=== PATIENT | male | born 1945 | race Caucasian/White ===

== ENCOUNTER 2021-07-24 00:39 | Day surgery (SDC) | payer MEDICARE, SELFPAY ==
[2021-07-11 11:03] VITALS: BMI 26.5
--- NOTE | 2021-07-21 15:45 | PM.HPGS ---
History of Present Illness History of Present Illness Consent: Risks, benefits, and alternatives have been discussed and questions answered. Patient agrees to proceed with procedure. Chief complaint: hx of ulcerative colitis Narrative: Larry Bernabe is a 75 year old male with chronic ulcerative colitis undergoing surveillance colonoscopy Review of Systems Review of Systems: All systems reviewed & are unremarkable except as noted in HPI and below PMFSH Social History Social History Smoking packs per day: 1 Smoking cigarettes per day: 20.0 Years smoked: 14 Smoking pack-years: 14.00 Tobacco type: cigarettes Living arrangements: with family Spiritual care concerns: No Meds Home Medications and Allergies Home Medications Medication Instructions Recorded Confirmed Type balsalazide 750 mg capsule 2,250 mg PO BID #540 cap 05/09/21 07/24/21 Rx Allergies Allergy/AdvReac Type Severity Reaction Status Date / Time No Known Allergies Allergy Verified 07/24/21 06:46 Exam Resp: Auscultation: clear to auscultation bilaterally Cardio: Rate: regular rate Rhythm: regular rhythm GI: GI Palp: Yes Soft to palpation and No Tenderness to palpation present (GI) Assessment and Plan Assessment and plan (1) Ulcerative colitis: Code(s): K51.90 - Ulcerative colitis, unspecified, without complications Status: Acute Assessment and Plan: Colonoscopy with possible biopsy or polypectomy or cautery or injection of substances.
[2021-07-24 06:53] VITALS: BP 141/95; PULSE 65; RESP 16; TEMP 36.4; O2SAT 99; BMI 26.4
[2021-07-24] MEDS: LACTATED RINGERS 1,000 ML 150 ML IV CONT (06:56)
--- NOTE | 2021-07-24 07:31 | WPDANESEPPF ---
Anes - Initial Pre Proc Eval Procedure: Operation Date: 07/24/21 08:00 Proposed Procedures p Colonoscopy - Shukri Jernigan MD Date/Time: 07/24/21 07:31 Surgeon: Shukri Jernigan MD Pre Op Diagnosis: hx of ulcerative colitis Patient Data Age: 75 Gender: M Height: 1.8 m Weight: 85.9 kg Last Vital Signs Temp 36.4 C L 07/24/21 06:53 Pulse 65 07/24/21 06:53 Resp 16 07/24/21 06:53 BP 141/95 H 07/24/21 06:53 Pulse Ox 99 07/24/21 06:53 Allergies Allergy/AdvReac Type Severity Reaction Status Date / Time No Known Allergies Allergy Verified 07/24/21 06:46 Home Medications Medication Instructions Recorded Confirmed Type balsalazide 750 mg capsule 2,250 mg PO BID #540 cap 05/09/21 07/24/21 Rx Patient hx anesthesia problems: none Family hx anesthesia problems: none Results Review: All pre-operative results and documents have been reviewed as part of the pre-operative evaluation. [facility] Social History Social History Smoking packs per day: 1 Smoking cigarettes per day: 20.0 Years smoked: 14 Smoking pack-years: 14.00 Tobacco type: cigarettes Living arrangements: with family Spiritual care concerns: No Anes - Eval Final PreProcedure Day of Procedure 07/24/21 07:31 Patient weight: overweight Heart: regular rate and rhythm Lungs: clear to auscultation Airway: Mallampati scale class II Neurological: alert and oriented Last oral intake: >/= 8 hours ASA classification: II Emergent: no Anesthetic plan: proceed Anesthesia type and monitoring: general GIVS and standard monitoring Results Review: All pre-operative results and documents have been reviewed as part of the pre-operative evaluation. Informed Consent: The patient's anesthetic plan and its attendant risks and benefits were discussed with the patient/family/POA. Questions were solicited and answers provided to the satisfaction of the patient/family/POA.
[2021-07-24 08:28] VITALS: BP 143/100; PULSE 80; RESP 21; O2SAT 98
[2021-07-24 08:38] VITALS: BP 147/100; PULSE 77; RESP 20; O2SAT 100
[2021-07-24 08:48] VITALS: BP 145/101; PULSE 62; RESP 20; O2SAT 99
== END 2021-07-24 08:56 | disposition home or self-care (01) ==
PROVIDERS: PCP Family Medicine; Visit Provider Internal Medicine Gastroenterology
PROC: 0DJD8ZZ Inspection of Lower Intestinal Tract, Via Natural or Artificial Opening Endoscopic (ICD-10-PCS; CPT 45378; principal; 2021-07-24 08:00)
DX: K51.814 Other ulcerative colitis with abscess (principal); K63.5 Polyp of colon; F17.210 Nicotine dependence, cigarettes, uncomplicated
CPT/HCPCS: 45385; 45380; 88305; J2001; J2704; J7120

== ENCOUNTER 2022-09-13 00:51 | Day surgery (SDC) | payer MEDICARE, SELFPAY ==
[2022-08-29 11:30] VITALS: BMI 21.4
--- NOTE | 2022-09-11 15:31 | PM.HPGS ---
History of Present Illness History of Present Illness Consent: Risks, benefits, and alternatives have been discussed and questions answered. Patient agrees to proceed with procedure. Chief complaint: Hx of colon polyps Narrative: Larry Bernabe is a 76 year old male with chronic ulcerative colitis undergoing surveillance colonoscopy. At the time of his last colonoscopy biopsies in the ascending colon were said to be indefinite for dysplasia. He also had a sessile serrated adenoma removed from his sigmoid colon Review of Systems Review of Systems: All systems reviewed & are unremarkable except as noted in HPI and below PMFSH Past Medical History Medical History Arthritis Ulcerative colitis Social History Social History Smoking packs per day: 1 Smoking cigarettes per day: 20.0 Years smoked: 20 Smoking pack-years: 20.00 Smoking status: Former smoker Tobacco type: cigarettes Substance use type: does not use Living arrangements: with family Spiritual care concerns: No Meds Home Medications and Allergies Home Medications Medication Instructions Recorded Confirmed Type balsalazide 750 mg capsule 2,250 mg PO BID #540 caps 05/09/21 09/13/22 Rx Allergies Allergy/AdvReac Type Severity Reaction Status Date / Time No Known Allergies Allergy Verified 09/13/22 07:44 Exam Resp: Auscultation: clear to auscultation bilaterally Cardio: Rate: regular rate Rhythm: regular rhythm GI: GI Palp: Yes Soft to palpation and No Tenderness to palpation present (GI) Assessment and Plan Assessment and plan (1) Ulcerative colitis: Code(s): K51.90 - Ulcerative colitis, unspecified, without complications Status: Inactive Assessment and Plan: Colonoscopy with possible biopsy or polypectomy or cautery or injection of substances.
[2022-09-13 07:46] VITALS: BP 134/87; PULSE 85; RESP 18; TEMP 36.2; O2SAT 99; BMI 27.3
[2022-09-13] MEDS: LACTATED RINGERS 1,000 ML 150 ML IV CONT (07:51)
--- NOTE | 2022-09-13 07:55 | P.PNAN_ITS ---
Anes - Initial Pre Proc Eval Procedure: Operation Date: 09/13/22 08:30 Proposed Procedures p Screening Colonoscopy - Shukri Jernigan MD Date/Time: 09/13/22 07:55 Surgeon: Shukri Jernigan MD Pre Op Diagnosis: Hx of colon polyps Patient Data Age: 76 Gender: M Height: 1.73 m Weight: 81.4 kg Last Vital Signs Temp 36.2 C L 09/13/22 07:46 Pulse 85 09/13/22 07:46 Resp 18 09/13/22 07:46 BP 134/87 09/13/22 07:46 Pulse Ox 99 09/13/22 07:46 O2 Del Method Room Air 09/13/22 07:46 Allergies Allergy/AdvReac Type Severity Reaction Status Date / Time No Known Allergies Allergy Verified 09/13/22 07:44 Home Medications Medication Instructions Recorded Confirmed Type balsalazide 750 mg capsule 2,250 mg PO BID #540 caps 05/09/21 09/13/22 Rx Patient hx anesthesia problems: other (slow to awaken) Family hx anesthesia problems: none Results Review: All pre-operative results and documents have been reviewed as part of the pre- operative evaluation. [facility] Past Medical History Medical History Arthritis Ulcerative colitis Social History Social History Smoking packs per day: 1 Smoking cigarettes per day: 20.0 Years smoked: 20 Smoking pack-years: 20.00 Smoking status: Former smoker Tobacco type: cigarettes Substance use type: does not use Living arrangements: with family Spiritual care concerns: No Anes - Eval Final PreProcedure Day of Procedure 09/13/22 07:55 Patient weight: normal Heart: regular rate and rhythm Lungs: clear to auscultation Airway: Mallampati scale class III Neurological: alert and oriented Last oral intake: >/= 8 hours ASA classification: II Emergent: no Anesthetic plan: proceed Anesthesia type and monitoring: general GIVS and standard monitoring Results Review: All pre-operative results and documents have been reviewed as part of the pre- operative evaluation. Informed Consent: The patient's anesthetic plan and its attendant risks and benefits were discussed with the patient/family/POA. Questions were solicited and answers provided to the satisfaction of the patient/family/POA.
[2022-09-13 09:07] VITALS: BP 115/88; PULSE 77; RESP 21; O2SAT 99
[2022-09-13 09:17] VITALS: BP 135/88; PULSE 78; RESP 19; O2SAT 99
== END 2022-09-13 09:44 | disposition home or self-care (01) ==
PROVIDERS: PCP Family Medicine; Visit Provider Internal Medicine Gastroenterology
PROC: 0DJD8ZZ Inspection of Lower Intestinal Tract, Via Natural or Artificial Opening Endoscopic (ICD-10-PCS; CPT 45378; principal; 2022-09-13 08:30)
DX: K52.9 Noninfective gastroenteritis and colitis, unspecified (principal); K64.8 Other hemorrhoids; Z87.891 Personal history of nicotine dependence; Z86.010 Personal history of colon polyps
CPT/HCPCS: 45380; 88305; J2704; J7120

== ENCOUNTER 2023-08-14 09:27 | Outpatient (CLI) | payer MEDICARE, SELFPAY ==
--- NOTE | 2023-08-14 11:00 | NEURO_ITS ---
Impression: # Non-diabetic complains of numbness of hands. # Mild bilateral Carpal Tunnel Syndrome, sensory more than motor. # No ulnar neuropathy. # Normal needle/EMG. Nerve Conduction Studies Anti Sensory Summary Table Stim Site NR Peak (ms) P-T Amp (?V) Site1 Site2 Delta-P (ms) Dist (cm) Jovanni (m/s) Left Median Anti Sensory (2-3nd Digit) Wrist 4.0 24.5 Wrist 2-3nd Digit 4.0 14.0 35 Wrist 4.1 15.9 Wrist 2-3nd Digit 4.0 14.0 35 Right Median Anti Sensory (2-3nd Digit) Wrist 4.1 17.9 Wrist 2-3nd Digit 4.1 14.0 34 Wrist 4.9 33.6 Wrist 2-3nd Digit 4.1 14.0 34 Left Radial Anti Sensory (Base 1st Digit) Wrist 2.5 12.3 Wrist Base 1st Digit 2.5 0.0 Right Radial Anti Sensory (Base 1st Digit) Wrist 2.8 19.5 Wrist Base 1st Digit 2.8 0.0 Left Ulnar Anti Sensory (5th Digit) Wrist 2.5 40.9 Wrist 5th Digit 2.5 14.0 56 Right Ulnar Anti Sensory (5th Digit) Wrist 2.7 36.2 Wrist 5th Digit 2.7 14.0 52 Motor Summary Table Stim Site NR Onset (ms) O-P Amp (mV) Site1 Site2 Delta-0 (ms) Dist (cm) Jovanni (m/s) Left Median Motor (Abd Poll Brev) Wrist 4.0 3.8 Elbow Wrist 5.2 28.0 54 Elbow 9.2 3.1 Right Median Motor (Abd Poll Brev) Wrist 3.8 1.8 Elbow Wrist 5.9 31.0 53 Elbow 9.7 1.9 Left Ulnar Motor (Abd Dig Minimi) Wrist 2.3 5.7 A Elbow Wrist 5.3 30.0 57 A Elbow 7.6 4.8 Right Ulnar Motor (Abd Dig Minimi) Wrist 2.5 4.4 A Elbow Wrist 5.3 30.0 57 A Elbow 7.8 3.2 F Wave Studies NR F-Lat (ms) L-R F-Lat (ms) Left Median (Mrkrs) (Abd Poll Brev) 32.49 0.28 Right Median (Mrkrs) (Abd Poll Brev) 32.21 0.28 Left Ulnar (Mrkrs) (Abd Dig Min) 32.43 1.10 Right Ulnar (Mrkrs) (Abd Dig Min) 31.33 1.10 EMG Side Muscle Nerve Root Ins Act Fibs Amp Dur Recrt Comment Right 1stDorInt Ulnar C8-T1 Nml Nml Nml Nml Nml Right Ext Indicis Radial (Post Int) C7-8 Nml Nml Nml Nml Nml Right Ext Digitorum Radial (Post Int) C7-8 Nml Nml Nml Nml Nml Right BrachioRad Radial C5-6 Nml Nml Nml Nml Nml Right PronatorTeres Median C6-7 Nml Nml Nml Nml Nml Right Abd Poll Brev Median C8-T1 Nml Nml Nml Nml Nml Left 1stDorInt Ulnar C8-T1 Nml Nml Nml Nml Nml Left Ext Indicis Radial (Post Int) C7-8 Nml Nml Nml Nml Nml Left Ext Digitorum Radial (Post Int) C7-8 Nml Nml Nml Nml Nml Left BrachioRad Radial C5-6 Nml Nml Nml Nml Nml Left PronatorTeres Median C6-7 Nml Nml Nml Nml Nml Left Abd Poll Brev Median C8-T1 Nml Nml Nml Nml Nml MTDD
== END 2023-08-14 09:28 | disposition home or self-care (01) ==
LOC: ANHNEURO 09:30
PROVIDERS: PCP Family Medicine; Visit Provider Physician Assistant Surgical
DX: G56.03 Carpal tunnel syndrome, bilateral upper limbs (principal)
CPT/HCPCS: 95886; 95911

== ENCOUNTER 2023-10-09 00:19 | Day surgery (SDC) | payer MEDICARE, SELFPAY ==
[2023-09-18 10:02] VITALS: BMI 25.2
--- NOTE | 2023-10-08 11:27 | SUR.PREOP ---
Patient called regarding upcoming procedure. Reviewed preop instructions, appointment times, and procedure prep.
--- NOTE | 2023-10-08 13:36 | PM.HPGS ---
History of Present Illness History of Present Illness Consent: Risks, benefits, and alternatives have been discussed and questions answered. Patient agrees to proceed with procedure. Chief complaint: Ulcerative colitis Narrative: Larry Bernabe is a 78 year old male Undergoing surveillance colonoscopy due to a long history of ulcerative colitis. Two years ago biopsies showed some areas that were indefinite for dysplasia. He also had a sessile serrated polyp removed at that time. Last year biopsies taken at the time of colonoscopy did not reveal any dysplasia nor polyps. Review of Systems Review of Systems: All systems reviewed & are unremarkable except as noted in HPI and below PMFSH Past Medical History Medical History Arthritis Ulcerative colitis Social History Social History Smoking packs per day: 1 Smoking cigarettes per day: 20.0 Years smoked: 20 Smoking pack-years: 20.00 Smoking status: Former smoker Tobacco type: cigarettes Substance use type: does not use Living arrangements: with family Spiritual care concerns: No Meds Home Medications and Allergies Home Medications Medication Instructions Recorded Confirmed Type balsalazide 750 mg capsule 2,250 mg PO BID #540 caps 09/17/22 10/09/23 Rx Allergies Allergy/AdvReac Type Severity Reaction Status Date / Time No Known Allergies Allergy Verified 10/09/23 11:08 Exam Const: General: alert Orientation/consciousness: patient oriented x3 Resp: Auscultation: clear to auscultation bilaterally Cardio: Rhythm: regular rhythm GI: GI Palp: Yes Soft to palpation and No Tenderness to palpation present (GI) Neuro: General: patient oriented x3 Assessment and Plan Assessment and plan (1) Ulcerative colitis: Code(s): K51.90 - Ulcerative colitis, unspecified, without complications Status: Acute Assessment and Plan: Colonoscopy with possible biopsy or polypectomy or cautery or injection of substances.
[2023-10-09 11:09] VITALS: BMI 25.1
[2023-10-09 11:11] VITALS: BP 132/100; PULSE 90; RESP 18; TEMP 36.3; O2SAT 99
[2023-10-09] MEDS: LACTATED RINGERS 1,000 ML 150 ML IV CONT (11:21)
--- NOTE | 2023-10-09 11:56 | P.PNAN_ITS ---
Anes - Initial Pre Proc Eval Procedure: Operation Date: 10/09/23 12:30 Proposed Procedures p Colonoscopy - Shukri Jernigan MD Date/Time: 10/09/23 11:56 Surgeon: Shukri Jernigan MD Pre Op Diagnosis: Ulcerative colitis Patient Data Age: 78 Gender: M Height: 1.75 m Weight: 77.2 kg Last Vital Signs Temp 97.4 F L 10/09/23 11:11 Pulse 90 10/09/23 11:11 Resp 18 10/09/23 11:11 BP 132/100 H 10/09/23 11:11 Pulse Ox 99 10/09/23 11:11 O2 Del Method Room Air 10/09/23 11:11 Allergies Allergy/AdvReac Type Severity Reaction Status Date / Time No Known Allergies Allergy Verified 10/09/23 11:08 Home Medications Medication Instructions Recorded Confirmed Type balsalazide 750 mg capsule 2,250 mg PO BID #540 caps 09/17/22 10/09/23 Rx Patient hx anesthesia problems: none Family hx anesthesia problems: none Results Review: All pre-operative results and documents have been reviewed as part of the pre- operative evaluation. [facility] Past Medical History Medical History Arthritis Ulcerative colitis Social History Social History Smoking packs per day: 1 Smoking cigarettes per day: 20.0 Years smoked: 20 Smoking pack-years: 20.00 Smoking status: Former smoker Tobacco type: cigarettes Substance use type: does not use Living arrangements: with family Spiritual care concerns: No Anes - Eval Final PreProcedure Day of Procedure 10/09/23 11:56 Patient weight: normal Heart: regular rate and rhythm Lungs: clear to auscultation Airway: Mallampati scale class II Neurological: alert and oriented Last oral intake: >/= 8 hours ASA classification: II Emergent: no Anesthetic plan: proceed Anesthesia type and monitoring: general GIVS and standard monitoring Results Review: All pre-operative results and documents have been reviewed as part of the pre- operative evaluation. Informed Consent: The patient's anesthetic plan and its attendant risks and benefits were discussed with the patient/family/POA. Questions were solicited and answers provided to the satisfaction of the patient/family/POA.
[2023-10-09 12:29] VITALS: BP 108/73; PULSE 77; RESP 16; O2SAT 95
[2023-10-09 12:39] VITALS: BP 112/78; PULSE 74; RESP 24; O2SAT 98
[2023-10-09 12:49] VITALS: BP 117/86; PULSE 73; RESP 24; O2SAT 98
== END 2023-10-09 13:09 | disposition home or self-care (01) ==
PROVIDERS: PCP Family Medicine; Visit Provider Internal Medicine Gastroenterology
PROC: 0DJD8ZZ Inspection of Lower Intestinal Tract, Via Natural or Artificial Opening Endoscopic (ICD-10-PCS; CPT 45378; principal; 2023-10-09 12:30)
DX: K52.89 Other specified noninfective gastroenteritis and colitis (principal); K64.8 Other hemorrhoids; Z87.891 Personal history of nicotine dependence
CPT/HCPCS: 45380; 88305; J7120

== ENCOUNTER 2023-12-16 16:19 | Outpatient (CLI) | payer MEDICARE, SELFPAY ==
--- NOTE | ~2023-12-16 | MR_ITS ---
EXAMINATION: MR cervical spine wo con DATE: 12/16/2023 17:13 INDICATION: Spinal stenosis in cervical region. Numbness and tingling in the hands. TECHNIQUE: Magnetic resonance imaging (MRI) of the cervical spine was performed without intravenous c ontrast. Sequences included sagittal T2-weighted FSE, sagittal T2-weighted FS FSE, sagittal T1-weight ed FSE, axial MERGE, and axial T2-weighted FSE. COMPARISON: None FINDINGS: There is 4 degrees levocurvature of cervicothoracic spine. There is 2 mm anterolisthesis of C4 on C5, C7 on T1, and T1 on T2. There is kyphosis of lower cervical spine. Vertebral body heights are normal. There is severely decreased disc height at C5-C6. The spinal cord signal intensity is nor mal. The following disc levels are specifically discussed: C2-C3: The disc does not extend beyond the endplate margin. There is no uncovertebral joint osteoarth ritis. There is moderate left facet joint osteoarthritis. There is ankylosis of right facet joint wit h mild hypertrophy. There is mild right neural foraminal stenosis. There is no central canal stenosis . C3-C4: There is a central protrusion. There is mild bilateral uncovertebral joint osteoarthritis. The re is moderate right facet joint osteoarthritis. There is ankylosis of left facet joint with mild hyp ertrophy. There is mild left neural foraminal stenosis. There is no central canal stenosis. C4-C5: The disc is bulging. There is mild bilateral uncovertebral joint osteoarthritis. There is magnolia re bilateral facet joint osteoarthritis. There is mild bilateral neural foraminal stenosis. There is mild central canal stenosis. C5-C6: The disc is bulging. There is severe bilateral uncovertebral joint osteoarthritis. There is se nova bilateral facet joint osteoarthritis. There is mild bilateral neural foraminal stenosis. There i s mild central canal stenosis with ventral indentation of the spinal cord. C6-C7: There is mild bilateral uncovertebral joint hypertrophy. There is no facet joint osteoarthriti s. There is severe right and mild left neural foraminal stenosis. There is no central canal stenosis. C7-T1: There is a central extrusion. There is mild right uncovertebral joint osteoarthritis. There is severe bilateral facet joint osteoarthritis. There is mild bilateral neural foraminal stenosis. Ther e is mild central canal stenosis. IMPRESSION: 1. Severe cervical spondylosis. 2. Anterior fusion procedure at C6-C7. Reviewed, dictated and finalized at location [facility]
== END 2023-12-16 16:20 | disposition home or self-care (01) ==
LOC: ANHIMG 16:19
PROVIDERS: PCP Family Medicine; Visit Provider Orthopaedic Surgery
DX: M48.02 Spinal stenosis, cervical region (principal); M47.892 Other spondylosis, cervical region; Z98.1 Arthrodesis status
CPT/HCPCS: 72141

== ENCOUNTER 2024-02-18 00:33 | Day surgery (SDC) | payer MEDICARE, SELFPAY ==
[2024-02-14 09:08] VITALS: BMI 24.8
--- NOTE | 2024-02-14 09:15 | PC.NURSE ---
Report to the Outpatient Waiting Room, entrance under the green pavilion located off [facility], at time _1000_ on date ____02/18/24___. Planned Procedure Time: ___1200 . Time changes happen often and if your time is changed the preop area will call you the afternoon before. - You and your visitor will be asked to self-screen and do not enter if you have any COVID symptoms. - A mask is optional within the hospital at this time. Patients may have clear liquids (water, carbonated beverages, clear teas, apple juice) until 3 hours prior to surgery (0900 AM) with a maximum of 20 ounces. - No food from midnight until time of surgery - Infants may have breast milk until 4 hours before surgery, infant formula 6 hours prior to surgery. - Children will be allowed to drink immediately following surgery. If applicable, please bring a bottle or sippy cup to assist with drinking. Juice, water, soda, and popsicles are readily available. For infants on formula, please bring formula the day of surgery. Pacifiers are allowed. Take the following medications with a SIP of water the morning of surgery: __NONE__ DO NOT STOP ANY OF YOUR OTHER PRESCRIPTION MEDICATIONS PRIOR TO SURGERY ?EXCEPT THE FOLLOWING Medications to discontinue per DR. CABELLO - __PT STATES STOPPING BALSALAZIDE 02/12/24_ Date to take last dose Please no make-up, nail greek, hairspray, perfume, deodorant, or body powder the day of surgery. No jewelry (including any body piercings) or valuables the day of surgery, leave them at home. Please take a shower or bath the night before, or the morning of, surgery with an antibacterial soap. Wear comfortable, loose fitting clothing. Children are encouraged to wear pajamas. - Jewelry must be removed prior to entering the operating room. Rings and piercings that are not removed may be cut off. - The hospital will not accept responsibility for valuables. - Please leave all valuables, including medications, at home the day of surgery. If you are going home after surgery, a licensed hydraulic lift driver must drive you home. - NO public transportation without another adult if you receive anesthesia. - We recommend that an adult stay with you for 24 hours following discharge. - We also recommend that you do not drive, make important decision, drink alcoholic beverages, or take any drugs that were not prescribed by your health care provider for at least 24 hours after your discharge time. For Pediatric surgeries, we recommend two adults accompany the child home. Follow any additional instructions given to you from your surgeon. If you or anyone in your household have experienced Covid symptoms in the past week, please notify your surgeon or the nurse liaison at the phone number below for possible testing. Telephone instructions given to PT and asked if any additional questions and then verbalized understanding. Patient advised to call surgeon office or pre surgery nurse liaison [phone] if any additional questions.
--- NOTE | 2024-02-17 17:04 | PM.IMHP ---
H&P: HPI History of Present Illness Date/Time: 02/17/24 17:04 Chief Complaint: Numbness constant right thumb index and long fingers. Narrative: Patient is a 78 old gentleman was seen for carpal tunnel syndrome in the right hand. Her of this year he had nerve conduction velocity test EMG which showed mild bilateral carpal tunnel syndrome. MRI scan of the cervical spine showed mild central canal stenosis C4-5 C5-6 and C7-T1 with ventral indentation of spinal cord at C5-6 without signs of myelopathy. Patient had a anterior cervical decompression and fusion many years ago. He has tried splinting and the constant numbness persists and he presents for carpal tunnel release. We have discussed with him that there may be a contribution to his numbness by his cervical spinal stenosis but since the morbidity of carpal tunnel release is less than the morbidity of anterior cervical decompression and fusion, we are going to proceed with carpal tunnel release surgery to see if this is helpful. 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 REPLACED BY [facility] Past Medical History Medical History (Updated 01/23/24 @ 10:40 by Christiano Huber MD) Arthritis Ulcerative colitis Surgical History Surgical History (Updated 01/20/24 @ 14:58 by Melinda To CMA) History of cervical spinal surgery 45yr ago History of cholecystectomy Social History Social History (Updated 01/20/24 @ 14:59 by Melinda To CMA) Smoking packs per day: 1 Smoking cigarettes per day: 20.0 Years smoked: 20 Smoking pack-years: 20.00 Smoking status: Former smoker Tobacco type: cigarettes Second hand tobacco smoke exposure: No Additional smoking assessment comments: STATES QUIT SMOKING 1979 Alcohol intake: never Substance use: never Substance use type: does not use Do You Feel Safe in your Home?: Yes Lack of Transportation: No Lack of Food: Never True Current Housing: I Have Housing Concerned About Future Housing: No Difficulty Paying Gas/Electric Bills: No Difficulty Paying for Meds: No Currently Unemployed: No Education: High School Diploma/GED Living arrangements: with family Additional living arrangements comments: LIVES WITH SPOUSE AMILCAR Occupation/Education: retired Gender identity (if verbalized by the patient): Male Spiritual care concerns: No Meds Home Medications and Allergies Home Medications Medication Instructions Recorded Confirmed Type balsalazide 750 mg capsule 2,250 mg PO BID #540 caps 09/17/22 02/14/24 Rx Allergies Allergy/AdvReac Type Severity Reaction Status Date / Time No Known Allergies Allergy Verified 02/14/24 09:07 Exam Narrative: On exam he is alert oriented pleasant gentleman in no acute distress. Heart and lung auscultation will be documented on morning of surgery. He has full range of motion of his fingers moderate decreased range of motion of his wrist. Light touch testing shows a numbness scratchy feeling in the thumb index and long fingers. Positive Tinel's over the median nerve the risk causing dysesthesias into his hand. 2+ radial artery pulse palpable. Neck range of motion did not cause any dysesthesias negative Spurling's Maneuver Assessment and Plan Assessment and plan (1) Right carpal tunnel syndrome: Code(s): G56.01 - Carpal tunnel syndrome, right upper limb Status: Acute Assessment and Plan: patient has significant right carpal tunnel syndrome with constant numbness in the thumb index and long fingers and he presents for right carpal tunnel release surgery at this time. Risks of surgery were discussed with him in detail he understands and wishes to proceed.
[2024-02-18] VITALS (9 sets, daily range): BP systolic 135–153; BP diastolic 78–98; PULSE 44–78; RESP 10–16; TEMP 36.4–36.6; O2SAT 99–100
[2024-02-18] MEDS: LACTATED RINGERS 1,000 ML 30 ML IV CONT (11:00)
[2024-02-18] MEDS: ACETAMINOPHEN 500 MG TABLET 1000 MG PO (11:04)
[2024-02-18] MEDS: KETOROLAC 15 MG/ML VIAL (*BKC) IV PUSH (11:04)
--- NOTE | 2024-02-18 11:38 | WPDHPUPDATE1 ---
History and Physical Update Update Date/Time: 02/18/24 11:38 History and Physical has been reviewed, including an updated exam of the patient. There are NO changes in the patient's condition. Risks, benefits, and alternatives have been discussed and questions answered. Patient agrees to proceed with procedure.
--- NOTE | 2024-02-18 11:40 | P.PNAN_ITS ---
Anes - Initial Pre Proc Eval Procedure: Operation Date: 02/18/24 12:00 Proposed Procedures p Right Carpal Tunnel Release - Christiano Huber MD Date/Time: 02/18/24 11:40 Surgeon: Christiano Huber MD Pre Op Diagnosis: right carpal tunnel syndrome Patient Data Age: 78 Gender: M Height: 1.75 m Weight: 80.6 kg Last Vital Signs Temp 97.8 F 02/18/24 10:11 Pulse 60 02/18/24 10:11 Resp 16 02/18/24 10:11 BP 135/85 02/18/24 10:11 Pulse Ox 99 02/18/24 10:11 O2 Del Method Room Air 02/18/24 10:11 Allergies Allergy/AdvReac Type Severity Reaction Status Date / Time No Known Allergies Allergy Verified 02/14/24 09:07 Home Medications Medication Instructions Recorded Confirmed Type balsalazide 750 mg capsule 2,250 mg PO BID #540 caps 09/17/22 02/14/24 Rx Patient hx anesthesia problems: none Family hx anesthesia problems: none Results Review: All pre-operative results and documents have been reviewed as part of the pre- operative evaluation. [facility] Past Medical History Medical History (Updated 01/23/24 @ 10:40 by Christiano Huber MD) Arthritis Ulcerative colitis Surgical History Surgical History (Updated 01/20/24 @ 14:58 by Melinda To CMA) History of cervical spinal surgery 45yr ago History of cholecystectomy Social History Social History (Updated 01/20/24 @ 14:59 by Melinda To CMA) Smoking packs per day: 1 Smoking cigarettes per day: 20.0 Years smoked: 20 Smoking pack-years: 20.00 Smoking status: Former smoker Tobacco type: cigarettes Second hand tobacco smoke exposure: No Additional smoking assessment comments: STATES QUIT SMOKING 1979 Alcohol intake: never Substance use: never Substance use type: does not use Do You Feel Safe in your Home?: Yes Lack of Transportation: No Lack of Food: Never True Current Housing: I Have Housing Concerned About Future Housing: No Difficulty Paying Gas/Electric Bills: No Difficulty Paying for Meds: No Currently Unemployed: No Education: High School Diploma/GED Living arrangements: with family Additional living arrangements comments: LIVES WITH SPOUSE AMILCAR Occupation/Education: retired Gender identity (if verbalized by the patient): Male Spiritual care concerns: No Anes - Eval Final PreProcedure Day of Procedure 02/18/24 11:40 Patient weight: normal Heart: regular rate and rhythm Lungs: clear to auscultation Neurological: alert and oriented Last oral intake: >/= 8 hours Emergent: no Anesthetic plan: proceed Anesthesia type and monitoring: general LMA and standard monitoring Results Review: All pre-operative results and documents have been reviewed as part of the pre- operative evaluation. Informed Consent: The patient's anesthetic plan and its attendant risks and benefits were discussed with the patient/family/POA. Questions were solicited and answers provided to the satisfaction of the patient/family/POA.
[2024-02-18] MEDS: ceFAZolin 2 GM/D5W 50 ML 2 GM/50 ML BAG IVPB (12:35)
[2024-02-18] MEDS: LIDOCAINE HCL 1% LOCAL INJ 10 ML VIAL INFILTRATE (12:52)
--- NOTE | 2024-02-18 13:32 | W.PM.PROC2 ---
Procedure Note - Detailed Date of Procedure 02/18/24 Pre-op Diagnosis right carpal tunnel syndrome Post-op Diagnosis Same Procedure Performed Right carpal tunnel release Surgeon Christiano Huber MD Anesthesia General Description of Procedure Patient was brought to the operating room and LMA general anesthetic was administered received 2 g of Ancef preoperatively the right arm prepped draped usual fashion with ChloraPrep. Local anesthesia 1% plain lidocaine utilized. Limb was exsanguinated tourniquet elevated to 200 and 50 mmHg. A 1 in longitudinal incision was made the base of the palm in line with the radial border the 4th ray. Dissection was carried down through the superficial palmar fascia to the transverse carpal ligament which was longitudinally incised. Complete release was achieved distally. Proximally the subcutaneous fat was elevated off the distal volar forearm fascia and a [place] elevator passed underneath the fascia to from the underlying nerve and the fascia was split for a distance of 3 cm proximal to the flexor crease of the wrist completing the decompression. Transverse carpal tunnel ligament release was performed at the ulnar edge of the ligament. There was a little bit more than average bland appearing tenosynovium in the carpal tunnel and the nerve appeared unremarkable. Tourniquet was released hemostasis was achieved with a few minutes of pressure wound irrigated closed with 4-0 nylon suture horizontal mattress and bulky lightly compressive dressing applied the patient transferred postop recovery room in stable condition. [facility] Billing Surgery - Charge Forward: Surgery Billing (Right carpal tunnel release)
== END 2024-02-18 15:31 | disposition home or self-care (01) ==
PROVIDERS: PCP Family Medicine; Visit Provider Orthopaedic Surgery
PROC: (CPT 64721; principal; 2024-02-18 12:00)
DX: G56.01 Carpal tunnel syndrome, right upper limb (principal); Z87.891 Personal history of nicotine dependence
CPT/HCPCS: 64721; A9270; J0690; J1100; J1885; J2405; J2704; J3010; J7120

== ENCOUNTER 2024-06-23 09:47 | Outpatient (CLI) | payer MEDICARE, SELFPAY ==
[2024-06-23 11:07] LABS: Basophils Absolute Auto 0.1 K/mm3 (0.0-0.1); Basophils Percent Auto 1.4 % (0.2-1.2); Eosinophils Absolute Auto 0.2 K/mm3 (0-0.3); Eosinophils Percent Auto 2.3 % (0-4.4); Hematocrit 45.1 % (42.0-52.0); Hemoglobin 15.5 g/dL (14.0-18.0); Immature Granulocyte Absolute 0.03 K/mm3 (0.00-0.031); Immature Granulocyte Percent A 0.5 % (0-0.5); Lymphocytes Percent Auto 24.8 % (18.3-44.2); Mean Corpuscular HGB Conc 34.4 g/dl (32-36); Mean Corpuscular Hemoglobin 31.4 pg (26-34); Mean Corpuscular Volume 91.3 fl (80-100); Mean Platelet Volume 10.2 fl (7.4-10.4); Monocytes Absolute Auto 0.7 K/mm3 (0.1-0.6); Monocytes Percent Auto 11.5 % (2.6-8.5); Neutrophils Absolute Auto 3.8 K/mm3 (1.3-6.7); Neutrophils Percent Auto 59.5 % (45.5-73.1); Platelet Count Result 190 k/mm3 (150-375); Red Blood Count 4.94 M/mm3 (4.6-6.20); Red Cell Distribution Width 13.2 % (11.5-14.5); White Blood Count 6.4 K/mm3 (4.5-10.0)
[2024-06-23 11:19] LABS: Anion Gap 8 mmol/L (4-12); Blood Urea Nitrogen 20 mg/dL (9-20); Carbon Dioxide 27 mmol/L (22-30); Chloride 101 mmol/L (98-107); Estimated Glomerular Filt Rate > 60; Glucose 111 mg/dL (65-110); Potassium 3.9 mmol/L (3.4-5.0); Sodium 136 mmol/L (137-145)
[2024-06-23 11:45] LABS: Urine Cotinine NEGATIVE
[2024-06-23 15:07] LABS: Hemoglobin A1C 5.7 % (<5.7)
== END 2024-06-23 09:48 | disposition home or self-care (01) ==
PROVIDERS: PCP Internal Medicine; Visit Provider Orthopaedic Surgery
DX: Z01.818 Encounter for other preprocedural examination (principal); M16.11 Unilateral primary osteoarthritis, right hip
CPT/HCPCS: 80048; 80307; 82040; 83036; 85025; 87081

== ENCOUNTER 2024-07-13 00:18 | Day surgery (SDC) | payer MEDICARE, SELFPAY ==
--- NOTE | 2024-06-23 08:56 | PC.NURSE ---
Report to the Outpatient Waiting Room, entrance under the green pavilion located off [facility], at time __06:00am__on date 07/13/24 Planned Procedure Time: ___07:30am .? Time changes happen often and if your time is changed the preop area will call you the afternoon before. - You and your visitor will be asked to self-screen and do not enter if you have any COVID symptoms. Please call surgeon if you need to reschedule. - A mask is optional within the hospital at this time. Patients may have clear liquids (water, carbonated beverages, clear teas, apple juice) until 3 hours prior to surgery (4:30am) with a maximum of 20 ounces. - No food from midnight until time of surgery and no smoking- Take only the following medications with a SIP of water on the morning of surgery: ____Pain pill if needed DO NOT STOP ANY OF YOUR OTHER PRESCRIPTION MEDICATIONS PRIOR TO SURGERY EXCEPT THE FOLLOWING Medications to discontinue per physician __Hold all vitamins, supplements, probiotics and herbs 3 days prior to surgery per Anesthesia Date to take last dose 07/09/24 Hold the Balsalazide for 3 days prior to surgery per Dr Raymundo, Date to take last dose is 07/09/24. Please no make-up, nail cameroonian, hairspray, perfume, deodorant, or body powder the day of surgery.? No jewelry (including any body piercings) or valuables the day of surgery, leave them at home.? Please take a shower or bath the night before, or the morning of, surgery with an antibacterial soap.? Wear comfortable, loose fitting clothing.? - Jewelry must be removed prior to entering the operating room.? Rings and piercings that are not removed may be cut off. - The hospital will not accept responsibility for valuables.? - Please leave all valuables, including medications, at home the day of surgery. If you are going home after surgery, a licensed flatbed company driver must drive you home.? - NO public transportation without another adult if you receive anesthesia. - We recommend that an adult stay with you for 24 hours following discharge. - We also recommend that you do not drive, make important decision, drink alcoholic beverages, or take any drugs that were not prescribed by your health care provider for at least 24 hours after your discharge time. Follow any additional instructions given to you from your surgeon. Scrub instructions per Dr Raymundo Telephone instructions given to __patient and asked if any additional questions and then verbalized understanding. Patient advised to call surgeon office or pre surgery nurse liaison [phone] if any additional questions.
[2024-06-23 10:18] VITALS: BP 140/89; PULSE 77; RESP 16; TEMP 36.8; O2SAT 98; BMI 27.3
--- NOTE | 2024-07-10 09:29 | PM.IMHP ---
H&P: HPI History of Present Illness Date/Time: 07/10/24 09:29 Chief Complaint: Right hip DJD Narrative: 75-year-old male who presents today for a right anterior total hip arthroplasty. Patient has been having symptoms in his hip for several years. He is been living with it as much as possible. 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 He avoids anti-inflammatories due to history of ulcerative colitis. At this point patient is having symptoms on a daily basis and it is starting to affect his daily lifestyle. 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 He is at the point where he feels he is ready proceed with total hip arthroplasty. Review of Systems Review of Systems: All systems reviewed & are unremarkable except as noted in HPI and below PMFSH Past Medical History Medical History Arthritis Ulcerative colitis Surgical History Surgical History History of carpal tunnel surgery of right wrist 02/18/24 History of cervical spinal surgery 45yr ago History of cholecystectomy Social History Social History (Updated 06/08/24 @ 14:33 by BONIFACIO Flores) Smoking packs per day: 1 Smoking cigarettes per day: 20.0 Years smoked: 20 Smoking pack-years: 20.00 Smoking status: Former smoker Tobacco type: cigarettes Second hand tobacco smoke exposure: No Smoking end date: 03/14/80 Additional smoking assessment comments: STATES QUIT SMOKING 1979 Alcohol intake: never Substance use: never Substance use type: does not use Do You Feel Safe in your Home?: Yes Lack of Transportation: No Lack of Food: Never True Current Housing: I Have Housing Concerned About Future Housing: No Difficulty Paying Gas/Electric Bills: No Difficulty Paying for Meds: No Currently Unemployed: No Education: High School Diploma/GED Living arrangements: with family Additional living arrangements comments: [place] Occupation/Education: retired Additional occupation/education comments: [employer] Gender identity (if verbalized by the patient): Male Spiritual care concerns: No Meds Home Medications and Allergies Home Medications Medication Instructions Recorded Confirmed Type balsalazide 750 mg capsule See Rx Instructions .Route 05/30/24 09/10/24 Rx .COMPLEX #180 caps cholecalciferol (vitamin D3) 10 10 mcg PO DAILY 06/08/24 06/23/24 History mcg (400 unit) capsule hydrocodone 5 mg-acetaminophen 325 1 tablet PO PRN PRN Pain 06/23/24 06/23/24 History mg tablet Allergies Allergy/AdvReac Type Severity Reaction Status Date / Time No Known Allergies Allergy Verified 06/23/24 10:05 Exam Narrative: 78-year-old male alert pleasant. He is 5 ft 9 and 181 lb. BMI is 27.3. He walks with a minimal limp. His right hip flexes to 125, internal rotation to 15 and external rotation to 20. He has pain in the anterior lateral hip rotation. Stinchfield maneuver is negative. He has normal abduction strength in lateral position. Nontender the greater trochanter. Skin around the hip and groin crease are normal. 2+ dorsalis pedis and posterior artery pulse palpable. He has normal sensation right lower extremity. There is no edema in the right lower extremity. Resp: Auscultation: clear to auscultation bilaterally Cardio: Rate: regular rate Rhythm: regular rhythm Assessment and Plan Assessment and plan (1) Primary osteoarthritis of right hip: Code(s): M16.11 - Unilateral primary osteoarthritis, right hip Status: Acute Assessment and Plan: 78-year-old male who has severe osteoarthritis right hip with significant symptoms on a daily basis. Again at this point he feels he is ready proceed with total hip arthroplasty rather than continue nonsurgical treatment. Surgical procedures well as
[2024-07-13] VITALS (13 sets, daily range): BP systolic 119–164; BP diastolic 75–88; PULSE 60–86; RESP 11–17; TEMP 35.8–37.2; O2SAT 94–100
--- NOTE | ~2024-07-13 | XR_ITS ---
EXAMINATION: XR surgery orthopedic DATE: 07/13/2024 11:04 INDICATION: Right hip osteoarthritis. TECHNIQUE: 10 intraoperative fluoroscopic views of right hip were obtained. I was not present. Fluoro scopy exposure time was 50 seconds. COMPARISON: Right hip radiograph 03/25/2024 FINDINGS: Images demonstrate stepwise placement of a total right hip arthroplasty in near-anatomic al ignment. No fracture. There is a stone in the bladder. IMPRESSION: 1. Total right hip arthroplasty in near-anatomic alignment. 2. Bladder stone. Reviewed, dictated and finalized at location A.
--- NOTE | ~2024-07-13 | XR_ITS ---
XR hip RT 1V w AP pelvis Ordering provider: Christiano Huber MD History: . RIGHT ANTERIOR HIP POST OP . Comparison: None. FINDINGS: BONES: No acute fracture or dislocation. HIP JOINT SPACES: Right hip arthroplasty. Left hip osteoarthritic changes SACROILIAC JOINT SPACES/LUMBAR SPINE: The sacroiliac joint spaces are normal. Mild degenerative payne es of the visualized lower lumbar spine. PUBIC SYMPHYSIS: Normal. SOFT TISSUES: Calcifications seen in the area of the urinary bladder suggestive of a stone unchanged from previous examination. IMPRESSION: No acute osseous abnormality pelvis and right hip. Right hip arthroplasty. Urinary bladder stone. Further evaluation advised. Reviewed, dictated and finalized at location A.
[2024-07-13] MEDS: LACTATED RINGERS 1,000 ML 30 ML IV CONT ×2 (06:30→11:25)
[2024-07-13] MEDS: ACETAMINOPHEN 500 MG TABLET 1000 MG PO (06:45)
[2024-07-13] MEDS: VANCOMYCIN 1,250 MG/NS 250 ML BAG 166.67 MG IVPB (06:45)
[2024-07-13] MEDS: TRANEXAMIC ACID 1,000MG/ISO100 1,000 MG/100 ML BAG 200 MG IVPB (06:58)
--- NOTE | 2024-07-13 07:18 | WPDHPUPDATE1 ---
History and Physical Update Update Date/Time: 07/13/24 07:18 History and Physical has been reviewed, including an updated exam of the patient. There are NO changes in the patient's condition. Risks, benefits, and alternatives have been discussed and questions answered. Patient agrees to proceed with procedure.
--- NOTE | 2024-07-13 07:21 | WPDANESEPPF ---
Anes - Initial Pre Proc Eval Procedure: Operation Date: 07/13/24 07:30 Proposed Procedures p Right Total Hip Anterior Approach - Christiano Huber MD Date/Time: 07/13/24 07:21 Surgeon: Christiano Huber MD Pre Op Diagnosis: O A Rt Hip Patient Data Age: 78 Gender: M Height: 1.75 m Weight: 84.7 kg Last Vital Signs Temp 97.9 F 07/13/24 06:45 Pulse 60 07/13/24 06:45 Resp 16 07/13/24 06:45 BP 164/85 H 07/13/24 06:45 Pulse Ox 98 07/13/24 06:45 O2 Del Method Room Air 07/13/24 06:45 Allergies Allergy/AdvReac Type Severity Reaction Status Date / Time No Known Allergies Allergy Verified 07/13/24 06:59 Home Medications Medication Instructions Recorded Confirmed Type balsalazide 750 mg capsule See Rx Instructions .Route 03/12/24 06/23/24 Rx .COMPLEX #180 caps cholecalciferol (vitamin D3) 10 10 mcg PO DAILY 06/08/24 06/23/24 History mcg (400 unit) capsule hydrocodone 5 mg-acetaminophen 325 1 tablet PO PRN PRN Pain 06/23/24 06/23/24 History mg tablet Patient hx anesthesia problems: none Family hx anesthesia problems: none Results Review: All pre-operative results and documents have been reviewed as part of the pre-operative evaluation. PENDING SALE TO [facility] Past Medical History Medical History Arthritis Ulcerative colitis Surgical History Surgical History History of carpal tunnel surgery of right wrist 02/18/24 History of cervical spinal surgery 45yr ago History of cholecystectomy Social History Social History (Updated 06/08/24 @ 14:33 by BONIFACIO Flores) Smoking packs per day: 1 Smoking cigarettes per day: 20.0 Years smoked: 20 Smoking pack-years: 20.00 Smoking status: Former smoker Tobacco type: cigarettes Second hand tobacco smoke exposure: No Smoking end date: 03/14/80 Additional smoking assessment comments: STATES QUIT SMOKING 1979 Alcohol intake: never Substance use: never Substance use type: does not use Do You Feel Safe in your Home?: Yes Lack of Transportation: No Lack of Food: Never True Current Housing: I Have Housing Concerned About Future Housing: No Difficulty Paying Gas/Electric Bills: No Difficulty Paying for Meds: No Currently Unemployed: No Education: High School Diploma/GED Living arrangements: with family Additional living arrangements comments: [place] Occupation/Education: retired Additional occupation/education comments: [employer] Gender identity (if verbalized by the patient): Male Spiritual care concerns: No Anes - Eval Final PreProcedure Day of Procedure 07/13/24 07:21 Patient weight: normal Heart: regular rate and rhythm Lungs: clear to auscultation Airway: Mallampati scale class II Neurological: alert and oriented Last oral intake: >/= 8 hours ASA classification: III Emergent: no Anesthetic plan: proceed Anesthesia type and monitoring: general ETT and standard monitoring Results Review: All pre-operative results and documents have been reviewed as part of the pre-operative evaluation. Informed Consent: The patient's anesthetic plan and its attendant risks and benefits were discussed with the patient/family/POA. Questions were solicited and answers provided to the satisfaction of the patient/family/POA.
[2024-07-13] MEDS: ceFAZolin 2 GM/D5W 50 ML 2 GM/50 ML BAG IVPB ×3 (07:35→22:10)
[2024-07-13] MEDS: SODIUM CHLORIDE 0.9% IV 37.7 ML, MORPHINE SULFATE INJ (*CRX) 2 MG, ROPivacaine HCL 1% 2... INFILTRATE (08:11)
[2024-07-13] MEDS: ceFAZolin SODIUM 1 GM VIAL 3 GM (08:11)
[2024-07-13] MEDS: methylPREDNISolone ACETATE 80 MG/ML VIAL IM (08:18)
[2024-07-13] MEDS: ceFAZolin SODIUM 1 GM VIAL 2 GM IV PUSH (10:50)
[2024-07-13] MEDS: KETOROLAC 15 MG/ML VIAL (*BKC) IV PUSH (10:50)
[2024-07-13] MEDS: TRANEXAMIC ACID 1,000 MG/10 ML AMPUL 1000 MG IV PUSH (10:50)
--- NOTE | 2024-07-13 11:21 | W.PM.PROC2 ---
Procedure Note - Detailed Date of Procedure 07/13/24 Pre-op Diagnosis O A Rt Hip Osteoarthritis both knees Post-op Diagnosis Same Procedure Performed Right total hip arthroplasty Surgeon Christiano Huber MD Tow Car Driver Emily Anesthesia General Description of Procedure patient is ready and general anesthesia was administered. He received 2 g of Ancef weight based vancomycin 1 g of tranexamic acid preoperatively. Also each knee was prepped with ChloraPrep and injected with 80 mg of Kenalog and 4 cc 1% lidocaine. Additional padding was placed on the feet use placed in the boots transferred to the OSI [place] table the right hip prepped draped usual fashion. 10 cm longitudinal incision was made dissection carried down through the Kimmy subcutaneous fat exposing the fascia over the tensor fascia nishant. Interval between TFL and rectus femoris developed with crossing branches of ascending lateral some oral femoral circumflex vessels ligated with suture divided. The inverted T capsulotomy was performed. Femoral neck osteotomy was made according to preoperative templating. Femoral head was removed. The measured 53.5 mm in diameter. It was quite enlarged with circumferential osteophytes. We noted that his femoral neck cancellous bone tended to keep bleeding a fair amount. We ensured hemostasis in the soft tissues therefore we applied bone wax to the cancellous surface of the femoral neck cut which stopped the bleeding nicely. The acetabular labrum was excised. The leg was externally rotated extended and the lateral capsular insertion and the saddle of the femur was released. He had enough mobility that I did not have to incise interval between the conjoined tendon and piriformis so this was left intact. The leg back in the horizontal position traction external rotation acetabulum was prepared. We medialized with a 44 Reamer under fluoroscopic guidance and reamed up to 53 mm which gave us [id number] contact anterior posterior the the equator the acetabulum. A light reaming with the 54 was performed in the 54 trial gave a snug fit. The 54 pinnacle cup was impacted at 40? of abduction and appropriate anteversion and an excellent Press-Fit was achieved. A single screw placed in the ilium and the 36 inner diameter liner placed. He had very large osteophytes inferiorly below the acetabulum and anteriorly and these were conservatively debrided. Unfortunately during the acetabular reaming he had an unusually large amount of bleeding from the central aspect the acetabulum cancellous bone with each Reamer. There was no bleeding from the obturator vessels inferiorly. Once the acetabular shell was fully seated and the polyethylene liner impacted this bleeding stopped. The leg was externally rotated extended. The bone wax removed from the surface of the femoral neck cancellous bone and we reamed up to a size 5 which met resistance on seeding to the proper depth. We trialed with the +5 head on the high offset stem on the Actis broach size 5 and I felt we were about 3 or 4 mm longer than her preoperative plan. There was excellent stability perhaps a little bit tight. The 5 still had some torsion of play and I could not seated down further. We removed this and used the flexible canal reamers and the size 2 3 Reamer was passed and this was enough to allow the 5 to countersunk easily and we inserted the 6 which we countersunk approximately 3 mm. Gaining 2 mm in offset from the jump between a size 5 and 6 we trialed with a 1.5 head and this gave equal leg lengths under fluoro and appropriate soft tissue tension and stability. There is no torsional play with the 6 broach. The real size 6 high offset Actis stem was fully seated without difficulty. No cracks. We trialed with a 1.5 x 36 head was appropriate soft tissue tension and stability. The real ceramic 1.536 head was impacted on the clean and dried trunnion. The hip reduced stability reconfirmed. Complete hemostasis was
--- NOTE | 2024-07-13 11:33 | PM.OP ---
Procedure Note - Brief Procedure Note - Brief Date of procedure: 07/13/24 O A Rt Hip Procedure performed: Right anterior total hip arthroplasty Surgeon: YANG Borja Findings: 78-year-old male who underwent right anterior total hip arthroplasty on 07/13. I was involved in the procedure including positioning patient on the OR table in 1st assisting to the time surgery. Total time spent was 4 hours
[2024-07-13] MEDS: ONDANSETRON INJ 4 MG/2 ML VIAL IV PUSH ×2 (12:48→20:11)
--- NOTE | 2024-07-13 13:12 | ADMGEN ---
This patient, Larry Bernabe, was admitted to -. Patient/family oriented to hospital policies and general routines including ID bracelet, bed and alarms, visiting hours, pain management, procedures, bathroom and other care routines, personal items, smoking policy, room service/diet, and visiting hours. Information on how to activate the Rapid Response Team has been discussed. Patient/Family are encouraged to report perceived risks to care and to ask questions if they do not understand what they are told or what they should do.
[2024-07-13] MEDS: ACETAMINOPHEN 325 MG TABLET 650 MG PO ×3 (14:04→22:23)
[2024-07-13] MEDS: oxyCODONE HCL (*CRX) 5 MG TAB IR PO ×3 (14:04→22:31)
--- NOTE | 2024-07-13 15:21 | PCPTNOTE ---
Attempted PT evaluation. Per OT, pt not able to safely participate in therapy evaluation due to feeling ill/dizziness. RN aware. Will follow.
--- NOTE | 2024-07-13 15:25 | PM.IMCN ---
Assessment and Plan Assessment and plan (1) Primary osteoarthritis of right hip: Code(s): M16.11 - Unilateral primary osteoarthritis, right hip Status: Acute Assessment and Plan: Postoperative day 0 status post right total hip arthroplasty. Wound care, pain control, and DVT prophylaxis deferred to Dr. Huber. 1200 mL estimated blood loss; 700 mL given back as Cell Saver. Check labs in a.m. (2) Vertigo: Code(s): R42 - Dizziness and giddiness Status: Acute Assessment and Plan: Unfortunately this is not unusual for him to get vertigo and he typically takes Dramamine at home. Diphenhydramine x1 ordered. Antiemetics are available as needed. (3) Ulcerative colitis: Code(s): K51.90 - Ulcerative colitis, unspecified, without complications Status: Acute Assessment and Plan: On daily balsalazide. Considered to be in remission. Plan Thank you for allowing us to participate in this patient's care. Please do not hesitate to contact us with any questions. HPI Date of Consult Consult date: 07/13/24 Requesting Physician: Christiano Huber MD Primary Care Provider: Doug GarnettMD Consult Narrative Reason for consult: Medical management. Narrative: This is a pleasant 78-year-old male with osteoarthritis and ulcerative colitis whom the hospitalist service has been consulted for help managing his medical conditions postoperatively. The patient has had longstanding pain in his right hip which is not been amenable to conservative outpatient surgery and he elected for replacement today. His surgery was performed under general anesthesia with no immediate complications documented. Estimated blood loss was 1200 mL and 700 mL was given back as Cell Saver packed cells. Postoperatively his pain is very well controlled. When getting up to the bathroom he began to feel woozy and has had issues with vertigo since that time. It is not unusual for him to have vertigo and he would typically take Dramamine for that at home. Appetite is not great and he has perhaps a bit nauseated. He denies fever, chills, sweats, visual changes, focal weakness, paresthesias, chest pain, shortness of breath, and vomiting. Regarding his medical conditions, he is very healthy. Is also of colitis has been in remission for years on his current regimen. No history of venous thromboembolism. Review of Systems Review of Systems: 12 systems were reviewed and are negative except for as per HPI. PMFSH Past Medical History Medical History Arthritis Elevated coronary artery calcium score (04/2024) Mildly elevated per patient report. Ulcerative colitis Surgical History Surgical History History of arthroscopy of left knee History of carpal tunnel surgery of right wrist (02/18/24) History of cervical spinal surgery History of cholecystectomy (2020) History of laser assisted in situ keratomileusis History of nasal septoplasty History of total right hip arthroplasty (07/13/24) Social History Social History Social History: Surrogate medical decision maker: Melinda Galeana, daughter. Code status: Full code. Smoking packs per day: 1 Smoking cigarettes per day: 20.0 Years smoked: 20 Smoking pack-years: 20.00 Smoking status: Former smoker Second hand tobacco smoke exposure: No Alcohol intake: never Substance use: never Substance use type: does not use Do You Feel Safe in your Home?: Yes Lack of Transportation: No Lack of Food: Never True Current Housing: I Have Housing Concerned About Future Housing: No Difficulty Paying Gas/Electric Bills: No Difficulty Paying for Meds: No Currently Unemployed: No Education: High School Diploma/GED Living arrangements: with family Additional living arrang
[2024-07-13] MEDS: SENNA/DOCUSATE SODIUM TABLET 2 TAB PO (16:37)
[2024-07-13] MEDS: KETOROLAC 15 MG/ML VIAL (*BKC) 7.5 MG IV PUSH ×2 (16:37→23:29)
[2024-07-13 17:34] LABS: Hemoglobin 14.7 g/dL (14.0-18.0)
[2024-07-13] MEDS: VANCOMYCIN 1,000 MG/NS 250 ML 1,000 MG/250 ML BAG 250 MG IVPB (18:05)
[2024-07-13] MEDS: diphenhydrAMINE HCl INJ 50 MG/ML VIAL 25 MG IV PUSH (20:11)
[2024-07-13] MEDS: FAMOTIDINE 20 MG TABLET PO (20:11)
[2024-07-13 20:56] LABS: Hematocrit 42.5 % (42.0-52.0); Hemoglobin 14.4 g/dL (14.0-18.0)
--- NOTE | 2024-07-13 22:49 | PC.NURSE ---
patient choked while taking a tylenol and says that it got caught in his throat. Pt began coughing, gagging, and sticking his fingers down his throat to try to reach pill. Patient given water, applesauce, and pudding, but patient persists gagging himself and insisting that he is still choking on the pill. This nurse educated patient about being intubated during surgery, as well as what the throat can feel like if a pill gets momentarily stuck. Patient extremely anxious and asking for a different nurse to see what she thinks . cider press operator came into room and reiterated my teachings. Patient stated that he did not want to take anymore pills. This RN non-admin'd the meds in the DEC. Patient then decided he wanted to try again. Unable to [id number] dose, so I scanned the PRN roxicodone instead of the scheduled dose.
[2024-07-14 01:13] VITALS: BP 100/79; PULSE 78; RESP 13; TEMP 36.2; O2SAT 98
[2024-07-14 05:13] VITALS: BP 120/75; PULSE 67; RESP 14; TEMP 36.2; O2SAT 100
[2024-07-14] MEDS: ACETAMINOPHEN 325 MG TABLET 650 MG PO ×3 (06:10→13:39)
[2024-07-14] MEDS: oxyCODONE HCL (*CRX) 5 MG TAB IR PO ×3 (06:10→13:39)
[2024-07-14] MEDS: ceFAZolin 2 GM/D5W 50 ML 2 GM/50 ML BAG IVPB (06:10)
[2024-07-14] MEDS: VANCOMYCIN 1,000 MG/NS 250 ML 1,000 MG/250 ML BAG 250 MG IVPB (06:44)
[2024-07-14 07:29] LABS: Basophils Percent Auto 0.2 % (0.2-1.2); Hematocrit 41.2 % (42.0-52.0); Hemoglobin 13.6 g/dL (14.0-18.0); Immature Granulocyte Absolute 0.14 K/mm3 (0.00-0.031); Immature Granulocyte Percent A 0.7 % (0-0.5); Lymphocytes Absolute Auto 0.65 K/mm3 (0.9-3.2); Lymphocytes Percent Auto 3.3 % (18.3-44.2); Mean Corpuscular Volume 93.8 fl (80-100); Mean Platelet Volume 10.4 fl (7.4-10.4); Monocytes Absolute Auto 1.1 K/mm3 (0.1-0.6); Monocytes Percent Auto 5.4 % (2.6-8.5); Neutrophils Percent Auto 90.4 % (45.5-73.1); Platelet Count Result 185 k/mm3 (150-375); Red Blood Count 4.39 M/mm3 (4.6-6.20); Red Cell Distribution Width 13.2 % (11.5-14.5); White Blood Count 19.9 K/mm3 (4.5-10.0)
[2024-07-14 07:40] LABS: Anion Gap 10 mmol/L (4-12); Blood Urea Nitrogen 24 mg/dL (9-20); Calcium 7.8 mg/dL (8.4-10.2); Carbon Dioxide 23 mmol/L (22-30); Chloride 103 mmol/L (98-107); Estimated CRCL calculation 54 ml/min; Estimated Glomerular Filt Rate > 60; Glucose 158 mg/dL (65-110); Magnesium 1.9 mg/dL (1.6-2.3); Sodium 136 mmol/L (137-145)
[2024-07-14 08:00] VITALS: PULSE 78; RESP 18; O2SAT 100
--- NOTE | 2024-07-14 08:01 | PM.PNORT ---
Subjective Subjective Date/Time Seen: 07/14/24 08:01 Interval history: Postop day 1 patient is alert. He afebrile and vital signs stable. Drain has been removed. Dressing has been. Patient was using the restroom night. Therapy did not see him yesterday late to get up to the floor. Cbc is pending. Chem panel is normal. Overall pain is well controlled. neurovascularly he is intact. Patient will work with therapy this morning and once IV antibiotics have been and if he continues to be comfortable he will be discharged to home late this morning Objective Data Vital Signs Vital Signs: Vital Signs - 24 hr 07/13/24 11:24 07/13/24 11:39 07/13/24 11:54 Temperature 98.2 F 98.2 F Pulse Rate 86 86 79 Respiratory Rate 11 L 11 L 14 Blood Pressure 144/88 H 144/88 H 131/85 Pulse Oximetry 100 100 100 Oxygen Delivery Simple Face Mask Simple Face Mask Simple Face Mask Oxygen Flow Rate 8 10 10 07/13/24 11:09 07/13/24 12:09 07/13/24 12:25 Temperature Pulse Rate 79 75 71 Respiratory Rate 11 L 11 L 12 Blood Pressure 131/77 133/85 129/79 Pulse Oximetry 94 100 100 Oxygen Delivery Simple Face Mask Simple Face Mask Room Air Oxygen Flow Rate 10 10 07/13/24 12:40 07/13/24 12:55 07/13/24 13:04 Temperature Pulse Rate 70 77 74 Respiratory Rate 12 12 12 Blood Pressure 121/82 119/84 123/82 Pulse Oximetry 100 96 95 Oxygen Delivery Room Air Room Air Room Air Oxygen Flow Rate 07/13/24 13:13 07/13/24 13:13 07/13/24 14:46 Temperature 96.8 F L Pulse Rate 70 Respiratory Rate 12 Blood Pressure 132/82 Pulse Oximetry 99 Oxygen Delivery Room Air Room Air Oxygen Flow Rate 07/13/24 17:13 07/13/24 20:36 07/13/24 20:00 Temperature 96.5 F L 99.0 F Pulse Rate 72 65 Respiratory Rate 12 17 Blood Pressure 122/81 121/75 Pulse Oximetry 99 99 Oxygen Delivery Room Air Oxygen Flow Rate 07/14/24 01:13 07/14/24 05:13 Temperature 97.2 F L 97.1 F L Pulse Rate 78 67 Respiratory Rate 13 14 Blood Pressure 100/79 120/75 Pulse Oximetry 98 100 Oxygen Delivery Oxygen Flow Rate Intake/Output Intake/Output: Intake & Output 07/11/24 07/12/24 07/13/24 07/14/24 23:59 23:59 23:59 23:59 Intake Total 1000 100 Balance 1000 100 Meds/Results Medications: Active Medications Generic Name Dose Route Start Last Admin Trade Name Freq PRN Reason Stop Dose Admin Acetaminophen 650 mg 07/13/24 14:00 07/14/24 06:10 Acetaminophen 325 Mg Tablet PO 650 mg Q4H CLAIRE Administration Apixaban 2.5 mg 07/14/24 09:00 Apixaban 2.5 Mg Tablet PO Q12HR [facility] Cefdinir 300 mg 07/14/24 19:00 Cefdinir 300 Mg Capsule PO Q12H [facility] Celecoxib 200 mg 07/14/24 09:00 Celecoxib 200 Mg Capsule PO DAILY [facility] Famotidine 20 mg 07/13/24 21:00 07/13/24 20:11 Famotidine 20 Mg Tablet PO 20 mg Q12HR [facility] Administration Morphine Sulfate 2 mg 07/13/24 11:30 Morphine Sulfate (*Crx) 2 Mg/Ml Inj IV PUSH Q2H PRN Breakthrough Pain Rated 4-6 or NPO Naloxone HCl 0.1 mg 07/13/24 11:28 Naloxone Hcl 0.4 Mg/Ml Vial IV PUSH Q2M PRN Opiate Reversal Ondansetron HCl 4 mg 07/13/24 11:28 07/13/24 20:11 Ondansetron Inj 4 Mg/2 Ml Vial IV PUSH 4 mg Q4H PRN Administration Nausea And Vomiting Oxycodone HCl 5 mg 07/13/24 14:00 07/14/24 06:10 Oxycodone Hcl (*Crx) 5 Mg Tab Ir PO 5 mg Q4H CLAIRE Administration Oxycodone HCl 5 mg 07/13/24 11:30 07/13/24 22:31 Oxycodone Hcl (*Crx) 5 Mg Tab Ir PO 5 mg Q4H PRN Administration Pain Rated 7-10 Polyethylene Glycol 17 gm 07/14/24 09:00 Polyethylene Glycol 3350 17 Gm Powd.Pack PO QAM CLAIRE Senna/Docusate Sodium 2 tab 07/13/24 17:00 07/13/24 16:37 Senna/Docusate Sodium Tablet PO 2 tab BID [facility] Administration Vitamin D 400 units 07/14/24 09:00 Cholecalciferol 400 Units Tablet (Vit D) PO DAILY [facility] Radiology Results: ITS Impressions Intraoperativ
--- NOTE | 2024-07-14 08:13 | PM.DS ---
DS: Admitting Diagnosis Discharge Date 07/14 Admitting Diagnosis Right hip DJD DS: Discharge Diagnosis Discharge Diagnosis (1) Primary osteoarthritis of right hip: Code(s): M16.11 - Unilateral primary osteoarthritis, right hip Status: Acute DS: Summary Hospital Course Hospital Course: 78 year old male who under went right ant. total hip arthroplasty on 07/13. Under went the procedure with out complications. Post he has been avss. NVI, dressing is dry and intact, drain is out. Pt was walking to restroom the evening of POD 1. Pain is well controlled with tylenol and oxycodone 5 mg q4h. He is on eliquis for DVT proph. He will be D/C to home on 07/14. He will have 1 week of omnicef. As well as miralax and sennokat. Pt was advised to keep leg elevated at home to prevent swelling in right leg. He may start to use cane when he is comfortable. If he has any questions he should call office Time Spent with Patient Time attestation: Total time spent providing and/or coordinating discharge services: DS: Data Data Completed and Pending Labs on day of discharge: Labs from last 24 hours 07/14/24 07/13/24 07/13/24 06:54 20:48 17:27 WBC 19.9 H RBC 4.39 L Hgb 13.6 L 14.4 14.7 Hct 41.2 L 42.5 43.0 MCV 93.8 MCH 31.0 MCHC 33.0 RDW 13.2 Plt Count 185 MPV 10.4 Immature Gran % (Auto) 0.7 H Neut % (Auto) 90.4 H Lymph % (Auto) 3.3 L Rains % (Auto) 5.4 Eos % (Auto) 0.0 Baso % (Auto) 0.2 Lymph # (Auto) 0.65 L Rains # (Auto) 1.1 H Eos # (Auto) 0.0 Baso # (Auto) 0.0 Abs Immat Gran (auto) 0.14 H Absolute Neuts (auto) 18.0 H Absolute Nucleated RBC 0.000 Nucleated RBC % 0.0 Sodium 136 L Potassium 4.0 Chloride 103 Carbon Dioxide 23 Anion Gap 10 BUN 24 H Creatinine 1.00 Estim Creat Clear Calc 54 Estimated GFR > 60 Glucose 158 H Calcium 7.8 L Magnesium 1.9 Blood Type Antibody Screen 07/13/24 06:43 WBC RBC Hgb Hct MCV MCH MCHC RDW Plt Count MPV Immature Gran % (Auto) Neut % (Auto) Lymph % (Auto) Rains % (Auto) Eos % (Auto) Baso % (Auto) Lymph # (Auto) Rains # (Auto) Eos # (Auto) Baso # (Auto) Abs Immat Gran (auto) Absolute Neuts (auto) Absolute Nucleated RBC Nucleated RBC % Sodium Potassium Chloride Carbon Dioxide Anion Gap BUN Creatinine Estim Creat Clear Calc Estimated GFR Glucose Calcium Magnesium Blood Type O Positive Antibody Screen Negative Discharge Plan Discharge Patient Disposition: Home, Self-Care Discharge Instructions: RAMON CABELLO M.D [facility] [address] [address] [address] [place] [address] POST-OPERATIVE DISCHARGE INSTRUCTIONS ANTERIOR TOTAL HIP ARTHROPLASTY 1. Move toes/feet up and down every hour while awake. 2. Be up walking every hour while awake. 3. Use walker multimedia production assistant if instructed to use walker multimedia production assistant.When you are allowed to use the cane, use the cane in the opposite hand. 4. When resting, do not rest in the chair. Rather, lie on your back, with back flat, and the leg elevated above heart to minimize swelling. You may put a pillow under your knee. Do not rest in a chair. Resting in the chair results in swelling in the leg. Significant swelling could indicate a blood clot and if this occurs, call the office (or go to the ER) to have a venous ultrasound performed. Its ok to sit in the chair to eat and use the toilet and to receive a guest but sitting in a chair will cause your leg to swell. so try to minimize sitting in a chair. 5. Wound Care: Apply a folded 4x4 sponge to incision and hold with crossing strips of 1 inch Transpore tape. 6. May shower. Remove dressing before shower and reapply dressing after shower. Stand Alone Forms: General Discharge Instructions Discharge Medications: New acetaminophen 325 mg Tablet 650 mg PO Q4H Qty: 90 0RF
[2024-07-14] MEDS: CELECOXIB 200 MG CAPSULE PO (09:06)
[2024-07-14] MEDS: SENNA/DOCUSATE SODIUM TABLET 2 TAB PO (09:06)
[2024-07-14] MEDS: APIXABAN 2.5 MG TABLET PO (09:06)
[2024-07-14] MEDS: FAMOTIDINE 20 MG TABLET PO (09:06)
[2024-07-14] MEDS: CHOLECALCIFEROL 400 UNITS TABLET (VIT D) PO (09:06)
[2024-07-14 09:13] VITALS: BP 144/81; PULSE 78; RESP 18; TEMP 36.2; O2SAT 100
[2024-07-14] MEDS: TAMSULOSIN HCL 0.4 MG CAPSULE PO (13:39)
--- NOTE | 2024-07-14 14:06 | PM.IMPN ---
Progress Note: A&P Assessment and Plan (1) Urinary retention: Code(s): R33.9 - Retention of urine, unspecified Status: Acute Assessment and Plan: Patient had difficulty voiding after mitchell removal bladder scan with 500ML Patient did void 300ML Has history of retention follows with a urologist O/P will start Flomax can f/u O/P (2) Primary osteoarthritis of right hip: Code(s): M16.11 - Unilateral primary osteoarthritis, right hip Status: Acute Assessment and Plan: Postoperative day 2 status post right total hip arthroplasty. Wound care, pain control, and DVT prophylaxis deferred to Dr. Huber. 1200 mL estimated blood loss; 700 mL given back as Cell Saver. Check labs in a.m. (3) Vertigo: Code(s): R42 - Dizziness and giddiness Status: Acute Assessment and Plan: Unfortunately this is not unusual for him to get vertigo and he typically takes Dramamine at home. Diphenhydramine x1 ordered. Antiemetics are available as needed. (4) Ulcerative colitis: Code(s): K51.90 - Ulcerative colitis, unspecified, without complications Status: Acute Assessment and Plan: On daily balsalazide. Considered to be in remission. Plan Thank you for allowing us to participate in this patient's care. Please do not hesitate to contact us with any questions. Time Spent With Patient Time with patient: 15 - 25 minutes Subjective Date/time seen: 07/14/24 14:06 Interval history: 07/14/2024: Followed up with patient prior to discharge denied any further urinary retention and state he voided over 300. Reported pain was controlled and tolerating therapy. Will add Flomax daily to his discharge medications. Review of Systems Review of Systems: All systems reviewed & are unremarkable except as noted in HPI and below Exam Narrative: Physical Exam: General: Pleasant male in no acute distress HEENT: Moist mucous membranes. Neck: Supple. Respiratory: Lungs are clear to auscultation bilaterally. Cardiovascular: Regular rate and rhythm with S1-S2. Gastrointestinal: Abdomen is soft, nontender, and nondistended with positive bowel sounds. Skin: Warm and dry. No rash or lesions on limited exam. Extremities: No cyanosis, clubbing, or edema. Radial and pedal pulses intact. Musculoskeletal: Right hip dressing is clean, dry, and intact. Hemovac in place. Neurological: Alert. No drift. No facial asymmetry. Speech is clear. Psychiatric: Pleasant and cooperative with normal mood and affect. Judgment and insight intact. Objective Data Vital Signs Vital Signs: Vital Signs - 24 hr 07/13/24 14:46 07/13/24 17:13 07/13/24 20:36 Temperature 96.5 F L 99.0 F Pulse Rate 72 65 Respiratory Rate 12 17 Blood Pressure 122/81 121/75 Pulse Oximetry 99 99 Oxygen Delivery Room Air 07/13/24 20:00 07/14/24 01:13 07/14/24 05:13 Temperature 97.2 F L 97.1 F L Pulse Rate 78 67 Respiratory Rate 13 14 Blood Pressure 100/79 120/75 Pulse Oximetry 98 100 Oxygen Delivery Room Air 07/14/24 08:40 07/14/24 09:13 07/14/24 08:00 Temperature 97.1 F L Pulse Rate 78 78 Respiratory Rate 18 18 Blood Pressure 144/81 H Pulse Oximetry 100 100 Oxygen Delivery Room Air Room Air Intake/Output Intake/Output: Intake & Output 07/11/24 07/12/24 07/13/24 07/14/24 23:59 23:59 23:59 23:59 Intake Total 1000 100 Balance 1000 100 Meds/Results Medications: Active Medications Generic Name Dose Route Start Last Admin Trade Name Alena PRN Reason Stop Dose Admin Acetaminophen 650 mg 07/13/24 14:00 07/14/24 13:39 Acetaminophen 325 Mg Tablet PO 650 mg Q4H CLAIRE Administration Apixaban 2.5 mg 07/14/24 09:00 07/14/24 09:06 Apixaban 2.5 Mg Tablet PO 2.5 mg Q12HR CLAIRE Administration Cefdinir 300 mg 07/14/24 19:00 Cefdinir 300 Mg Capsule PO Q12H CLAIRE Celecoxib 200 mg 07/14/24 09:00
--- NOTE | 2024-07-14 14:40 | WPDANESPN ---
Anes - Prog Note Post-Op Date/Time: 07/14/24 14:40 Cardiovascular status: normal Respiratory status: normal Airway patency: baseline Mental status: baseline Post-Op hydration status: normal Vital Signs: Last Vital Signs Temp 97.1 F L 07/14/24 09:13 Pulse 78 07/14/24 09:13 Resp 18 07/14/24 09:13 BP 144/81 H 07/14/24 09:13 Pulse Ox 100 07/14/24 09:13 O2 Del Method Room Air 07/14/24 08:40 O2 Flow Rate 07/13/24 12:09 Pain Score (VAS): 0/10 I/O: Intake & Output 07/13/24 07/14/24 07/14/24 23:59 07:59 15:59 Intake Total 800 100 Balance 800 100 Laboratory Tests 07/14/24 06:54 07/14/24 06:54 07/13/24 07/13/24 07/14/24 17:27 20:48 06:54 WBC 19.9 H RBC 4.39 L Hgb 14.7 14.4 13.6 L Hct 43.0 42.5 41.2 L MCV 93.8 MCH 31.0 MCHC 33.0 RDW 13.2 Plt Count 185 MPV 10.4 Immature Gran % (Auto) 0.7 H Neut % (Auto) 90.4 H Lymph % (Auto) 3.3 L [place] % (Auto) 5.4 Eos % (Auto) 0.0 Baso % (Auto) 0.2 Lymph # (Auto) 0.65 L [place] # (Auto) 1.1 H Eos # (Auto) 0.0 Baso # (Auto) 0.0 Abs Immat Gran (auto) 0.14 H Absolute Neuts (auto) 18.0 H Absolute Nucleated RBC 0.000 Nucleated RBC % 0.0 Sodium 136 L Potassium 4.0 Chloride 103 Carbon Dioxide 23 Anion Gap 10 BUN 24 H Creatinine 1.00 Estim Creat Clear Calc 54 Estimated GFR > 60 Glucose 158 H Calcium 7.8 L Magnesium 1.9 Post-procedural complaints: none Patient Feedback: Patient satisfied with anesthetic care.
== END 2024-07-14 14:45 | disposition home or self-care (01) ==
LOC: ANHSURGERY 05:52 → ANH3MEDSUR 13:39
PROVIDERS: Physician Assistant; Physician Assistant Surgical; PCP Internal Medicine; Visit Provider Orthopaedic Surgery
PROC: (CPT 27130; principal; 2024-07-13 07:30)
DX: M16.11 Unilateral primary osteoarthritis, right hip (principal); M25.751 Osteophyte, right hip; N21.0 Calculus in bladder; R33.9 Retention of urine, unspecified; Z79.891 Long term (current) use of opiate analgesic; Z98.890 Other specified postprocedural states; Z90.49 Acquired absence of other specified parts of digestive tract; Z98.1 Arthrodesis status; Z87.891 Personal history of nicotine dependence; Z87.19 Personal history of other diseases of the digestive system
CPT/HCPCS: 27130; 36415; 73501; 80048; 83735; 85014; 85018; 85025; 86850; 86900; 86901; 97110; 97161; 97165; 97530; 97535; 99199; A9270; C1713; C1776; J0171; J0690; J1010; J1100; J1170; J1200; J1885; J2270; J2405; J2704; J2795; J3010; J3370; J7030; J7120

== ENCOUNTER 2024-09-01 09:54 | Outpatient (CLI) | payer MEDICARE, SELFPAY ==
--- NOTE | ~2024-09-01 | XR_ITS ---
XR shoulder LT min 2V Ordering provider: Doug Garnett, History: . fall 6 days ago, painful ROM . Comparison: None. FINDINGS: BONES: No acute fracture or dislocation. JOINT SPACES: The acromioclavicular joint is normal. The glenohumeral joint shows small bony fragment s with osteophytes suggestive of osteoarthritic changes. Small bony fragment seen near to the humeral head which may indicate ossific tendinosis. SOFT TISSUES: Normal. IMPRESSION: No acute osseous abnormality left shoulder. Highly suggestive ossific tendinosis. Reviewed, dictated and finalized at location A. ER MAKER
== END 2024-09-01 09:55 | disposition home or self-care (01) ==
PROVIDERS: PCP Internal Medicine; Visit Provider Internal Medicine
DX: M25.519 Pain in unspecified shoulder (principal); W19.XXXA Unspecified fall, initial encounter
CPT/HCPCS: 73030

== ENCOUNTER 2025-01-27 08:48 | Outpatient (CLI) | payer MEDICARE, SELFPAY ==
--- NOTE | ~2025-01-27 | CT_ITS ---
CT of the Abdomen and Pelvis: Indication: Microhematuria Technique: 2.5 mm axial scans were obtained through the abdomen and pelvis prior to and following in travenous administration of 130 cc of Omnipaque 350. Dose reduction technique was used on this scan b y utilizing automated exposure control and iterative reconstruction technique. The dose-length produc t (DLP) was 1573.20 mGy-cm. Findings: Scans through the lung bases is a probable 4 mm left basilar pulmonary nodule. 2 mm right middle lobe nodule present.. The liver, spleen, pancreas, and adrenal glands are within normal limits. Gallbladder absent. Probabl e punctate nonobstructing renal stones. Nonobstructing left renal stones are present, largest measuri ng 9 mm. No evidence of aortic aneurysm. No lymphadenopathy. No bowel obstruction or bowel wall thickening. There is no evidence to suggest acute appendicitis. Images through the pelvis were performed. 2.3 cm urinary bladder jackstone present. Anterior bladder diverticulum present. No pelvic mass evident otherwise. Prostate gland mildly enlarged. No ascites. Impression: Bilateral nonobstructing nephrolithiasis, as detailed above. 2.3 cm urinary bladder stone. Anterior bladder diverticulum. Enlarged prostate gland. Subcentimeter pulmonary nodules, most likely benign. Please see details above. Consider one-year foll ow-up for a high-risk patient as indicated. Reviewed, dictated and finalized at [facility]. Impression: Bilateral nonobstructing nephrolithiasis, as detailed above. 2.3 cm urinary bladder stone. Anterior bladder diverticulum. Enlarged prostate gland. Subcentimeter pulmonary nodules, most likely benign. Please see details above. Consider one-year follow-up for a high-risk patient as indicated.
--- NOTE | ~2025-01-27 | XR_ITS ---
Supine and upright views of the abdomen Clinical history: Microhematuria Findings: Bowel gas pattern is nonspecific. No evidence for obstruction or free air. Left renal stone s are present, largest measuring 8 mm. Questionable small right renal stones. 2.3 cm irregular bladde r stone present. Degenerative changes in the spine are noted. Impression: Left nephrolithiasis, largest measuring 8 mm. Questionable small right renal stones. 2.3 cm bladder stone. Reviewed, dictated and finalized at location [facility]. Impression: Left nephrolithiasis, largest measuring 8 mm. Questionable small right renal stones. 2.3 cm bladder stone.
--- OUTSIDE RECORDS SUMMARY | 2025-01-27 09:14 | XMS_ITS | Encounter Summary ---
Author Organization [facility] Address [address] [place] [address] [place] [address] Care Team Providers Care Systems Testing Laboratory Technician Name Role Phone Unavailable Primary Care Provider Unavailabl e Encounter Details Date Type Department Care Team (Late st Contact Info) Description 06/25/2019 Lab Requisition [facility] [address] 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 Gender Identity Not on file Sexual Orientation Not on file documented as of this encounter Plan of Treatment Not on file documented as of this encounter Procedures Procedure Name Priority Date/Time Associated Diagnosis Comments DERMATOPATHOLOGY Routine 06/24/2019 12:0 0 AM CDT documented in this encounter Results * DERMATOPATHOLOGY (06/24/2019 12:00 AM CDT) Case Report Dermatopathology Report Case: [id number] Authorizing Provider: Suzie Naranjo MD Collected: 06/24/2019 12:00 AM Ordering Location: [facility] Received: 06/25/2019 05:51 AM Pathologist: Yasmin Powell MD Specimen: Skin, left buttock 9 5:15 PM CDT DERMATOPATHOLOGY LABORATORY Final Diagnosis Specimen A. SKIN, left buttock: ACROCHORDON (SOFT FIBROMA, SKIN TAG) (L91.8) 9 5:15 PM CDT DERMATOPATHOLOGY LABORATORY Clinical History Acr R/O condy. 9 5:15 PM CDT DERMATOPATHOLOGY LABORATORY Gross Description Specimen A: Received is one formalin filled container labeled with the patient's name and designated left buttock. The specimen consists of a shave measuring 7d4d0hr, bisected. Jar 0. 9 5:15 PM CDT DERMATOPATHOLOGY LABORATORY Microscopic Description Specimen A. SKIN, left buttock: There is a gently folded epidermis surrounding a connective tissue core in which fat and collagen are intermingled. 9 5:15 PM CDT DERMATOPATHOLOGY LABORATORY Disclaimer An external and internal positive and negative controls are appropriate for the histochemical, immunohistochemical and immunofluorescence stain(s) in this case (if any), except where stated explicitly. The performance characteristics of the stain(s) cited in this report were developed and its performance characteristic determined by the Dermatopathology Laboratory at [facility], directed by Dr. Demetrio Powell. These tests need not be, and therefore are not, approved by the [place] Food and Drug Administration. The tests are used for clinical purposes. Billing Codes Specimen Charges Stain Charges 57784 1 9 5:15 PM CDT DERMATOPATHOLOGY LABORATORY Embedded Images 9 5:15 PM CDT DERMATOPATHOLOGY LABORATORY Pathology/Cytolog y TISSUE SPECIMEN FROM SKIN / Unknown 06/24/2019 06/25/2019 5:51 AM CDT Suzie Naranjo MD LAB - PATHOLOGY/CYTOLOGY OR DERABLES Final Result DERMATOPATHOLOGY LABORATORY [facility] - Department of Dermatology [address] [place] [address], [address] [place] [address], [facility] [phone] documented in this encounter Visit Diagnoses Not on filedocumented in this encounter
--- OUTSIDE RECORDS SUMMARY | 2025-01-27 09:14 | XMS_ITS | Data Portability ---
Author Organization [place] [employer], Main Office Address [address] [place] [address] Care Team Providers Care Structural Worker Name Role Phone LOUIE WILSON Primary Care Provider LOUIE WILSON Referring Provider Assessment Encounter Date Assessment Date Assessment LastModified by Organization Details LastModified Time 07/25/2023 07/25/2023 HPI: 77-year-old male came in today for evaluation of his right hand numbness. He has been having numbness in the 1st through 3rd finger that has progressively gotten worse over the last 4-5 months. At this point he has a constant sense of numbness in the thumb and to a lesser degree in the index and finger. Patient has been told in the past that he has severe arthritis of the wrist. Patient is having difficulty with normal daily activities due to the numbness he is feeling. It is difficult to hold onto things or grab things because of the numbness. He will occasionally get a shocking type sensation in the hand and in the fingers. He has not been having any increase symptoms while he is sleeping. He is also having some degree of symptoms in the left hand. Patient was seen by his primary care doctor who ordered an EMG study for him. Patient canceled the study because he wanted to have us evaluate him 1st to make sure that it was the right study to be done for what his symptoms were. Physical exam: 77-year-old male alert pleasant. He has a mild enlargement of the right wrist no redness or warmth. +radial pulse. He has a severely symptomatic Tinel's over the median nerve which caused him significant shocking sensation into the hand into the volar forearm. he has only about 20 of volar and dorsiflexion of the wrist. Supination is to about 60. his 2 point discrimination in his thumb is greater than 8 in the index it is 6/6 and in the long finger at 6/6. In the ring and small finger is 5/5. neck range of motion causes no discomfort. Negative Spurling's maneuver. thenar eminence has good bulk. Impression: 77-year-old male who appears to have Carpal tunnel syndrome in the right hand. He is having some minor symptoms in the left . He has an elevated 2 point discrimination and I have recommended that we set up the EMG study again. I asked him about nocturnal symptoms which he does not feel he has. I think most likely due to the fact he has such limited flexion and extension of the wrist at this prevents that. He did state that he had carpal tunnel surgery done in 1 of his hands in the past but was not sure. I cannot detect a scar in either wrist. He may have had this done endoscopicly. he was unsure. We will see him back after the test. 20 minutes was spent in treatment patient more than half of this in [id number] conversation Not available 07/25/2023 14:07:51 08/01/2023 08/01/2023 This note is dictated and transcribed by [employer]. P[employer] Gang Supervisor variances may occur. Despite proofreading, typographical errors may occur. [email or web address] Not available 08/01/2023 15:09:01 12/05/2023 12/05/2023 Impression: Nerv e conduction velocity in the EMG testing showed mild bilateral carpal tunnel syndrome . Clinically, the patient has severe loss of sensation in the digits of his right hand thumb through ring finger including both halves of the ring finger and 1 would expect to see moderately severe to severe evidence of carpal tunnel syndrome on nerve conduction velocity testing. 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 He has mildly hyperreflexic quadriceps reflexes bilaterally and he reports severe loss of coordination the right hand which may also be consistent with severe cervical spinal stenosis. I would recommend that we obtain MRI scan of his cervical spine. I have discussed the rationale for doing so with him in detail. If he does not have high-grade cervical spinal stenosis but rather low-grade cervical spinal stenosis I would recommend that we proceed with carpal tunnel release and see how his symptoms respond with the understanding that again some of his symptoms may be related to sensory cervical radiculopathy and/or cervical spinal stenosis. If his cervical spinal stenosis is higher grade 1 would recommend that he be evaluated by a neurosurgeon as the next step. I will see him back after the test. I have prescribed a Medrol Dosepak to see if this will give him some relief of his symptoms but decreasing any tendinitis swelling may have his flexor tendons which may also alleviate cervical nerve root compression little bit. I have given him single dose of alprazolam 0.5 mg to take 30-45 minutes before his MRI scan per his request as he does have claustrophobia. 40 minutes were spent in total care this patient more than half the time spent in [id number] care. Not available 12/08/2023 10:51:57 12/19/2023 12/19/2023 Impression: Patient has clinically severe carpal tunnel syndrome with increased 2 point discrimination in the right hand median nerve distribution. His EMG nerve conduction velocity test results add mild carpal tunnel syndrome bilaterally which is somewhat perplexing. I think he does have relative atrophy of abductor pollicis brevis also. He does have degenerative changes in his cervical spine but the spinal stenosis is only mild centrally and I do not believe he has a surgical lesion at this time in the cervical spine that would take preference over carpal tunnel release as the next step for this gentleman. Flexion extension lateral views of his cervical spine today showed 2.5 mm of anterior translation C4 on C5 in flexion no translation at C5 and C6 in flexion extension. I have offered him carpal tunnel release surgery. I have discussed risks of surgery with him in detail and I explained that there is a possibility he might not regain sensation. He has a severely positive Tinel's over the median nerve just proximal to the flexor crease of the wrist and I would expect that he would have initial relief of a significant portion of the constant sensation of dysesthesia . the rather severe numbness and increased 2 point discrimination will not resolve immediately but will require nerve fiber regeneration to improve and this process takes at least 6 months and in older individuals it is usually only a partial return of sensation and not full. I have discussed with him that the ventral indentation of the spinal cord at C5-6 may be a contributing factor to his symptoms through the double crush mechanism but based on the fact that there is only mild central canal stenosis, I do not feel that surgery would be the appropriate next step to take but rather carpal tunnel release would be the appropriate next step to take. However if he continued to have problems or new symptoms were suggestive of cervical radiculopathy he would be referred to neurosurgery for evaluation. I have explained that I will be leaving this practice and starting at another location by another employer January 12 and we could schedule this in 4 days but he is unable to do that. I have offered to have him see Dr. Crowley my partner but he does not wish to do that. He would rather wait until January. I have provided him with a cock-up splint to wear in bed at night may reduce some of the pressure on the nerve when he is sleeping. I will see him in the 1st 2 weeks of January to schedule the surgery. 30 minutes were spent total care this patient more than half the time spent in [id number] care. Not available 12/19/2023 11:32:29 Plan of Treatment Reminders Order Date Submit Date Provider Last Modified By Organization Details Last Modified Time Details Appointments None recorded. Lab None recorded. Referral orthopedic surgeon referral 2022 023 [email or web address] 3 Jimmy Stanford, [address] [facility] [address], [place], [address], 3 07:56:42 Procedures None recorded. Surgeries None recorded. Imaging XR, foot, 3 or more view 2022 023 [email or web address] [facility] ([facility] Scheduling), [address] [place], [address], 3 09:31:49 XR, hand 2022 023 [facility], [address] [facility], [place], [address], 3 14:50:11 electromyog cynthia + nerve conduction study - Please call pt to schedule [email or web address] (Cardiology [facility]), [address] [place] [address], [address], 08:46:52 Medication Orders amoxicillin 875 mg tablet [address] [facility], [address] [facility], [place], [address], 12:06:44 Patient TargetsNo targets recorded. Patient InstructionsNo instructions recorded. Reason for Referral Orthopedic Surgeon Referral for Carpal tunnel syndrome of right wrist Referring Physician: [facility], Encounter Date: 06/05/2023 Results Created Date Observation Date Name Description Value Unit Range Abnormal Flag Note LastModifiedBy Organization Detail LastModifiedTime 07/25/20 XR, hand No observ ation record ed. [facility] [address], [place], [address], 07/25/2023 14:02:38 08/14/20 23 08/14/2023 elect romyo gram + nerve condu ction study No observ ation record ed. [address], [address], 02/23/2024 13:49:22 08/14/20 23 08/14/2023 elect romyo gram + nerve condu ction study No observ ation record ed. [address], [address], 08/14/2023 16:38:29 12/17/19 24 12/16/2023 MRI, cervi lorri spine , w/o contr ast No observ ation record ed. [address], [address], 12/17/2023 12:37:58 12/17/19 24 12/16/2023 MRI, cervi lorri spine , w/o contr ast No observ ation record ed. [address], [place], [address], 02/23/2024 13:49:42 Result Notes None recorded. Problems Name Problem SNOMED Code Status Onset Date Resolution Date Notes Provider Name and Address Organization Details Recorded Time Backache 163895091 Active Not Available [facility] 3 09:17:42 Abdominal pain 70043706 Active 2020 Not Available [facility] 3 09:17:42 Benign prostatic hyperplasi a 931185093 Active Not Available [facility] 3 09:17:43 Neuropathy 680697181 Active 2018 Not Available [facility] 3 09:17:43 Osteoarthr itis 910226994 Active 2021 Not Available [facility] 3 09:17:43 Dizziness 618139374 Active Not Available [facility] 3 09:17:43 Carotid bruit 881085808 Active Not Available [facility] 3 09:17:43 Cough 29611053 Active Not Available [facility] 3 09:17:43 Upper respirator y infection 59581828 Active Not Available [facility] 3 09:17:43 Hyperlipid emia 73494249 Active Not Available [facility] 3 09:17:43 Colitis 97615702 Active Not Available [facility] 3 09:17:43 Ulcerative colitis 21425164 Active 2016 Not Available [facility] 3 09:17:43 Paresthesi a of upper limb 01206508 Active 2022 TORI Paul [address], [place], [address] , [employer] [facility] [employer] 3 09:58:55 Cellulitis of face 892914968 Active 2022 TORI Paul [address], [place], [address] , [place] [facility] [place] [employer] [facility] 3 10:06:24 Carpal tunnel syndrome of right wrist 8530091213230 08 Active 2022 TORI Paul [address], [place], [address] , [facility] 3 10:11:36 Tooth disorder 861375401 Active 2022 TORI Paul [address], [place], [address] , [facility] [place] [facility] 3 10:14:24 Pain in right hand 9036575100696 09 Active 2022 BONIFACIO Anaya, [facility] 3 12:07:37 Acquired hallux limitus of right great toe 5707879743045 100 Active 2022 Isaac Orourke DPM [address], [place], [address] , [facility] 3 15:08:47 Right Achilles tendinitis 2908161596988 02 Active 2022 Isaac Orourke DPM [address], [place], [address] , [facility] 3 15:08:53 COVID-19 609713036 Active 2022 Louie Wilson MD [address], [place], [address] , [facility] 3 15:45:06 Spinal stenosis in cervical region 18217556 Active 2023 Melinda To CMA null, [facility] 4 16:29:55 Carpal tunnel syndrome 48259060 Active 2023 BONIFACIO Anaya null, [place] [facility] [place] [facility] 4 10:19:10 Notes:c. diff colitis Problem Notes None recorded. Procedures Surgical History Date Name Laterality Status Provider Name and Address Organization Details Recorded Time 10/09/20 colonoscopy completed Louie Wilson MD [address], [place], [address], [facility] [place] [facility] 02/21/2024 18:03:50 07/24/20 21 colonoscopy completed Not Available [facility] 12/12/2022 09:15:05 Carpal tunnel surgery completed Not Available [facility] 12/12/2022 09:15:05 Cataract Surgery completed Not Available [facility] 12/12/2022 09:15:05 Knee arthroscopy/surger y completed Not Available [facility] 12/12/2022 09:15:05 Rotator cuff surgery completed Not Available [facility] 12/12/2022 09:15:05 laparoscopic cholecystectomy completed Not Available [facility] 12/12/2022 09:15:05 Cholecystectomy completed Nabila Percy [place] [facility] [place] [facility] 08/01/2023 13:51:05 Nasal sinus therapy completed Nabila Greer [place] [facility] [place] [facility] 08/01/2023 13:51:14 Imaging Results Imaging Date Name Status LastModified by Organization Details LastModified Time 07/25/2023 XR, hand completed [facility] [address], [place], [address], 07/25/2023 14:02:38 08/14/2023 electromyogram + nerve conduction study completed [address], [address], 02/23/2024 13:49:22 08/14/2023 electromyogram + nerve conduction study completed [address], [address], 08/14/2023 16:38:29 12/16/2023 MRI, cervical spine, w/o contrast completed [address], [address], 12/17/2023 12:37:58 12/16/2023 MRI, cervical spine, w/o contrast completed [address], [address], 02/23/2024 13:49:42 Procedure Notes None recorded. Medical Equipment None Reported. Allergies No known drug allergies Medications Name Sig Start Date Stop Date Status Note LastModified by Organization Details LastModified Time prednison e 10 mg tablet TAKE 4 TABLETS BY MOUTH IN THE MORNING STARTING DAY BEFORE PROCEDUR E 11/14 completed Not Available Not Available Not Available clindamyc in HCl 300 mg capsule 09/18 completed Not Available Not Available Not Available valacyclo vir 1 gram tablet Take 1 tablet every 8 hours by oral route for 7 days. 11/14 completed Not Available Not Available Not Available prednison e 20 mg tablet 3 po qday x 3 days then 2 po qday x 3 days then 1 po qday x 3 days then 1/2 tab po qday x 3 days then stop active Not Available Not Available No t Available simvastat in 10 mg tablet Take 1 tablet every day by oral route for 30 days. active Not Available Not Available No t Available Zithromax Z-Massimo 250 mg tablet Take 2 TABLEts the first day then 1/day active Not Available Not Available No t Available metronida zole 500 mg tablet 09/18 completed Not Available Not Available Not Available acetamino phen 300 mg-codein e 30 mg tablet 09/18 completed Not Available Not Available Not Available ciproflox acin 250 mg tablet TAKE 1 TABLET BY MOUTH EVERY 12 HOURS FOR 10 DAYS active Not Available Not Available No t Available sulfameth oxazole 800 mg-trimet hoprim 160 mg tablet TAKE 1 TABLET BY MOUTH TWICE DAILY STARTING DAY BEFORE PROCEDUR E 11/14 completed Not Available Not Available Not Available peg-elect rolyte solution 420 gram oral solution TAKE DIRECTED 08/10 completed Not Available Not Available Not Available tramadol 50 mg tablet TAKE ONE TABLET BY MOUTH THREE TIMES DAILY NEEDED active Not Available Not Available No t Available oxycodone -acetamin ophen 5 mg-325 mg tablet TAKE 1 TABLET BY MOUTH EVERY 4 TO 6 HOURS NEEDED 11/09 completed Not Available Not Available Not Available alprazola m 0.5 mg tablet TAKE 1 TABLET BY MOUTH 30 TO 45 MINS PRIOR TO EXAM active Not Available Not Available No t Available amoxicill in 875 mg tablet TAKE 1 TABLET BY MOUTH EVERY 12 HOURS FOR 10 DAYS 07/25 completed Not Available Not Available Not Available tamsulosi n 0.4 mg capsule Take 1 capsule every day by oral route at bedtime for 30 days. active Not Available Not Available No t Available gemfibroz il 600 mg tablet Take 1 tablet every day by oral route. 2013 active Not Available Not Available Not Avai lable hydrocodo ne 7.5 mg-acetam inophen 325 mg tablet TAKE 1 TABLET BY MOUTH 90 MINUTES BEFORE PROCEDUR E.FOLLOW ING PROCEDUR E TAKE 1 TABLET EVERY 6 HOURS NEEDED FOR PAIN. 11/14 completed Not Available Not Available Not Available pantopraz ole 40 mg tablet,de layed release Take 1 tablet every day by oral route. active Not Available Not Available No t Available niacin 500 mg tablet Take 1 tablet every day by oral route for 30 days. active ID# [id number] 51 called to get tier 2 @ [facility] they will fax form. Not Available Not Available Not Available triamcino lone acetonide 0.025 % topical ointment 07/25 completed Not Available Not Available Not Available gabapenti n 300 mg capsule Take 1 capsule every day by oral route at bedtime. 03/08 completed Not Available Not Available Not Available balsalazi de 750 mg capsule TAKE 3 CAPSULES BY MOUTH TWICE DAILY active Not Available Not Available No t Available diclofena c sodium 75 mg tablet,de layed release TAKE 1 TABLET BY MOUTH TWICE DAILY 08/09 completed Not Available Not Available Not Available amoxicill in 250 mg capsule 09/18 completed Not Available Not Available Not Available mupirocin 2 % topical ointment 07/25 completed Not Available Not Available Not Available diclofena c sodium 50 mg tablet,de layed release Take 1 tablet PO BID with food active Not Available Not Available No t Available azelastin e 137 mcg (0.1 %) nasal spray USE 2 SPRAY(S) IN EACH NOSTRIL EVERY DAY AT BEDTIME 07/25 completed Not Available Not Available Not Available diazepam 10 mg tablet TAKE 1 TABLET BY MOUTH 90 MINUTES BEFORE PROCEDUR E,FOLLOW ING PROCEDUR E TAKE 1 TABLET EVERY 8 HOURS NEEDED 11/14 completed Not Available Not Available Not Available methylpre dnisolone 4 mg tablets in a dose pack TAKE BY MOUTH DIRECTED ON INSIDE OF PACKAGE active Not Available Not Available No t Available fluticaso ne propionat e 50 mcg/actua tion nasal spray,tiffanie pension USE 2 SPRAY(S) IN EACH NOSTRIL EVERY DAY AT BEDTIME 07/25 completed Not Available Not Available Not Available naproxen 500 mg tablet 01/26 completed Not Available Not Available Not Available cyclobenz aprine 5 mg tablet TAKE ONE TABLET BY MOUTH THREE TIMES DAILY NEEDED active Not Available Not Available No t Available Shanna-D 24 Hour 180 mg-240 mg tablet,ex tended release Take 1 tablet(s ) every day by oral route. 10/30 completed Not Available Not Available Not Available fenofibra te 160 mg tablet Take 1 tablet every day by oral route. 11/27 completed Not Available Not Available Not Available Lialda 1.2 gram tablet,de layed release Take 4 tablets every day by oral route. 09/17 completed Not Available Not Available Not Available Golytely 236 gram-22.7 4 gram-6.74 gram-5.86 gram oral solution DIRECTED 08/10 completed Not Available Not Available Not Available Durezol 0.05 % eye drops 10/30 completed Not Available Not Available Not Available Besivance 0.6 % eye drops,tiffanie pension 10/30 completed Not Available Not Available Not Available Suprep Bowel Prep Kit 17.5 gram-3.13 gram-1.6 gram oral solution active Not Available Not Available Not Available Prolensa 0.07 % eye drops 10/30 completed Not Available Not Available Not Available Fluvirin 9400-5264 45 mcg (15 mcg x 3)/0.5 mL intramusc ular suspensio n ADM 0.5ML UTD active Not Available Not Available No t Available Fluzone 3156-8429 45 mcg (15 mcg x 3)/0.5 mL intramusc ular suspensio n active Not Available Not Available Not Available Allergy 1 PO QD 03/08 completed Not Available Not Available Not Available Fluzone High-Dose 0391-3155 (PF) 180 mcg/0.5 mL intramusc ular syringe ADM 0.5ML IM UTD 10/30 completed Not Available Not Available Not Available Fluad 2017- 65yr up(PF)45 mcg(15 mcgx3)/0. 5 mL intramusc ular syringe ADM 0.5ML IM UTD 03/02 completed Not Available Not Available Not Available Afluria Qd (36 mos up)(PF)60 mcg (15 mcg x4)/0.5 mL IM syringe ADM 0.5ML IM UTD 03/02 completed Not Available Not Available Not Available Fluzone High-Dose Quad (PF) 240 mcg/0.7 mL IM syringe ADM 0.7ML IM UTD 03/02 completed Not Available Not Available Not Available Paxlovid 300 mg (150 mg x 2)-100 mg tablets in a dose pack TAKE DIRECTED 12/05 completed Not Available Not Available Not Available Vitals Date Recorded Body height Body mass index (BMI) Body weight Body temperature Heart rate Oxygen saturation Oxygen saturation in Arterial blood by Pulse oximetry Systolic blood pressure Diastolic blood pressure Provider Name and Address Organization Details Last Updated DateTime 3 172.72 cm 28.7 kg/m2 93442.9 6 g 97.6 [degF] 88 /min 96 % 96 % 140 mm[Hg] 88 mm[Hg] Letty Castellon RN [facility] [employer] [facility] 3 09:47:42 Date Recorded Body height Body mass index (BMI) Body weight Provider Name and Address Organization Details Last Updated DateTime 07/25/2023 171.45 cm 27.8 kg/m2 28013.63 g Ana Hinson [place] [employer] [facility] [employer] [facility] 07/25/2023 13:06:21 Date Recorded Body height Body mass index (BMI) Body weight Heart rate Respiratory rate Oxygen saturation Oxygen saturation in Arterial blood by Pulse oximetry Systolic blood pressure Diastolic blood pressure Provider Name and Address Organization Details Last Updated DateTime 3 171.45 cm 27 kg/m2 85927.6 6 g 57 /min 14 /min 98 % 98 % 119 mm[Hg] 77 mm[Hg] Nabila Greer [employer] [facility] [employer] 3 14:01:43 Date Recorded Body height Provider Name an d Address Organization Details Last Updated DateTime 12/05/2023 171.45 cm BONIFACIO Anaya [place] [employer] [facility] [employer] [facility] 12/05/2023 14:40:24 Date Recorded Body height Provider Name an d Address Organization Details Last Updated DateTime 12/19/2023 171.45 cm Ana Hinson NICH[place]ASDev[place] [facility] [place] [employer] 12/19/2023 10:18:07 Social History Question Answer Notes LastModified by Organizat ion Details LastModified Time Tobacco Smoking Status Former Smoker quit 1975 Not Available [facility] 12/12/2022 09:14:51 Do You Have An Advance Directive? No [id number] Information not available 12/12/2022 What Is Your Level Of Alcohol Consumption? None [id number] Information not available 12/12/2022 Are You Blind Or Do You Have Difficulty Seeing? No [id number] Information not available 12/12/2022 What Is Your Level Of Caffeine Consumption? Occasional [id number] Information not available 12/12/2022 How Much Tobacco Do You Chew? None [id number] Information not available 12/12/2022 In The 14 Days Before Symptom Onset, Have You Had Close Contact With A Laboratory-confi rmed COVID-19 While That Case Was Ill? No [id number] Information not available 12/12/2022 In The 14 Days Before Symptom Onset, Have You Had Close Contact With A Person Who Is Under Investigation For COVID-19 While That Person Was Ill? No [id number] Information not available 12/12/2022 Are You Deaf Or Do You Have Serious Difficulty Hearing? No MIGRATION.33143 [id number] Information not available 12/12/2022 What Type Of Diet Are You Following? REGULAR MIGRATION.73149 29747 Information not available 12/12/2022 Which Illicit Or Recreational Drugs Have You Used? None MIGRATION.78623 16653 Information not available 12/12/2022 Do You Or Have You Ever Used E-cigarettes Or Vape? Never Used Electronic Cigarettes MIGRATION.26573 84959 Information not available 12/12/2022 What Is Your Occupation? Retired MIGRATION.62965 89411 Information not available 12/12/2022 Have There Been Any Changes To Your Family Or Social Situation? No MIGRATION.98627 96971 Information not available 12/12/2022 Are There Any Guns Present In Your Home? Yes MIGRATION.74523 48374 Information not available 12/12/2022 Do You Use Insect Repellent Routinely? No MIGRATION.10205 04405 Information not available 12/12/2022 Where Do You Live? [facility] MIGRATION.58952 32519 Information not available 12/12/2022 Do You Have A Medical Power Of Jig Builder Helper? No MIGRATION.24035 83512 Information not available 12/12/2022 What Was The Date Of Your Most Recent Tobacco Screening? 08/01/2023 [email or web address] Information not available 08/01/2023 What Is Your Relationship Status? MIGRATION.07833 27485 Information not available 12/12/2022 Do You Use Your Seat Belt Or Car Seat Routinely? Yes MIGRATION.89249 89102 Information not available 12/12/2022 Do You Have Smoke And Carbon Monoxide Detectors In Your Home? Yes MIGRATION.01760 79661 Information not available 12/12/2022 Are You Passively Exposed To Smoke? No MIGRATION.45827 65254 Information not available 12/12/2022 Do You Or Have You Ever Used Smokeless Tobacco? Never Used Smokeless Tobacco MIGRATION.94163 68682 Information not available 12/12/2022 Are There Any Smokers In Your House? No MIGRATION.76218 01764 Information not available 12/12/2022 How Much Tobacco Do You Smoke? No MIGRATION.79660 19982 Information not available 12/12/2022 Do You Feel Stressed (tense, Restless, Nervous, Or Anxious, Or Unable To Sleep At Night)? [id number] MIGRATION.14141 19668 Information not available 12/12/2022 Do You Use Any Illicit Or Recreational Drugs? No MIGRATION.26811 43332 Information not available 12/12/2022 Do You Use Sunscreen Routinely? No MIGRATION.89978 81637 Information not available 12/12/2022 Has Tobacco Cessation Counseling Been Provided? No N/A MIGRATION.46890 50714 Information not available 12/12/2022 Have You Recently Traveled Abroad? No MIGRATION.53969 35368 Information not available 12/12/2022 Do You Have Any Dietary Restrictions? No MIGRATION.98497 33588 Information not available 12/12/2022 Do You Or Have You Ever Used Any Other Forms Of Tobacco Or Nicotine? No MIGRATION.16864 15946 Information not available 12/12/2022 Sex: Unknown Functional Status Question Answer Note LastModified by Organizat ion Details LastModified Time Do you have difficulty walking or climbing stairs? No MIGRATION.5841685 026 Information not available 12/12/2022 Do you have transportation difficulties? No MIGRATION.8557749 026 Information not available 12/12/2022 Are you able to walk? YESWOREST MIGRATION.1540121 026 Information not available 12/12/2022 Do you have difficulty doing errands alone? No MIGRATION.0289350 026 Information not available 12/12/2022 Are you able to care for yourself? Yes MIGRATION.4692698 026 Information not available 12/12/2022 Do you have difficulty dressing or bathing? No MIGRATION.4972454 026 Information not available 12/12/2022 What is your exercise level? Moderate MIGRATION.6262573 026 Information not available 12/12/2022 Mental Status Question Answer Note LastModified by Organizat ion Details LastModified Time Do you have difficulty concentrating, remembering or making decisions? No MIGRATION.867089929 6 Information not available 12/12/2022 Family History Relationship Description Onset Age of this Age Resolved Age Notes LastModified by Organization Details LastModified Time Father History of blood disorder low platel ets MIGRATION.698 [id number] Not available 12/12/2022 09:15:06 Maternal Grandmother Malignant neoplasm of bone MIGRATION.240 [id number] Not available 12/12/2022 09:15:06 Medical History Condition Response URINARY/BLADDER/KIDNEY PROBLEMS Y NERVE DISEASE Y BOWEL PROBLEMS DIZZINESS Y HIGH CHOLESTEROL / HYPERLIPIDEMIA Y Immunizations Vaccine Type Date Status Note Provider Nam e and Address Organization Details Recorded Time Influenza, high-dose, quadrivalent, PF 3 completed Daphney De La Cruz LPN null, [place] [facility] 10/02/2023 11:25:50 Influenza, split virus, quadrivalent, preservative 7 completed Not Available [facility] 12/12/2022 09:21:06 Influenza, high-dose, trivalent, PF 6 completed Not Available [facility] 12/12/2022 09:21:06 Influenza, split virus, quadrivalent, preservative 0 completed Not Available [facility] 12/12/2022 09:21:06 Influenza, split virus, quadrivalent, preservative 9 completed Not Available [facility] 12/12/2022 09:21:06 zoster live 6 completed Not Available [facility] 12/12/2022 09:21:06 Influenza, split virus, quadrivalent, preservative 5 completed Not Available [facility] 12/12/2022 09:21:06 Influenza, split virus, trivalent, preservative 4 completed Not Available [facility] 12/12/2022 09:21:06 pneumococcal polysaccharide PPV23 3 completed Not Available [facility] 12/12/2022 09:21:06 Influenza, high-dose, quadrivalent, PF 2 completed Not Available [facility] 12/12/2022 09:21:07 Influenza, high-dose, quadrivalent, PF 1 completed Not Available [facility] 12/12/2022 09:21:07 Pneumococcal conjugate PCV 13 7 completed Not Available [facility] 12/12/2022 09:21:07 Past Encounters Encounter ID Performer Location Encounter Start Date Encounter Closed Date Diagnosis/Indication Diagnosis SNOMED-CT Code Diagnosis ICD10 Code Diagnosis Note [id number] _ATHENA_M IGRATION_ DEFAULT_1 _1 , 03/08/2021 00:00:00 03/16/2021 14:40:23 [id number] [facility] [address] [place] [address] 07/12/2021 00:00:00 07/12/2021 10:54:00 [id number] [facility] [address] [facility] [address] 08/10/2021 00:00:00 08/10/2021 13:19:03 [id number] [facility] [address] [address] 08/22/2021 00:00:00 08/23/2021 10:53:03 [id number] [facility] [address] [place] [address] 11/09/2021 00:00:00 11/13/2021 18:01:24 [id number] [facility] [place] [address] [place] [address] 01/04/2022 00:00:00 01/04/2022 14:16:13 [id number] [facility] [address] [address] [place] [address] 01/11/2022 00:00:00 01/11/2022 17:54:54 [id number] [facility] [address] [address] 03/29/2022 00:00:00 03/29/2022 12:48:43 [id number] [facility] [address] [address] 05/10/2022 00:00:00 05/10/2022 12:01:04 [id number] [facility] [address] [address] 08/09/2022 00:00:00 08/09/2022 14:54:14 [id number] [facility] Jeancarlos francis [address] [place] [address] [address] [place] [address] 08/27/2022 00:00:00 08/27/2022 15:17:55 [id number] [facility] Jeancarlos francis [address] [place] [address] [address] [place] [address] 2022 00:00:00 2022 17:45:18 [id number] [facility] Careyliberty francis [address] [place] [address] [place] [address] 11/14/2022 00:00:00 12/09/2022 14:48:19 [id number] TORI Paul [facility] [address] [place] [address] [address] [place] [address] 06/05/2023 09:41:49 06/05/2023 10:28:25 Caregiver role strain [id number] Z73.3 ChronicSec ondary to being primary care provider for , who has dementia. Encouraged pt to consider counseling . Pt declines medication or referral at this time. Advised ok to schedule office appt for conversati on as needed. Cellulitis of face 2001 L03.211 New problemcel lulitis, abscess, furuncle, folliculit is, acne vulgarisNe w rx for abx sent to pharm. May use PRID salve, warm compresses several times daily. Avoid shaving area until well healed. Be seen in office if not resolved in the next few days. Carpal tolu robbie syndrome of right wrist [id number] 49560 G56.01 New problemCar pal tunnel vs nerve compressio n.Pt previous right carpal tunnel release.Pt declines PT, will refer for EMG/NC study and refer to ortho for further evaluation /tx. 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 Advised warm, salt-water gargles several times daily, take otc pain relievers per package instructio manuela, f/u with dental provider patrice. Call or be seen for any fever or worsening of sx.Keep upcoming appt for tooth extraction s on 06/18/23. [id number] YANG Alvarez [facility] [place] [address] [place] [address] 07/25/2023 11:47:08 07/25/2023 14:16:23 Pain in right hand [id number] M79.710 [id number] Isaac Orourke DPM [facility] [place] [address] [facility] [place] [address] 08/01/2023 13:48:00 08/02/2023 11:36:06 Acquired hallux limitus of right great toe [id number] M20.5X1 Rice therapyedu cated on NSAIDs and topical NSAID userecomme nd orthoticsc onservativ e and surgical options reviewed, patient denies surgeryrec ommend stiff-sole d shoe or carbon plate for shoefollow -up x-rays Right Achi lles tendinitis [id number] 40465 M76.61 educated on conditionS tretching and icing instructio manuela reviewedAp ply Voltaren gel twice daily to area of painfollow -up in 2-3 weeks if not resolved will send to physical therapy [id number] Christiano Huber MD [facility] [address] [place] [address] 12/05/2023 14:36:26 12/09/2023 09:57:21 Pain in right hand [id number] 29365 M79.256 [id number] Christiano Huber MD [facility] [address] [address] 12/19/2023 10:13:59 12/19/2023 11:51:03 Carpal tunnel syndrome [id number] G56.03 Health Concerns Section Related Observation LastModified by Organization Detai ls LastModified Time None Recorded Concern Status LastModified by Organization Details LastModified Time None Recorded Advance Directives Directive N: Payers Encounter Date Sequence Insurance Name Policy Number Policy Alonzo Covered Member ID Alonzo Member ID Guarantor Name 06/05/2023 1 [place] Larry C Lenzi [id number] Larry C Lenzi 06/05/2023 2 [employer] - OPTIONS Larry C Lenzi [id number] Larry C Lenzi 07/25/2023 1 [place] Larry C Lenzi [id number] Larry C Lenzi 07/25/2023 2 [employer] - OPTIONS Larry C Lenzi [id number] Larry C Lenzi 08/01/2023 1 [place] Larry C Lenzi [id number] Larry C Lenzi 08/01/2023 2 [employer] - OPTIONS Larry C Lenzi [id number] Larry C Lenzi 12/05/2023 1 [place] Larry C Lenzi [id number] Larry C Lenzi 12/05/2023 2 [employer] - OPTIONS Larry C Lenzi [id number] Larry C Lenzi 12/19/2023 1 [place] Larry C Lenzi [id number] Larry C Lenzi 12/19/2023 2 [employer] - OPTIONS Larry Guan Florecita [id number] Larry Bernabe Notes Date Note Type Note Provider Name and Address Organization Details Recorded Time 3 text/html 1. Pt in office with report that he was supposed to have hip surgery last September, but surgery was delayed d/t pt having ongoing teeth issues. Pt states the plan is for all of his teeth to be removed.2. Tingling and weakness of right hand for the past month. States thumb, index, and middle finger are numb. Pt states he is having trouble picking things up and holding on to them. Pt reports previous hx of right upper extrem carpal tunnel release.3. Pt c/o having possible cyst on left cheek. Pt states dentist believes that this may be d/t the teeth being pulled or a sinus infection.4. Pt is caring for who has dementia. Pt states he is concerned that she may try to leave their house on her own at some point, but has not as of yet. States they aren't able to travel anymore b/c she gets upset easily in different surroundings. Pt reports he tries not to say anything to his sons, but he sometimes feels he needs someone to unload on . TORI Paul [address] [facility], [address] [place] [address], [place], [address], [place] [facility] [employer] 06/05/2023 11:35:52 3 text/html . Patient is a 77-year-old male who with multiple complaints. Patient states that he previously made the appointment for pain to his Achilles tendon area. Patient denies any injury or wounds but states he did have some inflammation and swelling therapy. Patient states that this has started to reduce and he is not having any pain at all to the area. Patient states this has happened twice in the last year. Patient states that he also is having pain in his 1st metatarsophalangeal joint which he thinks he may have some arthritis. Patient again denies any treatment for this condition. Patient states that when he is walking or hiking he does have more pain to this joint. Patient denies any wounds or infection to the area. Patient denies any other pedal complaints. Isaac Orourke, ESTEBAN [address], [facility] [address], [place], [address], [facility] [employer] [facility] 08/01/2023 15:10:42 4 text/html Patient is a 78-year-old gentleman who returns after EMG nerve conduction velocity testing of the upper extremities. The results showed mild bilateral carpal tunnel syndrome sensory more than motor no ulnar neuropathy and normal needle EMG exam. Patient states that he had carpal tunnel release done on 1 wrist approximately 20 years ago and remembers that it did not seem to change his symptoms at all. He saw the surgeon back in the surgeon told him that he did not know why the surgery did not help. His right hand is his chief complaint. he has a stinging hypersensitivity to the radial 3 fingers of his right hand and the same thing is starting to happen on the left intermittently. On the right he feels a constant tingling and frequent electric shocks worse in the morning. 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 He had teeth that were infected that were pulled 6 months ago and he is undergoing the final a denture fitting in 1 week. His symptoms the right hand have progressively worsened over the past 6 months. Initially he thought that it would wake him up he has not been noticing that lately. 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 Patient admits that he has been having severe difficulty with coordination the right hand. He states that buttoning buttons are now impossible and zippers are very difficult and writing is very difficult. Patient states he has a history of anterior cervical decompression and inter body fusion in the cervical spine approximately 30 years ago. Christiano Huber MD [address], [facility] [address], [place], [address], [facility] [employer] [facility] 12/08/2023 10:52:16 4 text/html Patient returns after MRI scan of cervical spine. He had signs and symptoms of rather severe carpal tunnel syndrome on the right hand with poor 2 point discrimination. He has history of cervical spine fusion at C6-7 approximately 30 years ago and MRI scan of the cervical spine was obtained. I reviewed the images and reviewed the radiologist's report. He has I have fully healed and remodeled anterior interbody fusion at C6-7. He has severe hypertrophic degenerative disc disease at C5-6 with anterior and posterior osteophyte disc bulge and this does indent the ventral surface of the spinal cord little bit. Associated with this there is only mild central canal stenosis mild neural foraminal stenosis. There is severe facet joint arthritis. There is no abnormal signal in the spinal cord. His chief complaint again is severe tingling numbness in the thumb index and long fingers of the right hand. When asked if he has numbness or tingling anywhere else, he feels like he has a little bit of tingling sometimes in the radial right forearm but his slight and rare. He denies numbness in the palm of his hand or over the dorsum of the 1st webspace for radial wrist. He does have severe degenerative arthritis changes in his wrist. He states he has had a carpal tunnel release on 1 side but he is not sure which. It was decades ago. I do not see a scar clinically on either palm. He is just finishing up with the Medrol Dosepak he was provided last week and it did help his wrist pain but did not help the numbness tingling sensation. Christiano Huber MD [address] [place] [address], [facility] [address], [place], [address], [place] [facility] 12/19/2023 11:32:43
--- OUTSIDE RECORDS SUMMARY | 2025-01-27 09:15 | XMS_ITS | Data Portability ---
Author Organization [facility] Address [address] [place] [address] Care Team Providers Care Materials Manager Name Role Phone EDUAR GARNETT Primary Care Provider ELLI RADFORD Urologist KATEY MISTRY Staff Midwife/Apprenticeship Director Assessment Encounter Date Assessment Date Assessment LastModified by Organization Details LastModified Time 05/05/2024 05/05/2024 we will obtain blood work that was done by his sugar refiner. Continue current therapy. He will follow up with me in 6 months. I believe he is slated for possible orthopedic surgery for joint replacement [email or web address] Not available 05/16/2024 17:38:36 08/28/2024 08/28/2024 x-ray of the shoulder. I have offered physical therapy but he wants to hold off apparently he has got an appointment with his orthopedic surgeon in 8 days [email or web address] Not available 08/28/2024 22:04:46 11/10/2024 11/10/2024 continue current therapy he will not get his shoulder operate on now because he has to take care of his who has severe dementia he will get a flu shot. Healthy lifestyle care instructions. Follow up in 4 months [email or web address] Not available 11/10/2024 22:46:01 Plan of Treatment Reminders Order Date Submit Date Provider Last Modified By Organization Details Last Modified Time Details Appointments ANY 15 2024 01:30P Yasmin Garnett MD Not available Not available Not available Lab vitamin D, 25-hydrox y, total, serum 2023 024 [place] [facility], [address], [place], [address], 05/06/2024 08:28:30 PSA, total, serum or plasma 2023 [place] [facility], [address], [place], [address], 05/06/2024 08:28:30 Referral None recorded. Procedures None recorded. Surgeries None recorded. Imaging XR, shoulder 2023 024 [facility], [address], [place], [address], 09/01/2024 12:19:43 Medication Orders None recorded. Patient TargetsNo targets recorded. Patient Instructions Encounter Date Encounter Id Patient Instructions Last Modified By Organization Details Last Modified Time 08/28/2024 [id number] A healthy lifestyle: care instructions [email or web address] Not available 08/28/2024 22:05:03 11/10/2024 [id number] A healthy lifestyle: care instructions [email or web address] Not available 11/10/2024 18:31:59 Reason for Referral None Reported. Results Created Date Observation Date Name Description Value Unit Range Abnormal Flag Note LastModifiedBy Organization Detail LastModifiedTime 05/05/2005/06/2024 PROST ATE-S PECIF IC AG prostate specific Ag 7.0 NG/mL 0.0-4. 0 above high normal Toney ECLIA metho dolog y. Accor ding to the Ameri can Urolo gical Assoc iatio n, Serum PSA shoul d decre ase and remai n at undet ectab le level s after radic al prost atect susan. The AUA defin es bioch emica l recur rence as an initi al PSA value 0.2 ng/mL or great er follo wed by a subse quent confi rmato ry PSA value 0.2 ng/mL or great er. Value s obtai maría with diffe rent assay metho ds or kits canno t be used inter payne eably . Resul ts canno t be inter prete d as absol sault ste. marie evide nce of the prese nce or absen ce of danna rosen disea se. Not Available [facility] ([facility]) [address] [facility] [address], [place], [address], 05/06/2024 08:28:29 05/05/20 24 05/06/2024 VITAM IN D, 25-HY DROXY vitamin D, 25-hydroxy 30.0 NG/mL 30.0-1 00.0 Vitam in D defic iency has been defin ed by the Insti tute of Medic ine and an Endoc rine Socie ty pract ice guide line as a level of serum 25-OH vitam in D less than 20 ng/mL (1,2) . The Endoc rine Socie ty went on to furth er defin e vitam in D insuf ficie ncy as a level betwe en 21 and 29 ng/mL (2). 1. IOM (Inst itute of Medic ine). 2010. Tra ry refer ence intak es for calci um and D. Jordin elias [place]: The [facility] . 2. Meredith holliday MF, Marcia fields [place], Rhina off-F errar i EVANS, et al. Evalu ation , treat ment, and preve ntion of vitam in D defic iency : an Endoc rine Socie ty clini lorri pract ice guide line. JCEM. 2010; 96(7) :1911 -30. Not Available [facility] ([facility]) [address], [place], [address], 05/06/2024 08:28:30 05/11/20 24 05/09/2024 CT, coron linda calci um score No observ ation record ed. [facility] [address], [place], [address], 05/12/2024 12:19:39 05/11/20 24 05/09/2024 CT, coron linda calci um score No observ ation record ed. [facility] [address], [place], [address], 05/12/2024 12:20:07 07/13/20 24 07/13/2024 XR, shoul rosi No observ ation record ed. [address], [place], [address], 07/13/2024 17:08:33 07/13/20 24 07/13/2024 XR, hip + pelvi s, unila teral , 1 view No observ ation record ed. [email or web address] [id number] [facility] [address], [place], [address], 07/13/2024 16:39:24 09/01/20 24 09/01/2024 XR, shoul rosi No observ ation record ed. [address], [place], [address], 09/04/2024 15:35:00 09/01/20 24 09/01/2024 XR, shoul rosi No observ ation record ed. [address], [place], [address], 09/04/2024 15:35:01 Result Notes None recorded. Problems Name Problem SNOMED Code Status Onset Date Resolution Date Notes Provider Name and Address Organization Details Recorded Time Screening for malignant neoplasm of prostate Active 024 MIGUEL Robles, [place] - [facility] 4 16:24:21 Ulcerative colitis 02541709 Active 024 MIGUEL [place], [place] - [facility] 4 16:24:22 Problem Notes None recorded. Procedures Surgical History Date Name Laterality Status Provider Name and Address Organization Details Recorded Time 03/24/20 24 Carpal tunnel surgery completed MIGUEL Toney - [facility] 05/05/2024 15:16:48 10/14/19 21 Cholecystectomy completed MIGUEL Toney - [facility] 05/05/2024 15:16:30 total replacement of hip completed MIGUEL Goldstein - [facility] 08/28/2024 15:58:32 Imaging Results Imaging Date Name Status LastModified by Organ [facility] Details LastModified Time 05/09/2024 CT, coronary calcium score completed [facility] [address], [place], [address], 05/12/2024 12:19:39 05/09/2024 CT, coronary calcium score completed [facility] [address], [place], [address], 05/12/2024 12:20:07 07/13/2024 XR, shoulder completed [address] [place] [address], [address], 07/13/2024 17:08:33 07/13/2024 XR, hip + pelvis, unilateral, 1 view completed [address] [place] [address], [address], 07/13/2024 16:39:24 09/01/2024 XR, shoulder completed [address] [place] [address], [address], 09/04/2024 15:35:00 09/01/2024 XR, shoulder completed [address] [place] [address], [address], 09/04/2024 15:35:01 Procedure Notes None recorded. Medical Equipment None Reported. Allergies No known drug allergies Medications Name Sig Start Date Stop Date Status Note LastModified by Organization Details LastModified Time celecoxib 200 mg capsule TAKE 1 CAPSULE BY MOUTH ONCE DAILY 08/28 completed Not Available Not Available Not Available hydrocodone 5 mg-acetamin ophen 325 mg tablet TAKE 1 TABLET BY MOUTH EVERY 4 HOURS NEEDED FOR PAIN 05/05 completed Not Available Not Available Not Available alprazolam 0.5 mg tablet TAKE 1 TABLET BY MOUTH 30 TO 45 MINS PRIOR TO EXAM 05/05 completed Not Available Not Available Not Available amoxicillin 875 mg tablet TAKE 1 TABLET BY MOUTH EVERY 12 HOURS FOR 10 DAYS 05/05 completed Not Available Not Available Not Available tamsulosin 0.4 mg capsule TAKE 1 CAPSULE BY MOUTH AT BEDTIME active Not Available Not Available No t Available cephalexin 500 mg capsule TAKE 1 CAPSULE BY MOUTH EVERY 6 HOURS 05/05 completed Not Available Not Available Not Available balsalazide 750 mg capsule TAKE 3 CAPSULES BY MOUTH TWICE DAILY active Not Available Not Available No t Available ergocalcife rol (vitamin D2) 1,250 mcg (50,000 unit) capsule TAKE 1 CAPSULE BY MOUTH ONCE A WEEK active Not Available Not Available No t Available methylpredn isolone 4 mg tablets in a dose pack TAKE BY MOUTH DIRECTED ON INSIDE OF PACKAGE 05/05 completed Not Available Not Available Not Available cefdinir 300 mg capsule TAKE 1 CAPSULE BY MOUTH EVERY 12 HOURS 08/28 completed Not Available Not Available Not Available oxycodone 5 mg tablet TAKE 1 TABLET BY MOUTH EVERY 4 HOURS NEEDED FOR PAIN RATED 7-10 08/28 completed Not Available Not Available Not Available Eliquis 2.5 mg tablet TAKE 1 TABLET BY MOUTH EVERY 12 HOURS active Not Available Not Available No t Available Paxlovid 300 mg (150 mg x 2)-100 mg tablets in a dose pack TAKE DIRECTED 05/05 completed Not Available Not Available Not Available Vitals Date Recorded Body height Body mass index (BMI) Body weight Oxygen saturation Oxygen saturation in Arterial blood by Pulse oximetry Heart rate Systolic blood pressure Diastolic blood pressure Provider Name and Address Organization Details Last Updated DateTime 4 175.26 cm 26.8 kg/m2 89598.0 2 g 97 % 97 % 64 /min 124 mm[Hg] 70 mm[Hg] Shannan Delgado [place] - [facility] 4 15:20:15 Date Recorded Body height Body mass index (BMI) Body weight Heart rate Oxygen saturation Oxygen saturation in Arterial blood by Pulse oximetry Systolic blood pressure Diastolic blood pressure Provider Name and Address Organization Details Last Updated DateTime 4 175.26 cm 27.5 kg/m2 70439.1 8 g 64 /min 96 % 96 % 140 mm[Hg] 84 mm[Hg] Pedrito Rojo [place] - [facility] 4 16:01:29 Date Recorded Body height Body mass index (BMI) Body weight Heart rate Oxygen saturation Oxygen saturation in Arterial blood by Pulse oximetry Systolic blood pressure Diastolic blood pressure Provider Name and Address Organization Details Last Updated DateTime 5 175.26 cm 27.7 kg/m2 26501.0 1 g 56 /min 97 % 97 % 124 mm[Hg] 68 mm[Hg] Eleanor Hudson [place] [facility] 15:33:01 Social History Question Answer Notes LastModified by Organizat ion Details LastModified Time Tobacco Smoking Status Former Smoker quit 40 years ago Shannanarianna Delgado [place] null, [place] [facility] 05/05/2024 15:14:06 What Is Your Level Of Alcohol Consumption? None Information not available 05/05/2024 Are You Blind Or Do You Have Difficulty Seeing? No Information not available 05/05/2024 What Is Your Level Of Caffeine Consumption? Moderate Information not available 05/05/2024 Are You Currently Employed? No Retired Information not available 05/05/2024 Are You Deaf Or Do You Have Serious Difficulty Hearing? No Information not available 05/05/2024 What Type Of Diet Are You Following? REGULAR Information not available 05/05/2024 What Was The Date Of Your Most Recent Tobacco Screening? 11/10/2024 [email or web address] Information not available 11/10/2024 What Is Your Relationship Status? Information not available 05/05/2024 Do You Use Your Seat Belt Or Car Seat Routinely? Yes Information not available 05/05/2024 Do You Have Smoke And Carbon Monoxide Detectors In Your Home? Yes Information not available 05/05/2024 Do You Feel Stressed (tense, Restless, Nervous, Or Anxious, Or Unable To Sleep At Night)? [id number] Information not available 05/05/2024 Do You Use Any Illicit Or Recreational Drugs? No Information not available 05/05/2024 Do You Or Have You Ever Used Any Other Forms Of Tobacco Or Nicotine? No Information not available 05/05/2024 Sex: Male Functional Status Question Answer Note LastModified by Organizat ion Details LastModified Time Are you able to care for yourself? Yes Information not available 05/05/2024 What is your exercise level? Occasional Information not available 05/05/2024 Mental Status None recorded. Family History Relationship Description Onset Age of this Age Resolved Age Notes LastModified by Organization Details LastModified Time Father History of blood disorder [email or web address] Not available 2024 16:40:06 Maternal Grandmother Malignant neoplasm of bone [email or web address] Not available 2024 16:40:20 Medical History Condition Response Coronary Artery Disease N Other N Atrial Fibrillation N High Blood Pressure N Depression N COPD N Blood Clots N Anxiety Disorder N Muscle, Joint, or Bone Problems N Acid Reflux (GERD) N Cancer N Stroke N High Cholesterol N Liver Disease N Headaches N Kidney or Bladder Problems Y Thyroid Problems N GI Problems Y Have you had a mammogram in the last yea r? N Skin Problems N Anemia N Heart Attack ([place]) N Diabetes N Seizures/Epilepsy N Have you had a colonoscopy in the last 1 0 years? Y Asthma N Allergies N Have you had a PSA blood test in the las t year? Y Hepatitis N Heart Failure N Osteoporosis N Immunizations Vaccine Type Date Status Note Provider Nam e and Address Organization Details Recorded Time Influenza, split virus, quadrivalent, preservative 0 completed Shannan Delgado [place], [place] [facility] 05/05/2024 15:03:19 Influenza, split virus, quadrivalent, preservative 5 completed Shannanarianna Del[place] [facility] 05/05/2024 15:03:19 Influenza, split virus, quadrivalent, preservative 9 completed Shann[place]arianna Del[place] [facility] 05/05/2024 15:03:19 Influenza, adjuvanted, trivalent, PF 8 completed Shannanarianna Del[place] [facility] 05/05/2024 15:03:19 Influenza, high-dose, quadrivalent, PF 0 completed Shann[place]arianna Del[place] [facility] 05/05/2024 15:03:19 Influenza, high-dose, quadrivalent, PF 1 completed Shannan Del[place] [facility] 05/05/2024 15:03:19 Influenza, high-dose, quadrivalent, PF 2 completed Shannan Delgado[place] [facility] 05/05/2024 15:03:19 Influenza, high-dose, quadrivalent, PF 3 completed Shannan Delgado, [place] [facility] 05/05/2024 15:03:19 COVID-19, mRNA, LNP-S, PF, 100 mcg/0.5mL dose or 50 mcg/0.25mL dose 1 completed Shannan Delgado, [place] [facility] 05/05/2024 15:03:19 COVID-19, mRNA, LNP-S, PF, 100 mcg/0.5mL dose or 50 mcg/0.25mL dose 1 completed Shannanarianna Delgado, [place] [facility] 05/05/2024 15:03:19 COVID-19, mRNA, LNP-S, PF, 100 mcg/0.5mL dose or 50 mcg/0.25mL dose 2 completed Shannanarianna Delgado, [place] [facility] 05/05/2024 15:03:19 COVID-19, mRNA, LNP-S, PF, 100 mcg/0.5mL dose or 50 mcg/0.25mL dose 1 completed Shannan Delgado, [place] [facility] 05/05/2024 15:03:19 pneumococcal polysaccharide PPV23 3 completed Shannanarianna Delgado[place] [facility] 05/05/2024 15:03:19 Pneumococcal conjugate PCV 13 7 completed Shannan Del[place] [facility] 05/05/2024 15:03:19 zoster live 6 completed Shann[place]arianna Del[place] [facility] 05/05/2024 15:03:19 Influenza, high-dose, trivalent, PF 6 completed Shann[place]arianna Del[place] [facility] 05/05/2024 15:03:19 Influenza, split virus, trivalent, preservative 7 completed Shannan Delgado[place] [facility] 05/05/2024 15:03:19 Influenza, split virus, trivalent, preservative 5 completed Shannan Delgado[place] [facility] 05/05/2024 15:03:19 Influenza, split virus, trivalent, preservative 4 completed Shannan Delgado[place] [facility] 05/05/2024 15:03:19 Influenza, split virus, trivalent, preservative 4 completed Shannan Delgado[place] [facility] 05/05/2024 15:03:19 Influenza, high-dose, trivalent, PF 5 completed Eduar Garnett MD Attn: Accounting[address] [place], [address], [place] [facility] 11/10/2024 22:45:12 Past Encounters Encounter ID Performer Location Encounter Start Date Encounter Closed Date Diagnosis/Indication Diagnosis SNOMED-CT Code Diagnosis ICD10 Code Diagnosis Note [id number] [facility] [address] [place] [phone] 05/05/2024 14:59:05 05/05/2024 16:29:51 Screening for malignant neoplasm of prostate 607155469 Z12.5 Ulcerative colitis 95339 004 K51.90 [id number] [facility] [address] [place] [phone] 08/28/2024 15:13:42 08/28/2024 16:46:57 Overweight 489360104 E66.3 Shoulder pain 60040481 M 25.501 [id number] MD [facility] [address] [place] [phone] 11/10/2024 14:29:55 11/10/2024 16:37:22 Body mass index 25-29 - overweight 401060170 Z68.27 Overweight 311853877 E66 .3 Administra tion of influenza vaccine 89179073 Z23 Vitamin D below reference range 837696410 E55.9 Health Concerns Section Related Observation LastModified by Organization Detai ls LastModified Time None Recorded Concern Status LastModified by Organization Details LastModified Time None Recorded Advance Directives Directive None Recorded Payers Encounter Date Sequence Insurance Name Policy Number Policy Alonzo Covered Member ID Alonzo Member ID Guarantor Name 05/05/2024 1 [place] Larry Lenzi [id number] Larry Florecita 08/28/2024 1 [place] Lenzi [id number] Larry Lenzi 11/10/2024 1 [place] Lenzi [id number] Larry Srikanthlalita Notes Date Note Type Note Provider Name and Address Organization Details Recorded Time 05/05/2024 text/html 78-year-old switching docs history of ulcerative colitis he sees Dr. De Santiago . Sees Dr. 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, [place], [address], [place] [facility] 08/28/2024 22:05:07 11/10/2024 text/html he is not going to get shoulder surgery currently ulcerative colitis is doing fine BPH symptoms stable Eduar Garnett MD Attn: Accounting[address] [facility], [place], [address], [facility] - [facility] 11/10/2024 22:46:35
--- OUTSIDE RECORDS SUMMARY | 2025-01-27 09:15 | XMS_ITS | Clinical Summary ---
Author Organization [facility] Address [address] [place] [address] Care Team Providers Care Meat Cooler Name Role Phone Unavailable Primary Care Provider Unavailabl e Source Comments [facility],non-owned Affiliates and Associated Physician Practices is amultiple site organization consisting of ambulatory clinics and hospital sitesin [place], [place], [place] and [place]. This disclosure is being madepursuant to the Care Everywhere program and may not contain all information available regarding this patient. 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 Gender Identity Not on file Sexual Orientation Not on file Plan of Treatment Health Maintenance Due Date Last Done Comments MEDICARE AWV 12 MONTHS 1945 DTAP/TDAP/TD VACCINES (1 - Tdap) 1964 PNEUMOCOCCAL VACCINE 50+ (1 of 1 - PCV) 1995 ZOSTER VACCINE (1 of 2) 1995 Respiratory Syncytial Virus (RSV) Vaccine Pt: or over 60 yrs (1 - 1-dose 75+ series) 2020 COVID-19 VACCINE ( - 2023-2 5 season) 2024 DEPRESSION SCREENING 10/14/2024 INFLUENZA VACCINE (Season Ended) 2025 HEPATITIS B VACCINE Aged Out No longe r eligible based on patient's age to complete this topic HIB VACCINE Aged Out No longer eligi ble based on patient's age to complete this topic HPV VACCINE Aged Out No longer eligi ble based on patient's age to complete this topic MENINGOCOCCAL (Group B) VACC INE SHARED DECISION-MAKING Aged Out No longer eligibl e based on patient's age to complete this topic MENINGOCOCCAL GROUPS A/C/Y/W VACCINE Aged Out No longer eligible b ased on patient's age to complete this topic [place] [address] [facility] MEDICARE [facility] MEDICARE [facility]
--- OUTSIDE RECORDS SUMMARY | 2025-01-27 09:15 | XMS_ITS | CONTINUITY OF CARE DOCUMENT ---
Author Name gisel, gisel Address Unknown Organization [facility] Address [address] [place] [address] Phone [phone] Care Team Providers Care Sales Agent Protective Service Name Role Phone Aye PATHAK, Favio Unavailable MARII HANSON MD Unavailable [phone] EDUAR FRASER MD Unavailable PROBLEMS Condition Status Date Provider Notes Aortic root dilatation active Favio Griffiths MD Hypertriglyceridemia active Favio Hoffman D Screening active Favio Griffiths MD Microalbuminuria active Favio Griffiths MD ne gegfr Hyperlipidemia;NEG CRP and lpa active Kourtney Griffiths MD Bradycardia - sinus;nml tsh;not due to rx active 04/08 Favio Griffiths MD Pre-op cardiovascular exam active Favio schroeder MD Colitis active Viraj Mcdermott MD CAD active Favio Griffiths MD ENCOUNTERS Date Type Provider Location Encounter Diag nosis - In-person encounter Office Visit Favio Griffiths MD [place] [facility] Pre-op cardiovascular examBradycardia - sinus;nml tsh;not due to rx - In-person encounter Office Visit Viraj Mcdermott MD [place] [facility] CADColitis VITAL SIGNS Date Observation Value Provider Body Mass Index (Ratio) 26.11 kg/m2 Chucky Griffiths MD blood pressure, diastolic -1 mm[Hg] Kassandra nkLogvalentin blood pressure, systolic 143 mm[Hg] Sussy Malaveogic blood pressure, diastolic 86 mm[Hg] Man rret blood pressure, systolic 143 mm[Hg] Hillary [facility] pulse rate 54 /min Earl y blood pressure, cuff size regular [facility] oxygen saturation, oximetry 98 % Earl respiratory rate E&M 14 /min Earl weight E&M 182 [lb_av] Earl y height E&M 70 [in_i] Earl y blood pressure, diastolic 70 mm[Hg] Anastasia Galloway blood pressure, systolic 104 mm[Hg] Niki Galloway pulse rate 60 /min Margie elizabeth oxygen saturation, oximetry 99 % Margie Alstonenson respiratory rate E&M 16 /min Joseline Galloway Body Mass Index (Ratio) 27.78 kg/m2 Heather Son Galloway weight E&M 193.6 [lb_av] Margie Gamaliel emerson height E&M 70 [in_i] Margie Alstone clara blood pressure, diastolic 86 mm[Hg] Be aleksandr Morris blood pressure, systolic 128 mm[Hg] Rosmery Morris ALLERGIES No Known Drug Allergies HISTORY OF MEDICATION USE Medication Status Instructions Dates Provider Indications Com ments balsalazide 750 mg capsule active 3 tablet by mouth twice a day Paige Ventimiglia [facility] SOCIAL HISTORY Date Observation Value Provider personal history of marijuana use no Paige 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 drug use no Paige Ventimig sarah 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 alcohol use no Paige Ventimig sarah [facility] cigarette use yes Paige Ventimi glia [facility] smoking status Former smoker Paigelesly cejaa [facility] social history E&M Marital Statu s: Freida hildren: O ccupation: Retired Viraj Mcdermott MD social history reviewed E&M revi ewed - no changes required Viraj Mcdermott MD cigarette use yes Margie norman smoking status Former smoker Margie Donnelly smoking status quit Venus Carrasquillonard FUNCTIONAL STATUS Date Observation Value Provider periodic limb movement index absent (0) Venus Carrasquillonard FAMILY HISTORY Family Member Condition Father Family History of Co ronary Artery Disease: INSURANCE PROVIDERS Payer name Policy type / Coverage type [employer] party ID AARP SYLOB [id number] [place] Medicare [id number] ADVANCE DIRECTIVES Name Date DISCUSSED - NO DECISION MADE TREATMENT PLAN Date Name Performer :4.5 Favio Griffiths MD :score 28 Favio Griffiths MD :nml iron Favio Griffiths MD :45 Favio Griffiths MD Cardiology:atypical chest pain not anginal in nature n o further invasive w/u c oronary calcium socre is recommended Paigelesly Joinermiglia [facility] Cardiology:follows with GI Benedicto Santoyo [facility] Cardiology:HR in 50s on EKG and exam H e is asymptomatic. No dizziness W ill plan tele to r/o arrhythmia in setting of fatigue and noted bradycardia on EKG today Paige Rhysmiglia [facility] Cardiology:Patient c onsidered an acceptable risk for planned surgical procedure. Has had previous LHC with normal coronaries. Had negative stress in 2016. EKG sinus phylicia with no acute ST/T wave changes. No anginal symptoms at this time. Have recommended coronary calcium score Paige Santoyo [facility] Cardiology Viraj Mcdermott MD Cardiology Viraj Mcdermott MD Date Name TSH, free T4, total T3 CT, Coronary Calcium Score BASIC METABOLIC PANE L W/EGFR Microalb/Creatinine Urine, Random IRON AND TOTAL IRON BINDING CAPACITY FERRITIN CBC (INCLUDES DIFF/P LT) CRP, high sensitivit y Lipoprotein (a) LIPID PANEL Holter Monitor 24 Hr HISTORY OF PROCEDURES Procedure Date Procedure Name Provider Procedure Notes S tatus CT- Coronary CA score Favio Griffiths MD completed EKG Favio Griffiths MD complete d Stress EKG Vadim Nieto MD completed Cardiolite, 2 units Amna mora MD completed SPECT Images Vadim Nieto MD complet ed EKG Viraj Mcdermott MD complete d SNOMED-CT: [id number] Current Medications Documented Viraj Mcdermott MD completed
--- OUTSIDE RECORDS SUMMARY | 2025-01-27 09:15 | XMS_ITS | Data Portability ---
Author Organization [place] [facility] Address [address] [place] [address] Care Team Providers Care Zoology Technical Officer Name Role Phone LOUIE BARAHONA Primary Care Provider [phone] LOUIE BARAHONA Referring Provider Assessment No assessment recorded. Plan of Treatment Reminders Order Date Submit Date Provider Last Modified By Organization Details Last Modified Time Details Appointments None record ed. Lab None record ed. Referral None record ed. Procedures None record ed. Surgeries None record ed. Imaging None record ed. Medication Orders None record ed. Patient TargetsNo targets recorded. Patient InstructionsNo instructions recorded. Reason for Referral None Reported. Problems Name Problem SNOMED Code Status Onset Date Resolution Date Notes Provider Name and Address Organization Details Recorded Time Backache 972615290 Active Not Available [facility] 3 21:47:12 Abdominal pain 66891265 Active 2020 Not Available [facility] 3 21:47:12 Benign prostatic hyperplasia 743343327 Active Not Available [facility] 3 21:47:12 Neuropathy 872876800 Active 2018 Not Available [facility] 3 21:47:12 Osteoarthriti s 959011079 Active 2021 Not Available [facility] 3 21:47:12 Dizziness 752567459 Active Not Available [facility] 3 21:47:12 Carotid bruit 842838366 Active Not Available [facility] 3 21:47:12 Cough 05299953 Active Not Available [facility] 3 21:47:12 Upper respiratory infection 56873511 Active Not Available [facility] 3 21:47:12 Hyperlipidemi a 28472408 Active Not Available [facility] 3 21:47:12 Colitis 36860657 Active Not Available [facility] 3 21:47:12 Ulcerative colitis 92271287 Active 2016 Not Available [facility] 3 21:47:12 Notes:c. diff colitis Problem Notes None recorded. Procedures Surgical History Date Name Laterality Status Provider Name and Address Organization Details Recorded Time 07/24/20 colonoscopy completed Not Available [facility] 10/20/2022 21:39:39 Carpal tunnel surgery completed Not Available [facility] 10/20/2022 21:39:39 Cataract Surgery completed Not Available [facility] 10/20/2022 21:39:39 Knee arthroscopy/surger y completed Not Available [facility] 10/20/2022 21:39:39 Rotator cuff surgery completed Not Available [facility] 10/20/2022 21:39:39 laparoscopic cholecystectomy completed Not Available [facility] 10/20/2022 21:39:39 Imaging Results None recorded. Procedure Notes None recorded. Medical Equipment None Reported. Medications Name Sig Start Date Stop Date Status Note LastModified by Organization Details LastModified Time prednison e 10 mg tablet TAKE 4 TABLETS BY MOUTH IN THE MORNING STARTING DAY BEFORE PROCEDUR E active Not Available Not Available No t Available clindamyc in HCl 300 mg capsule 09/18 completed Not Available Not Available Not Available valacyclo vir 1 gram tablet Take 1 tablet every 8 hours by oral route for 7 days. active Not Available Not Available No t Available prednison e 20 mg tablet active Not Available Not Available Not Available simvastat in 10 mg tablet Take [...] TWICE DAILY STARTING DAY BEFORE PROCEDUR E active Not Available Not Available No t Available peg-elect rolyte solution 420 gram oral [...] TABLET EVERY 6 HOURS NEEDED FOR PAIN. active Not Available Not Available No t Available pantopraz ole 40 mg tablet,de layed release Take 1 tablet every day by oral route. active Not Available Not Available No t Available niacin 500 mg tablet Take 1 tablet every day by oral route for 30 days. active ID# [id number] called to get tier 2 @ [facility] SO they will fax form. Not Available Not Available Not Available triamcino lone acetonide 0.025 % topical ointment active Not Available Not Available Not Available gabapenti [...] Not Available mupirocin 2 % topical ointment active Not Available Not Available Not Available diclofena c sodium 50 mg tablet,de layed release Take 1 tablet PO BID with food active Not Available Not Available No t Available azelastin e 137 mcg (0.1 %) nasal spray USE 2 SPRAY(S) IN EACH NOSTRIL EVERY DAY AT BEDTIME active Not Available Not Available No t Available diazepam 10 mg tablet TAKE 1 TABLET BY MOUTH 90 MINUTES BEFORE PROCEDUR E,FOLLOW ING PROCEDUR E TAKE 1 TABLET EVERY 8 HOURS NEEDED active Not Available Not Available No t Available methylpre dnisolone 4 mg tablets in a dose pack 10/30 completed Not Available Not Available Not Available fluticaso ne propionat e 50 mcg/actua tion nasal spray,tiffanie pension USE 2 SPRAY(S) IN EACH NOSTRIL EVERY DAY AT BEDTIME active Not Available Not Available No t Available naproxen 500 mg tablet 01/26 completed [...] Not Available Not Available Not Available Fluvirin 2358-7964 45 mcg (15 mcg x 3)/0.5 mL intramusc ular suspensio n ADM 0.5ML UTD active Not Available Not Available No t Available Fluzone 45 mcg (15 mcg x 3)/0.5 mL intramusc ular suspensio n active Not Available Not Available Not Available Allergy 1 PO QD 03/08 completed Not Available Not Available Not Available Fluzone High-Dose (PF) 180 mcg/0.5 mL intramusc ular syringe ADM 0.5ML IM UTD 10/30 completed Not Available Not Available Not Available Fluad 65yr up(PF)45 mcg(15 mcgx3)/0. 5 mL intramusc [...] Available Not Available Vitals Date Recorded Body mass index (BMI) Body height Body weight Provider Name and Address Organization Details Last Updated DateTime 03/29/2022 29.5 kg/m2 172.72 cm 51567.92 g Not Available [facility] 10/20/2022 21:43:59 Date Recorded Body mass index (BMI) Body height Oxygen saturation Oxygen saturation in Arterial blood by Pulse oximetry Heart rate Body temperature Body weight Systolic blood pressure Diastolic blood pressure Provider Name and Address Organization Details Last Updated DateTime 2 28 kg/m2 172.72 cm 97 % 97 % 84 /min 97.1 [degF] 97142 g 136 mm[Hg] 72 mm[Hg] Not Available [facility] 3 21:43:54 Date Recorded Body height Provider Name an d Address Organization Details Last Updated DateTime 05/10/2022 172.72 cm Not Available [facility] 3 21:43:55 Date Recorded Body height Provider Name an d Address Organization Details Last Updated DateTime 08/09/2022 172.72 cm Not Available [facility] 3 21:43:55 Date Recorded Body height Provider Name an d Address Organization Details Last Updated DateTime 2022 172.72 cm Not Available [facility] 3 21:43:55 Social History Question Answer Notes LastModified by Organizat ion Details LastModified Time Tobacco Smoking Status Former Smoker quit 1974 Not Available [facility] 10/20/2022 21:38:35 Do You Have An Advance Directive? No MIGRATION.20199 38596 Information not available 10/20/2022 What Is Your Level Of Alcohol Consumption? None MIGRATION.92388 53219 Information not available 10/20/2022 Are You Blind Or Do You Have Difficulty Seeing? No MIGRATION.52285 00752 Information not available 10/20/2022 What Is Your Level Of Caffeine Consumption? Occasional MIGRATION.58884 80911 Information not available 10/20/2022 How Much Tobacco Do You Chew? None MIGRATION.26841 12371 Information not available 10/20/2022 In The 14 Days Before Symptom Onset, Have You Had Close Contact With A Laboratory-confi rmed COVID-19 While That Case Was Ill? No MIGRATION.90317 98003 Information not available 10/20/2022 In The 14 Days Before Symptom Onset, Have You Had Close Contact With A Person Who Is Under Investigation For COVID-19 While That Person Was Ill? No MIGRATION.88903 20166 Information not available 10/20/2022 Are You Currently Employed? No MIGRATION.23403 42676 Information not available 10/20/2022 Are You Deaf Or Do You Have Serious Difficulty Hearing? No MIGRATION.05500 19559 Information not available 10/20/2022 What Type Of Diet Are You Following? REGULAR MIGRATION.71814 48324 Information not available 10/20/2022 Which Illicit Or Recreational Drugs Have You Used? None MIGRATION.25125 21826 Information not available 10/20/2022 Do You Or Have You Ever Used E-cigarettes Or Vape? Never Used Electronic Cigarettes MIGRATION.20781 49991 Information not available 10/20/2022 What Is Your Occupation? Retired MIGRATION.98243 62308 Information not available 10/20/2022 Have There Been Any Changes To Your Family Or Social Situation? No MIGRATION.03069 88326 Information not available 10/20/2022 Are There Any Guns Present In Your Home? Yes MIGRATION.06303 83344 Information not available 10/20/2022 Do You Use Insect Repellent Routinely? No MIGRATION.43209 00077 Information not available 10/20/2022 Where Do You Live? [place] MIGRATION.09234 34883 Information not available 10/20/2022 Are You In An Abusive/frighten ing Relationship? No MIGRATION.70887 73353 Information not available 10/20/2022 Do You Feel Safe At Home Yes MIGRATION.39694 45753 Information not available 10/20/2022 Do You Have A Medical Power Of Manager Metrology? No MIGRATION.25671 51036 Information not available 10/20/2022 What Was The Date Of Your Most Recent Tobacco Screening? 11/08/2021 MIGRATION.66454 51307 Information not available 10/20/2022 What Is Your Relationship Status? MIGRATION.24307 85446 Information not available 10/20/2022 Do You Use Your Seat Belt Or Car Seat Routinely? Yes MIGRATION.80602 35550 Information not available 10/20/2022 Do You Have Smoke And Carbon Monoxide Detectors In Your Home? Yes MIGRATION.47041 35706 Information not available 10/20/2022 Are You Passively Exposed To Smoke? No MIGRATION.21227 87183 Information not available 10/20/2022 Do You Or Have You Ever Used Smokeless Tobacco? Never Used Smokeless Tobacco MIGRATION.76241 01105 Information not available 10/20/2022 Are There Any Smokers In Your House? No MIGRATION.26794 26964 Information not available 10/20/2022 How Much Tobacco Do You Smoke? No MIGRATION.18562 47699 Information not available 10/20/2022 Do You Feel Stressed (tense, Restless, Nervous, Or Anxious, Or Unable To Sleep At Night)? [id number] MIGRATION.57965 11748 Information not available 10/20/2022 Do You Use Any Illicit Or Recreational Drugs? No MIGRATION.70426 41246 Information not available 10/20/2022 Do You Use Sunscreen Routinely? No MIGRATION.68332 31745 Information not available 10/20/2022 Has Tobacco Cessation Counseling Been Provided? No N/A MIGRATION.66681 51443 Information not available 10/20/2022 Have You Recently Traveled Abroad? No MIGRATION.21421 38476 Information not available 10/20/2022 Do You Have Any Dietary Restrictions? No MIGRATION.84113 42066 Information not available 10/20/2022 Do You Or Have You Ever Used Any Other Forms Of Tobacco Or Nicotine? No MIGRATION.44205 29515 Information not available 10/20/2022 Sex: Unknown Functional Status Question Answer Note LastModified by Organizat ion Details LastModified Time Do you have difficulty walking or climbing stairs? No MIGRATION.0237346 200 Information not available 10/20/2022 Do you have transportation difficulties? No MIGRATION.0200638 200 Information not available 10/20/2022 Are you able to walk? YESWOREST MIGRATION.5207996 200 Information not available 10/20/2022 Do you have difficulty doing errands alone? No MIGRATION.4300299 200 Information not available 10/20/2022 Do you have difficulty dressing or bathing? No MIGRATION.0363623 200 Information not available 10/20/2022 What is your exercise level? Moderate MIGRATION.2007806 200 Information not available 10/20/2022 Mental Status Question Answer Note LastModified by Organizat ion Details LastModified Time Do you have difficulty concentrating, remembering or making decisions? No MIGRATION.105839123 0 Information not available 10/20/2022 Family History Relationship Description Onset Age of this Age Resolved Age Notes LastModified by Organization Details LastModified Time Father History of blood disorder low platel ets MIGRATION.177 [id number] Not available 10/20/2022 21:39:43 Maternal Grandmother Malignant neoplasm of bone MIGRATION.293 [id number] Not available 10/20/2022 21:39:43 Medical History Condition Response NERVE DISEASE Y URINARY/BLADDER/KIDNEY PROBLEMS Y BOWEL PROBLEMS DIZZINESS Y HIGH CHOLESTEROL / HYPERLIPIDEMIA Y Immunizations Vaccine Type Date Status Note Provider Nam e and Address Organization Details Recorded Time Influenza, split virus, quadrivalent, preservative 7 completed Not Available [facility] 10/20/2022 21:53:50 Influenza, high-dose, trivalent, PF 6 completed Not Available [facility] 10/20/2022 21:53:50 Influenza, split virus, quadrivalent, preservative 0 completed Not Available [facility] 10/20/2022 21:53:50 Influenza, split virus, quadrivalent, preservative 9 completed Not Available [facility] 10/20/2022 21:53:50 zoster live 6 completed Not Available [facility] 10/20/2022 21:53:50 Influenza, split virus, quadrivalent, preservative 5 completed Not Available [facility] 10/20/2022 21:53:50 Influenza, split virus, trivalent, preservative 4 completed Not Available [facility] 10/20/2022 21:53:51 Influenza, high-dose, quadrivalent, PF 2 completed Not Available [facility] 10/20/2022 21:53:51 Influenza, high-dose, quadrivalent, PF 1 completed Not Available [facility] 10/20/2022 21:53:51 Pneumococcal conjugate PCV 13 7 completed Not Available [facility] 10/20/2022 21:53:51 Past Encounters Encounter ID Performer Location Encounter Start Date Encounter Closed Date Diagnosis/Indication Diagnosis SNOMED-CT Code Diagnosis ICD10 Code Diagnosis Note [id number] DISP_[facility] [address] [place] [address] 03/08/2021 00:00:00 03/16/2021 14:40:23 [id number] _ATHENA_M IGRATION_ DEFAULT_1 _5 , 07/12/2021 00:00:00 07/12/2021 10:54:00 [id number] _ATHENA_M IGRATION_ DEFAULT_1 _5 , 08/10/2021 00:00:00 08/10/2021 13:19:03 [id number] _ATHENA_M IGRATION_ DEFAULT_1 _5 , 08/22/2021 00:00:00 08/23/2021 10:53:03 [id number] _ATHENA_M IGRATION_ DEFAULT_1 _5 , 11/09/2021 00:00:00 11/13/2021 18:01:24 [id number] _ATHENA_M IGRATION_ DEFAULT_1 _5 , 01/04/2022 00:00:00 01/04/2022 14:16:13 [id number] _ATHENA_M IGRATION_ DEFAULT_1 _5 , 01/11/2022 00:00:00 01/11/2022 17:54:54 [id number] _ATHENA_M IGRATION_ DEFAULT_1 _5 , 03/29/2022 00:00:00 03/29/2022 12:48:43 [id number] _ATHENA_M IGRATION_ DEFAULT_1 _5 , 05/10/2022 00:00:00 05/10/2022 12:01:04 [id number] _LEX_M IGRATION_ DEFAULT_1 _5 , 08/09/2022 00:00:00 08/09/2022 14:54:14 [id number] _LEX_M IGRATION_ DEFAULT_1 _5 , 08/27/2022 00:00:00 08/27/2022 15:17:55 [id number] _LEX_Yasmin IGRATION_ DEFAULT_1 _5 , 2022 00:00:00 2022 17:45:18 Health Concerns Section Related Observation LastModified by Organization Detai ls LastModified Time None Recorded Concern Status LastModified by Organization Details LastModified Time None Recorded Advance Directives Directive N: Payers None recorded.
--- OUTSIDE RECORDS SUMMARY | 2025-01-27 09:16 | XMS_ITS | Continuity of Care Document ---
Author Name [facility] Organization [facility] Care Team Providers Care Roller Leveler Operator Name Role Phone [facility] Unavailable Unavailable Encounters [...] ADM Date DC Date Status Disposition Source [facility] Outpatient Encounter [id number] 11/24 [facility] [place]
[2025-01-27 09:22] LABS: Estimated Glomerular Filt Rate 53
== END 2025-01-27 08:49 | disposition home or self-care (01) ==
PROVIDERS: PCP Internal Medicine; Visit Provider Urology
DX: R31.29 Other microscopic hematuria (principal); N20.0 Calculus of kidney; N21.0 Calculus in bladder; N32.3 Diverticulum of bladder; N40.0 Benign prostatic hyperplasia without lower urinary tract symptoms; R91.8 Other nonspecific abnormal finding of lung field
CPT/HCPCS: 74018; 74178; Q9967

== ENCOUNTER 2025-02-23 11:20 | Outpatient (CLI) | payer MEDICARE, SELFPAY ==
--- OUTSIDE RECORDS SUMMARY | 2025-02-23 11:47 | XMS_ITS | Continuity of Care Document ---
Author Name [facility] Organization [facility] Care Team Providers Care Metal Door Assembler Name Role Phone [facility] Unavailable Unavailable Encounters [...] ADM Date DC Date Status Disposition Source [facility] Outpatient Encounter [id number] 11/24 [facility] [place]
--- OUTSIDE RECORDS SUMMARY | 2025-02-23 11:47 | XMS_ITS | Data Portability ---
Author Organization [facility] Address [address] [place] [address] Care Team Providers Care Aerial Installer Name Role Phone EDUAR GARNETT Primary Care Provider [phone] ELLI RADFORD Urologist [phone] KATEY MISTRY Turner Machine Assessment Encounter Date Assessment Date Assessment LastModified by Organization Details LastModified Time 05/05/2024 05/05/2024 we will obtain blood work that was done by his plate glass installer helper. Continue current therapy. He will follow up with me in 6 months. I believe he is slated for possible orthopedic surgery for joint replacement [email or web address] Not available 05/16/2024 17:38:36 08/28/2024 08/28/2024 x-ray of the shoulder. I have offered physical therapy but he wants to hold off apparently he has got an appointment with his orthopedic surgeon in 8 days [email or web address] Not available 08/28/2024 22:04:46 11/10/2024 11/10/2024 continue current therapy he will not get his shoulder operate on now because he has to take care of his who has severe dementia he will get a flu shot. Healthy lifestyle care instructions. Follow up in 4 months Not available 11/10/2024 22:46:01 Plan of Treatment Reminders Order Date Submit Date Provider Last Modified By Organization Details Last Modified Time Details Appointments ANY 15 2024 01:30P Yasmin Garnett MD Not available Not available Not available Lab vitamin D, 25-hydrox y, total, serum 2023 024 [place] [facility], [address], [address] [address], [place], [address], 05/06/2024 08:28:30 PSA, total, serum or plasma 2023 [place] [facility], [address], [address], [place], [address], 05/06/2024 08:28:30 Referral None recorded. Procedures None recorded. Surgeries None recorded. Imaging XR, shoulder 2023 024 [facility], [address], [place], [address], 09/01/2024 12:19:43 Medication Orders None recorded. Patient TargetsNo targets recorded. Patient Instructions Encounter Date Encounter Id Patient Instructions Last Modified By Organization Details Last Modified Time 08/28/2024 [id number] A healthy lifestyle: care instructions [email or web address] Not available 08/28/2024 22:05:03 11/10/2024 [id number] A healthy lifestyle: care instructions [email or web address] Not available 11/10/2024 18:31:59 Reason for Referral [...] t be inter prete d as absol kobuk evide nce of the prese nce or absen ce of danna rosen disea se. Not Available [facility] ([facility]) [address], [place], [address], 05/06/2024 08:28:29 05/05/20 24 05/06/2024 VITAM IN [...] um and D. Jordin elias [place]: [facility] . 2. Meredith holliday MF, Marcia fields [place], Rhina off-F errar i EVANS, et al. Evalu ation , treat ment, and preve ntion of vitam in D defic iency : an Endoc rine Socie ty clini lorri pract ice guide line. JCEM. 2010; 96(7) :1911 -30. Not Available [facility] ([facility]) [address], [place], [address], 05/06/2024 08:28:30 05/11/20 24 05/09/2024 CT, coron linda calci um score No observ ation record ed. [facility] [address], [place], [address], 05/12/2024 12:19:39 05/11/20 24 05/09/2024 CT, coron linda calci um score No observ ation record ed. [facility] [address], [place], [address], 05/12/2024 12:20:07 07/13/20 24 07/13/2024 XR, shoul rosi No observ ation record ed. [address], [place], [address], 07/13/2024 17:08:33 07/13/20 24 07/13/2024 XR, hip + pelvi s, unila teral , 1 view No observ ation record ed. [address], [place], [address], 07/13/2024 16:39:24 09/01/20 24 09/01/2024 XR, shoul rosi No observ ation record ed. [address], [place], [address], 09/04/2024 15:35:00 09/01/20 24 09/01/2024 XR, shoul rosi No observ ation record ed. [address] [address], [place], [address], 09/04/2024 15:35:01 01/28/20 25 01/27/2025 CT, abdom en + pelvi s, w/wo contr ast No observ ation record ed. [address], [place], [address], 02/02/2025 16:52:01 01/28/20 25 01/27/2025 XR, kidne y + urete r + bladd er No observ ation record ed. [address] [facility], [place], [address], 02/02/2025 16:52:01 Result Notes None recorded. Problems Name Problem SNOMED Code Status Onset Date Resolution Date Notes Provider Name and Address Organization Details Recorded Time Screening for malignant neoplasm of prostate Active 024 MIGUEL Robles, G[facility] 4 16:24:21 Ulcerative colitis 62607371 Active 024 MIGUEL Robles, GILLIAN [facility] 4 16:24:22 Problem Notes None recorded. Procedures Surgical History Date Name Laterality Status Provider Name and Address Organization Details Recorded Time 03/24/20 24 Carpal tunnel surgery completed Shannan Delgado MA [facility] 05/05/2024 15:16:48 10/14/19 21 Cholecystectomy completed Shannan Delgado MA [facility] 05/05/2024 15:16:30 total replacement of hip completed Perdito Rojo MA [facility] 08/28/2024 15:58:32 Imaging Results Imaging Date Name Status LastModified by Organiz ation Details LastModified Time 05/09/2024 CT, coronary calcium score completed [facility] [address], [place], [address], 05/12/2024 12:19:39 05/09/2024 CT, coronary calcium score completed [facility] [address], [place], [address], 05/12/2024 12:20:07 07/13/2024 XR, shoulder completed [address] [place] [address], [address], 07/13/2024 17:08:33 07/13/2024 XR, hip + pelvis, unilateral, 1 view completed [address] [place] [address], [address], 07/13/2024 16:39:24 09/01/2024 XR, shoulder completed [address] [place] [address], [address], 09/04/2024 15:35:00 09/01/2024 XR, shoulder completed [address] [place] [address], [address], 09/04/2024 15:35:01 01/27/2025 CT, abdomen + pelvis, w/wo contrast completed [address] [place] [address], [address], 02/02/2025 16:52:01 01/27/2025 XR, kidney + ureter + bladder completed [facility] [address] [facility] [address], [place], [address], 02/02/2025 16:52:01 Procedure Notes None recorded. Medical Equipment None [...] Updated DateTime 4 175.26 cm 26.8 kg/m2 60462.0 2 g 97 % 97 % 64 /min 124 mm[Hg] 70 mm[Hg] Shannan Delgado [place] [facility] 4 15:20:15 Date Recorded Body height Body mass index (BMI) Body weight Heart rate Oxygen saturation Oxygen saturation in Arterial blood by Pulse oximetry Systolic blood pressure Diastolic blood pressure Provider Name and Address Organization Details Last Updated DateTime 4 175.26 cm 27.5 kg/m2 05935.1 8 g 64 /min 96 % 96 % 140 mm[Hg] 84 mm[Hg] Pedrito Rojo MA [place] [facility] 4 16:01:29 Date Recorded Body height Body mass index (BMI) Body weight Heart rate Oxygen saturation Oxygen saturation in Arterial blood by Pulse oximetry Systolic blood pressure Diastolic blood pressure Provider Name and Address Organization Details Last Updated DateTime 5 175.26 cm 27.7 kg/m2 04205.0 1 g 56 /min 97 % 97 % 124 mm[Hg] 68 mm[Hg] Eleanor Hudson MA [facility] 5 15:33:01 Social History Question Answer Notes LastModified by Organizat ion Details LastModified Time Tobacco Smoking Status Former Smoker quit 40 years ago Shannan Delgado MA null, [facility] 05/05/2024 15:14:06 Are You Blind Or Do You Have Difficulty Seeing? No Information not available 05/05/2024 What Is Your Level Of Caffeine Consumption? Moderate Information not available 05/05/2024 Are You Deaf [...] Your Home? Yes Information not available 05/05/2024 Sex: Male Functional Status Question Answer Note LastModified by Organizat ion Details LastModified Time Do you use any illicit or recreational drugs? No Information not available 05/05/2024 Do you or have you ever used any other forms of tobacco or nicotine? No Information not available 05/05/2024 What is your level of alcohol consumption? None Information not available 05/05/2024 Are you currently employed? No retired Information not available 05/05/2024 Are you able to care for yourself? Yes Information not available 05/05/2024 What is your exercise level? Occasional Information not available 05/05/2024 Mental Status Question Answer Note LastModified by Organization D etails LastModified Time Do you feel stressed (tense, restless, nervous, or anxious, or unable to sleep at night)? [id number] Information not available 05/05/2024 Family History Relationship Description Onset Age of this Age Resolved Age Notes LastModified by Organization Details LastModified Time Father History of blood disorder [email or web address] Not available 2024 16:40:06 Maternal Grandmother Malignant neoplasm of bone [email or web address] Not available 2024 16:40:20 Medical History Condition Response Coronary Artery Disease N Other N High Blood Pressure N Atrial Fibrillation N Kidney or Bladder Problems Y Thyroid Problems N GI Problems Y Depression N COPD N Blood Clots N Have you had a mammogram in the last yea r? N Skin Problems N Anemia N Heart Attack ([place]) N Anxiety Disorder N Diabetes N Muscle, Joint, or Bone Problems N Seizures/Epilepsy N Have you had a colonoscopy in the last 1 0 years? Y Acid Reflux (GERD) N Cancer N Stroke N Asthma N Allergies N Have you had a PSA blood test in the las t year? Y High Cholesterol N Hepatitis N Liver Disease N Headaches N Heart Failure N Osteoporosis N Immunizations Vaccine Type Date Status Note Provider Nam e and Address Organization Details Recorded Time Influenza, split virus, quadrivalent, preservative 0 completed Shannan Delgado, [place], [place] [facility] 05/05/2024 15:03:19 Influenza, split virus, quadrivalent, preservative 5 completed Shannan Delgado, [place] [facility] 05/05/2024 15:03:19 Influenza, split virus, quadrivalent, preservative 9 completed Shannan Delgado, [place] [facility] 05/05/2024 15:03:19 Influenza, adjuvanted, trivalent, PF 8 completed Shannan Delgado, [place] [facility] 05/05/2024 15:03:19 Influenza, high-dose, quadrivalent, PF 0 completed Shannan Delgado, [place] [facility] 05/05/2024 15:03:19 Influenza, high-dose, quadrivalent, PF 1 completed Shannan Delgado, [place], [place] [...] dose or 50 mcg/0.25mL dose 2 completed Shannan Delgado, [place] [facility] 05/05/2024 15:03:19 COVID-19, mRNA, LNP-S, PF, 100 mcg/0.5mL dose or 50 mcg/0.25mL dose 1 completed Shannan Delgado, [place] [facility] 05/05/2024 15:03:19 pneumococcal polysaccharide PPV23 3 completed Shannan Delgado[place] [facility] 05/05/2024 15:03:19 Pneumococcal conjugate PCV 13 7 completed Shannan Delgado[place] [facility] 05/05/2024 15:03:19 zoster live 6 completed Shannanarianna Delgado, [place] [facility] 05/05/2024 15:03:19 Influenza, high-dose, trivalent, PF 6 completed Shannan Delgado, [place], [place] - [...] completed Eduar Garnett MD Attn: Accounting,[address] [place], [address], [place] [facility] 11/10/2024 22:45:12 Past Encounters Encounter ID Performer Location Encounter Start Date Encounter Closed Date Diagnosis/Indication Diagnosis SNOMED-CT Code Diagnosis ICD10 Code Diagnosis Note [id number] Eduar Garnett MD [facility] (Adult Med) [address] [place] [phone] 05/05/2024 14:59:05 05/05/2024 16:29:51 Screening for malignant neoplasm of prostate 842760823 Z12.5 Ulcerative colitis 60728 004 K51.90 [id number] Eduar Garnett MD [facility] (Adult Med) [address] [place] [phone] 08/28/2024 15:13:42 08/28/2024 16:46:57 Overweight 900449993 E66.3 Pain of [facility] 49063725 M25.638 [id number] Eduar Garnett MD [facility] (Adult Med) [address] [place] [phone] 11/10/2024 14:29:55 11/10/2024 16:37:22 Body mass index 25-29 - overweight 565877555 Z68.27 Overweight 364186079 E66 .3 Administra tion of influenza vaccine 36253059 Z23 Vitamin D below reference range 418375797 E55.9 Health Concerns Section Related Observation LastModified by Organization Detai ls LastModified Time None Recorded Concern Status LastModified by Organization Details LastModified Time None Recorded Advance Directives Directive None Recorded Payers Encounter Date Sequence Insurance Name Policy Number Policy Alonzo Covered Member ID Alonzo Member ID Guarantor Name 05/05/2024 1 [place] Larry Bernabe [id number] Larry Bernabe 08/28/2024 1 [place] Larry Bernabe [id number] Larry Bernabe 11/10/2024 1 [place] Larry Bernabe [id number] Larry Bernabe Notes Date Note Type Note [...] 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, [place], [address], [facility] 08/28/2024 22:05:07 11/10/2024 text/html he is not going to get shoulder surgery currently ulcerative colitis is doing fine BPH symptoms stable Eduar Garnett MD Attn: Accounting, [address] [facility], [place], [address], [facility] 11/10/2024 22:46:35
--- OUTSIDE RECORDS SUMMARY | 2025-02-23 11:47 | XMS_ITS | Data Portability ---
Author Organization [place] [employer], Main Office Address [address] [place] [address] Care Team Providers Care Pet Care Assistant Name Role Phone LOUIE WILSON Primary Care Provider [phone] LOUIE WILSON Referring Provider Assessment Encounter Date [...] patient more than half of this in ofup-ft-oafs conversation Not available 07/25/2023 14:07:51 08/01/2023 08/01/2023 This note is dictated and transcribed by [employer]. Upsetter Helper variances may occur. Despite proofreading, typographical errors [...] more than half the time spent in rbrz-np-nbhj care. Not available 12/08/2023 10:51:57 12/19/2023 12/19/2023 [...] more than half the time spent in djzh-jh-fzjx care. Not available 12/19/2023 11:32:29 Plan of Treatment Reminders Order Date Submit Date Provider Last Modified By Organization Details Last Modified Time Details Appointments None recorded. Lab None recorded. Referral orthopedic surgeon referral 2022 023 [email or web address] 3 Jimmy Stanford, [address] [facility] [address], [place], [address], 3 07:56:42 Procedures None recorded. Surgeries None recorded. Imaging XR, foot, 3 or more view 2022 023 [email or web address] [facility] (One Call Scheduling), [address] [place], [address], 3 09:31:49 XR, hand 2022 023 [facility], [address] [facility], [place], [address], 3 14:50:11 electromyog cynthia + nerve conduction study - Please call pt to schedule [email or web address] (Cardiology & Emg), [address] [place] [address], [address], 08:46:52 Medication Orders amoxicillin 875 mg tablet [address] [facility], [address] [facility], [place], [address], 12:06:44 Patient TargetsNo targets recorded. Patient InstructionsNo instructions recorded. Reason for Referral Orthopedic Surgeon Referral for Carpal tunnel syndrome of right wrist Referring Physician: Arpita Nina [facility], Encounter Date: 06/05/2023 Results Created Date Observation Date Name Description Value Unit Range Abnormal Flag Note LastModifiedBy Organization Detail LastModifiedTime 07/25/20 XR, hand No observ ation record ed. [facility] [address], [place], [address], 07/25/2023 14:02:38 08/14/20 23 08/14/2023 elect romyo gram + nerve condu ction study No observ ation record ed. [address], [address], 02/23/2024 13:49:22 08/14/20 23 08/14/2023 elect romyo gram + nerve condu ction study No observ ation record ed. [address], [address], 08/14/2023 16:38:29 12/17/19 24 12/16/2023 MRI, cervi lorri spine , w/o contr ast No observ ation record ed. [address], [address], 12/17/2023 12:37:58 12/17/19 24 12/16/2023 MRI, cervi lorri spine , w/o contr ast No observ ation record ed. [address], [place], [address], 02/23/2024 13:49:42 Result Notes None recorded. Problems Name Problem SNOMED Code Status Onset Date Resolution Date Notes Provider Name and Address Organization Details Recorded Time Backache 892799868 Active Not Available [facility] 3 09:17:42 Abdominal pain 99855726 Active 2020 Not Available [facility] 3 09:17:42 Benign prostatic hyperplasi a 097970347 Active Not Available [facility] 3 09:17:43 Neuropathy 691148174 Active 2018 Not Available [facility] 3 09:17:43 Osteoarthr itis 442522477 Active 2021 Not Available [facility] 3 09:17:43 Dizziness 885595614 Active Not Available [facility] 3 09:17:43 Carotid bruit 880346227 Active Not Available [facility] 3 09:17:43 Cough 42441958 Active Not Available [facility] 3 09:17:43 Upper respirator y infection 11730970 Active Not Available [facility] 3 09:17:43 Hyperlipid emia 34014175 Active Not Available [facility] 3 09:17:43 Colitis 86124272 Active Not Available [facility] 3 09:17:43 Ulcerative colitis 23802245 Active 2016 Not Available [facility] 3 09:17:43 Paresthesi a of upper limb 16067935 Active 2022 TORI Paul [address], [place], [address] , [employer] [facility] [employer] 3 09:58:55 Cellulitis of face 958641215 Active 2022 TORI Paul [address], [place], [address] , [place] [facility] [place] [employer] [facility] 3 10:06:24 Carpal tunnel syndrome of right wrist 2162523117570 08 Active 2022 TORI Paul [address], [place], [address] , [facility] 3 10:11:36 Tooth disorder 896261572 Active 2022 TORI Paul [address], [place], [address] , [facility] 3 10:14:24 Pain in right hand 3590500347194 09 Active 2022 BONIFACIO Anaya, [facility] 3 12:07:37 Acquired hallux limitus of right great toe 5626301804823 100 Active 2022 Isaac Orourke DPM [address], [place], [address] , [facility] 3 15:08:47 Right Achilles tendinitis 2891735683983 02 Active 2022 Isaac Orourke DPM [address], [place], [address] , [facility] 3 15:08:53 COVID-19 909096538 Active 2022 Louie Wilson MD [address], [place], [address] , [facility] 3 15:45:06 Spinal stenosis in cervical region 11780649 Active 2023 Melinda To CMA null, [facility] 4 16:29:55 Carpal tunnel syndrome 05347610 Active 2023 BONIFACIO Anaya null, [place] [facility] 4 10:19:10 Notes:c. diff colitis Problem Notes None recorded. Procedures Surgical History Date Name Laterality Status Provider Name and Address Organization Details Recorded Time 10/09/20 colonoscopy completed Louie Wilson MD [address], [place], [address], [facility] 02/21/2024 18:03:50 07/24/20 21 colonoscopy completed Not Available [facility] 12/12/2022 09:15:05 Carpal tunnel surgery completed Not Available [facility] 12/12/2022 09:15:05 Cataract Surgery completed Not Available [facility] 12/12/2022 09:15:05 Knee arthroscopy/surger y completed Not Available [facility] 12/12/2022 09:15:05 Rotator cuff surgery completed Not Available [facility] 12/12/2022 09:15:05 laparoscopic cholecystectomy completed Not Available [facility] 12/12/2022 09:15:05 Cholecystectomy completed Nabila Percy [facility] 08/01/2023 13:51:05 Nasal sinus therapy completed Nabila Greer [facility] 08/01/2023 13:51:14 Imaging Results Imaging Date Name Status LastModified by Organization Details LastModified Time 07/25/2023 XR, hand completed [facility] [address], [place], [address], 07/25/2023 14:02:38 08/14/2023 electromyogram + nerve conduction study completed [address], [address], 02/23/2024 13:49:22 08/14/2023 electromyogram + nerve conduction study completed [address], [address], 08/14/2023 16:38:29 12/16/2023 MRI, cervical spine, w/o contrast completed [address], [address], 12/17/2023 12:37:58 12/16/2023 MRI, cervical spine, w/o contrast completed [address], [address], 02/23/2024 13:49:42 Procedure Notes None recorded. Medical [...] oral route for 30 days. active ID# [id number] called to get tier 2 @ [...] Not Available Not Available Not Available Fluvirin 6462-4521 45 mcg (15 mcg x 3)/0.5 mL intramusc ular suspensio n ADM 0.5ML UTD active Not Available Not Available No t Available Fluzone 7418-8800 45 mcg (15 mcg x 3)/0.5 mL intramusc ular suspensio n active Not Available Not Available Not Available Allergy 1 PO QD 03/08 completed Not Available Not Available Not Available Fluzone High-Dose 9646-7002 (PF) 180 mcg/0.5 mL intramusc ular syringe [...] Updated DateTime 3 172.72 cm 28.7 kg/m2 25915.9 6 g 97.6 [degF] 88 /min 96 % 96 % 140 mm[Hg] 88 mm[Hg] Letty Castellon RN [facility] [employer] [facility] 3 09:47:42 Date Recorded Body height Body mass index (BMI) Body weight Provider Name and Address Organization Details Last Updated DateTime 07/25/2023 171.45 cm 27.8 kg/m2 37101.63 g Ana Hinson Devorah MA [employer] [facility] [employer] [facility] 07/25/2023 13:06:21 Date Recorded Body height Body mass index (BMI) Body weight Heart rate Respiratory rate Oxygen saturation Oxygen saturation in Arterial blood by Pulse oximetry Systolic blood pressure Diastolic blood pressure Provider Name and Address Organization Details Last Updated DateTime 3 171.45 cm 27 kg/m2 35285.6 6 g 57 /min 14 /min 98 % 98 % 119 mm[Hg] 77 mm[Hg] Nabila Greer [employer] [facility] [employer] 3 14:01:43 Date Recorded Body height Provider Name an d Address Organization Details Last Updated DateTime 12/05/2023 171.45 cm BONIFACIO Anaya MA [employer] [facility] [employer] [facility] 12/05/2023 14:40:24 Date Recorded Body height Provider Name an d Address Organization Details Last Updated DateTime 12/19/2023 171.45 cm BONIFACIO Anaya [place] [facility] [place] [email or web address] 12/19/2023 10:18:07 Social History Question Answer Notes LastModified by Organizat ion Details LastModified Time Tobacco Smoking Status Former Smoker quit 1975 Not Available [facility] 12/12/2022 09:14:51 Do You Have An Advance Directive? No MIGRATION.40888 35817 Information not available 12/12/2022 Are You Blind Or Do You Have Difficulty Seeing? No MIGRATION.60816 28017 Information not available 12/12/2022 What Is Your Level Of Caffeine Consumption? Occasional MIGRATION.84781 17864 Information not available 12/12/2022 How Much Tobacco Do You Chew? None MIGRATION.16574 00627 Information not available 12/12/2022 In The 14 Days Before Symptom Onset, Have You Had Close Contact With A Laboratory-confi rmed COVID-19 While That Case Was Ill? No MIGRATION.12201 29462 Information not available 12/12/2022 In The 14 Days Before Symptom Onset, Have You Had Close Contact With A Person Who Is Under Investigation For COVID-19 While That Person Was Ill? No MIGRATION.08989 31882 Information not available 12/12/2022 Are You Deaf Or Do You Have Serious Difficulty Hearing? No MIGRATION.88660 24761 Information not available 12/12/2022 What Type Of Diet Are You Following? REGULAR MIGRATION.18757 23986 Information not available 12/12/2022 Which Illicit Or Recreational Drugs Have You Used? None MIGRATION.14860 47013 Information not available 12/12/2022 Have There Been Any Changes To Your Family Or Social Situation? No MIGRATION.56285 41111 Information not available 12/12/2022 Are There Any Guns Present In Your Home? Yes MIGRATION.74954 54633 Information not available 12/12/2022 Do You Use Insect Repellent Routinely? No MIGRATION.15897 85495 Information not available 12/12/2022 [facility] MIGR[facility].43121 [address] Information not available 12/12/2022 Do You Have A Medical Power Of Placer Miner? No MIGRATION.42522 11904 Information not available 12/12/2022 What Was The Date Of Your Most Recent Tobacco Screening? 08/01/2023 [email or web address] Information not available 08/01/2023 What Is Your Relationship Status? MIGRATION.48925 35047 Information not available 12/12/2022 Do You Use Your Seat Belt Or Car Seat Routinely? Yes MIGRATION.20022 88803 Information not available 12/12/2022 Do You Have Smoke And Carbon Monoxide Detectors In Your Home? Yes MIGRATION.78273 00655 Information not available 12/12/2022 Are You Passively Exposed To Smoke? No MIGRATION.97471 63034 Information not available 12/12/2022 Are There Any Smokers In Your House? No MIGRATION.60199 37314 Information not available 12/12/2022 How Much Tobacco Do You Smoke? No MIGRATION.55567 37072 Information not available 12/12/2022 Do You Use Sunscreen Routinely? No MIGRATION.15648 82327 Information not available 12/12/2022 Has Tobacco Cessation Counseling Been Provided? No N/A MIGRATION.57489 56233 Information not available 12/12/2022 Have You Recently Traveled Abroad? No MIGRATION.25173 46353 Information not available 12/12/2022 Do You Have Any Dietary Restrictions? No MIGRATION.02550 54347 Information not available 12/12/2022 Sex: Unknown Functional Status Question Answer Note LastModified by in2app[employer] ion Details LastModified Time Do you or have you ever used smokeless tobacco? Never used smokeless tobacco MIGRATION.062024 3252 Information not available 12/12/2022 Do you have difficulty walking or climbing stairs? No MIGRATION.490135 8883 Information not available 12/12/2022 Do you have transportation difficulties? No MIGRATION.472590 4012 Information not available 12/12/2022 Are you able to care for yourself? Yes MIGRATION.461954 5636 Information not available 12/12/2022 Do you have difficulty dressing or bathing? No MIGRATION.430279 4188 Information not available 12/12/2022 Do you or have you ever used e-cigarettes or vape? Never used electronic cigarettes MIGRATION.163841 2988 Information not available 12/12/2022 What is your exercise level? Moderate MIGRATION.727886 3968 Information not available 12/12/2022 Do you use any illicit or recreational drugs? No MIGRATION.540036 3810 Information not available 12/12/2022 Do you or have you ever used any other forms of tobacco or nicotine? No MIGRATION.908256 4143 Information not available 12/12/2022 What is your level of alcohol consumption? None MIGRATION.037232 0282 Information not available 12/12/2022 Are you able to walk? YESWOREST MIGRATION.957011 2809 Information not available 12/12/2022 Do you have difficulty doing errands alone? No MIGRATION.845722 0914 Information not available 12/12/2022 What is your occupation? retired MIGRATION.813426 9990 Information not available 12/12/2022 Mental Status Question Answer Note LastModified by Organizat ion Details LastModified Time Do you feel stressed (tense, restless, nervous, or anxious, or unable to sleep at night)? [id number] MIGRATION.38827378 26 Information not available 12/12/2022 Do you have difficulty concentrating, remembering or making decisions? No MIGRATION.32201503 26 Information not available 12/12/2022 Family History Relationship Description Onset Age of this Age Resolved Age Notes LastModified by Organization Details LastModified Time Father History of blood disorder low platel ets MIGRATION.827 5622124 Not available 12/12/2022 09:15:06 Maternal Grandmother Malignant neoplasm of bone MIGRATION.325 3743633 Not available 12/12/2022 09:15:06 Medical History Condition Response URINARY/BLADDER/KIDNEY PROBLEMS Y NERVE DISEASE Y BOWEL PROBLEMS DIZZINESS Y HIGH CHOLESTEROL / HYPERLIPIDEMIA Y Immunizations Vaccine Type Date Status Note Provider Nam e and Address Organization Details Recorded Time Influenza, high-dose, quadrivalent, PF 3 completed Daphney De La Cruz LPN null, [place] [facility] 10/02/2023 11:25:50 Influenza, split virus, quadrivalent, preservative 7 completed Not Available [facility] 12/12/2022 09:21:06 Influenza, high-dose, trivalent, PF 6 completed Not Available [facility] 12/12/2022 09:21:06 Influenza, split virus, quadrivalent, preservative 0 completed Not Available [facility] 12/12/2022 09:21:06 Influenza, split virus, quadrivalent, preservative 9 completed Not Available [facility] 12/12/2022 09:21:06 zoster live 6 completed Not Available [facility] 12/12/2022 09:21:06 Influenza, split virus, quadrivalent, preservative 5 completed Not Available [facility] 12/12/2022 09:21:06 Influenza, split virus, trivalent, preservative 4 completed Not Available [facility] 12/12/2022 09:21:06 pneumococcal polysaccharide PPV23 3 completed Not Available [facility] 12/12/2022 09:21:06 Influenza, high-dose, quadrivalent, PF 2 completed Not Available [facility] 12/12/2022 09:21:07 Influenza, high-dose, quadrivalent, PF 1 completed Not Available [facility] 12/12/2022 09:21:07 Pneumococcal conjugate PCV 13 7 completed Not Available [facility] 12/12/2022 09:21:07 Past Encounters Encounter ID Performer Location Encounter Start Date Encounter Closed Date Diagnosis/Indication Diagnosis SNOMED-CT Code Diagnosis ICD10 Code Diagnosis Note [id number] _ATHN_MIGR ATION_1 _ATHENA_M IGRATION_ DEFAULT_1 _1 , 03/08/2021 00:00:00 03/16/2021 14:40:23 [id number] Louie Wilson MD [facility] Primary Care [address] [place] [address] 07/12/2021 00:00:00 07/12/2021 10:54:00 [id number] Zoran patel MD [facility] General Surgery [address] [place], [place] [address] [address] 08/10/2021 00:00:00 08/10/2021 13:19:03 [id number] Zoran patel MD [facility] General Surgery [address] [place] [address] [address] 08/22/2021 00:00:00 08/23/2021 10:53:03 [id number] Louie Wilson MD [facility] Primary Care [address] [place] [address] 11/09/2021 00:00:00 11/13/2021 18:01:24 [id number] Tay Rojo MD [facility] [place] [address] [facility] [address] [place] [address] 01/04/2022 00:00:00 01/04/2022 14:16:13 [id number] Louie Wilson MD [facility] [place] [address] [place] [address] 01/11/2022 00:00:00 01/11/2022 17:54:54 [id number] Christiano Huber MD [facility] [address] [address] 03/29/2022 00:00:00 03/29/2022 12:48:43 [id number] Christiano Huber MD [facility] [address] [address] 05/10/2022 00:00:00 05/10/2022 12:01:04 [id number] Christiano Huber MD [facility] [address] [address] 08/09/2022 00:00:00 08/09/2022 14:54:14 [id number] YANG Mccarthy [facility] [place] [address] [place] [address] 08/27/2022 00:00:00 08/27/2022 15:17:55 [id number] Louie Wilson MD [facility] [place] [address] [place] [address] 2022 00:00:00 2022 17:45:18 [id number] Louie Wilson MD [facility] [place] [address] [place] [address] 11/14/2022 00:00:00 12/09/2022 14:48:19 [id number] Louie Wilson MD [facility] [place] [address] [facility] [place] [address] 06/05/2023 09:41:49 06/05/2023 10:28:25 Caregiver role strain 424506632 Z73.3 ChronicSec ondary to being primary care [...] Carpal tolu robbie syndrome of right wrist 6889045460 66589 G56.01 New problemCar pal tunnel vs nerve compressio n.Pt previous right carpal tunnel release.Pt declines PT, will refer for EMG/NC study and refer to ortho for further evaluation /tx. 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 Advised warm, salt-water gargles several times daily, take otc pain relievers per package instructio ns, f/u with dental provider patrice. Call or be seen for any fever or worsening of sx.Keep upcoming appt for tooth extraction s on 06/18/23. [id number] Christiano Huber MD [facility] [place] [address] [place] [address] 07/25/2023 11:47:08 07/25/2023 14:16:23 Pain in right hand 6623140713 45787 M79.827 [id number] Isaac Orourke DPM [facility] [place] [address] [facility] [address] [place] [address] 08/01/2023 13:48:00 08/02/2023 11:36:06 Acquired hallux limitus of right great toe 4241597252 820792 M20.5X1 Rice therapyedu cated on NSAIDs and topical NSAID userecomme nd orthoticsc onservativ e and surgical options reviewed, patient denies surgeryrec cary thayer-sole d shoe or carbon plate for shoefollow -up x-rays Right Achi lles tendinitis 8110270645 08959 M76.61 educated on conditionS tretching and icing instructio ns reviewedAp ply Voltaren gel twice daily to area of painfollow -up in 2-3 weeks if not resolved will send to physical therapy [id number] Christiano Huber MD [facility] [address] 12/05/2023 14:36:26 12/09/2023 09:57:21 Pain in right hand 9840543513 74908 M79.222 [id number] Christiano Huber MD [facility]_[address] [address] 12/19/2023 10:13:59 12/19/2023 11:51:03 Carpal tunnel syndrome 93147180 G56.03 Health Concerns Section Related Observation LastModified by Organization Detai ls LastModified Time None Recorded Concern Status LastModified by Organization Details LastModified Time None Recorded Advance Directives Directive N: Payers Encounter Date Sequence Insurance Name Policy Number Policy Alonzo Covered Member ID Alonzo Member ID Guarantor Name 06/05/2023 1 [place] Larry Bernabe [id number] Larry Bernabe 06/05/2023 2 [employer] - OPTIONS Larry Bernabe [id number] Larry Bernabe 07/25/2023 1 [place] Larry Dukezi [id number] Larry Dukezi 07/25/2023 2 [employer] - OPTIONS Larry Dukezi [id number] Larry Dukezi 08/01/2023 1 [place] Larry Guan Lenzi [id number] Larry Dukezi 08/01/2023 2 [employer] - OPTIONS Larry Freida Dukezi [id number] Larry Dukezi 12/05/2023 1 [place] Bernabe [id number] Larry Bernabe 12/05/2023 2 [facility] HE[facility] - OPTIONS Larry Bernabe [id number] Larry Bernabe 12/19/2023 1 [place] Bernabe [id number] Larry Bernabe 12/19/2023 2 [facility] HEALTHC[facility] - OPTIONS Larry Bernabe [id number] Larry Bernabe Notes Date Note Type Note [...] he needs someone to unload on . Arpita Nina, SENSOR TECHNICIAN [address] [facility], [facility] [address], [place], [address], [place] [employer] 06/05/2023 11:35:52 3 text/html . Patient is [...] Patient denies any other pedal complaints. Isaac Orourke DPM [address], [facility] [address], [place], [address], [employer] [facility] [employer] 08/01/2023 15:10:42 4 text/html Patient is a [...] years ago. Christiano Huber MD [address], [facility] [address], [place], [address], [employer] [facility] [employer] 12/08/2023 10:52:16 4 text/html Patient returns after [...] the numbness tingling sensation. Christiano Huber MD [address] [place] [address], [address] [address], [place], [address], [facility] - S [employer] 12/19/2023 11:32:43
--- OUTSIDE RECORDS SUMMARY | 2025-02-23 11:47 | XMS_ITS | Clinical Summary ---
Author Organization [facility] Address [address] [place] [address] Care Team Providers Care At Risk Specialist Name Role Phone Unavailable Primary Care Provider Unavailabl e Source Comments [facility],non-owned Affiliates and Associated Physician Practices is amultiple site organization consisting of ambulatory clinics and hospital sitesin [place] and [place]. This disclosure is being madepursuant to the Care Everywhere program and may not contain all information available regarding this patient. 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
--- OUTSIDE RECORDS SUMMARY | 2025-02-23 11:47 | XMS_ITS | Data Portability ---
Author Organization [place] [facility] Address [address] [place] [address] Care Team Providers Care Environmental Solutions Engineer Name Role Phone LOUIE BARAHONA Primary Care Provider [phone] LOUIE BARAHONA Referring Provider Assessment No assessment [...] and Address Organization Details Recorded Time Backache 017035376 Active Not Available [facility] 3 21:47:12 Abdominal pain 50371737 Active 2020 Not Available [facility] 3 21:47:12 Benign prostatic hyperplasia 649192265 Active Not Available [facility] 3 21:47:12 Neuropathy 773285403 Active 2018 Not Available [facility] 3 21:47:12 Osteoarthriti s 172283205 Active 2021 Not Available [facility] 3 21:47:12 Dizziness 184735306 Active Not Available [facility] 3 21:47:12 Carotid bruit 612476519 Active Not Available [facility] 3 21:47:12 Cough 11656352 Active Not Available [facility] 3 21:47:12 Upper respiratory infection 62602896 Active Not Available [facility] 3 21:47:12 Hyperlipidemi a 21392772 Active Not Available Replaced by [facility] 3 21:47:12 Colitis 31969669 Active Not Available Replaced by [facility] 3 21:47:12 Ulcerative colitis 23715323 Active 2016 Not Available Replaced by [facility] 3 21:47:12 Notes:c. diff colitis Problem Notes None recorded. Procedures Surgical History Date Name Laterality Status Provider Name and Address Organization Details Recorded Time 07/24/20 colonoscopy completed Not Available Replaced by [facility] 10/20/2022 21:39:39 Carpal tunnel surgery completed Not Available Replaced by [facility] 10/20/2022 21:39:39 Cataract Surgery completed Not Available Replaced by [facility] 10/20/2022 21:39:39 Knee arthroscopy/surger y completed Not Available Replaced by [facility] 10/20/2022 21:39:39 Rotator cuff surgery completed Not Available Replaced by [facility] 10/20/2022 21:39:39 laparoscopic cholecystectomy completed Not Available Replaced by [facility] 10/20/2022 21:39:39 Imaging Results None recorded. Procedure [...] oral route for 30 days. active ID# [id number] called to get tier 2 @ [phone] TT SO they will fax form. Not [...] Not Available Not Available Not Available Fluvirin 2074-6575 45 mcg (15 mcg x 3)/0.5 mL [...] Updated DateTime 03/29/2022 29.5 kg/m2 172.72 cm 40215.92 g Not Available [facility] 10/20/2022 21:43:59 Date Recorded Body mass index (BMI) Body height Oxygen saturation Oxygen saturation in Arterial blood by Pulse oximetry Heart rate Body temperature Body weight Systolic blood pressure Diastolic blood pressure Provider Name and Address Organization Details Last Updated DateTime 2 28 kg/m2 172.72 cm 97 % 97 % 84 /min 97.1 [degF] 98713 g 136 mm[Hg] 72 mm[Hg] Not Available Replaced by [facility] 3 21:43:54 Date Recorded Body height Provider Name an d Address Organization Details Last Updated DateTime 05/10/2022 172.72 cm Not Available Replaced by [facility] 3 21:43:55 Date Recorded Body height Provider Name an d Address Organization Details Last Updated DateTime 08/09/2022 172.72 cm Not Available Replaced by [facility] 3 21:43:55 Date Recorded Body height Provider Name an d Address Organization Details Last Updated DateTime 2022 172.72 cm Not Available Replaced by [facility] 3 21:43:55 Social History Question Answer Notes LastModified by Organizat ion Details LastModified Time Tobacco Smoking Status Former Smoker quit 1974 Not Available [facility] 10/20/2022 21:38:35 Do You Have An Advance Directive? No MIGRATION.72029 19690 Information not available 10/20/2022 Are You Blind Or Do You Have Difficulty Seeing? No MIGRATION.55843 90417 Information not available 10/20/2022 What Is Your Level Of Caffeine Consumption? Occasional MIGRATION.15425 14426 Information not available 10/20/2022 How Much Tobacco Do You Chew? None MIGRATION.21551 65694 Information not available 10/20/2022 In The 14 Days Before Symptom Onset, Have You Had Close Contact With A Laboratory-confi rmed COVID-19 While That Case Was Ill? No MIGRATION.72663 45075 Information not available 10/20/2022 In The 14 Days Before Symptom Onset, Have You Had Close Contact With A Person Who Is Under Investigation For COVID-19 While That Person Was Ill? No MIGRATION.01461 42017 Information not available 10/20/2022 Are You Deaf Or Do You Have Serious Difficulty Hearing? No MIGRATION.39405 03292 Information not available 10/20/2022 What Type Of Diet Are You Following? REGULAR MIGRATION.97552 20914 Information not available 10/20/2022 Which Illicit Or Recreational Drugs Have You Used? None MIGRATION.59322 17867 Information not available 10/20/2022 Have There Been Any Changes To Your Family Or Social Situation? No MIGRATION.52024 07442 Information not available 10/20/2022 Are There Any Guns Present In Your Home? Yes MIGRATION.04323 97301 Information not available 10/20/2022 Do You Use Insect Repellent Routinely? No MIGRATION.32815 15822 Information not available 10/20/2022 Where Do You Live? [facility] MIGRATION.23702 99662 Information not available 10/20/2022 Are You In An Abusive/frighten ing Relationship? No MIGRATION.75653 88920 Information not available 10/20/2022 Do You Feel Safe At Home Yes MIGRATION.95325 28900 Information not available 10/20/2022 Do You Have A Medical Power Of Burnishing Machine Operator? No MIGRATION.82718 47782 Information not available 10/20/2022 What Was The Date Of Your Most Recent Tobacco Screening? 11/08/2021 MIGRATION.07574 30437 Information not available 10/20/2022 What Is Your Relationship Status? MIGRATION.67681 16907 Information not available 10/20/2022 Do You Use Your Seat Belt Or Car Seat Routinely? Yes MIGRATION.18369 69461 Information not available 10/20/2022 Do You Have Smoke And Carbon Monoxide Detectors In Your Home? Yes MIGRATION.79636 07502 Information not available 10/20/2022 Are You Passively Exposed To Smoke? No MIGRATION.07100 18879 Information not available 10/20/2022 Are There Any Smokers In Your House? No MIGRATION.08972 23795 Information not available 10/20/2022 How Much Tobacco Do You Smoke? No MIGRATION.82896 06485 Information not available 10/20/2022 Do You Use Sunscreen Routinely? No MIGRATION.75715 53129 Information not available 10/20/2022 Has Tobacco Cessation Counseling Been Provided? No N/A MIGRATION.49890 12348 Information not available 10/20/2022 Have You Recently Traveled Abroad? No MIGRATION.46781 77182 Information not available 10/20/2022 Do You Have Any Dietary Restrictions? No MIGRATION.01627 13292 Information not available 10/20/2022 Sex: Unknown Functional Status Question Answer Note LastModified by [employer] ion Details LastModified Time Do you or have you ever used smokeless tobacco? Never used smokeless tobacco MIGRATION.503017 3133 Information not available 10/20/2022 Are you currently employed? No MIGRATION.726409 1124 Information not available 10/20/2022 Do you have difficulty walking or climbing stairs? No MIGRATION.237733 2585 Information not available 10/20/2022 Do you have transportation difficulties? No MIGRATION.951350 7051 Information not available 10/20/2022 Do you have difficulty dressing or bathing? No MIGRATION.767523 1912 Information not available 10/20/2022 Do you or have you ever used e-cigarettes or vape? Never used electronic cigarettes MIGRATION.153056 2038 Information not available 10/20/2022 What is your exercise level? Moderate MIGRATION.148552 7660 Information not available 10/20/2022 Do you use any illicit or recreational drugs? No MIGRATION.715703 5473 Information not available 10/20/2022 Do you or have you ever used any other forms of tobacco or nicotine? No MIGRATION.363328 0927 Information not available 10/20/2022 What is your level of alcohol consumption? None MIGRATION.788517 8979 Information not available 10/20/2022 Are you able to walk? YESWOREST MIGRATION.763537 5436 Information not available 10/20/2022 Do you have difficulty doing errands alone? No MIGRATION.363968 8620 Information not available 10/20/2022 What is your occupation? retired MIGRATION.890935 1587 Information not available 10/20/2022 Mental Status Question Answer Note LastModified by Organizat ion Details LastModified Time Do you feel stressed (tense, restless, nervous, or anxious, or unable to sleep at night)? [id number] MIGRATION.69484276 00 Information not available 10/20/2022 Do you have difficulty concentrating, remembering or making decisions? No MIGRATION.69599130 00 Information not available 10/20/2022 Family History Relationship Description Onset Age of this Age Resolved Age Notes LastModified by Organization Details LastModified Time Father History of blood disorder low platel ets MIGRATION.225 [id number] Not available 10/20/2022 21:39:43 Maternal Grandmother Malignant neoplasm of bone MIGRATION.234 1894257 Not available 10/20/2022 21:39:43 Medical History Condition Response NERVE DISEASE Y HIGH CHOLESTEROL / HYPERLIPIDEMIA Y BOWEL PROBLEMS URINARY/BLADDER/KIDNEY PROBLEMS Y DIZZINESS Y Immunizations Vaccine Type Date Status Note Provider Nam e and Address Organization Details Recorded Time Influenza, split virus, quadrivalent, preservative 7 completed Not Available [facility] 10/20/2022 21:53:50 Influenza, high-dose, trivalent, PF 6 completed Not Available [facility] 10/20/2022 21:53:50 Influenza, split virus, quadrivalent, preservative 0 completed Not Available [facility] 10/20/2022 21:53:50 Influenza, split virus, quadrivalent, preservative 9 completed Not Available [facility] 10/20/2022 21:53:50 zoster live 6 completed Not Available [facility] 10/20/2022 21:53:50 Influenza, split virus, quadrivalent, preservative 5 completed Not Available [facility] 10/20/2022 21:53:50 Influenza, split virus, trivalent, preservative 4 completed Not Available [facility] 10/20/2022 21:53:51 Influenza, high-dose, quadrivalent, PF 2 completed Not Available [facility] 10/20/2022 21:53:51 Influenza, high-dose, quadrivalent, PF 1 completed Not Available [facility] 10/20/2022 21:53:51 Pneumococcal conjugate PCV 13 7 completed Not Available [facility] 10/20/2022 21:53:51 Past Encounters Encounter ID Performer Location Encounter Start Date Encounter Closed Date Diagnosis/Indication Diagnosis SNOMED-CT Code Diagnosis ICD10 Code Diagnosis Note [id number] Nyla Hamilton MD [facility] [address] [place] [address] 03/08/2021 00:00:00 03/16/2021 14:40:23 [id number] _ATHN_MIGR ATION_5 _ATHENA_M IGRATION_ DEFAULT_1 _5 , 07/12/2021 00:00:00 07/12/2021 10:54:00 [id number] _ATHN_MIGR ATION_5 _ATHENA_M IGRATION_ DEFAULT_1 _5 , 08/10/2021 00:00:00 08/10/2021 13:19:03 [id number] _ATHN_MIGR ATION_5 _ATHENA_M IGRATION_ DEFAULT_1 _5 , 08/22/2021 00:00:00 08/23/2021 10:53:03 [id number] _ATHN_MIGR ATION_5 _ATHENA_M IGRATION_ DEFAULT_1 _5 , 11/09/2021 00:00:00 11/13/2021 18:01:24 [id number] _ATHN_MIGR ATION_5 _ATHENA_M IGRATION_ DEFAULT_1 _5 , 01/04/2022 00:00:00 01/04/2022 14:16:13 [id number] _ATHN_MIGR ATION_5 _ATHENA_M IGRATION_ DEFAULT_1 _5 , 01/11/2022 00:00:00 01/11/2022 17:54:54 [id number] _ATHN_MIGR ATION_5 _ATHENA_M IGRATION_ DEFAULT_1 _5 , 03/29/2022 00:00:00 03/29/2022 12:48:43 [id number] _ATHN_MIGR ATION_5 _ATHENA_M IGRATION_ DEFAULT_1 _5 , 05/10/2022 00:00:00 05/10/2022 12:01:04 [id number] _ATHN_MIGR ATION_5 _ATHENA_M IGRATION_ DEFAULT_1 _5 , 08/09/2022 00:00:00 08/09/2022 14:54:14 [id number] _ATHN_MIGR ATION_5 _ATHENA_M IGRATION_ DEFAULT_1 _5 , 08/27/2022 00:00:00 08/27/2022 15:17:55 [id number] _ATHN_MIGR ATION_5 _ATHENA_M IGRATION_ DEFAULT_1 _5 , 2022 00:00:00 2022 17:45:18 Health Concerns Section Related Observation LastModified by Organization Detai ls LastModified Time None Recorded Concern Status LastModified by Organization Details LastModified Time None Recorded Advance Directives Directive N: Payers Insurance Date Sequence Insurance Name Policy Number Policy Alonzo Covered Member ID Alonzo Member ID Guarantor Name 10/20/2022 1 [place] Larry Bernabe [id number] Larry Bernabe 10/20/2022 2 [employer] HE[employer]CARE - OPTIONS Larry Bernabe [id number] Larry Bernabe 10/20/2022 [employer] - DMEPOS ASSIGNED (MEDICARE DME REGION B) Larry Bernabe [id number] Larry Bernabe
--- OUTSIDE RECORDS SUMMARY | 2025-02-23 11:47 | XMS_ITS | Encounter Summary ---
Author Organization [facility] Address [address] [place] [address] Care Team Providers Care Radio Recorder Name Role Phone Unavailable Primary Care Provider Unavailabl e Encounter Details Date Type Department Care Team (Late st Contact Info) Description 06/25/2019 Lab Requisition [facility] DermPath Lab 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 Gender Identity Not on file Sexual Orientation Not on file documented as of this encounter Plan of Treatment Not on file documented as of this encounter Procedures Procedure Name Priority Date/Time Associated Diagnosis Comments DERMATOPATHOLOGY Routine 06/24/2019 12:0 0 AM CDT documented in this encounter Results * DERMATOPATHOLOGY (06/24/2019 12:00 AM CDT) Case Report Dermatopathology Report Case: [id number] Authorizing Provider: Suzie Naranjo MD Collected: 06/24/2019 12:00 AM Ordering Location: [facility] DermPath Lab Received: 06/25/2019 05:51 AM [...] The specimen consists of a shave measuring 1m6b7be, bisected. Jar 0. 9 5:15 PM CDT [...] characteristic determined by the Dermatopathology Laboratory at [facility], directed by Dr. Demetrio Powell. These tests need not be, and therefore are not, approved by the [place] Food and Drug Administration. The tests are used for clinical purposes. Billing Codes Specimen Charges Stain Charges 65935 1 9 5:15 PM CDT DERMATOPATHOLOGY LABORATORY Embedded Images 9 5:15 PM CDT DERMATOPATHOLOGY LABORATORY Pathology/Cytolog y TISSUE SPECIMEN FROM SKIN / Unknown 06/24/2019 06/25/2019 5:51 AM CDT Suzie Naranjo MD LAB - PATHOLOGY/CYTOLOGY OR DERABLES Final Result DERMATOPATHOLOGY LABORATORY [facility] - Department of Dermatology [address] [place] [address], [address] [place] [address], [facility] [phone] documented in this encounter Visit Diagnoses Not on filedocumented in this encounter
--- OUTSIDE RECORDS SUMMARY | 2025-02-23 11:47 | XMS_ITS | CONTINUITY OF CARE DOCUMENT ---
Author Name gisel, gisel Address Unknown Organization [facility] Address [address] [place] [address] Phone [phone] Care Team Providers Care Poker Prop Player Name Role Phone Aye PATHAK, Favio Unavailable [phone] MARII HANSON MD Unavailable EDUAR FRASER MD Unavailable [phone] PROBLEMS Condition Status Date Provider Notes Aortic [...] In-person encounter Office Visit Favio Griffiths MD [facility] Pre-op cardiovascular examBradycardia - sinus;nml tsh;not due to rx - In-person encounter Office Visit Viraj Mcdermott MD [facility] CADColitis VITAL SIGNS Date Observation Value Provider Body Mass Index (Ratio) 26.11 kg/m2 Chucky Griffiths MD blood pressure, diastolic -1 mm[Hg] Kassandra nkLogvalentin blood pressure, systolic 143 mm[Hg] Sussy Malaveogic blood pressure, diastolic 86 mm[Hg] Man rret blood pressure, systolic 143 mm[Hg] [facility] pulse rate 54 /min Earl y blood pressure, cuff size regular [facility] oxygen saturation, oximetry 98 % Earl respiratory rate E&M 14 /min Earl weight E&M 182 [lb_av] Earl y height E&M 70 [in_i] Earl y blood pressure, diastolic 70 mm[Hg] Anastasia Galloway blood pressure, systolic 104 mm[Hg] Nkii Galloway pulse rate 60 /min Margie elizabeth [...] by mouth twice a day Paige Ventimiglia [facility] SOCIAL HISTORY Date Observation Value Provider personal history of marijuana use no Paige Ventimiglia [employer] drug use no Paige Ventimig sarah [employer] alcohol use no Paige Ventimig sarah [facility] cigarette use yes Paige Ventimi glia [facility] smoking status Former smoker Paigelesly cejaa [facility] social history E&M Marital Statu s: Freida [...] Payer name Policy type / Coverage type [place] red green party ID AARP Yoomly [id number] [place] MED[place] Medicare [id number] ADVANCE DIRECTIVES Name Date DISCUSSED - NO DECISION MADE TREATMENT PLAN Date Name Performer :4.5 Favio Griffiths MD :score 28 Favio Griffiths MD :nml iron Favio Griffiths MD :45 Favio Griffiths MD Cardiology:atypical chest pain not anginal in nature n o further invasive w/u c oronary calcium socre is recommended Paigelesly Joinermiglia [facility] Cardiology:follows with GI Benedicto Santoyo [facility] Cardiology:HR in 50s on EKG and exam H e is asymptomatic. No dizziness W ill plan tele to r/o arrhythmia in setting of fatigue and noted bradycardia on EKG today Paige Rhysmiglia [facility] Cardiology:Patient c onsidered an acceptable risk for planned surgical procedure. Has had previous LHC with normal coronaries. Had negative stress in 2016. EKG sinus phylicia with no acute ST/T wave changes. No anginal symptoms at this time. Have recommended coronary calcium score Paige Santoyo [facility] Cardiology Viraj Mcdermott MD Cardiology Viraj Mcdermott [...] EKG Viraj Mcdermott MD complete d SNOMED-CT: [id number] Current Medications Documented Viraj Mcdermott MD completed
== END 2025-02-23 11:21 | disposition home or self-care (01) ==
LOC: ANHSURGERY 11:25
PROVIDERS: PCP Internal Medicine; Visit Provider Urology
DX: Z01.818 Encounter for other preprocedural examination (principal); N21.0 Calculus in bladder
CPT/HCPCS: 87086

== ENCOUNTER 2025-03-02 00:53 | Day surgery (SDC) | payer MEDICARE, SELFPAY ==
[2025-02-16 13:23] VITALS: BMI 29.5
[2025-03-02] VITALS (9 sets, daily range): BP systolic 137–169; BP diastolic 87–103; PULSE 55–86; RESP 12–20; TEMP 36.4–36.6; O2SAT 93–100
--- OUTSIDE RECORDS SUMMARY | 2025-03-02 00:56 | XMS_ITS | Clinical Summary ---
Author Organization [facility] Address [address] [place] [address] Care Team Providers Care Box Press Operator Name Role Phone Unavailable Primary Care Provider Unavailabl e Source Comments [facility],non-owned Affiliates and Associated Physician Practices is amultiple site organization consisting of ambulatory clinics and hospital sitesin [place], [place] and [place]. This disclosure is being madepursuant to the Care Everywhere program and may not contain all information available regarding this patient. 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 MEDICARE [facility] MEDICARE [facility]
--- OUTSIDE RECORDS SUMMARY | 2025-03-02 00:56 | XMS_ITS | Encounter Summary ---
Author Organization [facility] Address [address] [place] [address] [place] [address] Care Team Providers Care Irs Agent Name Role Phone Unavailable Primary Care Provider Unavailabl e Encounter Details Date Type Department Care Team (Late st Contact Info) Description 06/25/2019 Lab Requisition [facility] DermPath Lab [address] [facility] [place] [address] Suzie Naranjo MD [address] [facility] [address] [place] [address] Social History Tobacco Use Types Packs/Day Years Used Date Smoking Tobacco: Never Assessed Sex and Gender Information Value Date Recorded Sex Assigned at Not on file 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 Gender Identity Not on file Sexual Orientation Not on file documented as of this encounter Plan of Treatment Not on file documented as of this encounter Procedures Procedure Name Priority Date/Time Associated Diagnosis Comments DERMATOPATHOLOGY Routine 06/24/2019 12:0 0 AM CDT documented in this encounter Results * DERMATOPATHOLOGY (06/24/2019 12:00 AM CDT) Case Report Dermatopathology Report Case: [id number] Authorizing Provider: Suzie Naranjo MD Collected: 06/24/2019 12:00 AM Ordering Location: [facility] DermPath Lab Received: 06/25/2019 05:51 AM Pathologist: Yasmin Powell MD Specimen: Skin, left buttock 9 5:15 PM CDT DERMATOPATHOLOGY LABORATORY Final Diagnosis Specimen A. SKIN, left buttock: ACROCHORDON (SOFT FIBROMA, SKIN TAG) (L91.8) 9 5:15 PM CDT DERMATOPATHOLOGY LABORATORY at 1715 CDT Clinical History Acr R/O condy. 9 5:15 PM CDT DERMATOPATHOLOGY LABORATORY Gross Description Specimen A: Received is one formalin filled container labeled with the patient's name and designated left buttock. The specimen consists of a shave measuring 8k2b6wy, bisected. Jar 0. 9 5:15 PM CDT [...] characteristic determined by the Dermatopathology Laboratory at [facility], directed by Dr. Demetrio Powell. These tests need not be, and therefore are not, approved by the [place] Food and Drug Administration. The tests are used for clinical purposes. Billing Codes Specimen Charges Stain Charges 99527 1 9 5:15 PM CDT DERMATOPATHOLOGY LABORATORY Embedded Images 9 5:15 PM CDT DERMATOPATHOLOGY LABORATORY Pathology/Cytolog y TISSUE SPECIMEN FROM SKIN / Unknown 06/24/2019 06/25/2019 5:51 AM CDT us Suzie Naranjo MD LAB - PATHOLOGY/CYTOLOGY OR DERABLES Final Result DERMATOPATHOLOGY LABORATORY [facility] - Department of Dermatology [facility] [place] [address], [facility] [phone] documented in this encounter Visit Diagnoses Not on filedocumented in this encounter
--- OUTSIDE RECORDS SUMMARY | 2025-03-02 00:56 | XMS_ITS | Data Portability ---
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 Manager Client Support variances may occur. Despite proofreading, typographical errors [...] more than half the time spent in piib-jt-trol care. Not available 12/08/2023 10:51:57 12/19/2023 12/19/2023 [...] more than half the time spent in voah-xv-viep care. Not available 12/19/2023 11:32:29 Plan of Treatment Reminders Order Date Submit Date Provider Last Modified By Organization Details Last Modified Time Details Appointments None recorded. Lab None recorded. Referral orthopedic surgeon referral 2022 023 [email or web address] 3 Jimmy Stanford, [address] [facility] [address], [place], [address], 3 07:56:42 Procedures None recorded. Surgeries None recorded. Imaging XR, foot, 3 or more view 2022 023 [email or web address] [facility] ([facility]), [address] [facility] [place], [address], 3 09:31:49 XR, hand 2022 023 [facility], [address] [facility] [place], [place], [address], 3 14:50:11 electromyog cynthia + nerve conduction study - Please call pt to schedule [email or web address] (Cardiology [facility] Emg), [address] [place] [address], [address], 08:46:52 Medication Orders amoxicillin 875 mg tablet [address] [facility], [address] [facility], [place], [address], 12:06:44 Patient TargetsNo targets recorded. Patient InstructionsNo instructions recorded. Reason for Referral Orthopedic Surgeon Referral for Carpal tunnel syndrome of right wrist Referring Physician: [facility], Encounter Date: 06/05/2023 Results Created Date Observation Date Name Description Value Unit Range Abnormal Flag Note LastModifiedBy Organization Detail LastModifiedTime 07/25/20 XR, hand No observ ation record ed. [facility] [address], [place], [address], 07/25/2023 14:02:38 08/14/20 23 08/14/2023 elect romyo gram + nerve condu ction study No observ ation record ed. [address], [address], 02/23/2024 13:49:22 08/14/20 23 08/14/2023 elect romyo gram + nerve condu ction study No observ ation record ed. [address], [address], 08/14/2023 16:38:29 12/17/19 24 12/16/2023 MRI, cervi lorri spine , w/o contr ast No observ ation record ed. [address], [address], 12/17/2023 12:37:58 12/17/19 24 12/16/2023 MRI, cervi lorri spine , w/o contr ast No observ ation record ed. [place] [address] [facility] [address], [place], [address], 02/23/2024 13:49:42 Result Notes None recorded. Problems Name Problem SNOMED Code Status Onset Date Resolution Date Notes Provider Name and Address Organization Details Recorded Time Backache 123708012 Active Not Available [facility] 3 09:17:42 Abdominal pain 76352520 Active 2020 Not Available [facility] 3 09:17:42 Benign prostatic hyperplasi a 046370099 Active Not Available [facility] 3 09:17:43 Neuropathy 994566933 Active 2018 Not Available [facility] 3 09:17:43 Osteoarthr itis 848072509 Active 2021 Not Available [facility] 3 09:17:43 Dizziness 415907017 Active Not Available [facility] 3 09:17:43 Carotid bruit 782827998 Active Not Available [facility] 3 09:17:43 Cough 22623715 Active Not Available [facility] 3 09:17:43 Upper respirator y infection 09025162 Active Not Available [facility] 3 09:17:43 Hyperlipid emia 96270301 Active Not Available [facility] 3 09:17:43 Colitis 66132241 Active Not Available [facility] 3 09:17:43 Ulcerative colitis 33683503 Active 2016 Not Available [facility] 3 09:17:43 Paresthesi a of upper limb 49156860 Active 2022 TORI Paul [address], [place], [address] , [employer] [facility] [employer] 3 09:58:55 Cellulitis of face 447890870 Active 2022 TORI Paul [address], [place], [address] , [employer] [facility] 3 10:06:24 Carpal tunnel syndrome of right wrist 5204973546934 08 Active [address]P [address], [place], [address] , [facility] 3 10:11:36 Tooth disorder 536507133 Active 2022 TORI Paul [address], [place], [address] , [facility] 3 10:14:24 Pain in right hand 6776961065880 09 Active 2022 BONIFACIO Anaya null, [facility], [facility] 3 12:07:37 Acquired hallux limitus of right great toe 8212256490659 100 Active 2022 Isaac Orourke DPM [address], [place], [address] , [facility] 3 15:08:47 Right Achilles tendinitis 1145671581367 02 Active 2022 Isaac Orourke DPM [address], [place], [address] , [facility] 3 15:08:53 COVID-19 402909478 Active 2022 Louie Wilson MD [address], [place], [address] , [facility] 3 15:45:06 Spinal stenosis in cervical region 03006322 Active 2023 Melinda To CMA null, [facility] 4 16:29:55 Carpal tunnel syndrome 18648789 Active 2023 BONIFACIO Anaya null, [place] [facility] 4 10:19:10 Notes:c. diff colitis Problem Notes None recorded. Procedures Surgical History Date Name Laterality Status Provider Name and Address Organization Details Recorded Time 10/09/20 colonoscopy completed Louie Wilson MD [address], [place], [address], [facility] 02/21/2024 18:03:50 07/24/20 21 colonoscopy completed Not Available [facility] 12/12/2022 09:15:05 Carpal tunnel surgery completed Not Available [facility] 12/12/2022 09:15:05 Cataract Surgery completed Not Available [facility] 12/12/2022 09:15:05 Knee arthroscopy/surger y completed Not Available [facility] 12/12/2022 09:15:05 Rotator cuff surgery completed Not Available [facility] 12/12/2022 09:15:05 laparoscopic cholecystectomy completed Not Available [facility] 12/12/2022 09:15:05 Cholecystectomy completed Nabila Greer [place] [facility] 08/01/2023 13:51:05 Nasal sinus therapy completed Nabila Greer [place] [facility] 08/01/2023 13:51:14 Imaging Results Imaging Date Name Status LastModified by Organization Details LastModified Time 07/25/2023 XR, hand completed [facility] [address], [place], [address], 07/25/2023 14:02:38 08/14/2023 electromyogram + nerve conduction study completed [address], [address], 02/23/2024 13:49:22 08/14/2023 electromyogram + nerve conduction study completed [address], [address], 08/14/2023 16:38:29 12/16/2023 MRI, cervical spine, w/o contrast completed [address], [address], 12/17/2023 12:37:58 12/16/2023 MRI, cervical spine, w/o contrast completed [address], [address], 02/23/2024 13:49:42 Procedure Notes None recorded. Medical [...] oral route for 30 days. active ID# [id number] called to get tier 2 @ [facility] they will fax form. Not Available [...] Not Available Not Available Not Available Fluvirin 0946-0840 45 mcg (15 mcg x 3)/0.5 mL intramusc ular suspensio n ADM 0.5ML UTD active Not Available Not Available No t Available Fluzone 0791-2956 45 mcg (15 mcg x 3)/0.5 mL intramusc ular suspensio n active Not Available Not Available Not Available Allergy 1 PO QD 03/08 completed Not Available Not Available Not Available Fluzone High-Dose 2381-0723 (PF) 180 mcg/0.5 mL intramusc ular syringe [...] Updated DateTime 3 172.72 cm 28.7 kg/m2 94302.9 6 g 97.6 [degF] 88 /min 96 % 96 % 140 mm[Hg] 88 mm[Hg] Letty Castellon RN [facility] [employer] 3 09:47:42 Date Recorded Body height Body mass index (BMI) Body weight Provider Name and Address Organization Details Last Updated DateTime 07/25/2023 171.45 cm 27.8 kg/m2 90960.63 g Ana Hinson Devorah [employer] [facility] Tablo [facility] 07/25/2023 13:06:21 Date Recorded Body height Body mass index (BMI) Body weight Heart rate Respiratory rate Oxygen saturation Oxygen saturation in Arterial blood by Pulse oximetry Systolic blood pressure Diastolic blood pressure Provider Name and Address Organization Details Last Updated DateTime 3 171.45 cm 27 kg/m2 95778.6 6 g 57 /min 14 /min 98 % 98 % 119 mm[Hg] 77 mm[Hg] Nabila Greer [employer] [facility] [employer] [facility] 3 14:01:43 Date Recorded Body height Provider Name an d Address Organization Details Last Updated DateTime 12/05/2023 171.45 cm BONIFACIO Anaya [employer] [facility] [employer] [facility] 12/05/2023 14:40:24 Date Recorded Body height Provider Name an d Address Organization Details Last Updated DateTime 12/19/2023 171.45 cm BONIFACIO Anaya [place] [facility] 12/19/2023 10:18:07 Social History Question Answer Notes LastModified by Organizat ion Details LastModified Time Tobacco Smoking Status Former Smoker quit 1975 Not Available [facility] 12/12/2022 09:14:51 Do You Have An Advance Directive? No MIGRATION.14493 [id number] Information not available 12/12/2022 Are You Blind Or Do You Have Difficulty Seeing? No MIGRATION.14501 87304 Information not available 12/12/2022 What Is Your Level Of Caffeine Consumption? Occasional MIGRATION.57319 66245 Information not available 12/12/2022 How Much Tobacco Do You Chew? None MIGRATION.61441 46887 Information not available 12/12/2022 In The 14 Days Before Symptom Onset, Have You Had Close Contact With A Laboratory-confi rmed COVID-19 While That Case Was Ill? No MIGRATION.65001 92619 Information not available 12/12/2022 In The 14 Days Before Symptom Onset, Have You Had Close Contact With A Person Who Is Under Investigation For COVID-19 While That Person Was Ill? No MIGRATION.54838 76620 Information not available 12/12/2022 Are You Deaf Or Do You Have Serious Difficulty Hearing? No MIGRATION.59760 74269 Information not available 12/12/2022 What Type Of Diet Are You Following? REGULAR MIGRATION.23739 47955 Information not available 12/12/2022 Which Illicit Or Recreational Drugs Have You Used? None MIGRATION.81037 61738 Information not available 12/12/2022 Have There Been Any Changes To Your Family Or Social Situation? No MIGRATION.35226 05761 Information not available 12/12/2022 Are There Any Guns Present In Your Home? Yes MIGRATION.88439 21286 Information not available 12/12/2022 Do You Use Insect Repellent Routinely? No MIGRATION.62323 90581 Information not available 12/12/2022 [facility] MIGRATION.68029 46890 Information not available 12/12/2022 Do You Have A Medical Power Of Bullet Slugs Inspector? No MIGRATION.41803 60802 Information not available 12/12/2022 What Was The Date Of Your Most Recent Tobacco Screening? 08/01/2023 [email or web address] Information not available 08/01/2023 What Is Your Relationship Status? MIGRATION.26729 08014 Information not available 12/12/2022 Do You Use Your Seat Belt Or Car Seat Routinely? Yes MIGRATION.45773 01844 Information not available 12/12/2022 Do You Have Smoke And Carbon Monoxide Detectors In Your Home? Yes MIGRATION.55554 15351 Information not available 12/12/2022 Are You Passively Exposed To Smoke? No MIGRATION.46457 44761 Information not available 12/12/2022 Are There Any Smokers In Your House? No MIGRATION.75950 85576 Information not available 12/12/2022 How Much Tobacco Do You Smoke? No MIGRATION.90665 98954 Information not available 12/12/2022 Do You Use Sunscreen Routinely? No MIGRATION.83767 05496 Information not available 12/12/2022 Has Tobacco Cessation Counseling Been Provided? No N/A MIGRATION.20620 09585 Information not available 12/12/2022 Have You Recently Traveled Abroad? No MIGRATION.65994 51706 Information not available 12/12/2022 Do You Have Difficulty Walking Or Climbing Stairs? No MIGRATION.37001 27069 Information not available 12/12/2022 Do You Have Any Dietary Restrictions? No MIGRATION.42608 21757 Information not available 12/12/2022 Sex: Unknown Functional Status Question Answer Note LastModified by Organizat ion Details LastModified Time Do you use any illicit or recreational drugs? No MIGRATION.147598 3357 Information not available 12/12/2022 Do you or have you ever used any other forms of tobacco or nicotine? No MIGRATION.548146 2130 Information not available 12/12/2022 What is your level of alcohol consumption? None MIGRATION.578000 9028 Information not available 12/12/2022 Do you or have you ever used smokeless tobacco? Never used smokeless tobacco MIGRATION.538273 7600 Information not available 12/12/2022 Do you have transportation difficulties? No MIGRATION.687997 3005 Information not available 12/12/2022 Are you able to walk? YESWOREST MIGRATION.858301 4059 Information not available 12/12/2022 Do you have difficulty doing errands alone? No MIGRATION.607591 6021 Information not available 12/12/2022 Are you able to care for yourself? Yes MIGRATION.364319 3363 Information not available 12/12/2022 What is your occupation? retired MIGRATION.930994 4898 Information not available 12/12/2022 Do you have difficulty dressing or bathing? No MIGRATION.983840 5812 Information not available 12/12/2022 Do you or have you ever used e-cigarettes or vape? Never used electronic cigarettes MIGRATION.300187 6434 Information not available 12/12/2022 What is your exercise level? Moderate MIGRATION.957564 1469 Information not available 12/12/2022 Mental Status Question Answer Note LastModified by Organizat ion Details LastModified Time Do you feel stressed (tense, restless, nervous, or anxious, or unable to sleep at night)? [id number] MIGRATION.00163034 26 Information not available 12/12/2022 Do you have difficulty concentrating, remembering or making decisions? No MIGRATION.20961254 26 Information not available 12/12/2022 Family History Relationship Description Onset Age of this Age Resolved Age Notes LastModified by Organization Details LastModified Time Father History of blood disorder low platel ets MIGRATION.433 [id number] Not available 12/12/2022 09:15:06 Maternal Grandmother Malignant neoplasm of bone MIGRATION.506 [id number] Not available 12/12/2022 09:15:06 Medical History Condition Response NERVE DISEASE Y HIGH CHOLESTEROL / HYPERLIPIDEMIA Y BOWEL PROBLEMS URINARY/BLADDER/KIDNEY PROBLEMS Y DIZZINESS Y Immunizations Vaccine Type Date Status Note Provider Nam e and Address Organization Details Recorded Time Influenza, high-dose, quadrivalent, PF 3 completed Daphney De La Cruz LPN null, [place] [facility] [employer] 10/02/2023 11:25:50 Influenza, split virus, quadrivalent, preservative 7 completed Not Available [employer] 12/12/2022 09:21:06 [id number]|2025-02-16 13:31:33|2025-02-16 13:31:33|PC.NURSE||||" Report to the Outpatient Waiting Room, entrance under the green pavilion located off [facility], at time __0630am on date ___03/02/25____. Planned Procedure Time: ___0830am . Time changes happen often and if your time is changed the preop area will call you the afternoon before. - You and your visitor will be asked to self-screen and do not enter if you have any COVID symptoms. Please call surgeon if you need to reschedule. - A mask is optional within the hospital at this time. Patients may have clear liquids (water, carbonated beverages, clear teas, apple juice) until 3 hours prior to surgery with a maximum of 20 ounces. - No food from midnight until time of surgery and no smoking, or chewing tobacco (or any form of nicotine). No chewing gum, candy or mints. (0530am) Take only the following medications with a SIP of water on the morning of surgery: ___NONE DO NOT STOP ANY OF YOUR OTHER PRESCRIPTION MEDICATIONS PRIOR TO SURGERY EXCEPT THE FOLLOWING Hold all vitamins and supplements for 3 days per anesthesiologist. Medications to discontinue per physician HOLD all NSAIDS/Diclofenac for 7 days prior Date to take last dose 02/21/25 Please no make-up, nail kuwaiti, hairspray, perfume, deodorant, or body powder the day of surgery. No jewelry (including any body piercings) or valuables the day of surgery, leave them at home. Please take a shower or bath the night before, or the morning of, surgery with an antibacterial soap. Wear comfortable, loose fitting clothing. - Jewelry must be removed prior to entering the operating room. Rings and piercings that are not removed may be cut off. - The hospital will not accept responsibility for valuables. - Please leave all valuables, including medications, at home the day of surgery. If you are going home after surgery, a licensed hook up driver must drive you home. - NO public transportation without another adult if you receive anesthesia. - We recommend that an adult stay with you for 24 hours following discharge. - We also recommend that you do not drive, make important decision, drink alcoholic beverages, or take any drugs that were not prescribed by your health care provider for at least 24 hours after your discharge time. Follow any additional instructions given to you from your surgeon. Telephone instructions given to __Patient and asked if any additional questions and then verbalized understanding. Patient advised to call surgeon office or pre surgery nurse liaison [phone] if any additional questions."
--- OUTSIDE RECORDS SUMMARY | 2025-03-02 00:56 | XMS_ITS | Data Portability ---
Author Organization [place] [facility] Address [address] [place] [address] Care Team Providers Care Mental Telepathist Name Role Phone LOUIE BARAHONA Primary Care Provider LOUIE BARAHONA Referring Provider Assessment No assessment [...] and Address Organization Details Recorded Time Backache 208970330 Active Not Available [facility] 3 21:47:12 Abdominal pain 34943282 Active 2020 Not Available [facility] 3 21:47:12 Benign prostatic hyperplasia 829131500 Active Not Available [facility] 3 21:47:12 Neuropathy 274225722 Active 2018 Not Available [facility] 3 21:47:12 Osteoarthriti s 651312396 Active 2021 Not Available [facility] 3 21:47:12 Dizziness 183483729 Active Not Available [facility] 3 21:47:12 Carotid bruit 807957097 Active Not Available [facility] 3 21:47:12 Cough 40190168 Active Not Available [facility] 3 21:47:12 Upper respiratory infection 99316298 Active Not Available [facility] 3 21:47:12 Hyperlipidemi a 84002378 Active Not Available [facility] 3 21:47:12 Colitis 16879734 Active Not Available [facility] 3 21:47:12 Ulcerative colitis 95494701 Active 2016 Not Available [facility] 3 21:47:12 Notes:c. diff colitis Problem Notes None recorded. Procedures Surgical History Date Name Laterality Status Provider Name and Address Organization Details Recorded Time 07/24/20 colonoscopy completed Not Available [facility] 10/20/2022 21:39:39 Carpal tunnel surgery completed Not Available [facility] 10/20/2022 21:39:39 Cataract Surgery completed Not Available [facility] 10/20/2022 21:39:39 Knee arthroscopy/surger y completed Not Available [facility] 10/20/2022 21:39:39 Rotator cuff surgery completed Not Available [facility] 10/20/2022 21:39:39 laparoscopic cholecystectomy completed Not Available [facility] 10/20/2022 21:39:39 Imaging Results None recorded. Procedure [...] oral route for 30 days. active ID# [id number] 51 called to get tier 2 @ [...] Not Available Not Available Not Available Fluvirin 2153-1964 45 mcg (15 mcg x 3)/0.5 mL [...] Updated DateTime 03/29/2022 29.5 kg/m2 172.72 cm 17316.92 g Not Available [facility] 10/20/2022 21:43:59 Date Recorded Body mass index (BMI) Body height Oxygen saturation Oxygen saturation in Arterial blood by Pulse oximetry Heart rate Body temperature Body weight Systolic blood pressure Diastolic blood pressure Provider Name and Address Organization Details Last Updated DateTime 2 28 kg/m2 172.72 cm 97 % 97 % 84 /min 97.1 [degF] 91428 g 136 mm[Hg] 72 mm[Hg] Not Available [facility] 3 21:43:54 Date Recorded Body height Provider Name an d Address Organization Details Last Updated DateTime 05/10/2022 172.72 cm Not Available [facility] 3 21:43:55 Date Recorded Body height Provider Name an d Address Organization Details Last Updated DateTime 08/09/2022 172.72 cm Not Available [facility] 3 21:43:55 Date Recorded Body height Provider Name an d Address Organization Details Last Updated DateTime 2022 172.72 cm Not Available [facility] 3 21:43:55 Social History Question Answer Notes LastModified by Organizat ion Details LastModified Time Tobacco Smoking Status Former Smoker quit 1974 Not Available [facility] 10/20/2022 21:38:35 Do You Have An Advance Directive? No MIGRATION.62349 76944 Information not available 10/20/2022 Are You Blind Or Do You Have Difficulty Seeing? No MIGRATION.42894 25289 Information not available 10/20/2022 What Is Your Level Of Caffeine Consumption? Occasional MIGRATION.57170 85414 Information not available 10/20/2022 How Much Tobacco Do You Chew? None MIGRATION.93862 27034 Information not available 10/20/2022 In The 14 Days Before Symptom Onset, Have You Had Close Contact With A Laboratory-confi rmed COVID-19 While That Case Was Ill? No MIGRATION.42648 08092 Information not available 10/20/2022 In The 14 Days Before Symptom Onset, Have You Had Close Contact With A Person Who Is Under Investigation For COVID-19 While That Person Was Ill? No MIGRATION.50365 96067 Information not available 10/20/2022 Are You Deaf Or Do You Have Serious Difficulty Hearing? No MIGRATION.43981 21061 Information not available 10/20/2022 What Type Of Diet Are You Following? REGULAR MIGRATION.31337 67768 Information not available 10/20/2022 Which Illicit Or Recreational Drugs Have You Used? None MIGRATION.55400 75944 Information not available 10/20/2022 Have There Been Any Changes To Your Family Or Social Situation? No MIGRATION.80030 23082 Information not available 10/20/2022 Are There Any Guns Present In Your Home? Yes MIGRATION.20367 41391 Information not available 10/20/2022 Do You Use Insect Repellent Routinely? No MIGRATION.63338 83794 Information not available 10/20/2022 Where Do You Live? [facility] MIGRATION.09959 90704 Information not available 10/20/2022 Are You In An Abusive/frighten ing Relationship? No MIGRATION.95968 80280 Information not available 10/20/2022 Do You Feel Safe At Home Yes MIGRATION.52502 68522 Information not available 10/20/2022 Do You Have A Medical Power Of Program Director/Air Personality? No MIGRATION.50078 18592 Information not available 10/20/2022 What Was The Date Of Your Most Recent Tobacco Screening? 11/08/2021 MIGRATION.02575 99764 Information not available 10/20/2022 What Is Your Relationship Status? MIGRATION.53218 83947 Information not available 10/20/2022 Do You Use Your Seat Belt Or Car Seat Routinely? Yes MIGRATION.29518 14254 Information not available 10/20/2022 Do You Have Smoke And Carbon Monoxide Detectors In Your Home? Yes MIGRATION.28423 85028 Information not available 10/20/2022 Are You Passively Exposed To Smoke? No MIGRATION.27743 62756 Information not available 10/20/2022 Are There Any Smokers In Your House? No MIGRATION.11410 99877 Information not available 10/20/2022 How Much Tobacco Do You Smoke? No MIGRATION.62666 42710 Information not available 10/20/2022 Do You Use Sunscreen Routinely? No MIGRATION.77600 21661 Information not available 10/20/2022 Has Tobacco Cessation Counseling Been Provided? No N/A MIGRATION.80178 11975 Information not available 10/20/2022 Have You Recently Traveled Abroad? No MIGRATION.12430 36647 Information not available 10/20/2022 Do You Have Difficulty Walking Or Climbing Stairs? No MIGRATION.10720 57623 Information not available 10/20/2022 Do You Have Any Dietary Restrictions? No MIGRATION.17626 88249 Information not available 10/20/2022 Sex: Unknown Functional Status Question Answer Note LastModified by Organizat ion Details LastModified Time Do you use any illicit or recreational drugs? No MIGRATION.635042 9261 Information not available 10/20/2022 Do you or have you ever used any other forms of tobacco or nicotine? No MIGRATION.122922 0118 Information not available 10/20/2022 What is your level of alcohol consumption? None MIGRATION.292519 7210 Information not available 10/20/2022 Do you or have you ever used smokeless tobacco? Never used smokeless tobacco MIGRATION.431387 9058 Information not available 10/20/2022 Are you currently employed? No MIGRATION.745876 7612 Information not available 10/20/2022 Do you have transportation difficulties? No MIGRATION.004556 3674 Information not available 10/20/2022 Are you able to walk? YESWOREST MIGRATION.422033 8220 Information not available 10/20/2022 Do you have difficulty doing errands alone? No MIGRATION.802834 2499 Information not available 10/20/2022 What is your occupation? retired MIGRATION.436621 5887 Information not available 10/20/2022 Do you have difficulty dressing or bathing? No MIGRATION.766754 8583 Information not available 10/20/2022 Do you or have you ever used e-cigarettes or vape? Never used electronic cigarettes MIGRATION.773606 7155 Information not available 10/20/2022 What is your exercise level? Moderate MIGRATION.328033 5893 Information not available 10/20/2022 Mental Status Question Answer Note LastModified by Organizat ion Details LastModified Time Do you feel stressed (tense, restless, nervous, or anxious, or unable to sleep at night)? [id number] MIGRATION.94083816 00 Information not available 10/20/2022 Do you have difficulty concentrating, remembering or making decisions? No MIGRATION.06760988 00 Information not available 10/20/2022 Family History Relationship Description Onset Age of this Age Resolved Age Notes LastModified by Organization Details LastModified Time Father History of blood disorder low platel ets MIGRATION.611 [id number] Not available 10/20/2022 21:39:43 Maternal Grandmother Malignant neoplasm of bone MIGRATION.708 3470143 Not available 10/20/2022 21:39:43 Medical History Condition Response URINARY/BLADDER/KIDNEY PROBLEMS Y NERVE DISEASE Y BOWEL PROBLEMS DIZZINESS Y HIGH CHOLESTEROL / HYPERLIPIDEMIA Y Immunizations Vaccine Type Date Status Note Provider Nam e and Address Organization Details Recorded Time Influenza, split virus, quadrivalent, preservative 7 completed Not Available [facility] 10/20/2022 21:53:50 Influenza, high-dose, trivalent, PF 6 completed Not Available [facility] 10/20/2022 21:53:50 Influenza, split virus, quadrivalent, preservative 0 completed Not Available [facility] 10/20/2022 21:53:50 Influenza, split virus, quadrivalent, preservative 9 completed Not Available [facility] 10/20/2022 21:53:50 zoster live 6 completed Not Available [facility] 10/20/2022 21:53:50 Influenza, split virus, quadrivalent, preservative 5 completed Not Available [facility] 10/20/2022 21:53:50 Influenza, split virus, trivalent, preservative 4 completed Not Available [facility] 10/20/2022 21:53:51 Influenza, high-dose, quadrivalent, PF 2 completed Not Available [facility] 10/20/2022 21:53:51 Influenza, high-dose, quadrivalent, PF 1 completed Not Available [facility] 10/20/2022 21:53:51 Pneumococcal conjugate PCV 13 7 completed Not Available [facility] 10/20/2022 21:53:51 Past Encounters Encounter ID Performer Location Encounter Start Date Encounter Closed Date Diagnosis/Indication Diagnosis SNOMED-CT Code Diagnosis ICD10 Code Diagnosis Note [id number] Nyla Hamilton MD DISP_RB GASTROENT EROLOGY [address] [facility] [address] [place] [address] 03/08/2021 00:00:00 03/16/2021 14:40:23 [id number] _ATHN_MIGR ATION_5 _ATHENA_M IGRATION_ DEFAULT_1 _5 , 07/12/2021 00:00:00 07/12/2021 10:54:00 [id number] _ATHN_MIGR ATION_5 _ATHENA_M IGRATION_ DEFAULT_1 _5 , 08/10/2021 00:00:00 08/10/2021 13:19:03 [id number] _ATHN_MIGR ATION_5 _ATHENA_M IGRATION_ DEFAULT_1 _5 , 08/22/2021 00:00:00 08/23/2021 10:53:03 [id number] _ATHN_MIGR ATION_5 _ATHENA_M IGRATION_ DEFAULT_1 _5 , 11/09/2021 00:00:00 11/13/2021 18:01:24 [id number] _ATHN_MIGR ATION_5 _ATHENA_M IGRATION_ DEFAULT_1 _5 , 01/04/2022 00:00:00 01/04/2022 14:16:13 [id number] _ATHN_MIGR ATION_5 _ATHENA_M IGRATION_ DEFAULT_1 _5 , 01/11/2022 00:00:00 01/11/2022 17:54:54 [id number] _ATHN_MIGR ATION_5 _ATHENA_M IGRATION_ DEFAULT_1 _5 , 03/29/2022 00:00:00 03/29/2022 12:48:43 [id number] _ATHN_MIGR ATION_5 _ATHENA_M IGRATION_ DEFAULT_1 _5 , 05/10/2022 00:00:00 05/10/2022 12:01:04 [id number] _ATHN_MIGR ATION_5 _ATHENA_M IGRATION_ DEFAULT_1 _5 , 08/09/2022 00:00:00 08/09/2022 14:54:14 [id number] _ATHN_MIGR ATION_5 _ATHENA_M IGRATION_ DEFAULT_1 _5 , 08/27/2022 00:00:00 08/27/2022 15:17:55 [id number] _ATHN_MIGR ATION_5 _ATHENA_M IGRATION_ DEFAULT_1 _5 , 2022 00:00:00 2022 17:45:18 Health Concerns Section Related Observation LastModified by Organization Detai ls LastModified Time None Recorded Concern Status LastModified by Organization Details LastModified Time None Recorded Advance Directives Directive N: Payers Insurance Date Sequence Insurance Name Policy Number Policy Alonzo Covered Member ID Alonzo Member ID Guarantor Name 10/20/2022 1 [place] Larry Bernabe [id number] Larry Bernabe 10/20/2022 2 [employer] - OPTIONS Larry Bernabe [id number] Larry Bernabe 10/20/2022 [employer] - DMEPOS ASSIGNED (MEDICARE DME REGION B) Larry Bernabe [id number] Larry Bernabe
--- OUTSIDE RECORDS SUMMARY | 2025-03-02 00:56 | XMS_ITS | Data Portability ---
Author [facility] Address [address] [place] [address] Care Team Providers Care Tankroom Tender Name Role Phone EDUAR GARNETT Primary Care Provider ELLI RADFORD Urologist [phone] KATEY MISTRY Statistics Intern Assessment Encounter Date Assessment Date Assessment LastModified by Organization Details LastModified Time 05/05/2024 05/05/2024 we will obtain blood work that was done by his pack worker. Continue current therapy. He will follow up with me in 6 months. I believe he is slated for possible orthopedic surgery for joint replacement [email or web address] Not available 05/16/2024 17:38:36 08/28/2024 08/28/2024 x-ray of the shoulder. I have offered physical therapy but he wants to hold off apparently he has got an appointment with his orthopedic surgeon in 8 days Not available 08/28/2024 22:04:46 11/10/2024 11/10/2024 continue [...] 2023 024 [place] [facility], [address] [address], [place], [address], 05/06/2024 08:28:30 PSA, total, serum or plasma 2023 [place] [facility], [address], [place], [address], 05/06/2024 08:28:30 Referral None recorded. Procedures None recorded. Surgeries None recorded. Imaging XR, shoulder 2023 024 [facility], [address], [place], [address], 09/01/2024 12:19:43 Medication Orders None recorded. Patient TargetsNo targets recorded. Patient Instructions Encounter Date Encounter Id Patient Instructions Last Modified By Organization Details Last Modified Time 08/28/2024 [id number] A healthy lifestyle: care instructions [email or web address] Not available 08/28/2024 22:05:03 11/10/2024 [id number] A healthy lifestyle: care instructions Not available 11/10/2024 18:31:59 Reason for Referral [...] t be inter prete d as absol [place] evide nce of the prese nce or absen ce of danna rosen disea se. Not Available [facility] ([facility]) [address] [facility], [place], [address], 05/06/2024 08:28:29 05/05/20 24 05/06/2024 VITAM IN [...] um and D. Jordin elias [place]: [facility] . 2. Meredith holliday MF, Marcia fields [place], Rhina off-F errar i EVANS, et al. Evalu ation , treat ment, and preve ntion of vitam in D defic iency : an Endoc rine Socie ty clini lorri pract ice guide line. JCEM. 2010; 96(7) :1911 -30. Not Available [facility] ([facility]) [address] [facility], [place], [address], 05/06/2024 08:28:30 05/11/20 24 05/09/2024 CT, coron linda calci um score No observ ation record ed. [facility] [address], [place], [address], 05/12/2024 12:19:39 05/11/20 24 05/09/2024 CT, coron linda calci um score No observ ation record ed. [facility] [address], [place], [address], 05/12/2024 12:20:07 07/13/20 24 07/13/2024 XR, shoul rosi No observ ation record ed. [address], [place], [address], 07/13/2024 17:08:33 07/13/20 24 07/13/2024 XR, hip + pelvi s, unila teral , 1 view No observ ation record ed. [address], [place], [address], 07/13/2024 16:39:24 09/01/20 24 09/01/2024 XR, shoul rosi No observ ation record ed. [address], [place], [address], 09/04/2024 15:35:00 09/01/20 24 09/01/2024 XR, shoul rosi No observ ation record ed. [address] [address], [place], [address], 09/04/2024 15:35:01 01/28/20 25 01/27/2025 CT, abdom en + pelvi s, w/wo contr ast No observ ation record ed. [address], [place], [address], 02/02/2025 16:52:01 01/28/20 25 01/27/2025 XR, kidne y + urete r + bladd er No observ ation record ed. [address] [facility], [place], [address], 02/02/2025 16:52:01 Result Notes None recorded. Problems Name Problem SNOMED Code Status Onset Date Resolution Date Notes Provider Name and Address Organization Details Recorded Time Screening for malignant neoplasm of prostate Active 024 MIGUEL Robles, GILLIAN [facility] 4 16:24:21 Ulcerative colitis 65479024 Active 024 MIGUEL Robles, GILLIAN [facility] 4 16:24:22 Problem Notes None recorded. Procedures Surgical History Date Name Laterality Status Provider Name and Address Organization Details Recorded Time 03/24/20 24 Carpal tunnel surgery completed Shannan Delgado MA [facility] 05/05/2024 15:16:48 10/14/19 21 Cholecystectomy completed Shannan Delgado MA [facility] 05/05/2024 15:16:30 total replacement of hip completed Pedrito Rojo MA [facility] 08/28/2024 15:58:32 Imaging Results Imaging Date Name Status LastModified by Organiz ation Details LastModified Time 05/09/2024 CT, coronary calcium score completed [facility] [address], [place], [address], 05/12/2024 12:19:39 05/09/2024 CT, coronary calcium score completed [facility] [address], [place], [address], 05/12/2024 12:20:07 07/13/2024 XR, shoulder completed [address] [place] [address], [address], 07/13/2024 17:08:33 07/13/2024 XR, hip + pelvis, unilateral, 1 view completed [address] [place] [address], [address], 07/13/2024 16:39:24 09/01/2024 XR, shoulder completed [address] [place] [address], [address], 09/04/2024 15:35:00 09/01/2024 XR, shoulder completed [address] [place] [address], [address], 09/04/2024 15:35:01 01/27/2025 CT, abdomen + pelvis, w/wo contrast completed [address] [place] [address], [address], 02/02/2025 16:52:01 01/27/2025 XR, kidney + ureter + bladder completed [facility] [address] [facility] [address], [place], [address], 02/02/2025 16:52:01 Procedure Notes None recorded. Medical [...] Updated DateTime 4 175.26 cm 26.8 kg/m2 51668.0 2 g 97 % 97 % 64 /min 124 mm[Hg] 70 mm[Hg] Shannan Delgado [place] [facility] 4 15:20:15 Date Recorded Body height Body mass index (BMI) Body weight Heart rate Oxygen saturation Oxygen saturation in Arterial blood by Pulse oximetry Systolic blood pressure Diastolic blood pressure Provider Name and Address Organization Details Last Updated DateTime 4 175.26 cm 27.5 kg/m2 20514.1 8 g 64 /min 96 % 96 % 140 mm[Hg] 84 mm[Hg] Pedrito Rojo [place] [facility] 4 16:01:29 Date Recorded Body height Body mass index (BMI) Body weight Heart rate Oxygen saturation Oxygen saturation in Arterial blood by Pulse oximetry Systolic blood pressure Diastolic blood pressure Provider Name and Address Organization Details Last Updated DateTime 5 175.26 cm 27.7 kg/m2 67217.0 1 g 56 /min 97 % 97 % 124 mm[Hg] 68 mm[Hg] Eleanor Hudson MA [facility] 5 15:33:01 Social History Question Answer Notes LastModified by Organizat ion Details LastModified Time Tobacco Smoking Status Former Smoker quit 40 years ago Shannan Delgado MA null, [facility] 05/05/2024 15:14:06 Are You Blind Or [...] anxious, or unable to sleep at night)? [id number] Information not available 05/05/2024 Family History Relationship Description Onset Age of this Age Resolved Age Notes LastModified by Organization Details LastModified Time Father History of blood disorder [email or web address] Not available 2024 16:40:06 Maternal Grandmother Malignant neoplasm of bone [email or web address] Not available 2024 16:40:20 Medical History Condition Response Coronary Artery Disease N Other N High Blood Pressure N Atrial Fibrillation N Thyroid Problems N Kidney or Bladder Problems Y GI Problems Y Depression N COPD N Blood Clots N Have you had a mammogram in the last yea r? N Skin Problems N Anemia N Heart Attack ([place]) N Diabetes N Anxiety Disorder N Muscle, Joint, or Bone Problems N Seizures/Epilepsy N Have you had a colonoscopy in the last 1 0 years? Y Acid Reflux (GERD) N Cancer N Stroke N Asthma N Allergies N Have you had a PSA blood test in the las t year? Y High Cholesterol N Hepatitis N Liver Disease N Headaches N Osteoporosis N Heart Failure N Immunizations Vaccine Type Date Status Note [...] completed Eduar Garnett MD Attn: Accounting,[address] [place], [address], [place] [facility] 11/10/2024 22:45:12 Past Encounters Encounter ID Performer Location Encounter Start Date Encounter Closed Date Diagnosis/Indication Diagnosis SNOMED-CT Code Diagnosis ICD10 Code Diagnosis Note [id number] Eduar Garnett MD [facility] (Adult Med) [address] [place] [address] 05/05/2024 14:59:05 05/05/2024 16:29:51 Screening for malignant neoplasm of prostate 189473415 Z12.5 Ulcerative colitis 93240 004 K51.90 [id number] Eduar Garnett MD [facility] (Adult Med) [address] [place] [address] 0 08/28/2024 15:13:42 08/28/2024 16:46:57 Overweight 003150292 E66.3 Pain of [facility] 78774798 M25.917 [id number] Eduar Garnett MD [facility] (Adult Med) [address] [place] [address] 0 11/10/2024 14:29:55 11/10/2024 16:37:22 Body mass index 25-29 - overweight 045600383 Z68.27 Overweight 354592704 E66 .3 Administra tion of influenza vaccine 75508819 Z23 Vitamin D below reference range 703117007 E55.9 Health Concerns Section Related Observation LastModified by Organization Detai ls LastModified Time None Recorded Concern Status LastModified by Organization Details LastModified Time None Recorded Advance Directives Directive None Recorded Payers Encounter Date Sequence Insurance Name Policy Number Policy Alonzo Covered Member ID Alonzo Member ID Guarantor Name 05/05/2024 1 [place] Larry Bernabe [id number] Larry Bernabe 08/28/2024 1 [place] Larry Bernabe [id number] Larry Bernabe 11/10/2024 1 [place] Larry Bernabe [id number] Larry Bernabe Notes Date Note Type [...] 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 Eduar Garnett MD Attn: Accounting, [address] [place], [address], [facility] 05/16/2024 17:38:53 08/28/2024 text/html he fell a couple of days ago and he has got pain in his left shoulder no numbness tingling was a mechanical fall did not hit his head did not lose consciousness no neck pain lobar no lower back pain or other injury Eduar Garnett MD Attn: Accounting, [address] [facility], [place], [address], [facility] 08/28/2024 22:05:07 11/10/2024 text/html he is not going to get shoulder surgery currently ulcerative colitis is doing fine BPH symptoms stable Eduar Garnett MD Attn: Accounting, [address] [facility], [place], [address], [facility] 11/10/2024 22:46:35
--- OUTSIDE RECORDS SUMMARY | 2025-03-02 00:57 | XMS_ITS | Continuity of Care Document ---
Author Name [facility] Organization [facility] Care Team Providers Care New Car Sales Manager Name Role Phone [facility] Unavailable Unavailable Encounters [...] ADM Date DC Date Status Disposition Source [facility] Outpatient Encounter [id number] 11/24 [facility] [place]
--- OUTSIDE RECORDS SUMMARY | 2025-03-02 00:57 | XMS_ITS | CONTINUITY OF CARE DOCUMENT ---
Author Name gisel, gisel Address Unknown Organization [facility] Address [address] [place] [address] Phone [phone] Care Team Providers Care Sediment Remediation Consultant Name Role Phone Aye PATHAK, Favio Unavailable MARII HANSON MD Unavailable EDUAR FRASER MD Unavailable [phone] PROBLEMS Condition Status Date Provider Notes Aortic root dilatation active Favio Griffiths MD Hypertriglyceridemia active Favio Hoffman D Screening active Favio Griffiths MD Microalbuminuria active Favio Griffiths MD ne gegfr Hyperlipidemia;NEG CRP and lpa active Kourtney Griffiths MD CAD active Favio Griffiths MD Colitis active Viraj Mcdermott MD Pre-op cardiovascular exam active Favio schroeder MD Bradycardia - sinus;nml tsh;not due to rx active 04/08 Favio Griffiths MD ENCOUNTERS Date Type Provider Location Encounter Diag nosis - In-person encounter Office Visit Favio Griffiths MD [facility] Pre-op cardiovascular examBradycardia - sinus;nml tsh;not due to rx - In-person encounter Office Visit Viraj Mcdermott MD [facility] CADColitis VITAL SIGNS Date Observation Value Provider Body Mass Index (Ratio) 26.11 kg/m2 Chucky Griffiths MD blood pressure, diastolic -1 mm[Hg] Kassandra nkLogvalentin blood pressure, systolic 143 mm[Hg] Sussy Malaveogic blood pressure, diastolic 86 mm[Hg] Man rret blood pressure, systolic 143 mm[Hg] [facility] pulse rate 54 /min Earl y blood pressure, cuff size regular [facility] oxygen saturation, oximetry 98 % Earl respiratory [...] by mouth twice a day Paige Ventimiglia [facility] SOCIAL HISTORY Date Observation Value Provider personal history of marijuana use no Paige Ventimiglia [facility] drug use no Paige Ventimig sarah [facility] alcohol use no Paige Ventimig sarah [facility] cigarette use yes Paige Ventimi glia [facility] smoking status Former smoker Paigelesly cejaa [facility] social history E&M Marital Statu s: [...] Payer name Policy type / Coverage type [place] red republican ID AARP [id number] [place] [employer] Medicare [id number] ADVANCE DIRECTIVES Name Date DISCUSSED - NO DECISION MADE TREATMENT PLAN Date Name Performer :4.5 Favio Griffiths MD :score 28 Favio Griffiths MD :nml iron Favio Griffiths MD :45 Favio Griffiths MD Cardiology:atypical chest pain not anginal in nature n o further invasive w/u c oronary calcium socre is recommended Paigelesly Joinermiglia [facility] Cardiology:follows with GI Benedicto Santoyo [facility] Cardiology:HR in 50s on EKG and exam H e is asymptomatic. No dizziness W ill plan tele to r/o arrhythmia in setting of fatigue and noted bradycardia on EKG today Paige Rhysmiglia [facility] Cardiology:Patient c onsidered an acceptable risk for planned surgical procedure. Has had previous LHC with normal coronaries. Had negative stress in 2016. EKG sinus phylicia with no acute ST/T wave changes. No anginal symptoms at this time. Have recommended coronary calcium score Paige Santoyo [facility] Cardiology Viraj Mcdermott MD Cardiology Viraj [...] EKG Viraj Mcdermott MD complete d SNOMED-CT: [id number] Current Medications Documented Viraj Mcdermott MD completed
[2025-03-02] MEDS: LACTATED RINGERS 1,000 ML 30 ML IV CONT (07:20)
--- NOTE | 2025-03-02 07:22 | WPDHPUPDATE1 ---
History and Physical Update Update Date/Time: 03/02/25 07:22 History and Physical has been reviewed, including an updated exam of the patient. There are NO changes in the patient's condition. Risks, benefits, and alternatives have been discussed and questions answered. Patient agrees to proceed with procedure.
--- NOTE | 2025-03-02 07:27 | WPDHPUPDATE1 ---
History and Physical Update Update Date/Time: 03/02/25 07:27 History and Physical has been reviewed, including an updated exam of the patient. There are NO changes in the patient's condition. Risks, benefits, and alternatives have been discussed and questions answered. Patient agrees to proceed with procedure.
--- NOTE | 2025-03-02 07:36 | WPDANESEPPF ---
Anes - Initial Pre Proc Eval Procedure: Operation Date: 03/02/25 08:30 Proposed Procedures p Cystoscopy, Laser of Bladder Stones - Vazquez Wasserman MD Date/Time: 03/02/25 07:36 Surgeon: Vazquez Wasserman MD Pre Op Diagnosis: bladder stone Patient Data Age: 79 Gender: M Height: 1.73 m Weight: 81 kg Last Vital Signs Temp 36.4 C 03/02/25 06:35 Pulse 80 03/02/25 06:35 Resp 15 03/02/25 06:35 BP 137/89 03/02/25 06:35 Pulse Ox 97 03/02/25 06:35 O2 Del Method Room Air 03/02/25 06:35 Allergies Allergy/AdvReac Type Severity Reaction Status Date / Time No Known Allergies Allergy Verified 03/02/25 07:28 Home Medications Medication Instructions Recorded Confirmed Type tamsulosin 0.4 mg capsule (Flomax) 0.4 mg PO HS #30 caps 07/14/24 03/02/25 Rx balsalazide 750 mg capsule 2,250 mg PO TID 10/09/24 03/02/25 History diclofenac sodium 75 mg See Rx Instructions .Route 01/13/25 03/02/25 Rx tablet,delayed release .COMPLEX #60 tabs ergocalciferol (vitamin D2) 1,250 1,250 mcg PO WEEKLY 02/16/25 03/02/25 History mcg (50,000 unit) capsule Patient hx anesthesia problems: none Family hx anesthesia problems: none Results Review: All pre-operative results and documents have been reviewed as part of the pre-operative evaluation. [facility] Past Medical History Medical History Elevated coronary artery calcium score (04/2024) Mildly elevated per patient report. Arthritis Ulcerative colitis Surgical History Surgical History History of laser assisted in situ keratomileusis History of nasal septoplasty History of arthroscopy of left knee History of total right hip arthroplasty (07/13/24) History of carpal tunnel surgery of right wrist (02/18/24) History of cholecystectomy (2020) History of cervical spinal surgery Social History Social History (Updated 01/06/25 @ 09:47 by Melinda [facility] Social History: Surrogate medical decision maker: Melinda Galeana, daughter. Code status: Full code. Smoking packs per day: 1 Smoking cigarettes per day: 20.0 Years smoked: 20 Smoking pack-years: 20.00 Smoking status: Never smoker Second hand tobacco smoke exposure: No Alcohol intake: never Substance use: never Substance use type: does not use Current Housing: Decline to Answer Concerned About Future Housing: Decline to Answer Difficulty Paying Gas/Electric Bills: Decline to Answer Difficulty Paying for Meds: Decline to Answer Currently Unemployed: Decline to Answer Education: Decline to Answer Difficulty w/ Childcare or Family Care: Decline to Answer Living arrangements: with family Additional living arrangements comments: Lives with spouse share in in [place]. Occupation/Education: retired Additional occupation/education comments: [employer]. Gender identity (if verbalized by the patient): Male Spiritual care concerns: No Anes - Eval Final PreProcedure Day of Procedure 03/02/25 07:36 Patient weight: overweight Heart: regular rate and rhythm Lungs: clear to auscultation Airway: Mallampati scale class III Neurological: alert and oriented Last oral intake: >/= 8 hours ASA classification: III Emergent: no Anesthetic plan: proceed Anesthesia type and monitoring: general LMA and standard monitoring Results Review: All pre-operative results and documents have been reviewed as part of the pre-operative evaluation. Informed Consent: The patient's anesthetic plan and its attendant risks and benefits were discussed with the patient/family/POA. Questions were solicited and answers provided to the satisfaction of the patient/family/POA.
--- NOTE | 2025-03-02 07:39 | SUR.PREOP ---
Patient accidentally forgot to stop diclofenac and balsalazide 7 days prior. Last dose was taken on Monday 02/26. Dr. Wasserman notified, okay to proceed.
[2025-03-02] MEDS: ceFAZolin 2 GM/D5W 50 ML 2 GM/50 ML BAG IVPB (08:07)
[2025-03-02] MEDS: LIDOCAINE 2% GEL UROJET 10 ML PKG MUCOUS MEM (08:07)
--- NOTE | 2025-03-02 09:07 | P.OP_ITS ---
Procedure Note - Detailed Date of Procedure 03/02/25 Pre-op Diagnosis bladder stone greater than 2.5 cm Post-op Diagnosis Same Procedure Performed Cystoscopy, holmium laser of large bladder stone greater than 2.5 cm, complex Rivera catheter placement [address] Surgeon Vazquez Wasserman MD Anesthesia General Description of Procedure Patient was taken the operative suite correctly identified. Once anesthesia was obtained was placed in the dorsal lithotomy position and prepped and draped usual sterile fashion. Twenty-two [address] [place] scope was inserted the bladder in direct vision. He does have some lateral lobe hypertrophy. A large bladder stone was visualized. This measured greater than 2.5 cm. Using a 500 micron fiber we lasered the stone and retrieve the pieces. There was no significant stone burden at termination. There was a slight oozing from the bladder neck area. As such 2% viscous lidocaine was inserted into the urethra and a [address] was placed with 10 cc in the balloon. This was connected to continuous bladder irrigation patient is taken recovery stable condition. If his urine remains fairly clear will be discharged home with a Rivera to have it removed in the next day or 2. This completes dictation. Please send a copy of op note to my office. Estimated Blood Loss 0 Drains Yes Packing No Pathology Yes Complications No immediate complications Condition Stable Disposition PACU
[2025-03-02] MEDS: KETOROLAC 15 MG/ML VIAL (*BKC) IV PUSH (09:39)
[2025-03-02] MEDS: fentaNYL CITRATE INJ (*CRX) 100 MCG/2 ML VIAL 25 MCG IV PUSH ×2 (09:40→09:48)
--- NOTE | 2025-03-02 09:44 | ECG_ITS ---
Test Date: 2025-03-02 10:11:34 Measurements Intervals [place] Rate: 58 P: 26 WI: 164 QRS: 6 QRSD: 92 T: 9 QT: 412 QTc: 405 Interpretive Statements SINUS BRADYCARDIA WITH SINUS ARRHYTHMIA No previous ECG available for comparison Electronically Signed On 03-02-2025 13:41:46 CDT by Migdalia Sutart M.D.
--- NOTE | 2025-03-02 10:28 | SUR.PHASEI ---
0987 DR JORGE HERE TO SEE PT
--- NOTE | 2025-03-02 10:34 | SUR.PHASEI ---
1025 CBI DISCONTINUED, CATHETER PORT CAPPED
== END 2025-03-02 11:35 | disposition home or self-care (01) ==
PROVIDERS: PCP Internal Medicine; Visit Provider Urology
PROC: (CPT 52352; principal; 2025-03-02 08:30)
DX: N21.0 Calculus in bladder (principal); R31.29 Other microscopic hematuria; M19.90 Unspecified osteoarthritis, unspecified site; Z98.890 Other specified postprocedural states; Z98.1 Arthrodesis status; Z90.49 Acquired absence of other specified parts of digestive tract; Z87.891 Personal history of nicotine dependence; Z87.19 Personal history of other diseases of the digestive system; Z80.9 Family history of malignant neoplasm, unspecified; Z82.49 Family history of ischemic heart disease and other diseases of the circulatory system
CPT/HCPCS: 52318; 82365; 88300; 93005; C1758; C1769; J0690; J1885; J2003; J2405; J2704; J3010; J7120

== ENCOUNTER 2025-03-11 02:27 | Day surgery (SDC) | payer MEDICARE, SELFPAY ==
[2025-03-01 13:53] VITALS: BMI 26.9
--- OUTSIDE RECORDS SUMMARY | 2025-03-11 02:31 | XMS_ITS | Data Portability ---
Author Organization [place] [employer], Main Office Address [address] [place] [address] Care Team Providers Care Fiberglass Container Winding Operator Name Role Phone LOUIE WILSON Primary Care Provider LOUIE WILSON Referring Provider [phone] Assessment Encounter Date Assessment Date Assessment LastModified [...] patient more than half of this in vniu-dv-wunk conversation Not available 07/25/2023 14:07:51 08/01/2023 08/01/2023 This note is dictated and transcribed by [employer]. Rehabilitation Attendant variances may occur. Despite proofreading, typographical errors [...] more than half the time spent in [id number]-id-ghtm care. Not available 12/08/2023 10:51:57 12/19/2023 12/19/2023 [...] more than half the time spent in rxzm-ha-uqlk care. Not available 12/19/2023 11:32:29 Plan of Treatment Reminders Order Date Submit Date Provider Last Modified By Organization Details Last Modified Time Details Appointments None recorded. Lab None recorded. Referral orthopedic surgeon referral 2022 023 [email or web address] 3 Jimmy Stanford, [address] [facility] [address], [place], [address], 3 07:56:42 Procedures None recorded. Surgeries None recorded. Imaging XR, foot, 3 or more view 2022 023 [email or web address] [facility] ([facility] Scheduling), [address] [facility] [place], [address], 3 09:31:49 XR, hand 2022 023 [facility], [address] [facility], [place], [address], 3 14:50:11 electromyog cynthia + nerve conduction study - Please call pt to schedule [email or web address] (Cardiology & Emg), [address] [place] [address], [address], 08:46:52 Medication Orders amoxicillin 875 mg tablet [address] [facility], [address] [facility], [place], [address], 12:06:44 Patient TargetsNo targets recorded. Patient InstructionsNo instructions recorded. Reason for Referral Orthopedic Surgeon Referral for Carpal tunnel syndrome of right wrist Referring Physician: [facility], Encounter Date: 06/05/2023 Results Created Date Observation Date Name Description Value Unit Range Abnormal Flag Note LastModifiedBy Organization Detail LastModifiedTime 07/25/20 XR, hand No observ ation record ed. [facility] [address], [place], [address], 07/25/2023 14:02:38 08/14/20 23 08/14/2023 elect romyo gram + nerve condu ction study No observ ation record ed. [address], [address], 02/23/2024 13:49:22 08/14/20 23 08/14/2023 elect romyo gram + nerve condu ction study No observ ation record ed. [address], [address], 08/14/2023 16:38:29 12/17/19 24 12/16/2023 MRI, cervi lorri spine , w/o contr ast No observ ation record ed. [address], [address], 12/17/2023 12:37:58 12/17/19 24 12/16/2023 MRI, cervi lorri spine , w/o contr ast No observ ation record ed. [address], [place], [address], 02/23/2024 13:49:42 Result Notes None recorded. Problems Name Problem SNOMED Code Status Onset Date Resolution Date Notes Provider Name and Address Organization Details Recorded Time Backache 000722451 Active Not Available [facility] 3 09:17:42 Abdominal pain 91259919 Active 2020 Not Available [facility] 3 09:17:42 Benign prostatic hyperplasi a 678092324 Active Not Available [facility] 3 09:17:43 Neuropathy 938730319 Active 2018 Not Available [facility] 3 09:17:43 Osteoarthr itis 575531099 Active 2021 Not Available [facility] 3 09:17:43 Dizziness 037120340 Active Not Available [facility] 3 09:17:43 Carotid bruit 941215058 Active Not Available [facility] 3 09:17:43 Cough 57214841 Active Not Available [facility] 3 09:17:43 Upper respirator y infection 73275348 Active Not Available [facility] 3 09:17:43 Hyperlipid emia 70173521 Active Not Available [facility] 3 09:17:43 Colitis 50533732 Active Not Available [facility] 3 09:17:43 Ulcerative colitis 31222892 Active 2016 Not Available [facility] 3 09:17:43 Paresthesi a of upper limb 43010935 Active 2022 TORI Paul [address], [place], [address] , [employer] [facility] [employer] 3 09:58:55 Cellulitis of face 402769853 Active 2022 TORI Paul [address], [place], [address] , [place] [facility] [place] [employer] [facility] 3 10:06:24 Carpal tunnel syndrome of right wrist 2244787770723 08 Active 2022 TORI Paul [address], [place], [address] , [facility] 3 10:11:36 Tooth disorder 716680544 Active 2022 TORI Paul [address], [place], [address] , [facility] 3 10:14:24 Pain in right hand 8608667085278 09 Active 2022 BONIFACIO Anaya, [facility] 3 12:07:37 Acquired hallux limitus of right great toe 6284387721999 100 Active 2022 Isaac Orourke DPM [address], [place], [address] , [facility] 3 15:08:47 Right Achilles tendinitis 2452117990285 02 Active 2022 Isaac Orourke DPM [address], [place], [address] , [facility] 3 15:08:53 COVID-19 575206014 Active 2022 Louie Wilson MD [address], [place], [address] , [facility] 3 15:45:06 Spinal stenosis in cervical region 88547677 Active 2023 Melinda To CMA null, [facility] 4 16:29:55 Carpal tunnel syndrome 90997983 Active 2023 BONIFACIO Anaya null, [place] [facility] 4 10:19:10 Notes:c. diff colitis Problem Notes None recorded. Procedures Surgical History Date Name Laterality Status Provider Name and Address Organization Details Recorded Time 10/09/20 colonoscopy completed Louie Wilson MD [address], [place], [address], [facility] [employer] [facility] 02/21/2024 18:03:50 07/24/20 21 colonoscopy completed Not Available formerly [facility] 12/12/2022 09:15:05 Carpal tunnel surgery completed Not Available formerly [facility] 12/12/2022 09:15:05 Cataract Surgery completed Not Available formerly [facility] 12/12/2022 09:15:05 Knee arthroscopy/surger y completed Not Available formerly [facility] 12/12/2022 09:15:05 Rotator cuff surgery completed Not Available formerly [facility] 12/12/2022 09:15:05 laparoscopic cholecystectomy completed Not Available formerly [facility] 12/12/2022 09:15:05 Cholecystectomy completed Nabila Percy [facility] [employer] [facility] 08/01/2023 13:51:05 Nasal sinus therapy completed Nabila Greer [facility] 08/01/2023 13:51:14 Imaging Results None recorded. Procedure Notes None [...] oral route for 30 days. active ID# [id number] called to get tier 2 @ [...] Not Available Not Available Not Available Fluvirin 45 mcg (15 mcg x 3)/0.5 mL [...] Not Available Vitals Date Recorded Body height Provider Name an d Address Organization Details Last Updated DateTime 12/05/2023 171.45 cm Ana Hinson Devorah [facility] [employer] [facility] 12/05/2023 14:40:24 Date Recorded Body height Provider Name an d Address Organization Details Last Updated DateTime 12/19/2023 171.45 cm Ana Hinson Devorah [facility] [employer] [facility] 12/19/2023 10:18:07 Date Recorded Body height Body mass index (BMI) Body weight Body temperature Heart rate Oxygen saturation Oxygen saturation in Arterial blood by Pulse oximetry Systolic blood pressure Diastolic blood pressure Provider Name and Address Organization Details Last Updated DateTime 08/23/202 3 172.72 cm 28.7 kg/m2 77246.9 6 g 97.6 [degF] 88 /min 96 % 96 % 140 mm[Hg] 88 mm[Hg] Letty Castellon RN [facility] 09:47:42 Date Recorded Body height Body mass index (BMI) Body weight Provider Name and Address Organization Details Last Updated DateTime 07/25/2023 171.45 cm 27.8 kg/m2 08146.63 g BONIFACIO Anaya [facility] [employer] [facility] 07/25/2023 13:06:21 Date Recorded Body height Body mass index (BMI) Body weight Heart rate Respiratory rate Oxygen saturation Oxygen saturation in Arterial blood by Pulse oximetry Systolic blood pressure Diastolic blood pressure Provider Name and Address Organization Details Last Updated DateTime 171.45 cm 27 kg/m2 82710.6 6 g 57 /min 14 /min 98 % 98 % 119 mm[Hg] 77 mm[Hg] Nabila Greer [facility] 14:01:43 Social History Question Answer Notes LastModified by [employer] ion Details LastModified Time Tobacco Smoking Status Former Smoker quit 1974 [facility] Available [facility] 12/12/2022 09:14:51 Do You Have An Advance Directive? No MIGRATION.97354 48392 Information not available 12/12/2022 Are You Blind Or Do You Have Difficulty Seeing? No MIGRATION.58332 91617 Information not available 12/12/2022 What Is Your Level Of Caffeine Consumption? Occasional MIGRATION.74339 58043 Information not available 12/12/2022 How Much Tobacco Do You Chew? None MIGRATION.01951 98622 Information not available 12/12/2022 In The 14 Days Before Symptom Onset, Have You Had Close Contact With A Laboratory-confi rmed COVID-19 While That Case Was Ill? No MIGRATION.45732 83451 Information not available 12/12/2022 In The 14 Days Before Symptom Onset, Have You Had Close Contact With A Person Who Is Under Investigation For COVID-19 While That Person Was Ill? No MIGRATION.36328 77633 Information not available 12/12/2022 Are You Deaf Or Do You Have Serious Difficulty Hearing? No MIGRATION.40104 87716 Information not available 12/12/2022 What Type Of Diet Are You Following? REGULAR MIGRATION.18151 79735 Information not available 12/12/2022 Which Illicit Or Recreational Drugs Have You Used? None MIGRATION.00024 66853 Information not available 12/12/2022 Have There Been Any Changes To Your Family Or Social Situation? No MIGRATION.04010 54477 Information not available 12/12/2022 Are There Any Guns Present In Your Home? Yes MIGRATION.72491 69379 Information not available 12/12/2022 Do You Use Insect Repellent Routinely? No MIGRATION.55856 71894 Information not available 12/12/2022 Where Do You Live? [facility] MIGRATION.17575 34427 Information not available 12/12/2022 Do You Have A Medical Power Of Game Show Host? No MIGRATION.52108 45704 Information not available 12/12/2022 What Was The Date Of Your Most Recent Tobacco Screening? 08/01/2023 [email or web address] Information not available 08/01/2023 What Is Your Relationship Status? MIGRATION.67175 94033 Information not available 12/12/2022 Do You Use Your Seat Belt Or Car Seat Routinely? Yes MIGRATION.16019 83733 Information not available 12/12/2022 Do You Have Smoke And Carbon Monoxide Detectors In Your Home? Yes MIGRATION.50794 74037 Information not available 12/12/2022 Are You Passively Exposed To Smoke? No MIGRATION.94667 39924 Information not available 12/12/2022 Are There Any Smokers In Your House? No MIGRATION.01432 56381 Information not available 12/12/2022 How Much Tobacco Do You Smoke? No MIGRATION.41887 83123 Information not available 12/12/2022 Do You Use Sunscreen Routinely? No MIGRATION.52991 39716 Information not available 12/12/2022 Has Tobacco Cessation Counseling Been Provided? No N/A MIGRATION.70890 49848 Information not available 12/12/2022 Have You Recently Traveled Abroad? No MIGRATION.16903 46166 Information not available 12/12/2022 Do You Have Difficulty Walking Or Climbing Stairs? No MIGRATION.24267 67981 Information not available 12/12/2022 Do You Have Any Dietary Restrictions? No MIGRATION.46082 34189 Information not available 12/12/2022 Sex: Unknown Functional Status Question Answer Note LastModified by Organizat ion Details LastModified Time Do you use any illicit or recreational drugs? No MIGRATION.737497 9297 Information not available 12/12/2022 Do you or have you ever used any other forms of tobacco or nicotine? No MIGRATION.687382 7994 Information not available 12/12/2022 What is your level of alcohol consumption? None MIGRATION.079902 8833 Information not available 12/12/2022 Do you or have you ever used smokeless tobacco? Never used smokeless tobacco MIGRATION.891096 5080 Information not available 12/12/2022 Do you have transportation difficulties? No MIGRATION.040656 5824 Information not available 12/12/2022 Are you able to walk? YESWOREST MIGRATION.421945 8699 Information not available 12/12/2022 Do you have difficulty doing errands alone? No MIGRATION.244369 1106 Information not available 12/12/2022 Are you able to care for yourself? Yes MIGRATION.990501 2346 Information not available 12/12/2022 What is your occupation? retired MIGRATION.872530 6728 Information not available 12/12/2022 Do you have difficulty dressing or bathing? No MIGRATION.923785 1945 Information not available 12/12/2022 Do you or have you ever used e-cigarettes or vape? Never used electronic cigarettes MIGRATION.343069 3081 Information not available 12/12/2022 What is your exercise level? Moderate MIGRATION.305721 1294 Information not available 12/12/2022 Mental Status Question Answer Note LastModified by Organizat ion Details LastModified Time Do you feel stressed (tense, restless, nervous, or anxious, or unable to sleep at night)? [id number] MIGRATION.51635791 26 Information not available 12/12/2022 Do you have difficulty concentrating, remembering or making decisions? No MIGRATION.86504507 26 Information not available 12/12/2022 Family History Relationship Description Onset Age of this Age Resolved Age Notes LastModified by Organization Details LastModified Time Father History of blood disorder low platel ets MIGRATION.690 4885596 Not available 12/12/2022 09:15:06 Maternal Grandmother Malignant neoplasm of bone MIGRATION.101 2960682 Not available 12/12/2022 09:15:06 Medical History Condition Response URINARY/BLADDER/KIDNEY PROBLEMS Y NERVE DISEASE Y BOWEL PROBLEMS DIZZINESS Y HIGH CHOLESTEROL / HYPERLIPIDEMIA Y Immunizations Vaccine Type Date Status Note Provider Nam e and Address Organization Details Recorded Time Influenza, high-dose, quadrivalent, PF 3 completed [place] [facility] 10/02/2023 11:25:50 Influenza, split virus, quadrivalent, preservative 7 completed Not Available formerly [facility] 12/12/2022 09:21:06 Influenza, high-dose, trivalent, PF 6 completed Not Available formerly [facility] 12/12/2022 09:21:06 Influenza, split virus, quadrivalent, preservative 0 completed Not Available formerly [facility] 12/12/2022 09:21:06 Influenza, split virus, quadrivalent, preservative 9 completed Not Available formerly [facility] 12/12/2022 09:21:06 zoster live 6 completed Not Available formerly [facility] 12/12/2022 09:21:06 Influenza, split virus, quadrivalent, preservative 5 completed Not Available formerly [facility] 12/12/2022 09:21:06 Influenza, split virus, trivalent, preservative 4 completed Not Available formerly [facility] 12/12/2022 09:21:06 pneumococcal polysaccharide PPV23 3 completed Not Available formerly [facility] 12/12/2022 09:21:06 Influenza, high-dose, quadrivalent, PF 2 completed Not Available formerly [facility] 12/12/2022 09:21:07 Influenza, high-dose, quadrivalent, PF 1 completed Not Available formerly [facility] 12/12/2022 09:21:07 Pneumococcal conjugate PCV 13 7 completed Not Available formerly [facility] 12/12/2022 09:21:07 Past Encounters Encounter ID Performer Location Encounter Start Date Encounter Closed Date Diagnosis/Indication Diagnosis SNOMED-CT Code Diagnosis ICD10 Code Diagnosis Note [id number] _ATHN_MIGR ATION_1 _ATHENA_M IGRATION_ DEFAULT_1 _1 , 03/08/2021 00:00:00 03/16/2021 14:40:23 [id number] Louie Wilson MD [facility] [place] [address] [place] [address] 07/12/2021 00:00:00 07/12/2021 10:54:00 [id number] Zoran patel MD [facility] [address] [address] 08/10/2021 00:00:00 08/10/2021 13:19:03 [id number] Zoran patel MD [facility] [address] [address] 08/22/2021 00:00:00 08/23/2021 10:53:03 [id number] Louie Wilson MD [facility] [place] [address] [place] [address] 11/09/2021 00:00:00 11/13/2021 18:01:24 [id number] Tay Rojo MD [facility] [address] [place] [address] 01/04/2022 00:00:00 01/04/2022 14:16:13 [id number] Louie Wilson MD [facility] [place] [address] [place] [address] 01/11/2022 00:00:00 01/11/2022 17:54:54 [id number] MD SUSANA Beyer[facility] [address] [address] 03/29/2022 00:00:00 03/29/2022 12:48:43 [id number] MD WALI Beyer [address] [address] 05/10/2022 00:00:00 05/10/2022 12:01:04 [id number] MD SUSANA [facility] [address] [address] 08/09/2022 00:00:00 08/09/2022 14:54:14 [id number] YANG Mccarthy [facility] [place] [address] [place] [address] 08/27/2022 00:00:00 08/27/2022 15:17:55 [id number] Louie Wilson MD [facility] [place] [address] [place] [address] 2022 00:00:00 2022 17:45:18 [id number] Louie Wilson MD [facility] [place] [address] [place] [address] 11/14/2022 00:00:00 12/09/2022 14:48:19 [id number] Louie Wilson MD [facility] Primary [facility] [place] [address] [facility] [address] [place] [address] 06/05/2023 09:41:49 06/05/2023 10:28:25 Caregiver role strain 678169135 Z73.3 ChronicSec ondary to being primary care [...] Carpal tolu robbie syndrome of right wrist 7315766234 32892 G56.01 New problemCar pal tunnel vs nerve compressio n.Pt previous right carpal tunnel release.Pt declines PT, will refer for EMG/NC study and refer to ortho for further evaluation /tx. 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 Advised warm, salt-water gargles several times daily, take otc pain relievers per package instructio ns, f/u with dental provider patrice. Call or be seen for any fever or worsening of sx.Keep upcoming appt for tooth extraction s on 06/18/23. [id number] Christiano Huber MD [facility]_[address] [address] 07/25/2023 11:47:08 07/25/2023 14:16:23 Pain in right hand 3787303180 91126 M79.068 [id number] Isaac Orourke DPM [facility] [place] [address] [facility] [address] [place] [address] 08/01/2023 13:48:00 08/02/2023 11:36:06 Acquired hallux limitus of right great toe 8978770981 450352 M20.5X1 Rice therapyedu cated on NSAIDs and topical NSAID userecomme nd orthoticsc onservativ e and surgical options reviewed, patient denies surgeryrec ommend stiff-sole d shoe or carbon plate for shoefollow -up x-rays Right Achi lles tendinitis 4488987166 42545 M76.61 educated on conditionS tretching and icing instructio ns reviewedAp ply Voltaren gel twice daily to area of painfollow -up in 2-3 weeks if not resolved will send to physical therapy [id number] Christiano Huber MD [address] [address] 12/05/2023 14:36:26 12/09/2023 09:57:21 Pain in right hand 2300789871 78151 M79.018 [id number] Christiano Huber MD [address] [address] 12/19/2023 10:13:59 12/19/2023 11:51:03 Carpal tunnel syndrome 52512231 G56.03 Health Concerns Section Related Observation LastModified by Organization Detai ls LastModified Time None Recorded Concern Status LastModified by Organization Details LastModified Time None Recorded Advance Directives Directive N: Payers Encounter Date Sequence Insurance Name Policy Number Policy Alonzo Covered Member ID Alonzo Member ID Guarantor Name 06/05/2023 1 [place] Larry C Lenzi [id number] Larry C Lenzi 06/05/2023 2 [employer] Larry C Lenzi [id number] Larry C Lenzi 07/25/2023 1 [place] Larry C Lenzi [id number] Larry C Lenzi 07/25/2023 2 [employer] Larry C Lenzi [id number] Larry C Lenzi 08/01/2023 1 [place] Larry C Lenzi [id number] Larry C Lenzi 08/01/2023 2 [employer] Larry C Lenzi [id number] Larry C Lenzi 12/05/2023 1 [place] Larry C Lenzi [id number] Larry C Lenzi 12/05/2023 2 [employer]ARP Larry C Lenzi [id number] Larry C Lenzi 12/19/2023 1 [place] Larry C Lenzi [id number] Larry C Lenzi 12/19/2023 2 AARP Larry C Lenzi [id number] Larry C Lenzi Notes Date Note Type Note Provider Name [...] sometimes feels he needs someone to unload on. TORI Paul [address], [place], [address], [employer] [facility] 06/05/2023 11:35:52 3 text/html . Patient is [...] other pedal complaints. Isaac Orourke DPM [address], [facility] [address], [place], [address], [employer] [facility] 08/01/2023 15:10:42 4 text/html Patient is [...] approximately 30 years ago. Christiano Huber MD [address] [place] [address], [place] [address], [place], [address], [facility] [employer] 12/08/2023 10:52:16 4 text/html Patient returns after [...] the numbness tingling sensation. Christiano Huber MD [address] [place] [address], [place], [address], [place] [facility] 12/19/2023 11:32:43
--- OUTSIDE RECORDS SUMMARY | 2025-03-11 02:31 | XMS_ITS | Encounter Summary ---
Author Organization [facility] Address [facility] [place] [address] Care Team Providers Care Theology Teacher Name Role Phone Unavailable Primary Care Provider Unavailabl e Encounter Details Date Type Department Care Team (Late st Contact Info) Description 06/25/2019 Lab Requisition [facility] [address] [facility], [facility] [place] [address] Suzie Naranjo MD [address] [facility] [address] [place] [address] Social History Tobacco Use Types Packs/Day Years Used Date Smoking Tobacco: Never Assessed Sex and Gender Information Value Date Recorded Sex Assigned at Not on file 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 Gender Identity Not on file Sexual Orientation Not on file documented as of this encounter Plan of Treatment Not on file documented as of this encounter Procedures Procedure Name Priority Date/Time Associated Diagnosis Comments DERMATOPATHOLOGY Routine 06/24/2019 12:0 0 AM CDT documented in this encounter Results * DERMATOPATHOLOGY (06/24/2019 12:00 AM CDT) Case Report Dermatopathology Report Case: [id number] Authorizing Provider: Suzie Naranjo MD Collected: 06/24/2019 12:00 AM Ordering Location: [facility] Received: 06/25/2019 05:51 AM Pathologist: [...] The specimen consists of a shave measuring [id number], bisected. Jar 0. 9 5:15 PM CDT [...] characteristic determined by the Dermatopathology Laboratory at [facility], directed by Dr. Demetrio Powell. These tests need not be, and therefore are not, approved by the [place] Food and Drug Administration. The tests are used for clinical purposes. Billing Codes Specimen Charges Stain Charges 36599 1 9 5:15 PM CDT DERMATOPATHOLOGY LABORATORY Embedded Images 9 5:15 PM CDT DERMATOPATHOLOGY LABORATORY Pathology/Cytolog y TISSUE SPECIMEN FROM SKIN / Unknown 06/24/2019 06/25/2019 5:51 AM CDT us Suzie Naranjo MD LAB - PATHOLOGY/CYTOLOGY OR DERABLES Final Result DERMATOPATHOLOGY LABORATORY [facility] - Department of Dermatology [facility] [facility], [address] [place] [address], [facility] [phone] documented in this encounter Visit Diagnoses Not on filedocumented in this encounter
--- OUTSIDE RECORDS SUMMARY | 2025-03-11 02:32 | XMS_ITS | Clinical Summary ---
Author Organization [facility] Address [address] [place] [address] Care Team Providers Care Circus Trainer Name Role Phone Unavailable Primary Care Provider Unavailabl e Source Comments [facility],non-owned Affiliates and Associated Physician Practices is amultiple site organization consisting of ambulatory clinics and hospital sitesin [place], [place], [place] and [place]. This disclosure is being madepursuant to the Care Everywhere program and may not contain all information available regarding this patient. 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
--- OUTSIDE RECORDS SUMMARY | 2025-03-11 02:32 | XMS_ITS | CONTINUITY OF CARE DOCUMENT ---
Author Name gisel, gisel Address Unknown Organization [facility] Address [address] [place] [address] Phone [phone] Care Team Providers Care Counter Clerk [employer] Name Role Phone Aye PATHAK, Favio Unavailable MARII HANSON MD Unavailable EDUAR FRASER MD Unavailable [phone] PROBLEMS Condition Status Date Provider Notes Aortic [...] In-person encounter Office Visit Favio Griffiths MD [facility] Pre-op cardiovascular examBradycardia - sinus;nml tsh;not due to rx - In-person encounter Office Visit Viraj Mcdermott MD [facility] CADColitis VITAL SIGNS Date Observation Value Provider Body Mass Index (Ratio) 26.11 kg/m2 Chucky Griffiths MD blood pressure, diastolic -1 mm[Hg] Kassandra nkLogvalentin blood pressure, systolic 143 mm[Hg] Sussy Malaveogic blood pressure, diastolic 86 mm[Hg] Man rret blood pressure, systolic 143 mm[Hg] Hillary [facility] pulse rate 54 /min Earl y blood pressure, cuff size regular [facility] oxygen saturation, oximetry 98 % [...] history of marijuana use no 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
--- OUTSIDE RECORDS SUMMARY | 2025-03-11 02:32 | XMS_ITS | Data Portability ---
[facility] Address [address] [place] [address] Care Team Providers Care Hospice Care Consultant Name Role Phone EDUAR GARNETT Primary Care Provider [phone] ELLI RADFORD Urologist [phone] KATEY MISTRY Press Setup Operator Assessment Encounter Date Assessment Date Assessment LastModified by Organization Details LastModified Time 05/05/2024 05/05/2024 we will obtain blood work that was done by his finisher wallboard and plasterboard. Continue current therapy. He will follow up with me in 6 months. I believe he is slated for possible orthopedic surgery for joint replacement Not available 05/16/2024 17:38:36 08/28/2024 08/28/2024 x-ray of the shoulder. I have offered physical therapy but he wants to hold off apparently he has got an appointment with his orthopedic surgeon in 8 days [email or web address] Not available 08/28/2024 22:04:46 11/10/2024 11/10/2024 continue current therapy he will not get his shoulder operate on now because he has to take care of his who has severe dementia he will get a flu shot. Healthy lifestyle care instructions. Follow up in 4 months [email or web address] Not available 11/10/2024 22:46:01 Plan of Treatment Reminders Order Date Submit Date Provider Last Modified By Organization Details Last Modified Time Details Appointments ANY 15 2024 02:15P Yasmin Garnett MD Not available Not available Not available Lab vitamin D, 25-hydrox y, total, serum 2023 024 [place] [facility], [address], [address] [address], [place], [address], 05/06/2024 08:28:30 PSA, total, serum or plasma 2023 [place] [facility], [address], [place], [address], 05/06/2024 08:28:30 Referral None recorded. Procedures None recorded. Surgeries None recorded. Imaging XR, shoulder 2023 024 [facility], [address], [place], [address], 09/01/2024 12:19:43 Medication Orders None recorded. Patient TargetsNo targets recorded. Patient Instructions Encounter Date Encounter Id Patient Instructions Last Modified By Organization Details Last Modified Time 08/28/2024 [id number] A healthy lifestyle: care instructions Not available 08/28/2024 22:05:03 11/10/2024 [id number] A healthy lifestyle: care instructions [email or web address] Not available 11/10/2024 18:31:59 Reason for Referral [...] t be inter prete d as absol [place] evide nce of the prese nce or absen ce of danna rosen disea se. Not Available [facility] ([facility]) [address], [place], [address], 05/06/2024 08:28:29 05/05/20 24 05/06/2024 VITAM IN [...] um and D. Jordin elias [place]: [facility] . 2. Meredith holliday MF, Marcia fields [place], Rhina off-F errar i EVANS, et al. Evalu ation , treat ment, and preve ntion of vitam in D defic iency : an Endoc rine Socie ty clini lorri pract ice guide line. JCEM. 2010; 96(7) :1911 -30. Not Available [facility] ([facility]) [address], [place], [address], 05/06/2024 08:28:30 05/11/20 24 05/09/2024 CT, coron linda calci um score No observ ation record ed. [facility] [address], [place], [address], 05/12/2024 12:19:39 05/11/20 24 05/09/2024 CT, coron linda calci um score No observ ation record ed. [facility] [address], [place], [address], 05/12/2024 12:20:07 07/13/20 24 07/13/2024 XR, shoul rosi No observ ation record ed. [address], [place], [address], 07/13/2024 17:08:33 07/13/20 24 07/13/2024 XR, hip + pelvi s, unila teral , 1 view No observ ation record ed. [address], [place], [address], 07/13/2024 16:39:24 09/01/20 24 09/01/2024 XR, shoul rosi No observ ation record ed. [address], [place], [address], 09/04/2024 15:35:00 09/01/20 24 09/01/2024 XR, shoul rosi No observ ation record ed. [address] [address], [place], [address], 09/04/2024 15:35:01 01/28/20 25 01/27/2025 CT, abdom en + pelvi s, w/wo contr ast No observ ation record ed. [address], [place], [address], 02/02/2025 16:52:01 01/28/20 25 01/27/2025 XR, kidne y + urete r + bladd er No observ ation record ed. [address] [facility], [place], [address], 02/02/2025 16:52:01 Result Notes None recorded. Problems Name Problem SNOMED Code Status Onset Date Resolution Date Notes Provider Name and Address Organization Details Recorded Time Screening for malignant neoplasm of prostate Active 024 MIGUEL Robles, [facility] 4 16:24:21 Ulcerative colitis 56248475 Active 024 MIGUEL Robles, GILLIAN - [facility] 4 16:24:22 Problem Notes None recorded. Procedures Surgical History Date Name Laterality Status Provider Name and Address Organization Details Recorded Time 03/24/20 24 Carpal tunnel surgery completed Shannanarianna Delgado MA [facility] 05/05/2024 15:16:48 10/14/19 21 Cholecystectomy completed Shannanarianna Delgado MA [facility] 05/05/2024 15:16:30 total replacement of hip completed Pedrito Rojo MA [facility] 08/28/2024 15:58:32 Imaging Results None recorded. Procedure Notes None [...] Updated DateTime 5 175.26 cm 27.7 kg/m2 54192.0 1 g 56 /min 97 % 97 % 124 mm[Hg] 68 mm[Hg] Eleanor Hudson MA [facility] 5 15:33:01 Date Recorded Body height Body mass index (BMI) Body weight Oxygen saturation Oxygen saturation in Arterial blood by Pulse oximetry Heart rate Systolic blood pressure Diastolic blood pressure Provider Name and Address Organization Details Last Updated DateTime 4 175.26 cm 26.8 kg/m2 63345.0 2 g 97 % 97 % 64 /min 124 mm[Hg] 70 mm[Hg] Shannan Delgado MA [facility] 4 15:20:15 Date Recorded Body height Body mass index (BMI) Body weight Heart rate Oxygen saturation Oxygen saturation in Arterial blood by Pulse oximetry Systolic blood pressure Diastolic blood pressure Provider Name and Address Organization Details Last Updated DateTime 4 175.26 cm 27.5 kg/m2 86714.1 8 g 64 /min 96 % 96 % 140 mm[Hg] 84 mm[Hg] Pedrito Rojo MA [facility] 4 16:01:29 Social History Question Answer Notes LastModified by Organizat ion Details LastModified Time Tobacco Smoking Status Former Smoker quit 40 years ago Shannan Delgado MA null, [facility] 05/05/2024 15:14:06 Are You Blind Or Do [...] anxious, or unable to sleep at night)? [id number] Information not available 05/05/2024 Family History Relationship Description Onset Age of this Age Resolved Age Notes LastModified by Organization Details LastModified Time Father History of blood disorder [email or web address] Not available 2024 16:40:06 Maternal Grandmother Malignant neoplasm of bone [email or web address] Not available 2024 16:40:20 Medical History Condition Response Coronary Artery Disease N Other N Atrial Fibrillation N High Blood Pressure N Thyroid Problems N Kidney or Bladder Problems Y Depression N COPD N Blood Clots N GI Problems Y Have you had a mammogram in the last yea r? N Skin Problems N Anemia N Heart Attack ([place]) N Diabetes N Anxiety Disorder N Muscle, Joint, or Bone Problems N Seizures/Epilepsy N Have you had a colonoscopy in the last 1 0 years? Y Acid Reflux (GERD) N Cancer N Stroke N Allergies N Asthma N Have you had a PSA blood test in the t year? Y High Cholesterol N Hepatitis [...] [facility] 05/05/2024 15:03:19 zoster live 6 completed Shannan Delgado, [place] null, [place] [...] [facility] 05/05/2024 15:03:19 Influenza, high-dose, trivalent, PF completed Eduar Garnett MD Attn: Accounting,[address] [place], [place], [address], [facility] 11/10/2024 22:45:12 Past Encounters Encounter ID Performer Location Encounter Start Date Encounter Closed Date Diagnosis/Indication Diagnosis SNOMED-CT Code Diagnosis ICD10 Code Diagnosis Note [id number] Eduar Garnett MD [facility] (Adult Med) [address] [place] [phone] 05/05/2024 14:59:05 05/05/2024 16:29:51 Screening for malignant neoplasm of prostate 551945820 Z12.5 Ulcerative colitis 09038 004 K51.90 [id number] Eduar Garnett MD [facility] (Adult Med) [address] [place] [id number] 08/28/2024 15:13:42 08/28/2024 16:46:57 Overweight 886155811 E66.3 Pain of [facility] region 20123038 M25.[id number] [facility] (Adult Med) [address] [place] [address] [phone] 11/10/2024 14:29:55 11/10/2024 16:37:22 Body mass index 25-29 - overweight 339264406 Z68.27 Overweight 596437916 E66 .3 Administra tion of influenza vaccine 59599287 Z23 Vitamin D below reference range 501564348 E55.9 Health Concerns Section Related Observation LastModified by Organization Detai ls LastModified Time None Recorded Concern Status LastModified by Organization Details LastModified Time None Recorded Advance Directives Directive None Recorded Payers Encounter Date Sequence Insurance Name Policy Number Policy Alonzo Covered Member ID Alonzo Member ID Guarantor Name 05/05/2024 1 [place] Larry Bernabe [id number] Larry Bernabe 08/28/2024 1 [place] Larry Bernabe [id number] Larry Bernabe 11/10/2024 1 [place] Larry Bernabe [id number] Larry Bernabe Notes Date Note Type [...] not 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 or 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 Eduar Garnett MD Attn: Accounting, [address] [place], [address], [place] - [facility] 05/16/2024 17:38:53 08/28/2024 text/html he fell a couple of days ago and he has got pain in his left shoulder no numbness tingling was a mechanical fall did not hit his head did not lose consciousness no neck pain lobar no lower back pain or other injury Eduar Garnett MD Attn: Accounting, [address] [place], [address], [place] [facility] 08/28/2024 22:05:07 11/10/2024 text/html he is not going to get shoulder surgery currently ulcerative colitis is doing fine BPH symptoms stable Eduar Garnett MD Attn: Accounting, [address] [place], [address], [place] [facility] 11/10/2024 22:46:35
--- OUTSIDE RECORDS SUMMARY | 2025-03-11 02:32 | XMS_ITS | Continuity of Care Document ---
Author Name [facility] Organization [facility] Care Team Providers Care Teaching Dietitian Name Role Phone [facility] Unavailable Unavailable Encounters [...] ADM Date DC Date Status Disposition Source [facility] Outpatient Encounter [id number] 11/24 [facility] [place]
--- OUTSIDE RECORDS SUMMARY | 2025-03-11 02:32 | XMS_ITS | Data Portability ---
Author Organization [place] - [facility] Address [address] [place] [address] Care Team Providers Care Copper Plate Printer Name Role Phone LOUIE BARAHONA Primary Care [...] and Address Organization Details Recorded Time Backache 849629121 Active Not Available [facility] 3 21:47:12 Abdominal pain 43639642 Active 2020 Not Available [facility] 3 21:47:12 Benign prostatic hyperplasia 682551319 Active Not Available [facility] 3 21:47:12 Neuropathy 579213318 Active 2018 Not Available [facility] 3 21:47:12 Osteoarthriti s 058707475 Active 2021 Not Available [facility] 3 21:47:12 Dizziness 767528885 Active Not Available [facility] 3 21:47:12 Carotid bruit 294889679 Active Not Available [facility] 3 21:47:12 Cough 23015122 Active Not Available [facility] 3 21:47:12 Upper respiratory infection 46118005 Active Not Available [facility] 3 21:47:12 Hyperlipidemi a 09805118 Active Not Available [facility] 3 21:47:12 Colitis 61369251 Active Not Available [facility] 3 21:47:12 Ulcerative colitis 97152495 Active 2016 Not Available [facility] 3 21:47:12 Notes:c. diff colitis Problem Notes None recorded. Procedures Surgical History Date Name Laterality Status Provider Name and Address Organization Details Recorded Time 07/24/20 colonoscopy completed Not Available [facility] 10/20/2022 21:39:39 Carpal tunnel surgery completed Not Available [facility] 10/20/2022 21:39:39 Cataract Surgery completed Not Available [facility] 10/20/2022 21:39:39 Knee arthroscopy/surger y completed Not Available [facility] 10/20/2022 21:39:39 Rotator cuff surgery completed Not Available [facility] 10/20/2022 21:39:39 laparoscopic cholecystectomy completed Not Available [facility] 10/20/2022 21:39:39 Imaging Results None recorded. Procedure [...] oral route for 30 days. active ID# [id number] called to get tier 2 @ [...] Not Available Not Available Not Available Fluvirin 0459-6279 45 mcg (15 mcg x 3)/0.5 mL [...] Updated DateTime 03/29/2022 29.5 kg/m2 172.72 cm 07024.92 g Not Available [facility] 10/20/2022 21:43:59 Date Recorded Body height Provider Name an d Address Organization Details Last Updated DateTime 05/10/2022 172.72 cm Not Available [facility] 3 21:43:55 Date Recorded Body height Provider Name an d Address Organization Details Last Updated DateTime 08/09/2022 172.72 cm Not Available [facility] 3 21:43:55 Date Recorded Body mass index (BMI) Body height Oxygen saturation Oxygen saturation in Arterial blood by Pulse oximetry Heart rate Body temperature Body weight Systolic blood pressure Diastolic blood pressure Provider Name and Address Organization Details Last Updated DateTime 2 28 kg/m2 172.72 cm 97 % 97 % 84 /min 97.1 [degF] 07876 g 136 mm[Hg] 72 mm[Hg] Not Available [facility] 3 21:43:54 Date Recorded Body height Provider Name an d Address Organization Details Last Updated DateTime 2022 172.72 cm Not Available [facility] 3 21:43:55 Social History Question Answer Notes LastModified by Organizat ion Details LastModified Time Tobacco Smoking Status Former Smoker quit 1974 Not Available [facility] 10/20/2022 21:38:35 Do You Have An Advance Directive? No MIGRATION.66722 05357 Information not available 10/20/2022 Are You Blind Or Do You Have Difficulty Seeing? No MIGRATION.49265 05566 Information not available 10/20/2022 What Is Your Level Of Caffeine Consumption? Occasional MIGRATION.08042 22426 Information not available 10/20/2022 How Much Tobacco Do You Chew? None MIGRATION.27989 17137 Information not available 10/20/2022 In The 14 Days Before Symptom Onset, Have You Had Close Contact With A Laboratory-confi rmed COVID-19 While That Case Was Ill? No MIGRATION.96486 63570 Information not available 10/20/2022 In The 14 Days Before Symptom Onset, Have You Had Close Contact With A Person Who Is Under Investigation For COVID-19 While That Person Was Ill? No MIGRATION.41074 11281 Information not available 10/20/2022 Are You Deaf Or Do You Have Serious Difficulty Hearing? No MIGRATION.03493 93637 Information not available 10/20/2022 What Type Of Diet Are You Following? REGULAR MIGRATION.55004 51967 Information not available 10/20/2022 Which Illicit Or Recreational Drugs Have You Used? None MIGRATION.08048 51164 Information not available 10/20/2022 Have There Been Any Changes To Your Family Or Social Situation? No MIGRATION.45300 29981 Information not available 10/20/2022 Are There Any Guns Present In Your Home? Yes MIGRATION.63571 41584 Information not available 10/20/2022 Do You Use Insect Repellent Routinely? No MIGRATION.28015 24921 Information not available 10/20/2022 Where Do You Live? [facility] MIGRATION.99277 06990 Information not available 10/20/2022 Are You In An Abusive/frighten ing Relationship? No MIGRATION.51341 88711 Information not available 10/20/2022 Do You Feel Safe At Home Yes MIGRATION.20276 87578 Information not available 10/20/2022 Do You Have A Medical Power Of Cable Installation Manager? No MIGRATION.24619 96431 Information not available 10/20/2022 What Was The Date Of Your Most Recent Tobacco Screening? 11/08/2021 MIGRATION.90923 04816 Information not available 10/20/2022 What Is Your Relationship Status? MIGRATION.00276 79456 Information not available 10/20/2022 Do You Use Your Seat Belt Or Car Seat Routinely? Yes MIGRATION.57869 70070 Information not available 10/20/2022 Do You Have Smoke And Carbon Monoxide Detectors In Your Home? Yes MIGRATION.53380 18330 Information not available 10/20/2022 Are You Passively Exposed To Smoke? No MIGRATION.17081 39136 Information not available 10/20/2022 Are There Any Smokers In Your House? No MIGRATION.84089 54501 Information not available 10/20/2022 How Much Tobacco Do You Smoke? No MIGRATION.68016 70801 Information not available 10/20/2022 Do You Use Sunscreen Routinely? No MIGRATION.90960 13753 Information not available 10/20/2022 Has Tobacco Cessation Counseling Been Provided? No N/A MIGRATION.63697 55905 Information not available 10/20/2022 Have You Recently Traveled Abroad? No MIGRATION.83246 95374 Information not available 10/20/2022 Do You Have Difficulty Walking Or Climbing Stairs? No MIGRATION.26310 75574 Information not available 10/20/2022 Do You Have Any Dietary Restrictions? No MIGRATION.36406 86252 Information not available 10/20/2022 Sex: Unknown Functional Status Question Answer Note LastModified by Organizat ion Details LastModified Time Do you use any illicit or recreational drugs? No MIGRATION.097145 7720 Information not available 10/20/2022 Do you or have you ever used any other forms of tobacco or nicotine? No MIGRATION.200064 8993 Information not available 10/20/2022 What is your level of alcohol consumption? None MIGRATION.538934 9696 Information not available 10/20/2022 Do you or have you ever used smokeless tobacco? Never used smokeless tobacco MIGRATION.686190 0297 Information not available 10/20/2022 Are you currently employed? No MIGRATION.065697 4186 Information not available 10/20/2022 Do you have transportation difficulties? No MIGRATION.426472 9406 Information not available 10/20/2022 Are you able to walk? [place]WOREST MIGRATION.989241 6994 Information not available 10/20/2022 Do you have difficulty doing errands alone? No MIGRATION.713959 3875 Information not available 10/20/2022 What is your occupation? retired MIGRATION.748055 8541 Information not available 10/20/2022 Do you have difficulty dressing or bathing? No MIGRATION.004165 6367 Information not available 10/20/2022 Do you or have you ever used e-cigarettes or vape? Never used electronic cigarettes MIGRATION.638573 5098 Information not available 10/20/2022 What is your exercise level? Moderate MIGRATION.969798 7795 Information not available 10/20/2022 Mental Status Question Answer Note LastModified by Organizat ion Details LastModified Time Do you feel stressed (tense, restless, nervous, or anxious, or unable to sleep at night)? [id number] MIGRATION.83886147 00 Information not available 10/20/2022 Do you have difficulty concentrating, remembering or making decisions? No MIGRATION.13763605 00 Information not available 10/20/2022 Family History Relationship Description Onset Age of this Age Resolved Age Notes LastModified by Organization Details LastModified Time Father History of blood disorder low platel ets MIGRATION.[id number] Not available 10/20/2022 21:39:43 Maternal Grandmother Malignant neoplasm of bone MIGRATION.342 [id number] Not available 10/20/2022 21:39:43 Medical History Condition Response URINARY/BLADDER/KIDNEY PROBLEMS Y NERVE DISEASE Y BOWEL PROBLEMS DIZZINESS Y HIGH CHOLESTEROL / HYPERLIPIDEMIA Y Immunizations Vaccine Type Date Status Note Provider Nam e and Address Organization Details Recorded Time Influenza, split virus, quadrivalent, preservative 7 completed Not Available [facility] 10/20/2022 21:53:50 Influenza, high-dose, trivalent, PF 6 completed Not Available [facility] 10/20/2022 21:53:50 Influenza, split virus, quadrivalent, preservative 0 completed Not Available [facility] 10/20/2022 21:53:50 Influenza, split virus, quadrivalent, preservative 9 completed Not Available [facility] 10/20/2022 21:53:50 zoster live 6 completed Not Available [facility] 10/20/2022 21:53:50 Influenza, split virus, quadrivalent, preservative 5 completed Not Available [facility] 10/20/2022 21:53:50 Influenza, split virus, trivalent, preservative 4 completed Not Available [facility] 10/20/2022 21:53:51 Influenza, high-dose, quadrivalent, PF 2 completed Not Available [facility] 10/20/2022 21:53:51 Influenza, high-dose, quadrivalent, PF 1 completed Not Available [facility] 10/20/2022 21:53:51 Pneumococcal conjugate PCV 13 7 completed Not Available [facility] 10/20/2022 21:53:51 Past Encounters Encounter ID Performer Location Encounter Start Date Encounter Closed Date Diagnosis/Indication Diagnosis SNOMED-CT Code Diagnosis ICD10 Code Diagnosis Note [id number] Nyla Hamilton MD [facility] GASTROENT EROLOGY [address] [facility] [address] [place] [address] 03/08/2021 00:00:00 03/16/2021 14:40:23 [id number] _ATHN_MIGR ATION_5 _ATHENA_M IGRATION_ DEFAULT_1 _5 , 07/12/2021 00:00:00 07/12/2021 10:54:00 [id number] _ATHN_MIGR ATION_5 _ATHENA_M IGRATION_ DEFAULT_1 _5 , 08/10/2021 00:00:00 08/10/2021 13:19:03 [id number] _ATHN_MIGR ATION_5 _ATHENA_M IGRATION_ DEFAULT_1 _5 , 08/22/2021 00:00:00 08/23/2021 10:53:03 [id number] _ATHN_MIGR ATION_5 _ATHENA_M IGRATION_ DEFAULT_1 _5 , 11/09/2021 00:00:00 11/13/2021 18:01:24 [id number] _ATHN_MIGR ATION_5 _ATHENA_M IGRATION_ DEFAULT_1 _5 , 01/04/2022 00:00:00 01/04/2022 14:16:13 [id number] _ATHN_MIGR ATION_5 _ATHENA_M IGRATION_ DEFAULT_1 _5 , 01/11/2022 00:00:00 01/11/2022 17:54:54 [id number] _ATHN_MIGR ATION_5 _ATHENA_M IGRATION_ DEFAULT_1 _5 , 03/29/2022 00:00:00 03/29/2022 12:48:43 [id number] _ATHN_MIGR ATION_5 _ATHENA_M IGRATION_ DEFAULT_1 _5 , 05/10/2022 00:00:00 05/10/2022 12:01:04 [id number] _ATHN_MIGR ATION_5 _ATHENA_M IGRATION_ DEFAULT_1 _5 , 08/09/2022 00:00:00 08/09/2022 14:54:14 [id number] _ATHN_MIGR ATION_5 _ATHENA_M IGRATION_ DEFAULT_1 _5 , 08/27/2022 00:00:00 08/27/2022 15:17:55 [id number] _ATHN_MIGR ATION_5 _ATHENA_M IGRATION_ DEFAULT_1 _5 , 2022 00:00:00 2022 17:45:18 Health Concerns Section Related Observation LastModified by Organization Detai ls LastModified Time None Recorded Concern Status LastModified by Organization Details LastModified Time None Recorded Advance Directives Directive N: Payers Insurance Date Sequence Insurance Name Policy Number Policy Alonzo Covered Member ID Alonzo Member ID Guarantor Name 10/20/2022 1 [place] Larry Bernabe [id number] Larry Bernabe 10/20/2022 2 AARP Larry Bernabe [id number] Larry Bernabe 10/20/2022 [employer]POS ASSIGNED (MEDICARE DME REGION B) Larry Bernabe [id number] Larry Bernabe
[2025-03-11 08:06] VITALS: BP 126/68; PULSE 96; RESP 16; TEMP 36.8; O2SAT 100; BMI 25.3
[2025-03-11] MEDS: LACTATED RINGERS 1,000 ML 150 ML IV CONT (08:16)
--- NOTE | 2025-03-11 08:53 | P.PNAN_ITS ---
Anes - Initial Pre Proc Eval Procedure: Operation Date: 03/11/25 09:30 Proposed Procedures p Colonoscopy - Al Law MD Date/Time: 03/11/25 08:53 Surgeon: Al Law MD Pre Op Diagnosis: Ulcerative pancolitis Patient Data Age: 79 Gender: M Height: 1.78 m Weight: 80.2 kg Last Vital Signs Temp 98.3 F 03/11/25 08:06 Pulse 96 03/11/25 08:06 Resp 16 03/11/25 08:06 BP 126/68 03/11/25 08:06 Pulse Ox 100 03/11/25 08:06 O2 Del Method Room Air 03/11/25 08:06 Allergies Allergy/AdvReac Type Severity Reaction Status Date / Time No Known Allergies Allergy Verified 03/11/25 08:04 Home Medications ?Medication ?Instructions ?Recorded ?Confirmed ?Type tamsulosin 0.4 mg capsule (Flomax) 0.4 mg PO HS #30 caps 07/14/24 03/11/25 Rx balsalazide 750 mg capsule 2,250 mg PO TID 10/09/24 03/02/25 History diclofenac sodium 75 mg See Rx Instructions .Route 01/13/25 03/02/25 Rx tablet,delayed release .COMPLEX #60 tabs ergocalciferol (vitamin D2) 1,250 1,250 mcg PO WEEKLY 02/16/25 03/11/25 History mcg (50,000 unit) capsule sulfamethoxazole 800 1 tablet PO Q12H #6 tabs 03/02/25 03/11/25 Rx mg-trimethoprim 160 mg tablet (Bactrim DS) tramadol 50 mg tablet 50 mg PO Q6H PRN pain #10 tabs 03/02/25 03/11/25 Rx Patient hx anesthesia problems: none Family hx anesthesia problems: none Results Review: All pre-operative results and documents have been reviewed as part of the pre- operative evaluation. [facility] Past Medical History Medical History Elevated coronary artery calcium score (04/2024) Mildly elevated per patient report. Arthritis Ulcerative colitis Surgical History Surgical History History of laser assisted in situ keratomileusis History of nasal septoplasty History of arthroscopy of left knee History of total right hip arthroplasty (07/13/24) History of carpal tunnel surgery of right wrist (02/18/24) History of cholecystectomy (2020) History of cervical spinal surgery Social History Social History (Updated 01/06/25 @ 09:47 by Melinda To [facility] [address]) Social History: Surrogate medical decision maker: Melinda Galeana, daughter. Code status: Full code. Smoking packs per day: 1 Smoking cigarettes per day: 20.0 Years smoked: 20 Smoking pack-years: 20.00 Smoking status: Never smoker Second hand tobacco smoke exposure: No Alcohol intake: never Substance use: never Substance use type: does not use Current Housing: Decline to Answer Concerned About Future Housing: Decline to Answer Difficulty Paying Gas/Electric Bills: Decline to Answer Difficulty Paying for Meds: Decline to Answer Currently Unemployed: Decline to Answer Education: Decline to Answer Difficulty w/ Childcare or Family Care: Decline to Answer Living arrangements: with family Additional living arrangements comments: Lives with spouse share in in [place]. Occupation/Education: retired Additional occupation/education comments: [employer]. Gender identity (if verbalized by the patient): Male Spiritual care concerns: No Anes - Eval Final PreProcedure Day of Procedure 03/11/25 08:53 Patient weight: normal Heart: regular rate and rhythm Lungs: clear to auscultation Airway: Mallampati scale class II Neurological: alert and oriented Last oral intake: >/= 8 hours ASA classification: III Emergent: no Anesthetic plan: proceed Anesthesia type and monitoring: general GIVS and standard monitoring Results Review: All pre-operative results and documents have been reviewed as part of the pre- operative evaluation. Informed Consent: The patient's anesthetic plan and its attendant risks and benefits were disc ussed with the patient/family/POA. Questions were solicited and answers provided to the satisfaction of the patient/family/POA.
--- NOTE | 2025-03-11 09:19 | PM.HPGS ---
History of Present Illness History of Present Illness Consent: Risks, benefits, and alternatives have been discussed and questions answered. Patient agrees to proceed with procedure. Chief complaint: Ulcerative pancolitis Narrative: Larry Bernabe is a 79 year old male with ulcerative colitis since mid only on balsalazide, biologic naive. As long as he is taking his medication he does not have issues. Last colonoscopy [address] Jernigan with colitis right colon. Review of Systems Review of Systems: All systems reviewed & are unremarkable except as noted in HPI and below PMFSH Past Medical History Medical History Elevated coronary artery calcium score (04/2024) Mildly elevated per patient report. Arthritis Ulcerative colitis Surgical History Surgical History History of laser assisted in situ keratomileusis History of nasal septoplasty History of arthroscopy of left knee History of total right hip arthroplasty (07/13/24) History of carpal tunnel surgery of right wrist (02/18/24) History of cholecystectomy (2020) History of cervical spinal surgery Social History Social History (Updated 01/06/25 @ 09:47 by Melinda To [facility]) Social History: Surrogate medical decision maker: Melinda Galeana, daughter. Code status: Full code. Smoking packs per day: 1 Smoking cigarettes per day: 20.0 Years smoked: 20 Smoking pack-years: 20.00 Smoking status: Never smoker Second hand tobacco smoke exposure: No Alcohol intake: never Substance use: never Substance use type: does not use Current Housing: Decline to Answer Concerned About Future Housing: Decline to Answer Difficulty Paying Gas/Electric Bills: Decline to Answer Difficulty Paying for Meds: Decline to Answer Currently Unemployed: Decline to Answer Education: Decline to Answer Difficulty w/ Childcare or Family Care: Decline to Answer Living arrangements: with family Additional living arrangements comments: Lives with spouse share in in [place]. Occupation/Education: retired Additional occupation/education comments: [employer]. Gender identity (if verbalized by the patient): Male Spiritual care concerns: No Meds Home Medications and Allergies Home Medications ?Medication ?Instructions ?Recorded ?Confirmed ?Type tamsulosin 0.4 mg capsule (Flomax) 0.4 mg PO HS #30 caps 07/14/24 03/11/25 Rx balsalazide 750 mg capsule 2,250 mg PO TID 10/09/24 03/02/25 History diclofenac sodium 75 mg See Rx Instructions .Route 01/13/25 03/02/25 Rx tablet,delayed release .COMPLEX #60 tabs ergocalciferol (vitamin D2) 1,250 1,250 mcg PO WEEKLY 02/16/25 03/11/25 History mcg (50,000 unit) capsule sulfamethoxazole 800 1 tablet PO Q12H #6 tabs 03/02/25 03/11/25 Rx mg-trimethoprim 160 mg tablet (Bactrim DS) tramadol 50 mg tablet 50 mg PO Q6H PRN pain #10 tabs 03/02/25 03/11/25 Rx Allergies Allergy/AdvReac Type Severity Reaction Status Date / Time No Known Allergies Allergy Verified 03/11/25 08:04 Vital Signs Vital Signs - 24 hr 03/11/25 08:06 Temperature 98.3 F Pulse Rate 96 Respiratory Rate 16 Blood Pressure 126/68 Pulse Oximetry 100 Oxygen Delivery Room Air Exam Const: General: comfortable and no acute distress HENMT: Face/Nose/Sinus: Normal nares present Eyes: General: appearance normal, both eyes and all related structures Neck: Neck: no JVD Resp: Auscultation: clear to auscultation bilaterally Cardio: Rate: regular rate Rhythm: regular rhythm GI: Inspection: non-distended GI Palp: Yes Soft to palpation Skin: General skin exam: normal color Neuro: General: gait normal Speech: normal speech Extrem: General: normal to inspection Psych: Mental Status: mental status grossly normal Assessment and Plan Assessment and plan (1) Ulcerative colitis: Code(s): K51.90 - Ulcerative colitis, unspecified, without complications Status: Acute Assessment and Plan: colonoscopy with bx for surveillance on balsalazide will follow up in office in 3-4 months
--- NOTE | 2025-03-11 09:26 | S_PTH ---
PATIENT: Larry Bernabe LOC: [facility]#:[id number] AGE/SX: 79/M ROOM: RE03/11/[address]: Al Law MD : 1945 BED: DIS: 03/11/2025 SPEC #: [id number] RECD: 03/11/25 10:55 STATUS: ARIANA LORENZO #: [id number] NATHALY: 03/11/25 09:[address]: Al Law DEPT: [facility] Surgical RECD BY: Melisa Chino ENTERED: 03/11/25 10:56 SP TYPE: Surgical OTHR DR: Doug GarnettMD Tissues: A - Colon Biopsy B - Colon Biopsy C - Colon Biopsy D - Colon Polypectomy Procedures: Hematoxylin and Eosin Stain Gross and Microscopic Level 4
[2025-03-11 09:38] VITALS: BP 108/71; PULSE 76; RESP 20; O2SAT 97
[2025-03-11 09:48] VITALS: BP 121/81; PULSE 76; RESP 20; O2SAT 97
[2025-03-11 09:58] VITALS: BP 166/85; PULSE 78; RESP 20; O2SAT 97
== END 2025-03-11 10:10 | disposition home or self-care (01) ==
PROVIDERS: PCP Internal Medicine; Referring Provider Internal Medicine Gastroenterology; Visit Provider Internal Medicine Gastroenterology
PROC: 0DJD8ZZ Inspection of Lower Intestinal Tract, Via Natural or Artificial Opening Endoscopic (ICD-10-PCS; CPT 45378; principal; 2025-03-11 09:30)
DX: K51.811 Other ulcerative colitis with rectal bleeding (principal); K63.5 Polyp of colon; K57.30 Diverticulosis of large intestine without perforation or abscess without bleeding; M19.90 Unspecified osteoarthritis, unspecified site; Z79.891 Long term (current) use of opiate analgesic; Z98.890 Other specified postprocedural states; Z90.49 Acquired absence of other specified parts of digestive tract; Z98.1 Arthrodesis status
CPT/HCPCS: 45380; 45385; 88305; J2003; J2704; J7120

== ENCOUNTER 2025-04-17 09:53 | Outpatient (CLI) | payer MEDICARE, SELFPAY ==
--- NOTE | ~2025-04-17 | CT_ITS ---
CT Scan of the Chest without Contrast: Clinical Indication: Pulmonary nodule Technique: Contiguous sections were acquired throughout the chest without intravenous contrast. Dose reduction technique was used on this scan by utilizing automated exposure control and iterative recon struction technique. The dose-length product (DLP) was 217.09 mGy-cm. COMPARISON: 01/27/2025 Findings: There is no evidence of any significant mediastinal, hilar or axillary lymphadenopathy. Ascending aor tic aneurysm measures 4.6 cm in diameter.. There is no evidence of pleural or pericardial effusion. There is a group of small irregular subcentimeter nodules in the right middle lobe (axial images 55-6 1). 2 mm nodule right middle lobe is unchanged (axial image 79). Stable 4 mm left basilar pulmonary n odule (axial image 96). Images through the upper abdomen reveal nonobstructing renal stones, largest in the left kidney measu ring 9 mm.. Impression: Subcentimeter pulmonary nodules, as above, most likely benign. Consider annual follow-up exam. 4.6 cm ascending aortic aneurysm. Nephrolithiasis, as above. Reviewed, dictated and finalized at [facility]. Impression: Subcentimeter pulmonary nodules, as above, most likely benign. Consider annual follow-up exam. 4.6 cm ascending aortic aneurysm. Nephrolithiasis, as above.
--- OUTSIDE RECORDS SUMMARY | 2025-04-17 09:57 | XMS_ITS | Encounter Summary ---
Author Organization [facility] Address [address] [address] [place] [address] Care Team Providers Care Regional Facilities Manager Name Role Phone Unavailable Primary Care Provider Unavailabl e Encounter Details Date Type Department Care Team (Late st Contact Info) Description 06/25/2019 Lab Requisition [facility] Derm[facility] Lab [address] [facility] [facility] [place] [address] Suzie Naranjo MD [address] [facility] [address] [place] [address] Social History Tobacco Use Types Packs/Day Years Used Date Smoking Tobacco: Never Assessed Sex and Gender Information Value Date Recorded Sex Assigned at Not on file Legal Sex Male 5:52 AM [employer]AKING [employer]ORY WORK[employer] Gender Identity Not on file Sexual Orientation Not on file documented as of this encounter Plan of Treatment Not on file documented as of this encounter Procedures Procedure Name Priority Date/Time Associated Diagnosis Comments DERMATOPATHOLOGY Routine 06/24/2019 12:0 0 AM CDT documented in this encounter Results * DERMATOPATHOLOGY (06/24/2019 12:00 AM CDT) Case Report Dermatopathology Report Case: [id number] Authorizing Provider: Suzie Naranjo MD Collected: 06/24/2019 12:00 AM Ordering Location: [facility] D[facility] Lab Received: 06/25/2019 05:51 AM Pathologist: [...] The specimen consists of a shave measuring [id number], bisected. Jar 0. 9 5:15 PM CDT [...] characteristic determined by the Dermatopathology Laboratory at [facility], directed by Dr. Demetrio Powell. These tests need not be, and therefore are not, approved by the [place] Food and Drug Administration. The tests are used for clinical purposes. Billing Codes Specimen Charges Stain Charges 53188 1 9 5:15 PM CDT DERMATOPATHOLOGY LABORATORY Embedded Images 9 5:15 PM CDT DERMATOPATHOLOGY LABORATORY Pathology/Cytolog y TISSUE SPECIMEN FROM SKIN / Unknown 06/24/2019 06/25/2019 5:51 AM CDT us Suzie Naranjo MD LAB - PATHOLOGY/CYTOLOGY OR DERABLES Final Result DERMATOPATHOLOGY LABORATORY [facility] - Department of Dermatology [facility] [facility], [address] [place] [address], [facility] [phone] documented in this encounter Visit Diagnoses Not on filedocumented in this encounter
--- OUTSIDE RECORDS SUMMARY | 2025-04-17 09:57 | XMS_ITS | Continuity of Care Document ---
Author Name [facility] Organization [facility] Care Team Providers Care Live Ammunition Inspector Name Role Phone [facility] Unavailable Unavailable Encounters [...] ADM Date DC Date Status Disposition Source [facility] Outpatient Encounter [id number] 11/24 [facility] [place]
--- OUTSIDE RECORDS SUMMARY | 2025-04-17 09:57 | XMS_ITS | Clinical Summary ---
Author Organization [facility] Address [address] [place] [address] Care Team Providers Care Mobility Specialist Name Role Phone Unavailable Primary Care Provider Unavailabl e Source Comments [facility],non-owned Affiliates and Associated Physician Practices is amultiple site organization consisting of ambulatory clinics and hospital sitesin [place], [place], [place] and [place]. This disclosure is being madepursuant to the Care Everywhere program and may not contain all information available regarding this patient. 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
--- OUTSIDE RECORDS SUMMARY | 2025-04-17 09:57 | XMS_ITS | Data Portability ---
Author Organization [place] [facility] Address [address] [place] [address] Care Team Providers Care Public Relations Professional Name Role Phone LOUIE BARAHONA Primary Care Provider LOUIE BARAHONA Referring Provider [phone] Assessment No assessment recorded. Plan of Treatment [...] and Address Organization Details Recorded Time Backache 929886931 Active Not Available [facility] 3 21:47:12 Abdominal pain 43135277 Active 2020 Not Available [facility] 3 21:47:12 Benign prostatic hyperplasia 888287654 Active Not Available [facility] 3 21:47:12 Neuropathy 224820227 Active 2018 Not Available [facility] 3 21:47:12 Osteoarthriti s 166701729 Active 2021 Not Available [facility] 3 21:47:12 Dizziness 045753749 Active Not Available [facility] 3 21:47:12 Carotid bruit 281435203 Active Not Available [facility] 3 21:47:12 Cough 15264175 Active Not Available [facility] 3 21:47:12 Upper respiratory infection 87524959 Active Not Available [facility] 3 21:47:12 Hyperlipidemi a 64121304 Active Not Available [facility] 3 21:47:12 Colitis 56178742 Active Not Available [facility] 3 21:47:12 Ulcerative colitis 84872611 Active 2016 Not Available [facility] 3 21:47:12 Notes:c. diff colitis Problem Notes None recorded. Procedures Surgical History Date Name Laterality Status Provider Name and Address Organization Details Recorded Time 07/24/20 colonoscopy completed Not Available [facility] 10/20/2022 21:39:39 Carpal tunnel surgery completed Not Available [facility] 10/20/2022 21:39:39 Cataract Surgery completed Not Available [facility] 10/20/2022 21:39:39 Knee arthroscopy/surger y completed Not Available [facility] 10/20/2022 21:39:39 Rotator cuff surgery completed Not Available [facility] 10/20/2022 21:39:39 laparoscopic cholecystectomy completed Not Available [facility] 10/20/2022 21:39:39 Imaging Results None [...] oral route for 30 days. active ID# [id number] 51 called to get tier 2 @ [...] Not Available Not Available Not Available Fluvirin 6112-1890 45 mcg (15 mcg x 3)/0.5 mL [...] Updated DateTime 03/29/2022 29.5 kg/m2 172.72 cm 71919.92 g Not Available [facility] 10/20/2022 21:43:59 Date Recorded Body height Provider Name an d Address Organization Details Last Updated DateTime 05/10/2022 172.72 cm Not Available [facility] 3 21:43:55 Date Recorded Body height Provider Name an d Address Organization Details Last Updated DateTime 08/09/2022 172.72 cm Not Available [facility] 3 21:43:55 Date Recorded Body mass index (BMI) Body height Oxygen saturation Oxygen saturation in Arterial blood by Pulse oximetry Heart rate Body temperature Body weight Systolic And Diastolic Provider Name and Address Organization Details Last Updated DateTime 2 28 kg/m2 172.72 cm 97 % 97 % 84 /min 97.1 [degF] 84459 g 136/72 mm[Hg] Not Available [facility] 3 21:43:54 Date Recorded Body height Provider Name an d Address Organization Details Last Updated DateTime 2022 172.72 cm Not Available [facility] 3 21:43:55 Social History Question Answer Notes LastModified by Organizat ion Details LastModified Time Tobacco Smoking Status Former Smoker quit 1974 Not Available [facility] 10/20/2022 21:38:35 Do You Have An Advance Directive? No MIGRATION.36036 83488 Information not available 10/20/2022 Are You Blind Or Do You Have Difficulty Seeing? No MIGRATION.65828 33946 Information not available 10/20/2022 What Is Your Level Of Caffeine Consumption? Occasional MIGRATION.67736 19219 Information not available 10/20/2022 How Much Tobacco Do You Chew? None MIGRATION.21099 26903 Information not available 10/20/2022 In The 14 Days Before Symptom Onset, Have You Had Close Contact With A Laboratory-confi rmed COVID-19 While That Case Was Ill? No MIGRATION.98905 29066 Information not available 10/20/2022 In The 14 Days Before Symptom Onset, Have You Had Close Contact With A Person Who Is Under Investigation For COVID-19 While That Person Was Ill? No MIGRATION.39006 21006 Information not available 10/20/2022 Are You Deaf Or Do You Have Serious Difficulty Hearing? No MIGRATION.40863 09654 Information not available 10/20/2022 What Type Of Diet Are You Following? REGULAR MIGRATION.63477 23497 Information not available 10/20/2022 Which Illicit Or Recreational Drugs Have You Used? None MIGRATION.52485 49335 Information not available 10/20/2022 Have There Been Any Changes To Your Family Or Social Situation? No MIGRATION.98434 76122 Information not available 10/20/2022 Are There Any Guns Present In Your Home? Yes MIGRATION.17869 09670 Information not available 10/20/2022 Do You Use Insect Repellent Routinely? No MIGRATION.74954 33176 Information not available 10/20/2022 Where Do You Live? [facility] MIGRATION.23105 00104 Information not available 10/20/2022 Are You In An Abusive/frighten ing Relationship? No MIGRATION.39623 75934 Information not available 10/20/2022 Do You Feel Safe At Home Yes MIGRATION.43567 38187 Information not available 10/20/2022 Do You Have A Medical Power Of Cook Seafood? No MIGRATION.89531 90998 Information not available 10/20/2022 What Was The Date Of Your Most Recent Tobacco Screening? 11/08/2021 MIGRATION.09345 79040 Information not available 10/20/2022 What Is Your Relationship Status? MIGRATION.17237 30638 Information not available 10/20/2022 Do You Use Your Seat Belt Or Car Seat Routinely? Yes MIGRATION.36301 87100 Information not available 10/20/2022 Do You Have Smoke And Carbon Monoxide Detectors In Your Home? Yes MIGRATION.28197 64618 Information not available 10/20/2022 Are You Passively Exposed To Smoke? No MIGRATION.20534 33822 Information not available 10/20/2022 Are There Any Smokers In Your House? No MIGRATION.95382 34613 Information not available 10/20/2022 How Much Tobacco Do You Smoke? No MIGRATION.01452 14796 Information not available 10/20/2022 Do You Use Sunscreen Routinely? No MIGRATION.47046 38019 Information not available 10/20/2022 Has Tobacco Cessation Counseling Been Provided? No N/A MIGRATION.60041 38714 Information not available 10/20/2022 Have You Recently Traveled Abroad? No MIGRATION.83096 26898 Information not available 10/20/2022 Do You Have Difficulty Walking Or Climbing Stairs? No MIGRATION.09408 40266 Information not available 10/20/2022 Do You Have Any Dietary Restrictions? No MIGRATION.81667 30017 Information not available 10/20/2022 Sex: Unknown Functional Status Question Answer Note LastModified by Organizat ion Details LastModified Time Do you use any illicit or recreational drugs? No MIGRATION.050075 7305 Information not available 10/20/2022 Do you or have you ever used any other forms of tobacco or nicotine? No MIGRATION.199374 0136 Information not available 10/20/2022 What is your level of alcohol consumption? None MIGRATION.595994 8475 Information not available 10/20/2022 Do you or have you ever used smokeless tobacco? Never used smokeless tobacco MIGRATION.653061 8396 Information not available 10/20/2022 Are you currently employed? No MIGRATION.699040 8137 Information not available 10/20/2022 Do you have transportation difficulties? No MIGRATION.137301 7814 Information not available 10/20/2022 Are you able to walk? YESWOREST MIGRATION.330293 9569 Information not available 10/20/2022 Do you have difficulty doing errands alone? No MIGRATION.890070 6063 Information not available 10/20/2022 What is your occupation? retired MIGRATION.848838 4050 Information not available 10/20/2022 Do you have difficulty dressing or bathing? No MIGRATION.824551 7392 Information not available 10/20/2022 Do you or have you ever used e-cigarettes or vape? Never used electronic cigarettes MIGRATION.596275 3333 Information not available 10/20/2022 What is your exercise level? Moderate MIGRATION.141599 6897 Information not available 10/20/2022 Mental Status Question Answer Note LastModified by Organizat ion Details LastModified Time Do you feel stressed (tense, restless, nervous, or anxious, or unable to sleep at night)? XV21315-6 MIGRATION.77069642 00 Information not available 10/20/2022 Do you have difficulty concentrating, remembering or making decisions? No MIGRATION.30481656 00 Information not available 10/20/2022 Family History Relationship Description Onset Age of this Age Resolved Age Notes LastModified by Organization Details LastModified Time Father History of blood disorder low platel ets MIGRATION.414 [id number] Not available 10/20/2022 21:39:43 Maternal Grandmother Malignant neoplasm of bone MIGRATION.231 4533500 Not available 10/20/2022 21:39:43 Medical History Condition Response NERVE DISEASE Y URINARY/BLADDER/KIDNEY PROBLEMS Y BOWEL PROBLEMS DIZZINESS Y HIGH CHOLESTEROL / HYPERLIPIDEMIA Y Immunizations Vaccine Type Date Status Note Provider Nam e and Address Organization Details Recorded Time Influenza, split virus, quadrivalent, preservative 7 completed Not Available [facility] 10/20/2022 21:53:50 Influenza, high-dose, trivalent, PF 6 completed Not Available [facility] 10/20/2022 21:53:50 Influenza, split virus, quadrivalent, preservative 0 completed Not Available [facility] 10/20/2022 21:53:50 Influenza, split virus, quadrivalent, preservative 9 completed Not Available [facility] 10/20/2022 21:53:50 zoster live 6 completed Not Available [facility] 10/20/2022 21:53:50 Influenza, split virus, quadrivalent, preservative 5 completed Not Available [facility] 10/20/2022 21:53:50 Influenza, split virus, trivalent, preservative 4 completed Not Available [facility] 10/20/2022 21:53:51 Influenza, high-dose, quadrivalent, PF 2 completed Not Available [facility] 10/20/2022 21:53:51 Influenza, high-dose, quadrivalent, PF 1 completed Not Available [facility] 10/20/2022 21:53:51 Pneumococcal conjugate PCV 13 7 completed Not Available [facility] 10/20/2022 21:53:51 Past Encounters Encounter ID Performer Location Encounter Start Date Encounter Closed Date Diagnosis/Indication Diagnosis SNOMED-CT Code Diagnosis ICD10 Code Diagnosis Note [id number] Nyla Hamilton MD [facility] [address] [place] [address] 03/08/2021 00:00:00 03/16/2021 14:40:23 [id number] _ATHN_MIGR ATION_5 _ATHENA_M IGRATION_ DEFAULT_1 _5 , 07/12/2021 00:00:00 07/12/2021 10:54:00 [id number] _ATHN_MIGR ATION_5 _ATHENA_M IGRATION_ DEFAULT_1 _5 , 08/10/2021 00:00:00 08/10/2021 13:19:03 [id number] _ATHN_MIGR ATION_5 _ATHENA_M IGRATION_ DEFAULT_1 _5 , 08/22/2021 00:00:00 08/23/2021 10:53:03 [id number] _ATHN_MIGR ATION_5 _ATHENA_M IGRATION_ DEFAULT_1 _5 , 11/09/2021 00:00:00 11/13/2021 18:01:24 [id number] _ATHN_MIGR ATION_5 _ATHENA_M IGRATION_ DEFAULT_1 _5 , 01/04/2022 00:00:00 01/04/2022 14:16:13 [id number] _ATHN_MIGR ATION_5 _ATHENA_M IGRATION_ DEFAULT_1 _5 , 01/11/2022 00:00:00 01/11/2022 17:54:54 [id number] _ATHN_MIGR ATION_5 _ATHENA_M IGRATION_ DEFAULT_1 _5 , 03/29/2022 00:00:00 03/29/2022 12:48:43 [id number] _ATHN_MIGR ATION_5 _ATHENA_M IGRATION_ DEFAULT_1 _5 , 05/10/2022 00:00:00 05/10/2022 12:01:04 [id number] _ATHN_MIGR ATION_5 _ATHENA_M IGRATION_ DEFAULT_1 _5 , 08/09/2022 00:00:00 08/09/2022 14:54:14 [id number] _ATHN_MIGR ATION_5 _ATHENA_M IGRATION_ DEFAULT_1 _5 , 08/27/2022 00:00:00 08/27/2022 15:17:55 [id number] _ATHN_MIGR ATION_5 _ATHENA_M IGRATION_ DEFAULT_1 _5 , 2022 00:00:00 2022 17:45:18 Health Concerns Section Related Observation LastModified by Organization Detai ls LastModified Time None Recorded Concern Status LastModified by Organization Details LastModified Time None Recorded Advance Directives Directive N: Payers Insurance Date Sequence Insurance Name Policy Number Policy Alonzo Covered Member ID Alonzo Member ID Guarantor Name 10/20/2022 1 [place] Larry Bernabe [id number] Larry Bernabe 10/20/2022 2 AARP Larry Bernabe [id number] Larry Bernabe 10/20/2022 [employer] - DMEPOS ASSIGNED (MEDICARE DME REGION B) Larry Bernabe [id number] Larry Bernabe
--- OUTSIDE RECORDS SUMMARY | 2025-04-17 09:57 | XMS_ITS | Data Portability ---
[facility] Address [address] [place] [address] Care Team Providers Care Cementer Machine Name Role Phone EDUAR GARNETT Primary Care Provider [phone] ELLI RADFORD Urologist KATEY MISTRY Parts Lister Assessment Encounter Date Assessment Date Assessment LastModified by Organization Details LastModified Time 05/05/2024 05/05/2024 we will obtain blood work that was done by his event planner. Continue current therapy. He will follow up with me in 6 months. I believe he is slated for possible orthopedic surgery for joint replacement [email or web address] Not available 05/16/2024 17:38:36 08/28/2024 08/28/2024 x-ray of the shoulder. I have offered physical therapy but he wants to hold off apparently he has got an appointment with his orthopedic surgeon in 8 days [email or web address] Not available 08/28/2024 22:04:46 11/10/2024 11/10/2024 continue current therapy he will not get his shoulder operate on now because he has to take care of his who has severe dementia he will get a flu shot. Healthy lifestyle care instructions. Follow up in 4 months [email or web address] Not available 11/10/2024 22:46:01 03/30/2025 03/30/2025 Kidney stones stay hydrated BPH Flomax ulcerative colitis remains on medication seems to be doing fine had colonoscopy earlier this year lung nodules needs full dedicated CT scan chest. Follow up with me in 4 months [email or web address] Not available 04/01/2025 17:40:23 Plan of Treatment Reminders Order Date Submit Date Provider Last Modified By Organization Details Last Modified Time Details Appointments ANY 15 2024 02:30P M Eduar Garnett MD Not available Not available Not available Lab vitamin D, 25-hydrox y, total, serum 2023 024 [facility], [address], [place], [address], 05/06/2024 08:28:30 PSA, total, serum or plasma 2023 024 [facility], [address], [place], [address], 05/06/2024 08:28:30 Referral None recorded. Procedures None recorded. Surgeries None recorded. Imaging CT, chest, w/o contrast [address] (Imaging), [address], [place], [address], 03/30/2025 17:55:55 XR, shoulder 2023 024 [facility], [address] [facility], [facility], [place], [address], 09/01/2024 12:19:43 Medication Orders None recorded. Patient TargetsNo targets recorded. Patient Instructions Encounter Date Encounter Id Patient Instructions Last Modified By Organization Details Last Modified Time 08/28/2024 [id number] A healthy lifestyle: care instructions [email or web address] Not available 08/28/2024 22:05:03 11/10/2024 [id number] A healthy lifestyle: care instructions Not available 11/10/2024 18:31:59 03/30/2025 [id number] A healthy lifestyle: care instructions [email or web address] Not available 03/30/2025 17:55:55 Reason for Referral None Reported. Results Created Date Observation Date Name Description Value Unit Range Abnormal Flag Note LastModifiedBy Organization Detail LastModifiedTime 05/05/20 24 05/06/2024 PROST ATE-S PECIF IC AG prostate specific [...] t be inter prete d as absol [place] evide nce of the prese nce or absen ce of danna fairchild se. Not Available [facility] ([facility]) [address] [facility], [place], [address], 05/06/2024 08:28:29 05/05/20 24 05/06/2024 VITAM IN [...] 1. IOM (Inst itute of Medic ine). 2009. Dieta ry refer ence intak es for calci um and D. Jordin elias [place]: The Natio nal [facility] Press . 2. Meredith holliday MF, Marcia fields [place], Rhina off-F jose eduardo i EVANS, et al. Evalu ation , treat ment, and preve ntion of vitam in D defic iency : an Endoc rine Socie ty clini lorri pract ice guide line. JCEM. 2010; 96(7) :1911 -30. Not Available [facility] ([facility]) [address] [facility], [place], [address], 05/06/2024 08:28:30 05/11/20 24 05/09/2024 CT, coron linda calci um score No observ ation record ed. [facility] [address], [place], [address], 05/12/2024 12:19:39 05/11/20 24 05/09/2024 CT, coron linda calci um score No observ ation record ed. [facility] [address], [place], [address], 05/12/2024 12:20:07 07/13/20 24 07/13/2024 XR, shoul rosi No observ ation record ed. [address] [facility], [place], [address], 07/13/2024 17:08:33 07/13/20 24 07/13/2024 XR, hip + pelvi s, unila teral , 1 view No observ ation record ed. [address] [facility], [place], [address], 07/13/2024 16:39:24 09/01/20 24 09/01/2024 XR, shoul rosi No observ ation record ed. [address] [facility] [place], [address], 09/04/2024 15:35:00 09/01/20 24 09/01/2024 XR, shoul rosi No observ ation record ed. [address] [facility], [place], [address], 09/04/2024 15:35:01 01/28/20 25 01/27/2025 CT, abdom en + pelvi s, w/wo contr ast No observ ation record ed. [address] [facility], [place], [address], 02/02/2025 16:52:01 01/28/20 25 01/27/2025 XR, kidne y + urete r + bladd er No observ ation record ed. [facility] [address], [place], [address], 02/02/2025 16:52:01 Result Notes None recorded. Problems Name Problem SNOMED Code Status Onset Date Resolution Date Notes Provider Name and Address Organization Details Recorded Time Screening for malignant neoplasm of prostate Active 024 MIGUEL Robles, [place] - [facility] 4 16:24:21 Ulcerative colitis 47735121 Active 024 MIGUEL Robles, [place] - [facility] 4 16:24:22 Kidney stone 22640010 Active 025 Eduar Garnett MD Attn: Callum g,[address] [facility], [place], [address], [facility] 5 17:39:58 Nodule of lung 821372640 Active 025 Eduar Garnett MD Attn: Callum g,[address] [facility], [place], [address], [facility] 5 17:39:59 Problem Notes None recorded. Procedures Surgical History Date Name Laterality Status Provider Name and Address Organization Details Recorded Time 03/24/20 24 Carpal tunnel surgery completed Shannan Delgado MA [facility] 05/05/2024 15:16:48 10/14/19 21 Cholecystectomy completed Shannan Delgado MA [facility] 05/05/2024 15:16:30 total replacement of hip completed Pedrito Rojo MA [facility] 08/28/2024 15:58:32 Imaging Results None recorded. Procedure [...] completed Not Available Not Available Not Available sulfamethox azole 800 mg-trimetho prim 160 mg tablet TAKE 1 TABLET BY MOUTH EVERY 12 HOURS 03/30 completed Not Available Not Available Not Available tramadol 50 mg tablet TAKE 1 TABLET BY MOUTH EVERY 6 HOURS NEEDED FOR PAIN 03/30 completed Not Available Not Available Not Available [...] Not Available Not Available No t Available diclofenac sodium 75 mg tablet,martin yed release TAKE 1 TABLET BY MOUTH TWICE DAILY 03/30 completed Not Available Not Available Not Available ergocalcife rol (vitamin D2) 1,250 mcg (50,000 unit) capsule Take 1 capsule by mouth once a week 2024 active Not Available Not Available Not Avai lable methylpredn isolone 4 mg tablets in a [...] 1 TABLET BY MOUTH EVERY 12 HOURS 03/30 completed Not Available Not Available Not Available Paxlovid 300 mg (150 mg x 2)-100 mg tablets in a dose pack TAKE DIRECTED 05/05 completed Not Available Not Available Not Available Vitals Date Recorded Body height Body mass index (BMI) Body weight Heart rate Oxygen saturation Oxygen saturation in Arterial blood by Pulse oximetry Systolic And Diastolic Provider Name and Address Organization Details Last Updated DateTime 01/28/202 5 175.26 cm 27.7 kg/m2 53308.0 1 g 56 /min 97 % 97 % 124/68 mm[Hg] Eleanor Hudson MA [facility] 5 15:33:01 Date Recorded Body height Body mass index (BMI) Body weight Heart rate Oxygen saturation Oxygen saturation in Arterial blood by Pulse oximetry Systolic And Diastolic Provider Name and Address Organization Details Last Updated DateTime 5 175.26 cm 27.5 kg/m2 74864.1 8 g 53 /min 98 % 98 % 120/80 mm[Hg] Graciela MIGUEL Carranza [facility] 5 15:38:24 Date Recorded Body height Body mass index (BMI) Body weight Oxygen saturation Oxygen saturation in Arterial blood by Pulse oximetry Heart rate Systolic And Diastolic Provider Name and Address Organization Details Last Updated DateTime 4 175.26 cm 26.8 kg/m2 13206.0 2 g 97 % 97 % 64 /min 124/70 mm[Hg] Shannan Delgado MA [facility] 4 15:20:15 Date Recorded Body height Body mass index (BMI) Body weight Heart rate Oxygen saturation Oxygen saturation in Arterial blood by Pulse oximetry Systolic And Diastolic Provider Name and Address Organization Details Last Updated DateTime 4 175.26 cm 27.5 kg/m2 12083.1 8 g 64 /min 96 % 96 % 140/84 mm[Hg] Pedrito Rojo MA [facility] 4 16:01:29 Social History Question Answer Notes LastModified by Organizat ion Details LastModified Time Tobacco Smoking Status Former Smoker quit 40 years ago Shannan Delgado MA null, [facility] 05/05/2024 15:14:06 Are You Blind Or Do You Have Difficulty Seeing? No Information not available 05/05/2024 What Is Your Level Of Caffeine Consumption? Moderate Information not available 05/05/2024 In The 14 Days Before Symptom Onset, Have You Had Close Contact With A Laboratory-confir med COVID-19 While That Case Was Ill? No Information not available 03/30/2025 In The 14 Days Before Symptom Onset, Have You Had Close Contact With A Person Who Is Under Investigation For COVID-19 While That Person Was Ill? No Information not available 03/30/2025 Have You Been To An Area Known To Be High Risk For COVID-19? No Information not available 03/30/2025 Are You Deaf Or Do You Have Serious Difficulty Hearing? No Information not available 05/05/2024 What Type Of Diet Are You Following? REGULAR Information not available 05/05/2024 Are There Any Guns Present In Your Home? No Information not available 03/30/2025 What Was The Date Of Your Most Recent Tobacco Screening? 03/30/2025 Information not available 03/30/2025 What Is Your Relationship Status? Information not available 05/05/2024 Do You Use Your Seat Belt Or Car Seat Routinely? Yes Information not available 05/05/2024 Do You Have Smoke And Carbon Monoxide Detectors In Your Home? Yes Information not available 05/05/2024 Do You Use Sunscreen Routinely? No Information not available 03/30/2025 Has Tobacco Cessation Counseling Been Provided? No Information not available 03/30/2025 Sex: Male Functional Status Question Answer Note [...] anxious, or unable to sleep at night)? [id number] Information not available 05/05/2024 Family History Relationship [...] Skin Problems N Anemia N Heart Attack ([place]) N Anxiety Disorder N Diabetes N Muscle, [...] split virus, quadrivalent, preservative 5 completed Shannan Delgado [place] null, [place] [facility] 05/05/2024 15:03:19 Influenza, split virus, quadrivalent, preservative 9 completed Shannan Del[place] [facility] 05/05/2024 15:03:19 Influenza, adjuvanted, trivalent, PF 8 completed Shannan Del[place] [facility] 05/05/2024 15:03:19 Influenza, high-dose, quadrivalent, PF 0 completed Shannan Del[place] [facility] 05/05/2024 15:03:19 Influenza, high-dose, quadrivalent, PF 1 completed Shannan Del[place] [facility] 05/05/2024 15:03:19 Influenza, high-dose, quadrivalent, PF 2 completed Shannan Del[place] [facility] 05/05/2024 15:03:19 Influenza, high-dose, quadrivalent, PF 3 completed Shannan Delgado, [place] [facility] 05/05/2024 15:03:19 COVID-19, mRNA, LNP-S, PF, 100 mcg/0.5mL dose or 50 mcg/0.25mL dose 1 completed Shannanarianna Del[place] [facility] 05/05/2024 15:03:19 COVID-19, mRNA, LNP-S, PF, 100 mcg/0.5mL dose or 50 mcg/0.25mL dose 1 completed Shannanarianna Del[place], [place] [facility] 05/05/2024 15:03:19 COVID-19, mRNA, LNP-S, PF, 100 mcg/0.5mL dose or 50 mcg/0.25mL dose 2 completed Shannanarianna Del[place] [facility] 05/05/2024 15:03:19 COVID-19, mRNA, LNP-S, PF, 100 mcg/0.5mL dose or 50 mcg/0.25mL dose 1 completed Shannan Del[place] [facility] 05/05/2024 15:03:19 pneumococcal polysaccharide PPV23 3 completed Shannanarianna Del[place] [facility] 05/05/2024 15:03:19 Pneumococcal conjugate PCV 13 7 completed Shannan Del[place] [facility] 05/05/2024 15:03:19 zoster live 6 completed Shannanarianna Del[place] [facility] 05/05/2024 15:03:19 Influenza, high-dose, trivalent, PF 6 completed Shannanarianna Del[place] [facility] 05/05/2024 15:03:19 Influenza, split virus, trivalent, preservative 7 completed Shannanarianna Del[place] [facility] 05/05/2024 15:03:19 Influenza, split virus, trivalent, preservative 5 completed Shannan Delgado, [place] [facility] 05/05/2024 15:03:19 Influenza, split virus, trivalent, preservative 4 completed Shannan Delgado, [place] [facility] 05/05/2024 15:03:19 Influenza, split virus, trivalent, preservative 4 completed Shannan Delgado, [place] [facility] 05/05/2024 15:03:19 Influenza, high-dose, trivalent, PF 5 completed Eduar Garnett MD Attn: Accounting[address] [place], [address], [place] [facility] 11/10/2024 22:45:12 Past Encounters Encounter ID Performer Location Encounter Start Date Encounter Closed Date Diagnosis/Indication Diagnosis SNOMED-CT Code Diagnosis ICD10 Code Diagnosis Note [id number] [facility] [address] [place] [phone] 05/05/2024 14:59:05 05/05/2024 16:29:51 Screening for malignant neoplasm of prostate 549164737 Z12.5 Ulcerative colitis 44592 004 K51.90 [id number] [facility] [address] [place] [phone] 08/28/2024 15:13:42 08/28/2024 16:46:57 Overweight 927949585 E66.3 Pain of [facility] 39013417 M25.523 [id number] [facility] [address] [place] [phone] 11/10/2024 14:29:55 11/10/2024 16:37:22 Body mass index 25-29 - overweight 107674131 Z68.27 Overweight 219288630 E66 .3 Administra tion of influenza vaccine 31000890 Z23 Vitamin D below reference range 831286676 E55.9 [id number] Eduar Garnett MD [facility] (Adult Med) [address] [place] [address] 03/30/2025 15:08:07 03/30/2025 16:20:28 Overweight in adulthood with body mass index of 25 or more but less than 30 680263635 Z68.27 Overweight 378268692 E66 .3 Nodule of lung 176313110 R91.1 Kidney stone 58979483 N2 0.0 Health Concerns Section Related Observation LastModified by Organization Detai ls LastModified Time None Recorded Concern Status LastModified by Organization Details LastModified Time None Recorded Advance Directives Directive None Recorded Payers Insurance Date Sequence Insurance Name Policy Number Policy Alonzo Covered Member ID Alonzo Member ID Guarantor Name 03/30/2025 [place] Larry Bernabe [id number] Larry Bernabe 03/30/2025 1 [place] Larry Bernabe [id number] Larry Bernabe Notes Date Note Type [...] not smoke or 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 Eduar Garnett MD Attn: Accounting[address] [place], [address], [facility] 05/16/2024 17:38:53 08/28/2024 text/html he fell a couple of days ago and he has got pain in his left shoulder no numbness tingling was a mechanical fall did not hit his head did not lose consciousness no neck pain lobar no lower back pain or other injury Eduar Garnett MD Attn: Accounting[address] [place], [address], [place] [facility] 08/28/2024 22:05:07 11/10/2024 text/html he is not going to get shoulder surgery currently ulcerative colitis is doing fine BPH symptoms stable Eduar Garnett MD Attn: Accounting[address] , [place], [address], [facility] 11/10/2024 22:46:35 03/30/2025 text/html 1. Kidney stones asymptomatic 2. Pulmonary nodules needs full CT chest this was found on CT abdomen. 3. Ulcerative colitis no bleeding or abdominal pain colonoscopy earlier this year. 4. Low vitamin-D level take supplementation. 5. Enlarged prostate seems to be doing fine on tamsulosin. Eduar Garnett MD Attn: Accounting[address] , [place], [address], [facility] 04/01/2025 17:40:48
--- OUTSIDE RECORDS SUMMARY | 2025-04-17 09:57 | XMS_ITS | Data Portability ---
Author Organization [place] [facility], Main Office Address [address] [place] [address] Care Team Providers Care Bag Machine Operator Name Role Phone LOUIE WILSON Primary Care Provider [phone] LOUIE WILSON Referring Provider Assessment Encounter Date [...] patient more than half of this in yvhh-uz-uttk conversation Not available 07/25/2023 14:07:51 08/01/2023 08/01/2023 This note is dictated and transcribed by [employer]. Java Spring Developer variances may occur. Despite proofreading, typographical errors [...] more than half the time spent in [id number]-dz-ffqs care. Not available 12/08/2023 10:51:57 12/19/2023 12/19/2023 [...] more than half the time spent in kkpf-qu-qrdk care. Not available 12/19/2023 11:32:29 Plan of Treatment Reminders Order Date Submit Date Provider Last Modified By Organization Details Last Modified Time Details Appointments None recorded. Lab None recorded. Referral orthopedic surgeon referral 2022 023 [email or web address] 3 Jimmy Stanford, [address] [facility] [address], [place], [address], 3 07:56:42 Procedures None recorded. Surgeries None recorded. Imaging XR, foot, 3 or more view 2022 023 [email or web address] [facility] ([facility] Sched[facility]), [address], [place], [address], 3 09:31:49 XR, hand 2022 023 [facility] [place], [facility], [place], [address], 3 14:50:11 electromyog cynthia + nerve conduction study - Please call pt to schedule 2022 [email or web address] [place] [address] (Cardiology & Emg), [address] [place] [address], [address], 08:46:52 Medication Orders amoxicillin 875 mg tablet [address] [facility], [address] [facility], [place], [address], 12:06:44 Patient TargetsNo targets recorded. Patient InstructionsNo instructions recorded. Reason for Referral Orthopedic Surgeon Referral for Carpal tunnel syndrome of right wrist Referring Physician: Arpita Nina [facility], Encounter Date: 06/05/2023 Results Created Date Observation Date Name Description Value Unit Range Abnormal Flag Note LastModifiedBy Organization Detail LastModifiedTime 07/25/20 XR, hand No observ ation record ed. [facility] [address], [place], [address], 07/25/2023 14:02:38 08/14/20 23 08/14/2023 elect romyo gram + nerve condu ction study No observ ation record ed. [address], [address], 02/23/2024 13:49:22 08/14/20 23 08/14/2023 elect romyo gram + nerve condu ction study No observ ation record ed. [address], [address], 08/14/2023 16:38:29 12/17/19 24 12/16/2023 MRI, cervi lorri spine , w/o contr ast No observ ation record ed. [address], [address], 12/17/2023 12:37:58 12/17/19 24 12/16/2023 MRI, cervi lorri spine , w/o contr ast No observ ation record ed. [email or web address] [address] [facility] [address], [place], [address], 02/23/2024 13:49:42 Result Notes None recorded. Problems Name Problem SNOMED Code Status Onset Date Resolution Date Notes Provider Name and Address Organization Details Recorded Time Backache 635754225 Active Not Available [facility] 3 09:17:42 Abdominal pain 38958205 Active 2020 Not Available [facility] 3 09:17:42 Benign prostatic hyperplasi a 206012179 Active Not Available [facility] 3 09:17:43 Neuropathy 078123816 Active 2018 Not Available [facility] 3 09:17:43 Osteoarthr itis 582155167 Active 2021 Not Available [facility] 3 09:17:43 Dizziness 644569748 Active Not Available [facility] 3 09:17:43 Carotid bruit 108502437 Active Not Available [facility] 3 09:17:43 Cough 00548036 Active Not Available [facility] 3 09:17:43 Upper respirator y infection 95894795 Active Not Available [facility] 3 09:17:43 Hyperlipid emia 36937932 Active Not Available [facility] 3 09:17:43 Colitis 32932332 Active Not Available [facility] 3 09:17:43 Ulcerative colitis 41895538 Active 2016 Not Available [facility] 3 09:17:43 Paresthesi a of upper limb 41690519 Active 2022 TORI Paul [address], [address], [place], [address] , [employer] [facility] 3 09:58:55 Cellulitis of face 955482183 Active 2022 TORI Paul [address], [address], [place], [address] , [employer] [facility] 3 10:06:24 Carpal tunnel syndrome of right wrist 0992009068225 08 Active 2022 TORI Paul [address], [address], [place], [address] , [facility] [employer] [facility] 3 10:11:36 Tooth disorder 404469214 Active 2022 TORI Paul [address], [address], [place], [address] , [facility] [employer] [facility] 3 10:14:24 Pain in right hand 9992420014687 09 Active 2022 BONIFACIO Anaya, [facility] 3 12:07:37 Acquired hallux limitus of right great toe 0541861961336 100 Active 2022 Isaac Orourke DPM [address], [address], [place], [address] , [facility] [employer] [facility] 3 15:08:47 Right Achilles tendinitis 9957664917120 02 Active 2022 Isaac Orourke DPM [address], [address], [place], [address] , [facility] [employer] [facility] 3 15:08:53 COVID-19 914205502 Active 2022 Louie Wilson MD [address], [place], [address] , [facility] [employer] [facility] 3 15:45:06 Spinal stenosis in cervical region 86441257 Active 2023 Melinda To CMA null, [facility] 4 16:29:55 Carpal tunnel syndrome 87744598 Active 2023 BONIFACIO Anaya, [facility] 4 10:19:10 Notes:c. diff colitis Problem Notes None recorded. Procedures Surgical History Date Name Laterality Status Provider Name and Address Organization Details Recorded Time 10/09/20 colonoscopy completed Louie Wilson MD [address], [address], [place], [address], [facility] 02/21/2024 18:03:50 07/24/20 21 colonoscopy completed Not Available [facility] 12/12/2022 09:15:05 Carpal tunnel surgery completed Not Available [facility] 12/12/2022 09:15:05 Cataract Surgery completed Not Available [facility] 12/12/2022 09:15:05 Knee arthroscopy/surger y completed Not Available [facility] 12/12/2022 09:15:05 Rotator cuff surgery completed Not Available [facility] 12/12/2022 09:15:05 laparoscopic cholecystectomy completed Not Available [facility] 12/12/2022 09:15:05 Cholecystectomy completed Nabila Greer [facility] 08/01/2023 13:51:05 Nasal sinus therapy completed Nabila Gerer [facility] 08/01/2023 13:51:14 Imaging Results None recorded. Procedure [...] oral route for 30 days. active ID# [id number] called to get tier 2 @ [phone] TT SO they will fax form. Not [...] Updated DateTime 12/05/2023 171.45 cm BONIFACIO Anaya [facility] 12/05/2023 14:40:24 Date Recorded Body height Provider Name an d Address Organization Details Last Updated DateTime 12/19/2023 171.45 cm BONIFACIO Anaya [facility] [employer] [facility] 12/19/2023 10:18:07 Date Recorded Body height Body mass index (BMI) Body weight Body temperature Heart rate Oxygen saturation Oxygen saturation in Arterial blood by Pulse oximetry Systolic And Diastolic Provider Name and Address Organization Details Last Updated DateTime 3 172.72 cm 28.7 kg/m2 32473.9 6 g 97.6 [degF] 88 /min 96 % 96 % 140/88 mm[Hg] Letty Castellon RN [facility] 09:47:42 Date Recorded Body height Body mass index (BMI) Body weight Provider Name and Address Organization Details Last Updated DateTime 07/25/2023 171.45 cm 27.8 kg/m2 38131.63 g BONIFACIO Anaya [facility] 07/25/2023 13:06:21 Date Recorded Body height Body mass index (BMI) Body weight Heart rate Respiratory rate Oxygen saturation Oxygen saturation in Arterial blood by Pulse oximetry Systolic And Diastolic Provider Name and Address Organization Details Last Updated DateTime 171.45 cm 27 kg/m2 37094.6 6 g 57 /min 14 /min 98 % 98 % 119/77 mm[Hg] Nabila Greer [facility] 14:01:43 Social History Question Answer Notes LastModified by Organizat ion Details LastModified Time Tobacco Smoking Status Former Smoker quit 1975 Not Available [facility] 12/12/2022 09:14:51 Do You Have An Advance Directive? No MIGRATION.65222 [id number] Information not available 12/12/2022 Are You Blind Or Do You Have Difficulty Seeing? No MIGRATION.42784 46962 Information not available 12/12/2022 What Is Your Level Of Caffeine Consumption? Occasional MIGRATION.82308 96875 Information not available 12/12/2022 How Much Tobacco Do You Chew? None MIGRATION.38492 64750 Information not available 12/12/2022 In The 14 Days Before Symptom Onset, Have You Had Close Contact With A Laboratory-confi rmed COVID-19 While That Case Was Ill? No MIGRATION.63141 15914 Information not available 12/12/2022 In The 14 Days Before Symptom Onset, Have You Had Close Contact With A Person Who Is Under Investigation For COVID-19 While That Person Was Ill? No MIGRATION.68348 50713 Information not available 12/12/2022 Are You Deaf Or Do You Have Serious Difficulty Hearing? No MIGRATION.60081 01364 Information not available 12/12/2022 What Type Of Diet Are You Following? REGULAR MIGRATION.27754 44092 Information not available 12/12/2022 Which Illicit Or Recreational Drugs Have You Used? None MIGRATION.27238 19745 Information not available 12/12/2022 Have There Been Any Changes To Your Family Or Social Situation? No MIGRATION.11669 79087 Information not available 12/12/2022 Are There Any Guns Present In Your Home? Yes MIGRATION.55532 94741 Information not available 12/12/2022 Do You Use Insect Repellent Routinely? No MIGRATION.75055 92194 Information not available 12/12/2022 Where Do You Live? [facility] MIGRATION.72654 59013 Information not available 12/12/2022 Do You Have A Medical Power Of Human Machine Interface Engineer? No MIGRATION.39972 72648 Information not available 12/12/2022 What Was The Date Of Your Most Recent Tobacco Screening? 08/01/2023 [email or web address] Information not available 08/01/2023 What Is Your Relationship Status? MIGRATION.51392 79845 Information not available 12/12/2022 Do You Use Your Seat Belt Or Car Seat Routinely? Yes MIGRATION.29281 01963 Information not available 12/12/2022 Do You Have Smoke And Carbon Monoxide Detectors In Your Home? Yes MIGRATION.13951 60166 Information not available 12/12/2022 Are You Passively Exposed To Smoke? No MIGRATION.87225 57491 Information not available 12/12/2022 Are There Any Smokers In Your House? No MIGRATION.54893 00276 Information not available 12/12/2022 How Much Tobacco Do You Smoke? No MIGRATION.79561 16267 Information not available 12/12/2022 Do You Use Sunscreen Routinely? No MIGRATION.94294 49777 Information not available 12/12/2022 Has Tobacco Cessation Counseling Been Provided? No N/A MIGRATION.84078 80781 Information not available 12/12/2022 Have You Recently Traveled Abroad? No MIGRATION.83761 77778 Information not available 12/12/2022 Do You Have Difficulty Walking Or Climbing Stairs? No MIGRATION.28445 96718 Information not available 12/12/2022 Do You Have Any Dietary Restrictions? No MIGRATION.80850 77828 Information not available 12/12/2022 Sex: Unknown Functional Status Question Answer Note LastModified by Organizat ion Details LastModified Time Do you use any illicit or recreational drugs? No MIGRATION.510906 1408 Information not available 12/12/2022 Do you or have you ever used any other forms of tobacco or nicotine? No MIGRATION.718147 5827 Information not available 12/12/2022 What is your level of alcohol consumption? None MIGRATION.366004 5217 Information not available 12/12/2022 Do you or have you ever used smokeless tobacco? Never used smokeless tobacco MIGRATION.153450 5692 Information not available 12/12/2022 Do you have transportation difficulties? No MIGRATION.526715 7873 Information not available 12/12/2022 Are you able to walk? YESWOREST MIGRATION.635291 6223 Information not available 12/12/2022 Do you have difficulty doing errands alone? No MIGRATION.138508 3323 Information not available 12/12/2022 Are you able to care for yourself? Yes MIGRATION.743800 0537 Information not available 12/12/2022 What is your occupation? retired MIGRATION.038346 6731 Information not available 12/12/2022 Do you have difficulty dressing or bathing? No MIGRATION.950494 9499 Information not available 12/12/2022 Do you or have you ever used e-cigarettes or vape? Never used electronic cigarettes MIGRATION.465181 3543 Information not available 12/12/2022 What is your exercise level? Moderate MIGRATION.296489 0429 Information not available 12/12/2022 Mental Status Question Answer Note LastModified by Organizat ion Details LastModified Time Do you feel stressed (tense, restless, nervous, or anxious, or unable to sleep at night)? [id number] MIGRATION.99379882 26 Information not available 12/12/2022 Do you have difficulty concentrating, remembering or making decisions? No MIGRATION.62392663 26 Information not available 12/12/2022 Family History Relationship Description Onset Age of this Age Resolved Age Notes LastModified by Organization Details LastModified Time Father History of blood disorder low platel ets MIGRATION.853 [id number] Not available 12/12/2022 09:15:06 Maternal Grandmother Malignant neoplasm of bone MIGRATION.024 2228627 Not available 12/12/2022 09:15:06 Medical History Condition Response URINARY/BLADDER/KIDNEY PROBLEMS Y NERVE DISEASE Y BOWEL PROBLEMS DIZZINESS Y HIGH CHOLESTEROL / HYPERLIPIDEMIA Y Immunizations Vaccine Type Date Status Note Provider Nam e and Address Organization Details Recorded Time Influenza, high-dose, quadrivalent, PF 3 completed [place], [place] [facility] 10/02/2023 11:25:50 Influenza, split virus, quadrivalent, preservative 7 completed Not Available [facility] 12/12/2022 09:21:06 Influenza, high-dose, trivalent, PF 6 completed Not Available [facility] 12/12/2022 09:21:06 Influenza, split virus, quadrivalent, preservative 0 completed Not Available [facility] 12/12/2022 09:21:06 Influenza, split virus, quadrivalent, preservative 9 completed Not Available [facility] 12/12/2022 09:21:06 zoster live 6 completed Not Available [facility] 12/12/2022 09:21:06 Influenza, split virus, quadrivalent, preservative 5 completed Not Available [facility] 12/12/2022 09:21:06 Influenza, split virus, trivalent, preservative 4 completed Not Available [facility] 12/12/2022 09:21:06 pneumococcal polysaccharide PPV23 3 completed Not Available [facility] 12/12/2022 09:21:06 Influenza, high-dose, quadrivalent, PF 2 completed Not Available [facility] 12/12/2022 09:21:07 Influenza, high-dose, quadrivalent, PF 1 completed Not Available [facility] 12/12/2022 09:21:07 Pneumococcal conjugate PCV 13 7 completed Not Available [facility] 12/12/2022 09:21:07 Past Encounters Encounter ID Performer Location Encounter Start Date Encounter Closed Date Diagnosis/Indication Diagnosis SNOMED-CT Code Diagnosis ICD10 Code Diagnosis Note [id number] _ATHN_MIGR ATION_1 _ATHENA_M IGRATION_ DEFAULT_1 _1 , 03/08/2021 00:00:00 03/16/2021 14:40:23 [id number] Louie Wilson MD [facility] [address] [facility] [address] [place] [address] 07/12/2021 00:00:00 07/12/2021 10:54:00 [id number] Zoran patel MD [facility] General Surgery [address] [address] 08/10/2021 00:00:00 08/10/2021 13:19:03 [id number] Zoran patel MD [facility] General Surgery [address] [address] 08/22/2021 00:00:00 08/23/2021 10:53:03 [id number] Louie Wilson MD [facility] [place] [address] [facility] [place] [address] 11/09/2021 00:00:00 11/13/2021 18:01:24 [id number] Tay Rojo MD [facility] [address] [place] [address] 01/04/2022 00:00:00 01/04/2022 14:16:13 [id number] Louie Wilson MD [facility] Primary [facility] [place] [facility] [address] [facility] [address] [place] [address] 01/11/2022 00:00:00 01/11/2022 17:54:54 [id number] Christiano Huber MD [facility] [address] [address] 03/29/2022 00:00:00 03/29/2022 12:48:43 [id number] MD SUSANA [facility]yer[facility] [address] [address] 05/10/2022 00:00:00 05/10/2022 12:01:04 [id number] Christiano Huber MD [facility] [address] [address] 08/09/2022 00:00:00 08/09/2022 14:54:14 [id number] YANG Mccarthy [facility] Primary [facility] [place] [address] [place] [address] 08/27/2022 00:00:00 08/27/2022 15:17:55 [id number] Louie Wilson MD [facility] Primary [facility] [place] [address] [place] [address] 2022 00:00:00 2022 17:45:18 [id number] Louie Wilson MD [facility] Primary [facility] [place] [address] [place] [address] 11/14/2022 00:00:00 12/09/2022 14:48:19 [id number] Louie Wilson MD [facility] [place] [address] [place] [address] 06/05/2023 09:41:49 06/05/2023 10:28:25 Caregiver role strain 942646545 Z73.3 ChronicSec ondary to being primary care [...] Carpal tolu robbie syndrome of right wrist 1248543947 91819 G56.01 New problemCar pal tunnel vs nerve compressio n.Pt previous right carpal tunnel release.Pt declines PT, will refer for EMG/NC study and refer to ortho for further evaluation /tx. 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 Advised warm, salt-water gargles several times daily, take otc pain relievers per package instructio ns, f/u with dental provider patrice. Call or be seen for any fever or worsening of sx.Keep upcoming appt for tooth extraction s on 06/18/23. [id number] Christiano Huber MD [facility] [address] 07/25/2023 11:47:08 07/25/2023 14:16:23 Pain in right hand 3393923272 06636 M79.765 [id number] Isaac Orourke DPM [facility] [place] [address] [facility] [address] [place] [address] 08/01/2023 13:48:00 08/02/2023 11:36:06 Acquired hallux limitus of right great toe 2609459247 743335 M20.5X1 Rice therapyedu cated on NSAIDs and topical NSAID userecomme nd orthoticsc onservativ e and surgical options reviewed, patient denies surgeryrec ommend stiff-sole d shoe or carbon plate for shoefollow -up x-rays Right Achi lles tendinitis 3471448824 92568 M76.61 educated on conditionS tretching and icing instructio ns reviewedAp ply Voltaren gel twice daily to area of painfollow -up in 2-3 weeks if not resolved will send to physical therapy [id number] Christiano Huber MD [facility] [address] 12/05/2023 14:36:26 12/09/2023 09:57:21 Pain in right hand 0934505167 63863 M79.314 [id number] Christiano Huber MD [facility] [address] 12/19/2023 10:13:59 12/19/2023 11:51:03 Carpal tunnel syndrome 56359863 G56.03 Health Concerns Section Related Observation LastModified by Organization Detai ls LastModified Time None Recorded Concern Status LastModified by Organization Details LastModified Time None Recorded Advance Directives Directive N: Payers Insurance Date Sequence Insurance Name Policy Number Policy Alonzo Covered Member ID Alonzo Member ID Guarantor Name 12/19/2023 1 [place] Larry Bernabe [id number] Larry Guan Florecita 01/21/2024 2 AARP Larry Guan Florecita [id number] Larry Guan Srikanthlalita 12/19/2023 [employer] - DMEPOS ASSIGNED (MEDICARE DME REGION B) Larry Bernabe [id number] Larry Bernabe Notes Date Note Type Note [...] feels he needs someone to unload on. Arpita Nina, MASSAGE COORDINATOR [address] [facility], [facility] [address], [place], [address], [facility] 06/05/2023 11:35:52 3 text/html . Patient is [...] complaints. Isaac Orourke DPM [address], [facility] [address], [place], [address], [facility] [employer] [facility] 08/01/2023 15:10:42 4 text/html Patient is a [...] ago. Christiano Huber MD [address], [facility] [address], [place], [address], [facility] [employer] [facility] 12/08/2023 10:52:16 4 text/html Patient returns after [...] the numbness tingling sensation. Christiano Huber MD [address] [place] [address], [facility] [address], [place], [address], [place] [facility] [employer] [facility] [employer] 12/19/2023 11:32:43
== END 2025-04-17 09:54 | disposition home or self-care (01) ==
PROVIDERS: PCP Internal Medicine; Visit Provider Internal Medicine
DX: R91.8 Other nonspecific abnormal finding of lung field (principal); I71.40 Abdominal aortic aneurysm, without rupture, unspecified; N20.0 Calculus of kidney
CPT/HCPCS: 71250

== ENCOUNTER 2025-06-09 10:29 | Outpatient (CLI) | payer MEDICARE, SELFPAY ==
--- OUTSIDE RECORDS SUMMARY | 2024-11-24 13:53 | XMS_ITS | Continuity of Care Document ---
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 Location Location Details Encounter Type Encounter Number Reason For Visit Attending Provider ADM Date DC Date Status Disposition Source [facility] Outpatient Encounter [id number] 11/24 [facility]
--- OUTSIDE RECORDS SUMMARY | 2025-06-09 10:54 | XMS_ITS | Clinical Summary ---
Author Organization [facility] Address [address] [facility] [place] [address] Care Team Providers Care Plating Inspector Name Role Phone Unavailable Primary Care Provider Unavailabl e Source Comments [facility],non-owned Affiliates and Associated Physician Practices is amultiple site organization consisting of ambulatory clinics and hospital sitesin [place], [place], [place] and [place]. This disclosure is being madepursuant to the Care Everywhere program and may not contain all information available regarding this patient. 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 Gender Identity Not on file Sexual Orientation [...] season) 2024 DEPRESSION SCREENING 10/14/2024 INFLUENZA VACCINE (#1) 2025 HEPATITIS B VACCINE Aged Out No [...] age to complete this topic Insurance MEDICARE [facility] MEDICARE [facility] SELF PAY NO INSURANCE Member Subscriber Plan / Payer (Ef fective for All Dates) Name:Larry Chao Member ID:Not on file Relation to Subscriber:Not on file Name:JEREMIELARRY Subscriber ID:Not on file (Home) Address: [address] [place] [id number] Payer ID:Not on file Group ID:Not on file Type:Self Pay Address: [place], [place] MEDICARE [facility] MEDICARE [facility]
--- OUTSIDE RECORDS SUMMARY | 2025-06-09 10:54 | XMS_ITS | Encounter Summary ---
Author Organization [facility] Address [address] [place] [address] [place] [address] Care Team Providers Care Turning Sander Tender Name Role Phone Unavailable Primary Care Provider Unavailabl e Encounter Details Date Type Department Care Team (Late st Contact Info) Description 06/25/2019 Lab Requisition [facility] DermPath Lab [address] [facility], [facility] [place] [address] Suzie Naranjo MD [address] [facility] 3 [place] [address] Social History Tobacco Use Types Packs/Day Years Used Date Smoking Tobacco: Never Assessed Sex and Gender Information Value Date Recorded Sex Assigned at Not on file 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 Gender Identity Not on file Sexual Orientation Not on file documented as of this encounter Plan of Treatment Not on file documented as of this encounter Procedures Procedure Name Priority Date/Time Associated Diagnosis Comments DERMATOPATHOLOGY Routine 06/24/2019 12:0 0 AM CDT documented in this encounter Results * DERMATOPATHOLOGY (06/24/2019 12:00 AM CDT) Case Report Dermatopathology Report Case: [id number] Authorizing Provider: Suzie Naranjo MD Collected: 06/24/2019 12:00 AM Ordering Location: [facility] DermPath Lab Received: 06/25/2019 05:51 [...] The specimen consists of a shave measuring [id number], bisected. Jar 0. 9 5:15 PM CDT [...] characteristic determined by the Dermatopathology Laboratory at [facility], directed by Dr. Demetrio Powell. These tests need not be, and therefore are not, approved by the [place] Food and Drug Administration. The tests are used for clinical purposes. Billing Codes Specimen Charges Stain Charges 72628 1 9 5:15 PM CDT DERMATOPATHOLOGY LABORATORY Embedded Images 9 5:15 PM CDT DERMATOPATHOLOGY LABORATORY Pathology/Cytolog y TISSUE SPECIMEN FROM SKIN / Unknown 06/24/2019 06/25/2019 5:51 AM CDT us Suzie Naranjo MD LAB - PATHOLOGY/CYTOLOGY OR DERABLES Final Result DERMATOPATHOLOGY LABORATORY [facility] - Department of Dermatology [facility] [facility], 5th [place] [address], [facility] [phone] documented in this encounter Visit Diagnoses Not on filedocumented in this encounter
--- OUTSIDE RECORDS SUMMARY | 2025-06-09 10:54 | XMS_ITS | Clinical Summary ---
Author Organization [facility] Address [address] [place] [phone] Care Team Providers Care County Records Management Officer Name Role Phone Lupis Wilson MD Primary Care Provider + Allergies No known active allergies Medications balsalazide (COLAZAL) 750 mg capsuleIndicati ons:Ulcerative Colitis Take 2,250 mg by mouth 2 (two) times a day Active tamsulosin (FLOMAX) 0.4 mg extended release capsule 1 capsule (0.4 mg total) Active Active Problems Problem Noted Date Diagnosed Date Chest pain 05/21/2021 Encounters Date Type Department Care Team Description 05/26/2025 10:00 AM CDT Office Visit [facility] Medicine Surgery [address] 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 (Primary Dx) from Last 3 Months Surgical History Surgery Date Site/Laterality Comments CARDIAC CATHETERIZATION 10/14/2003 - 10/13/2004 no CAD CATARACT EXTRACTION, BILATERAL ROTATOR CUFF REPAIR Right CARPAL TUNNEL RELEASE KNEE ARTHROSCOPY Right COLONOSCOPY Yearly CHOLECYSTECTOMY TOTAL HIP ARTHROPLASTY Medical History Medical History Date Comments HLD (hyperlipidemia) Ulcerative colitis Kidney stones Social History Tobacco Use Types Packs/Day Years Used Date Smoking Tobacco: Never Tobacco Cessation:Counseling Given: Not Answered Sex and Gender Information Value Date Recorded Sex Assigned at Not on file 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 Gender Identity Not on file Sexual Orientation Not on file Obstetrics History Last Filed Vital Signs Vital Sign Reading Time Taken Comments Blood Pressure 154/90 05/26/2025 9:41 AM CDT Pulse 86 05/26/2025 9:41 AM CDT Temperature 37.2 C (99 F) 05/23/2021 11:00 AM CDT Respiratory Rate 16 05/23/2021 11:00 AM CDT Oxygen Saturation 98% 05/26/2025 9:41 AM CDT Inhaled Oxygen Concentration - - Weight 80.7 kg (178 lb) 05/26/2025 9:41 AM CDT Height 180.3 cm (5' 11) 05/21/2021 3:19 PM CDT Body Mass Index 24.83 05/21/2021 3:19 PM CDT Plan of Treatment Health Maintenance Due Date Last Done Comments Depression Screening 1945 Hepatitis C Screening 1945 DTaP/Tdap/Td Vaccine (1 - Tdap) 1956 Hepatitis B Screening 1963 Well Visit 65+ 2010 Zoster Vaccine (2 of 3) 02/08/2016 12/14/2015 Pneumococcal vaccine 65+ (2 of 2 - PCV20 or PCV21) 10/30/2017 10/30/2016 Fall Risk Assessment 05/23/2022 05/23/2021 Influenza Vaccine (#1) 2025 0, 06/14/2020, 08/06/2019, Additional history exists Insurance MEDICARE [facility] MEDICARE [facility] Advance Directives For more information, please contact: [phone] * Full Code (Latest Code Status on File) Date Activated Date Inactivated Comments 05/21/2021 7:41 PM 05/23/2021 8:10 PM Care Teams County Records Management Officer Relationship Specialty Start Date End Date Lupis Wilson MD [address] [place] [address] [place] [address] [facility] - General 05/21/21
[2025-06-09 11:32] LABS: Hematocrit 44.3 % (42.0-52.0); Hemoglobin 14.9 g/dL (14.0-18.0); Mean Corpuscular HGB Conc 33.6 g/dl (32-36); Mean Corpuscular Hemoglobin 30.1 pg (26-34); Mean Corpuscular Volume 89.5 fl (80-100); Platelet Count Result 236 k/mm3 (150-375); Red Blood Count 4.95 M/mm3 (4.6-6.20); White Blood Count 7.4 K/mm3 (4.5-10.0)
[2025-06-09 11:55] LABS: Alanine Aminotransferase 17 U/L (6-50); Albumin Level 3.9 g/dL (3.5-5.1); Alkaline Phosphatase 114 U/L (38-126); Anion Gap 8 mmol/L (4-12); Aspartate Amino Transferase 31 U/L (17-59); Bilirubin,Total 0.5 mg/dL (0.2-1.3); Blood Urea Nitrogen 21 mg/dL (9-20); CRP 0.8 mg/dL (<1.0); Calcium 9.1 mg/dL (8.4-10.2); Carbon Dioxide 25 mmol/L (22-30); Chloride 104 mmol/L (98-107); Estimated Glomerular Filt Rate > 60; Glucose 118 mg/dL (65-110); Potassium 3.8 mmol/L (3.4-5.0); Sodium 137 mmol/L (137-145); Total Protein 6.6 g/dL (6.3-8.2)
[2025-06-09 12:23] LABS: Hepatitis B Surface Antigen Negative (Negative)
[2025-06-09 12:41] LABS: Hepatitis B Surface Anti Res Negative
[2025-06-10 07:09] LABS: Hep B Core Ab, Total Negative (Negative)
== END 2025-06-09 10:30 | disposition home or self-care (01) ==
PROVIDERS: PCP Internal Medicine; Visit Provider Internal Medicine Gastroenterology
DX: K51.90 Ulcerative colitis, unspecified, without complications (principal)
CPT/HCPCS: 36415; 80053; 85027; 85652; 86140; 86704; 86706; 87340

== ENCOUNTER 2025-06-10 12:07 | Outpatient (CLI) | payer MEDICARE, SELFPAY ==
--- OUTSIDE RECORDS SUMMARY | 2024-11-24 13:53 | XMS_ITS | Continuity of Care Document ---
Author Name [facility] Organization [facility] Care Team Providers Care Technical Sourcing Recruiter Name Role Phone [facility] Unavailable Unavailable Encounters [...] ADM Date DC Date Status Disposition Source [facility] Outpatient Encounter [id number] 11/24 [facility]
--- OUTSIDE RECORDS SUMMARY | 2025-06-10 12:11 | XMS_ITS | Clinical Summary ---
Author Organization [facility] Address [address] [place] [phone] Care Team Providers Care Dough Molder Hand Name Role Phone Lupis Wilson MD Primary [...] Description 05/26/2025 10:00 AM CDT Office Visit [facility] Medicine Surgery [address] 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
--- OUTSIDE RECORDS SUMMARY | 2025-06-10 12:11 | XMS_ITS | Encounter Summary ---
Author Organization [facility] Address [address] [place] [address] [place] [address] Care Team Providers Care Chinese Teacher Name Role Phone Unavailable Primary Care Provider Unavailabl e Encounter Details Date Type Department Care Team (Late st Contact Info) Description 06/25/2019 Lab Requisition [facility] DermPath Lab [address] [facility], [facility] [place] [address] Suzie Naranjo MD [address] [facility] 3 [place] [address] Social History Tobacco Use Types Packs/Day Years Used Date Smoking Tobacco: Never Assessed Sex and Gender Information Value Date Recorded Sex Assigned at Not on file 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 Gender Identity Not on file Sexual Orientation Not on file documented as of this encounter Plan of Treatment Not on file documented as of this encounter Procedures Procedure Name Priority Date/Time Associated Diagnosis Comments DERMATOPATHOLOGY Routine 06/24/2019 12:0 0 AM CDT documented in this encounter Results * DERMATOPATHOLOGY (06/24/2019 12:00 AM CDT) Case Report Dermatopathology Report Case: [id number] Authorizing Provider: Suzie Naranjo MD Collected: 06/24/2019 12:00 AM Ordering Location: [facility] DermPath Lab Received: 06/25/2019 05:51 AM [...] The specimen consists of a shave measuring [id number], bisected. Jar 0. 9 5:15 PM CDT [...] characteristic determined by the Dermatopathology Laboratory at [facility], directed by Dr. Demetrio Powell. These tests need not be, and therefore are not, approved by the [place] Food and Drug Administration. The tests are used for clinical purposes. Billing Codes Specimen Charges Stain Charges 34228 1 9 5:15 PM CDT DERMATOPATHOLOGY LABORATORY Embedded Images 9 5:15 PM CDT DERMATOPATHOLOGY LABORATORY Pathology/Cytolog y TISSUE SPECIMEN FROM SKIN / Unknown 06/24/2019 06/25/2019 5:51 AM CDT us Suzie Naranjo MD LAB - PATHOLOGY/CYTOLOGY OR DERABLES Final Result DERMATOPATHOLOGY LABORATORY [facility] - Department of Dermatology [facility] [facility], [address]th [place] [address], [facility] [phone] documented in this encounter Visit Diagnoses Not on filedocumented in this encounter
--- OUTSIDE RECORDS SUMMARY | 2025-06-10 12:11 | XMS_ITS | Clinical Summary ---
Author Organization [facility] Address [address] [place] [address] Care Team Providers Care Hack Driver Name Role Phone Unavailable Primary Care Provider Unavailabl e Source Comments [facility],non-owned Affiliates and Associated Physician Practices is amultiple site organization consisting of ambulatory clinics and hospital sitesin [place], [place], [place] and [place]. This disclosure is being madepursuant to the Care Everywhere program and may not contain all information available regarding this patient. 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 Gender Identity Not on file Sexual Orientation [...] age to complete this topic Insurance MEDICARE [facility] Member Subscriber Plan / Payer (Ef fective 2023-Present) Name:Larry Chao Relation to Subscriber:Self Name:Larry Chao Payer ID:Not on file Group ID:[id number] Type:Secret Lab Address: [facility] [address] [place] [address] MEDICARE [facility] SELF PAY NO INSURANCE Member Subscriber Plan / Payer (Ef fective for All Dates) Name:Laryr Chao Member ID:Not on file Relation to Subscriber:Not on file Name:JEREMIELARRY Subscriber ID:Not on file (Home) Address: [address] [place] [id number] Payer ID:Not on file Group ID:Not on file Type:Self Pay Address: [place], [place] MEDICARE [facility] MEDICARE [facility]
[2025-06-14 06:07] LABS: Calprotectin, Fecal 762 ug/g (0-120)
== END 2025-06-10 12:08 | disposition home or self-care (01) ==
PROVIDERS: PCP Internal Medicine; Visit Provider Internal Medicine Gastroenterology
DX: K51.90 Ulcerative colitis, unspecified, without complications (principal)
CPT/HCPCS: 83993

== ENCOUNTER 2025-06-23 15:12 | Outpatient (CLI) | payer MEDICARE, SELFPAY ==
--- OUTSIDE RECORDS SUMMARY | 2025-06-23 15:37 | XMS_ITS | Clinical Summary ---
Author Organization [facility] Address [address] [facility] [place] [address] Care Team Providers Care Window Unit Air Conditioning Mechanic Name Role Phone Unavailable Primary Care Provider Unavailabl e Source Comments [facility],non-owned Affiliates and Associated Physician Practices is amultiple site organization consisting of ambulatory clinics and hospital sitesin [place], [place], [place] and [place]. This disclosure is being madepursuant to the Care Everywhere program and may not contain all information available regarding this patient. Last updated 18.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 Gender Identity Not on file Sexual Orientation Not on file Plan of Treatment Health Maintenance Due Date Last Done Comments MEDICARE [facility] 12 MONTHS 1945 DTAP/TDAP/TD VACCINES (1 - Tdap) 1964 PNEUMOCOCCAL VACCINE 50+ (1 of 1 - PCV) 1995 ZOSTER VACCINE (1 of 2) 1995 Respiratory Syncytial Virus (RSV) Vaccine Pt: or over 60 yrs (1 - 1-dose 75+ series) 2020 DEPRESSION SCREENING 10/14/2024 COVID-19 VACCINE ( - 2023-2 5 season) 2025 INFLUENZA VACCINE (#1) 2025 HEPATITIS B VACCINE [...] age to complete this topic Insurance MEDICARE [facility] MEDICARE [facility] SELF PAY NO INSURANCE Member Subscriber Plan / Payer (Ef fective for All Dates) Name:Larry Chao Member ID:Not on file Relation to Subscriber:Not on file Name:JEREMIELARRY Subscriber ID:Not on file (Home) Address: [address] [place] [phone] Payer ID:Not on file Group ID:Not on file Type:Self Pay Address: [place], [place] MEDICARE [facility] MEDICARE [facility]
--- OUTSIDE RECORDS SUMMARY | 2025-06-23 15:37 | XMS_ITS | Encounter Summary ---
Author Organization [facility] Address [address] [place] [address] [place] [address] Care Team Providers Care Wheel Setter Name Role Phone Unavailable Primary Care Provider Unavailabl e Encounter Details Date Type Department Care Team (Late st Contact Info) Description 06/25/2019 Lab Requisition [facility] DermPath Lab [address] [facility], [facility] [place] [address] Suzie Naranjo MD [address] [facility] 3 [place] [address] Social History Tobacco Use Types Packs/Day Years Used Date Smoking Tobacco: Never Assessed Sex and Gender Information Value Date Recorded Sex Assigned at Not on file 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 Gender Identity Not on file Sexual Orientation Not on file documented as of this encounter Plan of Treatment Not on file documented as of this encounter Procedures Procedure Name Priority Date/Time Associated Diagnosis Comments DERMATOPATHOLOGY Routine 06/24/2019 12:0 0 AM CDT documented in this encounter Results * DERMATOPATHOLOGY (06/24/2019 12:00 AM CDT) Case Report Dermatopathology Report Case: [id number] Authorizing Provider: Suzie Naranjo MD Collected: 06/24/2019 12:00 AM Ordering Location: [facility] DermPath Lab Received: 06/25/2019 05:51 AM [...] The specimen consists of a shave measuring 8m4w0bv, bisected. Jar 0. 9 5:15 PM CDT [...] characteristic determined by the Dermatopathology Laboratory at [facility], directed by Dr. Demetrio Powell. These tests need not be, and therefore are not, approved by the [place] Food and Drug Administration. The tests are used for clinical purposes. Billing Codes Specimen Charges Stain Charges 28458 1 9 5:15 PM CDT DERMATOPATHOLOGY LABORATORY Embedded Images 9 5:15 PM CDT DERMATOPATHOLOGY LABORATORY Pathology/Cytolog y TISSUE SPECIMEN FROM SKIN / Unknown 06/24/2019 06/25/2019 5:51 AM CDT us Suzie Naranjo MD LAB - PATHOLOGY/CYTOLOGY OR DERABLES Final Result DERMATOPATHOLOGY LABORATORY [facility] - Department of Dermatology [facility] [facility], [address] [place] [address], [facility] [phone] documented in this encounter Visit Diagnoses Not on filedocumented in this encounter
--- OUTSIDE RECORDS SUMMARY | 2025-06-23 15:37 | XMS_ITS | Clinical Summary ---
Author Organization [facility] Address [address] [place] [phone] Care Team Providers Care Refrigerator Room Clerk Name Role Phone Lupis Wilson MD Primary [...] [facility] Medicine Surgery [address] [facility] [address] [place] [phone] Ashley Alvarado MD Aneurysm of ascending aorta without rupture (Primary Dx) 04/23/2025 Orders Only [facility] Medicine Cardiothoracic Surgery [address] [place] [address] for Advanced Medicine 8th Floor [address] [place] [phone] Doug Garnett MD Aneurysm of ascending [...] on file 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
== END 2025-06-23 15:13 | disposition home or self-care (01) ==
LOC: ANHLAB 15:13
PROVIDERS: PCP Internal Medicine; Visit Provider Internal Medicine Gastroenterology
DX: K51.90 Ulcerative colitis, unspecified, without complications (principal)
CPT/HCPCS: 86480